=== PATIENT | female | born 1940 | race Caucasian/White ===

== ENCOUNTER 2023-03-26 08:05 | Outpatient (OUT) | payer MEDICARE, SELFPAY ==
--- NOTE | 2023-03-26 | MM_ITS ---
Patient: MARA JACKSON Exam Date: 03/26/2023 : 1940 Gender:F Ordering : DR Lennox Gilman D.O. Admission #: [id number] Family : Order #: [id number] CLICK HERE TO VIEW EXAM RADIOLOGY REPORT PROCEDURE: MM TOMOSYNTHESIS SCREENING BI COMPARISON: MG MAMM SCREEN 3D GHAZALA CAD, 12/18/2020. MG MAMM SCREEN GHAZALA W CAD, 01/24/2018. INDICATIONS: screening mammogram Calculator Name NCI Breast Cancer Risk Assessment Tool 5 Year Breast Cancer Risk 2.00% Lifetime Breast Cancer Risk 2.80% Personal Breast Cancer No Personal Ovarian Cancer No Treatments None Family Cancers Brother with throat cancer at age 73. LOCATION: [facility] BREAST COMPOSITION: Scattered areas fibroglandular density. FINDINGS: DIAGNOSTIC CATEGORY 2--BENIGN FINDING. NO CHANGE FROM COMPARISON. Scattered benign-appearing calcifications are present. Scattered benign-appearing lymph nodes are present. RIGHT BREAST: No significant suspicious finding. LEFT BREAST: No significant suspicious finding. RECOMMENDATIONS: ROUTINE MAMMOGRAM AND CLINICAL EVALUATION IN 12 MONTHS. PLEASE NOTE: A NORMAL MAMMOGRAM DOES NOT EXCLUDE THE POSSIBILITY OF BREAST CANCER. A CLINICALLY SUSPICIOUS PALPABLE LUMP SHOULD BE BIOPSIED. Dictated by: Raciel Mondragon MD on 03/28/2023 at 12:46 Approved by: Raciel Mondragon MD on 03/28/2023 at 12:47
[2023-03-26 08:40] LABS: Basophils Absolute Auto 0.1 10^3/uL (0.0-0.1); Basophils Percent Auto 1.3 % (0.2-2.0); Eosinophils Absolute Auto 0.2 10^3/uL (0.0-0.7); Eosinophils Percent Auto 2.6 % (0.9-7.0); Hematocrit 36.4 % (36.0-48.0); Hemoglobin 10.9 g/dL (12.0-16.0); Immature Granulocytes Abs Auto 0.02 10^3/uL (0.00-0.03); Immature Granulocytes Pct Auto 0.3 % (0.0-0.5); Lymphocytes Absolute Auto 1.5 10^3/uL (1.2-3.8); Lymphocytes Percent Auto 19.7 % (20.5-60.0); Mean Corpuscular HGB Conc 29.9 g/dL (29.9-35.2); Mean Corpuscular Hemoglobin 28.3 pg (26.7-34.0); Mean Corpuscular Volume 94.5 fL (81.0-99.0); Mean Platelet Volume 9.3 fL (9.5-13.5); Monocytes Percent Auto 12.3 % (1.7-12.0); Neutrophils Percent Auto 63.8 % (43.0-75.0); Platelet Count 304 10^3/uL (150-450); Red Blood Count 3.85 10^6/uL (4.20-5.40); Red Cell Distribution Width 13.8 % (11.0-15.0); White Blood Count 7.8 10^3/uL (4.0-11.0)
[2023-03-26 10:15] LABS: Alanine Aminotransferase 17 U/L (14-59); BUN Creatinine Ratio 22.7; Calcium 8.7 mg/dL (8.5-10.1); Carbon Dioxide 20.8 mmol/L (21.0-32.0); Chloride 104 mmol/L (98-107); Chol HDL Ratio 4.7; Cholesterol 183 mg/dL (<=200); Estimated GFR (African America 58 (>=60); Estimated GFR (Non-African Ame 48 (>=60); Glucose 92 mg/dL (74-106); HDL Cholesterol 39 mg/dL (40-60); Potassium 4.8 mmol/L (3.5-5.1); Sodium 137 mmol/L (136-145); Thyroid Stimulating Hormone 3.607 uIU/mL (0.358-3.740); Triglycerides 144 mg/dL (<=150); VLDL CHOLESTEROL 28.8 mg/dL
[2023-03-26 11:11] LABS: Estimated Average Glucose 117 mg/dL; Glycohemoglobin A1C 5.7 % (4.5-6.2)
== END 2023-03-26 08:06 | disposition home or self-care (01) ==
LOC: MAMMO 08:05
PROVIDERS: PCP Internal Medicine; Visit Provider Internal Medicine
DX: Z12.31 Encounter for screening mammogram for malignant neoplasm of breast (principal); Z80.0 Family history of malignant neoplasm of digestive organs; E78.01 Familial hypercholesterolemia; I25.10 Atherosclerotic heart disease of native coronary artery without angina pectoris; R73.01 Impaired fasting glucose; Z79.899 Other long term (current) drug therapy; R53.83 Other fatigue
CPT/HCPCS: 36415; 77063; 77066; 77067; 80048; 80061; 83036; 84443; 84460; 85025; G0279

== ENCOUNTER 2023-05-11 15:53 | Emergency (ER) | payer MEDICARE, SELFPAY ==
[2023-05-11] VITALS (17 sets, daily range): BP systolic 81–108; BP diastolic 52–71; PULSE 84–153; RESP 15–30; TEMP 36.6; O2SAT 95–98; BMI 31.8
--- NOTE | 2023-05-11 16:11 | XR_ITS ---
The [address] [address] Patient Name: MARA JACKSON MRN: [id number] date: 1940 Sex: F Assigned Patient Location: ER Current Patient Location: ER Accession/Order Number: [id number] Exam Date: 05/11/2023 16:20 Report Date: 05/11/2023 16:42 At the request of: TUYET QUILES Procedure: XR chest 1V EXAMINATION: XR chest 1V HISTORY: Pain COMPARISON: Portable chest 07/30/2019 TECHNIQUE: Portable chest FINDINGS: The lung parenchyma is free of consolidation or infiltrate. No pneumothorax or pleural effusion. The cardiac, mediastinal and hilar contours are normal. The visualized osseous structures exhibit no gross abnormality. XR/XR chest 1V IMPRESSION: No acute cardiopulmonary abnormality. Electronically authenticated by: ALLEN HINKLE Date: 05/11/2023 16:42
--- NOTE | 2023-05-11 16:11 | ECG_ITS ---
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
--- NOTE | 2023-05-11 16:14 | ED_ITS ---
HPI - General Adult General Chief complaint: Arrhythmia/Palpitations Stated complaint: BACK PAIN Time Seen by Provider: 05/11/23 15:54 Source: patient Mode of arrival: walk-in Limitations: no limitations History of Present Illness HPI narrative: patient is an 82-year-old female who presents to the emergency department with her son for the evaluation of thoracic/right scapular pain for the last day. 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 She has had no chest pain, shortness of breath. She has had a mild cough with occasional yellow productive sputum. no fevers or vomiting. She does have a history of atrial fibrillation, she is noted to be in atrial fibrillation with RVR at initial interview. She took two aspirin for pain prior to arrival without improvement. Pain is not worse with movement of the arm. She has not had any falls or injuries. No peripheral edema. She states she sees a acquisitions assistant at the [facility]. She does not currently take any medications for atrial fibrillation. She states it has been several years since she had to be admitted for rapid atrial fibrillation. Related Data Home Medications Medication Instructions Recorded Confirmed aspirin 81 mg tablet,delayed 81 mg PO DAILY 05/11/23 05/11/23 release (Adult Low Dose Aspirin) lisinopril 20 mg tablet 20 mg PO DAILY 05/11/23 05/11/23 metoprolol succinate 25 mg 25 mg PO DAILY 05/11/23 05/11/23 tablet,extended release 24 hr Allergies Allergy/AdvReac Type Severity Reaction Status Date / Time folic acid Allergy Severe Verified 05/11/23 16:12 iron Allergy Severe Verified 05/11/23 16:12 Penicillins Allergy Severe Verified 05/11/23 16:12 Review of Systems ROS Constitutional Denies: fever or chills Ears, nose, mouth, and throat Denies: throat pain Cardiovascular Denies: chest pain Respiratory Reports: cough; Denies: shortness of breath Gastrointestinal Denies: abdominal pain, nausea or vomiting Musculoskeletal Reports: back pain Integumentary/Breast Denies: rash Neurological Denies: headache PFSH PFSH Social History Smoking status: Never smoker Exam Narrative Exam Narrative: Gen.: Awake, alert, in no distress Head: Normocephalic, atraumatic ENT: Moist mucous membranes Respiratory: No respiratory distress, lungs clear bilaterally Cardio: irregularly irregular, tachycardic Gastrointestinal: Abdomen is soft, nondistended and nontender to palpation Extremities: Moves extremities equally, no increased pain to the right shoulder or scapula with range of motion at the right arm, no bony tenderness of the right posterior shoulder Psych: Normal mood and affect Neuro: No focal neuro deficit Skin: Warm, dry, intact Constitutional Vital Signs, click to edit/add: Last Vital Signs Temp 98 F 05/11/23 15:58 Pulse 92 H 05/11/23 18:00 Resp 27 H 05/11/23 18:00 BP 108/71 05/11/23 18:00 Pulse Ox 96 05/11/23 18:00 Course Vital Signs Vital signs: Vital Signs Temperature 98 F 05/11/23 15:58 Pulse Rate 140 H 05/11/23 15:58 Respiratory Rate 20 05/11/23 15:58 Blood Pressure 97/54 05/11/23 15:58 Pulse Oximetry 96 05/11/23 15:58 Temperature 98 F 05/11/23 15:58 Pulse Rate 92 H 05/11/23 18:00 Respiratory Rate 27 H 05/11/23 18:00 Blood Pressure 108/71 05/11/23 18:00 Pulse Oximetry 96 05/11/23 18:00 Medical Decision Making MDM Narrative Medical decision making narrative: patient was treated with IV fluids, 10 mg IV Cardizem with improvement of heart rate. Lab studies show elevated BNP, likely consequence of atrial fibrillation with RVR. Troponin is normal and the patient had no complaints of chest pain or shortness of breath in the Emergency Room. After her heart rate improved with Cardizem, she reported that her back pain felt better. EKG #2 atrial fibrillation at a rate of [address] elevation or ectopy. EKG reviewed by attending physician. patient was reevaluated by attending physician, heart rate remains controlled. Patient and family are comfortable with discharge home, patient has no chest pain, shortness of breath or evidence of fluid overload. They will follow closely with her PCP and acquisitions assistant. She is resting comfortably on reevaluat ion. Return to the Emergency Room if symptoms change or worsen Medical Records Medical records reviewed: Yes I reviewed the patient's medical records Lab Data Lab results reviewed: Yes I reviewed the patient's lab results Labs: Lab Results 05/11/23 Range/Units 16:17 WBC 8.2 (4.0-11.0) 10^3/uL RBC 3.62 L (4.20-5.40) 10^6/uL Hgb 10.5 L (12.0-16.0) g/dL Hct 33.2 L (36.0-48.0) % MCV 91.7 (81.0-99.0) fL MCH 29.0 (26.7-34.0) pg MCHC 31.6 (29.9-35.2) g/dL RDW 13.4 (11.0-15.0) % Plt Count 274 (150-450) 10^3/uL MPV 9.5 (9.5-13.5) fL Neut % (Auto) 74.8 (43.0-75.0) % Lymph % (Auto) 8.3 L (20.5-60.0) % [place] % (Auto) 15.1 H (1.7-12.0) % Eos % (Auto) 0.9 (0.9-7.0) % Baso % (Auto) 0.7 (0.2-2.0) % Neut # (Auto) 6.1 (1.4-6.5) 10^3/uL Lymph # (Auto) 0.7 L (1.2-3.8) 10^3/uL [place] # (Auto) 1.2 H (0.3-0.8) 10^3/uL Eos # (Auto) 0.1 (0.0-0.7) 10^3/uL Baso # (Auto) 0.1 (0.0-0.1) 10^3/uL Abs Immat Gran (auto) 0.02 (0.00-0.03) 10^3/uL Imm/Tot Granulo (auto) 0.2 (0.0-0.5) % PT 11.0 (9.0-11.6) sec INR 1.04 APTT 29.7 (22.3-36.2) sec Sodium 134 L (136-145) mmol/L Potassium 4.7 (3.5-5.1) mmol/L Chloride 101 (98-107) mmol/L Carbon Dioxide 21.5 (21.0-32.0) mmol/L Anion Gap 16.2 BUN 29.0 H (7.0-18.0) mg/dL Creatinine 2.03 H (0.55-1.02) mg/dL Est GFR ( Amer) 28 L (>=60) Est GFR (Non-Af Amer) 24 L (>=60) BUN/Creatinine Ratio 14.3 Glucose 129 H (74-106) mg/dL Calcium 8.4 L (8.5-10.1) mg/dL Total Bilirubin 0.4 (0.2-1.0) mg/dL AST 24 (15-37) U/L ALT 23 (14-59) U/L Alkaline Phosphatase 141 H (46-116) U/L Troponin I High Sens 33.7 (4.0-51.3) pg/mL NT-Pro-B Natriuret Pep 5780.0 H* (<=1800.0) pg/mL Total Protein 7.7 (6.4-8.2) g/dL Albumin 3.3 L (3.4-5.0) g/dL Globulin 4.4 g/dL Albumin/Globulin Ratio 0.8 Imaging Data Chest x-ray: Attestation: I have reviewed the pertinent imaging results. Radiologist's impression: Procedure: XR chest 1V EXAMINATION: XR chest 1V HISTORY: Pain COMPARISON: Portable chest 07/30/2019 TECHNIQUE: Portable chest FINDINGS: The lung parenchyma is free of consolidation or infiltrate. No pneumothorax or pleural effusion. The cardiac, mediastinal and hilar contours are normal. The visualized osseous structures exhibit no gross abnormality. IMPRESSION: No acute cardiopulmonary abnormality. Electronically authenticated by: ALLEN HINKLE Date: 05/11/2023 16:42 ECG Data Attestation: I personally reviewed and interpreted this ECG as follows: (atrial fibrillation with RVR at a rate of 124, no acute ST elevation or ectopy. EKG reviewed by attending physician) Discharge Plan Discharge Chief Complaint: Arrhythmia/Palpitations Clinical Impression: Atrial fibrillation with RVR Patient Disposition: Home, Self-Care Time of Disposition Decision: 17:52 Condition: Good Mode of Transportation: Private Vehicle Prescriptions / Home Meds: No Action lisinopril 20 mg tablet 20 mg PO DAILY metoprolol succinate 25 mg tablet extended release 24 hr 25 mg PO DAILY aspirin [Adult Low Dose Aspirin] 81 mg tablet,delayed release (DR/EC) 81 mg PO DAILY Instructions: A-fib (Atrial Fibrillation) (ED) Additional Instructions: Please follow up closely with your doctor or acquisitions assistant Stand Alone Forms: Portal Instructions Referrals: Lennox Gilman DO [Primary Care Provider] - 1 week Discharge Date/Time: 05/11/23 18:07
[2023-05-11] MEDS: 0.9 % SODIUM CHLORIDE 500 ML IV (16:29)
[2023-05-11 16:32] LABS: Basophils Absolute Auto 0.1 10^3/uL (0.0-0.1); Basophils Percent Auto 0.7 % (0.2-2.0); Eosinophils Absolute Auto 0.1 10^3/uL (0.0-0.7); Eosinophils Percent Auto 0.9 % (0.9-7.0); Hematocrit 33.2 % (36.0-48.0); Hemoglobin 10.5 g/dL (12.0-16.0); Immature Granulocytes Abs Auto 0.02 10^3/uL (0.00-0.03); Immature Granulocytes Pct Auto 0.2 % (0.0-0.5); Lymphocytes Absolute Auto 0.7 10^3/uL (1.2-3.8); Lymphocytes Percent Auto 8.3 % (20.5-60.0); Mean Corpuscular HGB Conc 31.6 g/dL (29.9-35.2); Mean Corpuscular Volume 91.7 fL (81.0-99.0); Mean Platelet Volume 9.5 fL (9.5-13.5); Monocytes Absolute Auto 1.2 10^3/uL (0.3-0.8); Monocytes Percent Auto 15.1 % (1.7-12.0); Neutrophils Absolute Auto 6.1 10^3/uL (1.4-6.5); Neutrophils Percent Auto 74.8 % (43.0-75.0); Platelet Count 274 10^3/uL (150-450); Red Blood Count 3.62 10^6/uL (4.20-5.40); Red Cell Distribution Width 13.4 % (11.0-15.0); White Blood Count 8.2 10^3/uL (4.0-11.0)
[2023-05-11 16:53] LABS: INR 1.04; Partial Thromboplastin Time 29.7 sec (22.3-36.2)
[2023-05-11 16:55] LABS: Alanine Aminotransferase 23 U/L (14-59); Albumin Globulin Ratio 0.8; Albumin Level 3.3 g/dL (3.4-5.0); Alkaline Phosphatase 141 U/L (46-116); Anion Gap 16.2; Aspartate Amino Transferase 24 U/L (15-37); BUN Creatinine Ratio 14.3; Bilirubin Total 0.4 mg/dL (0.2-1.0); Calcium 8.4 mg/dL (8.5-10.1); Carbon Dioxide 21.5 mmol/L (21.0-32.0); Chloride 101 mmol/L (98-107); Estimated GFR (African America 28 (>=60); Estimated GFR (Non-African Ame 24 (>=60); Globulin 4.4 g/dL; Glucose 129 mg/dL (74-106); Potassium 4.7 mmol/L (3.5-5.1); Sodium 134 mmol/L (136-145); Total Protein 7.7 g/dL (6.4-8.2); Troponin I High Sensitivity 33.7 pg/mL (4.0-51.3)
[2023-05-11] MEDS: DILTIAZEM HCL 25 MG/5 ML VIAL 10 MG IV (16:56)
--- NOTE | 2023-05-11 17:27 | ECG_ITS ---
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
== END 2023-05-11 18:07 | disposition home or self-care (01) ==
PROVIDERS: Physician Assistant; Emergency Provider Emergency Medicine; PCP Internal Medicine
DX: I48.91 Unspecified atrial fibrillation (principal); Z79.82 Long term (current) use of aspirin
CPT/HCPCS: 36415; 71045; 80053; 83880; 84484; 85025; 85610; 85730; 93005; 96374; 99285

== ENCOUNTER 2023-06-04 09:12 | Outpatient (OUT) | payer MEDICARE, SELFPAY ==
[2023-06-04 10:14] LABS: Basophils Absolute Auto 0.1 10^3/uL (0.0-0.1); Basophils Percent Auto 1.2 % (0.2-2.0); Eosinophils Absolute Auto 0.2 10^3/uL (0.0-0.7); Eosinophils Percent Auto 2.3 % (0.9-7.0); Hemoglobin 10.4 g/dL (12.0-16.0); Immature Granulocytes Abs Auto 0.02 10^3/uL (0.00-0.03); Immature Granulocytes Pct Auto 0.3 % (0.0-0.5); Lymphocytes Absolute Auto 1.8 10^3/uL (1.2-3.8); Lymphocytes Percent Auto 22.6 % (20.5-60.0); Mean Corpuscular HGB Conc 30.6 g/dL (29.9-35.2); Mean Corpuscular Hemoglobin 28.6 pg (26.7-34.0); Mean Corpuscular Volume 93.4 fL (81.0-99.0); Mean Platelet Volume 9.8 fL (9.5-13.5); Monocytes Absolute Auto 1.1 10^3/uL (0.3-0.8); Monocytes Percent Auto 14.1 % (1.7-12.0); Neutrophils Absolute Auto 4.7 10^3/uL (1.4-6.5); Neutrophils Percent Auto 59.5 % (43.0-75.0); Platelet Count 306 10^3/uL (150-450); Red Blood Count 3.64 10^6/uL (4.20-5.40); White Blood Count 7.8 10^3/uL (4.0-11.0)
[2023-06-04 11:36] LABS: Percent Iron Saturation 10.6 %
== END 2023-06-04 09:13 | disposition home or self-care (01) ==
LOC: LAB 09:13
PROVIDERS: PCP Internal Medicine; Visit Provider Internal Medicine
DX: D64.9 Anemia, unspecified (principal)
CPT/HCPCS: 36415; 82607; 82728; 82746; 83540; 83550; 85025

== ENCOUNTER 2023-06-06 19:00 | Emergency (ER) | payer MEDICARE, SELFPAY ==
[2023-06-06] VITALS (9 sets, daily range): BP systolic 87–117; BP diastolic 66–80; PULSE 97–133; RESP 18–25; TEMP 36.7; O2SAT 97–98; BMI 29.1
--- NOTE | 2023-06-06 19:25 | ECG_ITS ---
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
--- NOTE | 2023-06-06 19:25 | XR_ITS ---
The [address] [address] Patient Name: MARA JACKSON MRN: [id number] date: 1940 Sex: F Assigned Patient Location: ER Current Patient Location: ER Accession/Order Number: [id number] Exam Date: 06/06/2023 19:52 Report Date: 06/06/2023 20:18 At the request of: TUYET QUILES Procedure: XR chest 1V EXAMINATION: XR chest 1V HISTORY: A. Fib COMPARISON: Portable chest 05/11/2023 TECHNIQUE: Portable chest FINDINGS: The lung parenchyma is free of consolidation or infiltrate. No pneumothorax or pleural effusion. The cardiac, mediastinal and hilar contours are normal. The visualized osseous structures exhibit no gross abnormality. XR/XR chest 1V IMPRESSION: No acute cardiopulmonary abnormality. Electronically authenticated by: ALLEN HINKLE Date: 06/06/2023 20:18
--- NOTE | 2023-06-06 19:26 | ED.ARRPALP1 ---
HPI - Arrhythmia/Palpitations General Chief Complaint: Arrhythmia/Palpitations Stated Complaint: AFIB Time Seen by Provider: 06/06/23 19:24 Source: patient and family Mode of arrival: walk-in Limitations: no limitations History of Present Illness HPI narrative: Patient is a very pleasant 82-year-old female with a history of A-fib who presents to the ER for feeling lightheaded earlier today while she was at work. She states currently she does not feel lightheaded, she has not had any chest pain, shortness of breath. She is noted to be in rapid A-fib on arrival to the ER. She has a history of A-fib for many years, she is currently on aspirin and Eliquis, she also is on metoprolol daily. She denies any recent illness, fevers, chills, nausea, vomiting. She is smiling, in no distress at time of initial interview and exam. 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 She has not been to [facility] for cardiology evaluation in years. Related Data Home Medications Medication Instructions Recorded Confirmed aspirin 81 mg tablet,delayed 81 mg PO DAILY 05/11/23 06/06/23 release (Adult Low Dose Aspirin) lisinopril 20 mg tablet 20 mg PO DAILY 05/11/23 06/06/23 metoprolol succinate 25 mg 25 mg PO DAILY 05/11/23 06/06/23 tablet,extended release 24 hr apixaban 5 mg tablet (Eliquis) 5 mg PO DAILY 06/06/23 06/06/23 ezetimibe 10 mg tablet 10 mg PO DAILY 06/06/23 06/06/23 Previous Rx's Medication Instructions Recorded metoprolol succinate 25 mg 50 mg (2 x 25 mg) PO DAILY #20 tabs 06/06/23 tablet,extended release 24 hr Allergies Allergy/AdvReac Type Severity Reaction Status Date / Time folic acid Allergy Severe Verified 05/11/23 16:12 iron Allergy Severe Verified 05/11/23 16:12 Penicillins Allergy Severe Verified 05/11/23 16:12 Review of Systems ROS Constitutional Denies: fever or chills Ears, nose, mouth, and throat Denies: throat pain or nasal congestion Respiratory Denies: shortness of breath Gastrointestinal Denies: abdominal pain, nausea or vomiting Genitourinary Denies: painful urination Musculoskeletal Denies: back pain Integumentary/Breast Denies: rash Neurological Reports: headache Hematologic/Lymphatic Denies: easy bruising PFSH PFS Social History Smoking status: Never smoker Exam Narrative Exam Narrative: Gen.: Awake, alert, in no distress Head: Normocephalic, atraumatic ENT: Moist mucous membranes Respiratory: No respiratory distress, lungs clear bilaterally Cardio: Tachycardic, irregular rhythm Gastrointestinal: Abdomen is soft, nondistended and nontender to palpation Extremities: Moves extremities equally, no pedal edema Psych: Normal mood and affect Neuro: No focal neuro deficit Skin: Warm, dry, intact Constitutional Vital Signs, click to edit/add: Last Vital Signs Temp 98.0 F 06/06/23 19:05 Pulse 100 H 06/06/23 21:00 Resp 22 06/06/23 21:00 BP 90/71 06/06/23 21:00 Pulse Ox 97 06/06/23 21:00 O2 Del Method Room Air 06/06/23 19:05 Course Vital Signs Vital signs: Vital Signs Pulse Oximetry 98 06/06/23 19:04 Temperature 98.0 F 06/06/23 19:05 Pulse Rate 100 H 06/06/23 21:00 Respiratory Rate 22 06/06/23 21:00 Blood Pressure 90/71 06/06/23 21:00 Pulse Oximetry 97 06/06/23 21:00 Oxygen Delivery Method Room Air 06/06/23 19:05 MDM - Arrhythmia/Palpitations MDM Narrative Medical decision making narrative: Patient was medicated with 10 mg IV Cardizem and IV fluids, she continues to be in A-fib but is much more rate controlled. She has no focal medical complaints in the ER. Lab studies are unremarkable including troponin and BNP. Chest x-ray is unremarkable as well. Patient would very much like to be discharged home, I contacted Dr. Gilman, her PCP who recommended increasing her metoprolol to 50 mg daily and follow-up closely in the office. Patient is agreeable to this plan, daughter at bedside is also in agreement with this treatment plan. Return to the ER if symptoms change or worsen. Medical Records Attestation: I reviewed the patient's medical records. Lab Data Attestation: I reviewed the patient's lab results. Labs: Lab Results 06/06/23 Range/Units 19:34 WBC 9.9 (4.0-11.0) 10^3/uL RBC 3.69 L (4.20-5.40) 10^6/uL Hgb 10.6 L (12.0-16.0) g/dL Hct 34.1 L (36.0-48.0) % MCV 92.4 (81.0-99.0) fL MCH 28.7 (26.7-34.0) pg MCHC 31.1 (29.9-35.2) g/dL RDW 13.0 (11.0-15.0) % Plt Count 293 (150-450) 10^3/uL MPV 9.4 L (9.5-13.5) fL Neut % (Auto) 60.5 (43.0-75.0) % Lymph % (Auto) 22.6 (20.5-60.0) % [place] % (Auto) 13.3 H (1.7-12.0) % Eos % (Auto) 2.5 (0.9-7.0) % Baso % (Auto) 0.9 (0.2-2.0) % Neut # (Auto) 6.0 (1.4-6.5) 10^3/uL Lymph # (Auto) 2.2 (1.2-3.8) 10^3/uL [place] # (Auto) 1.3 H (0.3-0.8) 10^3/uL Eos # (Auto) 0.3 (0.0-0.7) 10^3/uL Baso # (Auto) 0.1 (0.0-0.1) 10^3/uL Abs Immat Gran (auto) 0.02 (0.00-0.03) 10^3/uL Imm/Tot Granulo (auto) 0.2 (0.0-0.5) % PT 10.8 (9.0-11.6) sec INR 1.02 Sodium 137 (136-145) mmol/L Potassium 4.5 (3.5-5.1) mmol/L Chloride 104 (98-107) mmol/L Carbon Dioxide 23.5 (21.0-32.0) mmol/L Anion Gap 14.0 BUN 21.0 H (7.0-18.0) mg/dL Creatinine 1.35 H (0.55-1.02) mg/dL Est GFR ( Amer) 46 L (>=60) Est GFR (Non-Af Amer) 38 L (>=60) BUN/Creatinine Ratio 15.6 Glucose 102 (74-106) mg/dL Calcium 8.0 L (8.5-10.1) mg/dL Magnesium 2.0 (1.8-2.4) mg/dL Total Bilirubin 0.3 (0.2-1.0) mg/dL AST 18 (15-37) U/L ALT 20 (14-59) U/L Alkaline Phosphatase 147 H (46-116) U/L Troponin I High Sens 16.7 (4.0-51.3) pg/mL NT-Pro-B Natriuret Pep 1556.0 (<=1800.0) pg/mL Total Protein 7.2 (6.4-8.2) g/dL Albumin 3.0 L (3.4-5.0) g/dL Globulin 4.2 g/dL Albumin/Globulin Ratio 0.7 TSH 4.690 H (0.358-3.740) uIU/mL Imaging Data Chest x-ray: Attestation: I have reviewed the pertinent imaging results. Radiologist's impression: Procedure: XR chest 1V EXAMINATION: XR chest 1V HISTORY: A. Fib COMPARISON: Portable chest 05/11/2023 TECHNIQUE: Portable chest FINDINGS: The lung parenchyma is free of consolidation or infiltrate. No pneumothorax or pleural effusion. The cardiac, mediastinal and hilar contours are normal. The visualized osseous structures exhibit no gross abnormality. IMPRESSION: No acute cardiopulmonary abnormality. Electronically authenticated by: ALLEN HINKLE Date: 06/06/2023 20:18 ECG Data Attestation: I personally reviewed and interpreted this ECG as follows: (A-fib with RVR at a rate of 137, no acute ST elevation, no ectopy. EKG reviewed by attending physician) Discharge Plan Discharge Chief Complaint: Arrhythmia/Palpitations Clinical Impression: Atrial fibrillation with RVR Patient Disposition: Home, Self-Care Time of Disposition Decision: 21:07 Condition: Good Prescriptions / Home Meds: New metoprolol succinate 25 mg tablet extended release 24 hr 50 mg PO DAILY Qty: 20 0RF No Action lisinopril 20 mg tablet 20 mg PO DAILY metoprolol succinate 25 mg tablet extended release 24 hr 25 mg PO DAILY aspirin [Adult Low Dose Aspirin] 81 mg tablet,delayed release (DR/EC) 81 mg PO DAILY Eliquis 5 mg tablet 5 mg PO DAILY ezetimibe 10 mg tablet 10 mg PO DAILY Instructions: A-fib (Atrial Fibrillation) (ED) Stand Alone Forms: Portal Instructions Referrals: Lennox Gilman DO [Primary Care Provider] - 1 week Discharge Date/Time: 06/06/23 21:14
[2023-06-06] MEDS: DILTIAZEM HCL 25 MG/5 ML VIAL 10 MG IV (19:41)
[2023-06-06] MEDS: 0.9 % SODIUM CHLORIDE 1,000 ML 250 ML IV (19:41)
[2023-06-06 19:45] LABS: Basophils Absolute Auto 0.1 10^3/uL (0.0-0.1); Basophils Percent Auto 0.9 % (0.2-2.0); Eosinophils Absolute Auto 0.3 10^3/uL (0.0-0.7); Eosinophils Percent Auto 2.5 % (0.9-7.0); Hematocrit 34.1 % (36.0-48.0); Hemoglobin 10.6 g/dL (12.0-16.0); Immature Granulocytes Abs Auto 0.02 10^3/uL (0.00-0.03); Immature Granulocytes Pct Auto 0.2 % (0.0-0.5); Lymphocytes Absolute Auto 2.2 10^3/uL (1.2-3.8); Lymphocytes Percent Auto 22.6 % (20.5-60.0); Mean Corpuscular HGB Conc 31.1 g/dL (29.9-35.2); Mean Corpuscular Hemoglobin 28.7 pg (26.7-34.0); Mean Corpuscular Volume 92.4 fL (81.0-99.0); Mean Platelet Volume 9.4 fL (9.5-13.5); Monocytes Absolute Auto 1.3 10^3/uL (0.3-0.8); Monocytes Percent Auto 13.3 % (1.7-12.0); Neutrophils Percent Auto 60.5 % (43.0-75.0); Platelet Count 293 10^3/uL (150-450); Red Blood Count 3.69 10^6/uL (4.20-5.40); White Blood Count 9.9 10^3/uL (4.0-11.0)
[2023-06-06 19:59] LABS: INR 1.02; Prothrombin Time 10.8 sec (9.0-11.6)
[2023-06-06 20:19] LABS: Alanine Aminotransferase 20 U/L (14-59); Albumin Globulin Ratio 0.7; Alkaline Phosphatase 147 U/L (46-116); Aspartate Amino Transferase 18 U/L (15-37); BUN Creatinine Ratio 15.6; Bilirubin Total 0.3 mg/dL (0.2-1.0); Carbon Dioxide 23.5 mmol/L (21.0-32.0); Chloride 104 mmol/L (98-107); Estimated GFR (African America 46 (>=60); Estimated GFR (Non-African Ame 38 (>=60); Globulin 4.2 g/dL; Glucose 102 mg/dL (74-106); Potassium 4.5 mmol/L (3.5-5.1); Sodium 137 mmol/L (136-145); Total Protein 7.2 g/dL (6.4-8.2); Troponin I High Sensitivity 16.7 pg/mL (4.0-51.3)
== END 2023-06-06 21:14 | disposition home or self-care (01) ==
PROVIDERS: Physician Assistant; Emergency Provider Emergency Medicine; PCP Internal Medicine
DX: I48.91 Unspecified atrial fibrillation (principal); Z79.82 Long term (current) use of aspirin; Z79.01 Long term (current) use of anticoagulants; Z79.899 Other long term (current) drug therapy
CPT/HCPCS: 36415; 71045; 80053; 83735; 83880; 84443; 84484; 85025; 85610; 93005; 96374; 99285

== ENCOUNTER 2023-07-11 13:43 | Outpatient (OUT) | payer MEDICARE, SELFPAY ==
--- OUTSIDE RECORDS SUMMARY | 2023-07-11 13:53 | XMS_ITS | CCD ---
Author Name Unknown Address [address] [place] [address] Organization [facility] Care Team Providers Care Model And Pattern Supervisor Name Role Phone SUSIE POE Unavailable Unavailable ROEL MILES (ACCOUNTS MANAGER) Unavailable SUSIE Driver Unavailable Unavailable SUSIE POE Unavailable Unavailable SSUIE POE Unavailable Unavailable ROEL MILES (ACCOUNTS MANAGER) Unavailable Lennox Alcazar Primary Care Provider Lennox Gilman DO Primary Care Provider [phone] Lennox Gilman DO Primary Care Provider [phone] Lennox Gilman Unavailable LENNOX GILMAN Primary Care Unavailable NESS, MELISSA C Referring Unavailable SUDHAKAR, LENNOX Primary Care Unavailable NESS, MELISSA C Referring Unavailable SUDHAKAR, LENNOX Primary Care Unavailable NESS, MELISSA C Referring Unavailable SUDHAKAR, LENNOX Primary Care Unavailable NESS, MELISSA C Referring Unavailable SUDHAKAR, LENNOX Primary Care Unavailable NESS, MELISSA C Referring Unavailable SUDHAKAR, LENNOX Primary Care Unavailable NESS, MELISSA C Referring Unavailable LENNOX GILMAN Primary Care Unavailable NESS, MELISSA C Referring Unavailable BALL, LENNOX Primary Care Unavailable NESS, MELISSA C Referring Unavailable BALL, LENNOX Primary Care Unavailable NESS, MELISSA C Referring Unavailable BALL, LENNOX Primary Care Unavailable NESS, MELISSA C Referring Unavailable BALL, LENNOX Primary Care Unavailable NESS, MELISSA C Referring Unavailable BALL, LENNOX Primary Care Unavailable NESS, MELISSA C Referring Unavailable BALL, LENNOX Primary Care Unavailable NESS, MELISSA C Referring Unavailable BALL, LENNOX Primary Care Unavailable NESS, MELISSA C Referring Unavailable BALL, LENNOX Primary Care Unavailable NESS, MELISSA C Referring Unavailable BALL, LENNOX Primary Care Unavailable NESS, MELISSA C Referring Unavailable BALL, LENNOX Primary Care Unavailable NESS, MELISSA C Referring Unavailable BALL, LENNOX Primary Care Unavailable NESS, MELISSA C Referring Unavailable BALL, LENNOX Primary Care Unavailable NESS, MELISSA C Referring Unavailable BALL, LENNOX Primary Care Unavailable NESS, MELISSA C Referring Unavailable BALL, LENNOX Primary Care Unavailable NESS, MELISSA C Referring Unavailable BALL, LENNOX Primary Care Unavailable NESS, MELISSA C Referring Unavailable BALL, LENNOX Primary Care Unavailable NESS, MELISSA C Referring Unavailable BALL, LENNOX Primary Care Unavailable NESS, MELISSA C Referring Unavailable BALL, LENNOX Primary Care Unavailable NESS, MELISSA C Referring Unavailable BALL, DR CUBA Primary Care Unavailable JENNY ., CORNELIA Admitting Unavailable JENNY ., CORNELIA Attending Unavailable SULEMA, DR CAT Collado Consulting Unavailable ERICA, CARLA Consulting Unavailable JENNY ., CORNELIA Consulting Unavailable SUDHAKAR, DR CUBA Primary Care Unavailable OSWALD, KINZA Gu Admitting Unavailable OSWALD, KINZA Gu Attending Unavailable Zieber, Melissa Consulting Unavailable KINZA AKERS Consulting Unavailable BALL, DR CUBA Admitting Unavailable BALL, DR CUBA Attending Unavailable BALL, DR CUBA Primary Care Unavailable BALL, DR CUBA Consulting Unavailable BALL, DR CUBA Admitting Unavailable BALL, DR CUBA Attending Unavailable BALL, DR CUBA Primary Care Unavailable BALL, DR CUBA Consulting Unavailable BALL, DR CUBA Admitting Unavailable BALL, DR CUBA Attending Unavailable BALL, DR CUBA Primary Care Unavailable BALL, DR CUBA Consulting Unavailable Allergies Allergy Classification Reported Allergen(s) Allergy Type Date of Onset Reaction(s) Facility (20 sources) Folic Acid; Translations: [FOLIC ACID] Drug Allergy 11-10-19 18 AOF, Unknown [facility] Repository (2 sources) Penicillin; Translations: [PENICILLIN] Drug Allergy 11-10-19 [facility] Repository (18 sources) Alendronate Drug Allergy Unknown [facility] Other (18 sources) Substance with penicillin structure and antibacterial mechanism of action (substance) Drug allergy Unknown [facility] Other (18 sources) PCV 13 Propensity to adverse reactions Unknown [facility] Other (1 source) ferrous sulfate Drug Allergy [facility] Repository (11 sources) Pneumococcal 7-Arcelia Conj Vacc Drug allergy Comment:PCV 13 [facility] Other (11 sources) Pneumococcal 13-Arcelia Conj Vacc Drug allergy Unknown [facility] Other (8 sources) HMG-CoA reductase inhibitor Drug allergy Unknown [facility] Other Medications Current Medications Medication Drug Class(es) Dates Sig (Normalized) Sig (Original) apixaban 5 mg oral tablet (6 sources) Factor Xa Inhibitor take 1 tablet by mouth every twelve hours Eliquis 5 MG 1 tablet Orally twice a day for 90 days Active aspirin 81 mg chewable tablet (18 sources) Platelet Aggregation Inhibitor, Nonsteroidal Anti-inflammatory Drug take 1 tablet by mouth every twenty-four hours Aspirin 81 81 MG 1 tablet Orally Once a day Active take 1 tablet by mouth once roula y Aspirin 81 81 MG 1 tablet Orally Once a day Active ezetimibe 10 mg oral tablet (8 sources) Dietary Cholesterol Absorption Inhibitor Start: 03-31-2023 take 1 tablet by mouth every twenty-four hours Ezetimibe 10 MG 1 tablet Orally Once a day Mar, Active folic acid 1 mg oral tablet (4 sources) Start: 06-05-2023 take 1 tablet by mouth every twenty-four hours Folic Acid 1 MG 1 tablet Orally Once a day May, Active lisinopril 20 mg oral tablet (18 sources) Angiotensin Converting Enzyme Inhibitor take 1 tablet by mouth every twenty-four hours Lisinopril 20 MG 1 tablet Orally Once a day Active 24 hr metoprolol succinate 25 mg extended release oral tablet (18 sources) beta-Adrenergic Gonzalo take 1 tablet by mouth twice daily Metoprolol Succinate ER 25 MG 1 tablet Orally twice daily for 90 days Active Metoprolol Succi ileana ER 50 MG TAKE ONE TABLET BY MOUTH DAILY Orally Once a day for 30 days Active take 1 tablet by mouth once roula y Metoprolol Succinate ER 25 MG TAKE ONE TABLET BY MOUTH DAILY Active paxlovid (150/100) 10 x 150 mg & 10 x 100mg tablet therapy pack (2 sources) Start: 05-13-2023 Paxlovid (150/ 100) 10 x 150 MG & 10 x 100MG as directed Orally bid for 5 days Apr, Active polysaccharide iron complex 150 mg oral capsule (18 sources) take 1 capsule by mouth three times weekly Ferrex 150 150 MG 1 capsule Orally Three times a Week Active Suprep Bowel Prep Kit 17.5-3.13-1.6 GM/180ML (18 sources) Start: 12-23-2017 Start: 12-23-2017 Suprep Bowel P rep Kit 17.5-3.13-1.6 GM/180ML 1 bottleat 5pm and 11pm Orally Twice a day for 1 day(s) Nov, Not-Taking/PRN Start: 12-23-2017 Suprep Bowel P rep Kit 17.5-3.13-1.6 GM/180ML 1 bottleat 5pm and 11pm Orally Twice a day for 1 day(s) Nov, Not-Taking {10 (nirmatrelvir 150 MG Ora l Tablet) / 10 (ritonavir 100 MG Oral Tablet) } Pack [Paxlovid 150 MG /100 MG Dose Pack] (3 sources) Start: 05-13-2023 Paxlovid (150/ 100) 10 x 150 MG & 10 x 100MG as directed Orally bid for 5 days Apr, Active Problems Active Problems Problem Classification Problem Date Documented Da te Episodic/Chronic Acute myocardial infarction (5 sources) Acute non-ST segment elevation myocardial infarction; Translations: [Non-ST elevation (NSTEMI) myocardial infarction] Onset: 07-22-2015 Chronic Cardiac dysrhythmias (20 sources) Paroxysmal atrial fibrillation; Translations: [Paroxysmal atrial fibrillation] Onset: 10-18-2022 Chronic Cardiac dysrhythmias (3 sources) Palpitations; Translations: [PALPITATIONS] Onset: 10-18-2022 Episodic Chronic kidney disease (2 sources) Chronic kidney disease stage 3B ; Translations: [Stage 3b chronic kidney disease] Chronic Conditions associated with dizziness or vertigo (20 sources) Benign paroxysmal positional vertigo; Translations: [Benign paroxysmal vertigo, right ear] Onset: 02-09-2017 Episodic Coronary atherosclerosis and other heart disease (20 sources) Coronary arteriosclerosis; Translations: [Atherosclerotic heart disease of samish coronary artery without angina pectoris] Onset: 07-22-2015 Chronic Deficiency and other anemia (20 sources) Anemia; Translations: [Anemia, unspecified] Episodic Deficiency and other anemia (6 sources) Anemia, unspecified; Translations: [ANEMIA UNSPECIFIED] Onset: 02-11-2022 Episodic Deficiency and other anemia (7 sources) Iron deficiency anemia; Translations: [Iron deficiency anemia, unspecified] Onset: 05-18-2017 Episodic Deficiency and other anemia (1 source) Dietary folate deficiency anemia Episodic Deficiency and other anemia (1 source) Other folate deficiency anemias Episodic Deficiency and other anemia (1 source) Other iron deficiency anemias Episodic Diabetes mellitus with complications (5 sources) Hyperglycemia due to type 2 diabetes mellitus; Translations: [Type 2 diabetes mellitus with hyperglycemia] Chronic Diabetes mellitus without complication (20 sources) Impaired fasting glycemia; Translations: [Impaired fasting glucose] Onset: 10-18-2022 Episodic Disorders of lipid metabolism (20 sources) Pure hypercholesterolemia ; Translations: [Familial hypercholesterolemia ] Onset: 08-08-2015 Chronic Essential hypertension (20 sources) Essential hypertension; Translations: [Essential (primary) hypertension] Onset: 10-13-2022 Chronic Fracture of lower limb (4 sources) Closed fracture proximal tibia, bicondylar ; Translations: [Displaced bicondylar fracture of right tibia, subsequent encounter for closed fracture with routine healing] Onset: 06-24-2022 Episodic Malaise and fatigue (3 sources) Other fatigue; Translations: [OTHER FATIGUE] Onset: 10-18-2022 Episodic Menopausal disorders (10 sources) Postmenopausal bleeding; Translations: [Postmenopausal bleeding] Onset: 12-01-2016 Chronic Nutritional deficiencies (5 sources) Vitamin D deficiency; Translations: [Vitamin D deficiency, unspecified] Onset: 09-19-2018 Chronic Osteoarthritis (5 sources) Osteoarthritis; Translations: [Polyosteoarthritis, unspecified] Chronic Other aftercare (18 sources) H/O: high risk medication; Translations: [Other intermediate card tender (current) drug therapy] Episodic Other aftercare (2 sources) Other intermediate card tender (current) drug therapy; Translations: [OTH ALF CURRENT DRUG THERAPY] Onset: 03-15-2022 Episodic Other aftercare (5 sources) History and physical examination, follow-up; Translations: [Encounter for follow-up examination after completed treatment for conditions other than malignant neoplasm] Episodic Other aftercare (5 sources) Long-term current use of drug therapy; Translations: [Other intermediate card tender (current) drug therapy] Episodic Other bone disease and musculoskeletal deformities (5 sources) Bone density finding; Translations: [Other specified disorders of bone density and structure, unspecified site] Episodic Other injuries and conditions due to external causes (5 sources) History of fall; Translations: [History of falling] Episodic Other nutritional; endocrine; and metabolic disorders (5 sources) Obesity; Translations: [Obesity, unspecified] Chronic Other nutritional; endocrine; and metabolic disorders (5 sources) Simple obesity ; Translations: [Other obesity due to excess calories] Chronic Other screening for suspected conditions (not mental disorders or infectious disease) (1 source) Encounter for screening mammogram for malignant neoplasm of breast Episodic Prolapse of female genital organs (10 sources) Incomplete uterovaginal prolapse; Translations: [Incomplete uterovaginal prolapse] Onset: 12-01-2016 Resolved: 02-24-2017 Chronic Residual codes; unclassified (5 sources) Postprocedural state finding; Translations: [Other specified postprocedural states] Episodic Urinary tract infections (20 sources) Acute cystitis; Translations: [Acute cystitis without hematuria] Resolved: 10-14-2020 Episodic Past or Other Problems Problem Classification Problem Date Documented Date Episodic/Chronic Acute posthemorrhagic anemia (5 sources) Acute posthemorrhagic anemia; Translations: [Acute posthemorrhagic anemia] Onset: 05-18-2017 Episodic Allergic reactions (5 sources) Idiopathic urticaria; Translations: [Idiopathic urticaria] Onset: 03-04-2017 Episodic Chronic kidney disease (1 source) Chronic kidney disease E Codes: Adverse effects of medical drugs (5 sources) Adverse effect of iron and its compounds, initial encounter; Translations: [Adverse effect of iron and its compounds, initial encounter] Onset: 02-24-2017 Episodic E Codes: Fall (1 source) Unspecified fall, initial encounter; Translations: [UNSPECIFIED FALL INITIAL ENCOUNTER] Onset: 04-13-2022 Episodic Fracture of lower limb (1 source) Displaced bicondylar fracture of left tibia, initial encounter for closed fracture; Translations: [DSPL BICONDYLAR FX LT TIB INIT FARRAH] Onset: 04-13-2022 Episodic Inflammation; infection of eye (except that caused by tuberculosis or sexually transmitteddisease) (5 sources) Acute conjunctivitis; Translations: [Unspecified acute conjunctivitis, unspecified eye] Onset: 05-28-2015 Episodic Other aftercare (1 source) half-way (current) use of aspirin; Translations: [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 USE OF ASPIRIN] Onset: 03-15-2022 Episodic Other nervous system disorders (5 sources) Skin sensation disturbance; Translations: [Other disturbances of skin sensation] Onset: 09-19-2018 Episodic Other nervous system disorders (5 sources) Hyperesthesia; Translations: [Hyperesthesia] Onset: 09-19-2018 Episodic Other non-traumatic joint disorders (3 sources) Pain in right knee; Translations: [PAIN IN RIGHT KNEE] Onset: 04-11-2022 Episodic Other nutritional; endocrine; and metabolic disorders (5 sources) Body mass index 25-29 - overweight; Translations: [Body mass index (BMI) 29.0-29.9, adult] Onset: 08-08-2015 Episodic Other nutritional; endocrine; and metabolic disorders (5 sources) Overweight; Translations: [Overweight] Onset: 08-08-2015 Episodic Other upper respiratory infections (5 sources) Acute maxillary sinusitis; Translations: [Acute maxillary sinusitis, unspecified] Onset: 08-17-2016 Episodic Leela-; endo-; and myocarditis; cardiomyopathy (except that caused by tuberculosis or sexually transmitted disease) (1 source) Isolated myocarditis; Translations: [Isolated myocarditis] Onset: 11-09-2017 Episodic Viral infection (2 sources) COVID-19 Results Test Name Value Interpretation Reference Range Facility CBC AUTO DIFFon 10-13-2022 BASO # 0.1 103/ul Normal 0.0-0.1 [facility] Comment on above: Performed By: #### C BC #### [facility] [address] [place] [address] Dr. Rip Pace Basophils/100 WBC (Bld) 1.6 % Normal 0.2-2.0 [facility] Comment on above: Performed By: #### C BC #### [facility] [address] [place] [address] Dr. Rip Pace EO # 0.2 103/ul Normal 0.0-0.7 [facility] Comment on above: Performed By: #### C BC #### [facility] [address] [place] [address] Dr. Rip Pace Eosinophils/100 WBC (Bld) 2.5 % Normal 0.9-7.0 [facility] Comment on above: Performed By: #### C BC #### [facility] [address] [place] [address] Dr. Rip Pace Erythrocyte distribution width (RBC) [Ratio] 13.3 % Normal 11.0-15.0 [facility] Comment on above: Performed By: #### C BC #### [facility] [address] [place] [address] Dr. Rip Pace Hematocrit (Bld) [Volume fraction] 39.4 % Normal 36.0-48.0 [facility] Comment on above: Performed By: #### C BC #### [facility] [address] [place] [address] Dr. Rip Pace Hemoglobin (Bld) [Mass/Vol] 12.2 g/dL Normal 12.0-16.0 [facility] Comment on above: Performed By: #### C BC #### [facility] [address] [place] [address] Dr. Rip Pace IG # 0.01 10e3/ul Normal 0.00-0.03 [facility] Comment on above: Performed By: #### C BC #### [facility] [address] [place] [address] Dr. Rip Pace IG % 0.1 % Normal 0.0-0.5 [facility] Comment on above: Performed By: #### C BC #### [facility] [address] [place] [address] Dr. Rip Pace LYMPH # 1.8 103/ul Normal 1.2-3.8 [facility] Comment on above: Performed By: #### C BC #### [facility] [address] [place] [address] Dr. Rip Pace Lymphocytes/100 WBC (Bld) 23.5 % Normal 20.5-60.0 [facility] Comment on above: Performed By: #### C BC #### [facility] [address] [place] [address] Dr. Rip Pace MANUAL DIFF REQ NO Normal [facility] Comment on above: Performed By: #### C BC #### [facility] [address] [place] [address] Dr. Rip Pace MCH (RBC) [Entitic mass] 28.9 pg Normal 26.7-34.0 [facility] Comment on above: Performed By: #### C BC #### [facility] [address] [place] [address] Dr. Rip Pace MCHC (RBC) [Mass/Vol] 31.0 g/dL Normal 29.9-35.2 [facility] Comment on above: Performed By: #### C BC #### [facility] [address] [address] [address] Rip Pace MCV (RBC) [Entitic vol] 93.4 fL Normal 81.0-99.0 [facility] Comment on above: Performed By: #### C BC #### [facility] [address] [place] [address] Dr. Rip Pace MONO # 0.9 103/ul Critically high 0.3-0.8 [facility] Comment on above: Performed By: #### C BC #### [facility] [address] [place] [address] Dr. Rip Pace Monocytes/100 WBC (Bld) 11.9 % Normal 1.7-12.0 [facility] Comment on above: Performed By: #### C BC #### [facility] [address] [place] [address] Dr. Rip Pace NEUT # 4.7 103/ul Normal 1.4-6.5 [facility] Comment on above: Performed By: #### C BC #### [facility] [address] [place] [address] Dr. Rip Pace Neutrophils/100 WBC (Bld) 60.4 % Normal 43.0-75.0 [facility] Comment on above: Performed By: #### C BC #### [facility] [address] [place] [address] Dr. Rip Pace Platelet mean volume (Bld) [Entitic vol] 9.2 fL Critically low 9.5-13.5 [facility] Comment on above: Performed By: #### C BC #### [facility] [address] [place] [address] Dr. Rip Pace PLT 322 103/ul Normal 150-450 [facility] Comment on above: Performed By: #### C BC #### [facility] [address] [place] [address] Dr. Rip Pace RBC 4.22 106/ul Normal 4.20-5.40 [facility] Comment on above: Performed By: #### C BC #### [facility] [address] [place], [place] [address] Dr. Rip Pace WBC 7.7 103/ul Normal 4.0-11.0 [facility] Comment on above: Performed By: #### C BC #### [facility] [address] [place], [place] [address] Dr. Rip Pace ECHOCARDIO M/2D COMPLETEon 0 10-13-2022 ECHOCARDIO M/2D COMPLETE Patient: JANNIE LEE Exam Date: 10/13/2022 : 1940 Gender:F Ordering : DR LENNOX GILMAN D.O. Admission #: [id number] Family : Order #: [id number] CLICK HERE TO VIEW EXAM ECHOCARDIOGRAM REPORT PROCEDURE: CARDIO PULMONARY ECHOCARDIO M/2D COMP INDICATIONS: Arteriosclerotic heart disease, MN, hypertension, h/o atrial fibrillation COMPARISON: None. DESCRIPTION: COMPLETE ECHOCARDIOGRAM Real-time transthoracic echocardiography with 2D, M-mode, spectral and color flow Doppler performed. QUALITY: Technical quality was good. LEFT VENTRICLE: Normal chamber size. Normal left ventricular wall thickness. Systolic function is normal. LV EF: Normal left ventricular ejection fraction, (>55%). DIASTOLIC: Diastolic function is indeterminate. ATRIAL SEPTUM: LEFT ATRIUM: Normal chamber size. RIGHT ATRIUM: Normal chamber size. RIGHT VENTRICLE: Normal chamber size. Normal right ventricular systolic function. TRICUSPID VALVE: Normal mobility and thickness. No stenosis with no regurgitation. MITRAL VALVE: Normal mobility and thickness. No evidence of mitral valve stenosis. Mild mitral annular calcification. Trivial mitral regurgitation. AORTIC VALVE: Normal trileaflet appearance. No visible sclerosis. Normal leaflet mobility. No evidence of aortic valve stenosis. No aortic regurgitation. AORTIC ROOT: Normal diameter and appearance. PULMONIC VALVE: Not well visualized. No stenosis. No regurgitation. PERICARDIUM: No evidence of pericardial effusion. IVC: Not well visualized. PLEURA: CONCLUSION: 1. Normal ventricular function. LVEF is 55-60%. 2. No significant valvular dysfunction. 3. No pericardial effusion. Adult Echocardiography Procedure Report Left Ventricle LVEDD (3.7 - 5.6 cm): 4.12 cm LVESD (2.2 - 4.0 cm): 2.84 cm LVIVS thickness (0.6 - 1.2 cm): 0.91 cm LVPW thickness (0.5 - 1.0 cm): 0.85 cm e': 0.07 m/s E - e': 9.32 LVOT Max Gradient: 2.87 mm[Hg] Peak Velocity (LVOT): 0.85 m/s Mean Velocity (LVOT): 0.60 m/s LVOT Diameter 2.07 cm Left Ventricular Ejection Fraction: 55-60 % Left Atrium LA Volume Index (2D A2C): 58.82 ml, 58.82 ml Left Atrium Systolic Dimension: 4.22 cm Mitral Valve MV E to A Ratio: 0.74 Mitral Valve A-Wave Peak Velocity: 0.94 m/s Mitral Valve E-Wave Peak Velocity: 0.70 m/s Right Ventricle Aorta AO Root Diam: 2.89 cm Aortic Valve AoV Area (Peak Andrea): 2.43 cm2, 2.43 cm2 AoV Area (VTI): 2.21 cm2, 2.21 cm2 Peak Velocity(Antegrade Flow): 1.17 m/s Peak Gradient(Antegrade Flow): 5.48 mm[Hg] Mean Velocity(Antegrade Flow): 0.84 m/s Mean Gradient(Antegrade Flow): 3.16 mm[Hg] Velocity Time Integral: 26.81 cm Tricuspid Valve Peak Velocity: 0.46 m/s Pulmonic Valve Peak Velocity: 0.67 m/s Peak Gradient: 1.77 mm[Hg] Right Atrium Right Atrium Systolic Pressure: 44.77 ml, 44.77 ml Dictated by: Mingo Tai M.D. on 10/13/2022 at 16:37 Approved by: Mingo Tai M.D. on 10/13/2022 at 16:41 Normal [facility] GLYCOHEMOGLOBIN A1Con 2022 ADA RECOMMENDATION SEE BELOW Normal [facility] Comment on above: Result Comment: ADA RECOMMENDED LIMIT 4.0 - 6.0 ADA THERAPEUTIC TARGET < 7.0 ACTION SUGGESTED > 7.0 Performed By: #### A 1C ####[facility] [id number] [address]Dr. Rip Pace Glucose [Mass/Vol] 108 mg/dL Normal [facility] Comment on above: Performed By: #### A 1C ####[facility] [id number] [address]Dr. Rip Pace HbA1c (Bld) [Mass fraction] 5.4 % Normal 4.5-6.2 [facility] Comment on above: Performed By: #### A 1C ####[facility] [id number] [address]Dr. Rip Pace PROF CHEM 8 (BAS METB)on Anion gap [Moles/Vol] 13.9 mmol/L Normal [facility] Comment on above: Performed By: #### B ANTHONY, TSH #### [facility] [address] [address] [address] Rip Pace Calcium [Mass/Vol] 9.0 mg/dL Normal 8.5-10.1 [facility] Comment on above: Performed By: #### B ANTHONY, TSH #### [facility] [address] [address] [address] Rip Pace Chloride [Moles/Vol] 105 mmol/L Normal 98-107 [facility] Comment on above: Performed By: #### B ANTHONY, TSH #### [facility] [address] [address] [address] Rip Pace CO2 [Moles/Vol] 25.3 mmol/L Normal 21.0-32.0 [facility] Comment on above: Performed By: #### B ANTHONY, TSH #### [facility] [address] [address] [address] Rip Pace Creatinine [Mass/Vol] 1.19 mg/dL Critically high 0.55-1.02 [facility] Comment on above: Performed By: #### B ANTHONY, TSH #### [facility] [address] [address] [address] Rip Pace EGFR-AF PUERTO RICAN 53 mL/min/1.73m2 Critically low >=60 [facility] Comment on above: Performed By: #### B ANTHONY, TSH #### [facility] [address] [address] [address] Rip Pace EGFR-NON AF PUERTO RICAN 44 mL/min/1.73m2 Critically low >=60 [facility] Comment on above: Performed By: #### B MP, TSH #### [facility] [address] [address] [address] Rip Pace Glucose [Mass/Vol] 82 mg/dL Normal 74-106 [facility] Comment on above: Performed By: #### B MP, TSH #### [facility] [address] [address] [address] Rip Pace Potassium [Moles/Vol] 5.2 mmol/L Critically high 3.5-5.1 [facility] Comment on above: Performed By: #### B ANTHONY, TSH #### [facility] [address] [address] [address] Rip Pace Sodium [Moles/Vol] 139 mmol/L Normal 136-145 [facility] Comment on above: Performed By: #### B ANTHONY, TSH #### [facility] [address] [address] [address] Rip Pace Urea nitrogen [Mass/Vol] 22.0 mg/dL Critically high 7.0-18.0 [facility] Comment on above: Performed By: #### B ANTHONY, TSH #### [facility] [address] [address] [address] Rip Pace Urea nitrogen/Creatini ne [Mass ratio] 18.5 mg/mg Normal [facility] Comment on above: Performed By: #### B ANTHONY, TSH #### [facility] [address] [address] [address] Rip Pace TSHon 10-13-2022 TSH 5.369 uIU/mL Critically high 0.358-3.740 [facility] Comment on above: Performed By: #### B ANTHONY, TSH #### [facility] [address] [address] KNEE RT WO CONon 04-11-20 CT KNEE RT WO CON EXAMINATION: CT KNEE RT WO CON HISTORY: PAIN IN RIGHT KNEE COMPARISON: None. TECHNIQUE: Multiplanar CT images of the right knee without contrast. Dose reduction techniques were achieved by using automated exposure control and/or adjustment of mA and/or kV according to patient size and/or use of iterative reconstruction technique. FINDINGS: Acute intra-articular nondisplaced fracture of the lateral tibial plateau involving the posterior and peripheral aspect of the lateral tibial plateau with a few millimeter of depression of the posterior-mesial aspect of the lateral tibial plateau articular surface. Osteopenia. No additional acute fractures seen. No dislocation. Small suprapatellar effusion with layering lipohemarthrosis. Mild-moderate tricompartmental osteoarthritis, worst in the patellofemoral compartment. IMPRESSION: 1. Acute intra-articular nondisplaced fracture of the lateral tibial plateau demonstrating focal depression of the articular surface as described above. 2. Small suprapatellar effusion with layering lipohemarthrosis. 3. Osteopenia. Electronically authenticated by: CARLA MALDONADO Date: 2022-04-11 19:22 Normal [facility] CBC AUTO DIFFon 03-06-2022 BASO # 0.1 103/ul Normal 0.0-0.1 [facility] Comment on above: Performed By: #### C BC ####[facility] [address] [address]Dr. Rip Pace Basophils/100 WBC (Bld) 1.5 % Normal 0.2-2.0 [facility] Comment on above: Performed By: #### C BC ####[facility] [address] [address]Dr. Rip Pace EO # 0.2 103/ul Normal 0.0-0.7 [facility] Comment on above: Performed By: #### C BC ####[facility] [address] [address]Dr. Rip Pace Eosinophils/100 WBC (Bld) 2.8 % Normal 0.9-7.0 [facility] Comment on above: Performed By: #### C BC ####[facility] [address] [address]Dr. Rip Pace Erythrocyte distribution width (RBC) [Ratio] 13.0 % Normal 11.0-15.0 [facility] Comment on above: Performed By: #### C BC ####[facility] [address] [address]DrAnthony Rip Pace Hematocrit (Bld) [Volume fraction] 35.5 % Critically low 36.0-48.0 [facility] Comment on above: Performed By: #### C BC ####[facility] [address] [address]DrAnthony Pace Hemoglobin (Bld) [Mass/Vol] 11.1 g/dL Critically low 12.0-16.0 [facility] Comment on above: Performed By: #### C BC ####[facility] [address] [place], [place] [address]DrAnthony Pace IG # 0.02 10e3/ul Normal 0.00-0.03 [facility] Comment on above: Performed By: #### C BC ####[facility] Swe[address] [place], [place] [address]DrAnthony Pace IG % 0.3 % Normal 0.0-0.5 [facility] Comment on above: Performed By: #### C BC ####[facility] [address] [place], [place] [address]DrAnthony Pace LYMPH # 1.3 103/ul Normal 1.2-3.8 [facility] Comment on above: Performed By: #### C BC ####[facility] [address] [place], [place] [address]DrAnthony Pace Lymphocytes/100 WBC (Bld) 20.4 % Critically low 20.5-60.0 [facility] Comment on above: Performed By: #### C BC ####[facility] [address] [place], [place] [address]DrAnthony Pace MANUAL DIFF REQ NO Normal [facility] Comment on above: Performed By: #### C BC ####[facility] R[address] [place], [place] [address]DrAnthony Pace MCH (RBC) [Entitic mass] 29.0 pg Normal 26.7-34.0 [facility] Comment on above: Performed By: #### C BC ####[facility] [address] [id number]. Rip Pace MCHC (RBC) [Mass/Vol] 31.3 g/dL Normal 29.9-35.2 [facility] Comment on above: Performed By: #### C BC ####[facility] [address] [phone] Rip Sanjeev MCV (RBC) [Entitic vol] 92.7 fL Normal 81.0-99.0 [facility] Comment on above: Performed By: #### C BC ####[facility] [address] [phone] Pace MONO # 0.9 103/ul Critically high 0.3-0.8 [facility] Comment on above: Performed By: #### C BC ####[facility] [address] [address]DrAnthony Pace Monocytes/100 WBC (Bld) 13.9 % Critically high 1.7-12.0 [facility] Comment on above: Performed By: #### C BC ####[facility] [address] [place], [place] [id number] Rip Sanjeev NEUT # 4.0 103/ul Normal 1.4-6.5 [facility] Comment on above: Performed By: #### C BC ####[facility] [address] [phone] Pace Neutrophils/100 WBC (Bld) 61.1 % Normal 43.0-75.0 [facility] Comment on above: Performed By: #### C BC ####[facility] T[address] [place], [place] [id number] Pattersoncamila Sanjeev Platelet mean volume (Bld) [Entitic vol] 9.4 fL Critically low 9.5-13.5 [facility] Comment on above: Performed By: #### C BC ####[facility] [address] [phone] Pace PLT 251 103/ul Normal 150-450 [facility] Comment on above: Performed By: #### C BC ####[facility] [address]qu[address] [place], [place] [address]Jn. Rip Pace RBC 3.83 106/ul Critically low 4.20-5.40 [facility] Comment on above: Performed By: #### C BC ####[facility] E[address]mlanced[address] [place], [place] [address]Ck. Rip Pace WBC 6.5 103/ul Normal 4.0-11.0 [facility] Comment on above: Performed By: #### C BC ####[facility] D[address]mpjg[address] [place], [place] [address] HEAD WO CONon 03-06-2022 CT HEAD WO CON EXAMINATION: CT HEAD WO CON HISTORY: BENIGN PAROXYSMAL VERTIGO, UNSPECIFIED EAR ; acute dizziness, lightheaded COMPARISON: CT head 02/05/2017 TECHNIQUE: Axial CT images were obtained without IV contrast. Dose reduction techniques were achieved by using automated exposure control and/or adjustment of mA and/or kV according to patient size and/or use of iterative reconstruction technique. FINDINGS: BRAIN: No edema, hemorrhage, mass, acute infarction, or inappropriate atrophy. CSF SPACES: No hydrocephalus, subarachnoid hemorrhage, or mass. Appropriate for age. SKULL: No fracture, mass, or other significant visible lesion. SINUSES: No significant mucosal thickening or fluid on the limited views. ORBITS: No appreciable abnormality on the limited views. OTHER: Negative IMPRESSION: 1. No acute or suspicious findings to account for patient's symptoms. 2. Age consistent mild atrophy. Electronically authenticated by: MELISSA MURPHY Date: 2022-03-06 09:25 Normal [facility] PROF CHEM 8 (BAS METB)on Anion gap [Moles/Vol] 15.3 mmol/L Normal [facility] Comment on above: Performed By: #### B MP ####[facility] [address] [phone]. Rip Pace Calcium [Mass/Vol] 8.5 mg/dL Normal 8.5-10.1 [facility] Comment on above: Performed By: #### B MP ####[facility] [address] [address]Dr. Rip Pace Chloride [Moles/Vol] 106 mmol/L Normal 98-107 [facility] Comment on above: Performed By: #### B MP ####[facility] Ilsubj[address]an[address] [place], [place] [address]Dr. Rip Pace CO2 [Moles/Vol] 22.7 mmol/L Normal 21.0-32.0 [facility] Comment on above: Performed By: #### B MP ####[facility] Dulq[address] [place], [place] [address]Dr. Rip Pace Creatinine [Mass/Vol] 1.16 mg/dL Critically high 0.55-1.02 [facility] Comment on above: Performed By: #### B MP ####[facility] Vky[address]sp[address] [place], [place] [address]Dr. Yeseniacamila Sanjeev EGFR-AF PUERTO RICAN 54 mL/min/1.73m2 Critically low >=60 [facility] Comment on above: Performed By: #### B MP ####[facility] Ayafotrie[address] [place], [place] [address]Dr. Rip Pace EGFR-NON AF PUERTO RICAN 45 mL/min/1.73m2 Critically low >=60 [facility] Comment on above: Performed By: #### B MP ####[facility] [address] [place], [place] [address]Dr. Rip Pace Glucose [Mass/Vol] 106 mg/dL Normal 74-106 [facility] Comment on above: Performed By: #### B MP ####[facility] F[address] [place], [place] [address]Dr. Rip Pace Potassium [Moles/Vol] 5.0 mmol/L Normal 3.5-5.1 [facility] Comment on above: Performed By: #### B MP ####[facility] [address] [place], [place] [address]Dr. Yeseniacamila Pace Sodium [Moles/Vol] 139 mmol/L Normal 136-145 [facility] Comment on above: Performed By: #### B MP ####[facility] [address]ju[address] [place], [place] [address]Dr. Rip Pace Urea nitrogen [Mass/Vol] 26.0 mg/dL Critically high 7.0-18.0 [facility] Comment on above: Performed By: #### B MP ####[facility] [address] [phone]. Rip Pace Urea nitrogen/Creatini ne [Mass ratio] 22.4 mg/mg Normal [facility] Comment on above: Performed By: #### B MP ####[facility] [address] [phone]. Rip Pace CBC AUTO DIFFon 02-11-2022 BASO # 0.1 103/ul Normal 0.0-0.1 [facility] Comment on above: Performed By: #### C BC #### [facility] [address] [address] [address] Rip Pace Basophils/100 WBC (Bld) 1.0 % Normal 0.2-2.0 [facility] Comment on above: Performed By: #### C BC #### [facility] [address] [address] [address] Rip Pace EO # 0.2 103/ul Normal 0.0-0.7 [facility] Comment on above: Performed By: #### C BC #### [facility] [address] [address] [address] Rip Pace Eosinophils/100 WBC (Bld) 2.4 % Normal 0.9-7.0 [facility] Comment on above: Performed By: #### C BC #### [facility] [address] [address] [address] Rip Pace Erythrocyte distribution width (RBC) [Ratio] 12.8 % Normal 11.0-15.0 [facility] Comment on above: Performed By: #### C BC #### [facility] [address] [address] [address] Rip Pace Hematocrit (Bld) [Volume fraction] 34.8 % Critically low 36.0-48.0 [facility] Comment on above: Performed By: #### C BC #### [facility] [address] [place] [address] Dr. Rip Pace Hemoglobin (Bld) [Mass/Vol] 10.7 g/dL Critically low 12.0-16.0 [facility] Comment on above: Performed By: #### C BC #### [facility] [address] [place] [address] Dr. Rip Pace IG # 0.03 10e3/ul Normal 0.00-0.03 [facility] Comment on above: Performed By: #### C BC #### [facility] [address] [place] [address] Dr. Rip Pace IG % 0.3 % Normal 0.0-0.5 [facility] Comment on above: Performed By: #### C BC #### [facility] [address] [place] [address] Dr. Rip Pace LYMPH # 1.8 103/ul Normal 1.2-3.8 [facility] Comment on above: Performed By: #### C BC #### [facility] [address] [place] [address] Dr. Rip Pace Lymphocytes/100 WBC (Bld) 21.3 % Normal 20.5-60.0 [facility] Comment on above: Performed By: #### C BC #### [facility] [address] [place] [address] Dr. Rip Pace MANUAL DIFF REQ NO Normal [facility] Comment on above: Performed By: #### C BC #### [facility] [address] [place] [address] Dr. Rip Pace MCH (RBC) [Entitic mass] 28.7 pg Normal 26.7-34.0 [facility] Comment on above: Performed By: #### C BC #### [facility] [address] [place] [address] Dr. Rip Pace MCHC (RBC) [Mass/Vol] 30.7 g/dL Normal 29.9-35.2 [facility] Comment on above: Performed By: #### C BC #### [facility] [address] [place] [address] Dr. Rip Pace MCV (RBC) [Entitic vol] 93.3 fL Normal 81.0-99.0 [facility] Comment on above: Performed By: #### C BC #### [facility] [address] [place] [address] Dr. Rip Pace MONO # 1.2 103/ul Critically high 0.3-0.8 [facility] Comment on above: Performed By: #### C BC #### [facility] [address] [place] [address] Dr. Rip Pace Monocytes/100 WBC (Bld) 13.4 % Critically high 1.7-12.0 [facility] Comment on above: Performed By: #### C BC #### [facility] [address] [place] [address] Dr. Rip Pace NEUT # 5.3 103/ul Normal 1.4-6.5 [facility] Comment on above: Performed By: #### C BC #### [facility] [address] [place] [address] Dr. Rip Pace Neutrophils/100 WBC (Bld) 61.6 % Normal 43.0-75.0 [facility] Comment on above: Performed By: #### C BC #### [facility] [address] [place] [address] Dr. Rip Pace Platelet mean volume (Bld) [Entitic vol] 9.9 fL Normal 9.5-13.5 [facility] Comment on above: Performed By: #### C BC #### [facility] [address] [place] [address] Dr. Rip Pace PLT 268 103/ul Normal 150-450 [facility] Comment on above: Performed By: #### C BC #### [facility] [address] [place] [address] Dr. Rip Pace RBC 3.73 106/ul Critically low 4.20-5.40 [facility] Comment on above: Performed By: #### C BC #### [facility] [address] [place] [address] Dr. Rip Pace WBC 8.6 103/ul Normal 4.0-11.0 [facility] Comment on above: Performed By: #### C BC #### [facility] [address] [place] [address] Dr. Rip Pace FERRITINon 02-11-2022 Ferritin [Mass/Vol] 32.0 ng/mL Normal 8.0-252.0 [facility] Comment on above: Performed By: #### F ERR, B12FOL, FETIBC #### [facility] [address] [place] [address] Dr. Rip Pace IRON AND TIBCon 02-11-2022 % SATURATION 9.5 % Normal [facility] Comment on above: Performed By: #### F ERR, B12FOL, FETIBC #### [facility] [address] [place] [address] Dr. Rip Pace Iron [Mass/Vol] 31.0 ug/dL Critically low 50.0-170.0 [facility] Comment on above: Performed By: #### F ERR, B12FOL, FETIBC #### [facility] [address] [place] [address] Dr. Rip Pace TIBC DIRECT 325.0 ug/dL Normal 250.0-450.0 [facility] Comment on above: Performed By: #### F ERR, B12FOL, FETIBC #### [facility] [address] [place] [address] Dr. Rip Pace VIT B12 AND FOLATEon 022 Cobalamin (Vitamin B12) [Mass/Vol] 404.0 pg/mL Normal 193.0-986.0 [facility] Comment on above: Performed By: #### F ERR, B12FOL, FETIBC #### [facility] [address] [place] [address] Dr. Rip Pace FOLATE 4.60 ng/mL Critically low 8.60-58.90 [facility] Comment on above: Performed By: #### F ERR, B12FOL, FETIBC #### [facility] [address] [place] [address] Dr. Rip Pace CBC AUTO DIFFon 10-27-2021 BASO # 0.1 103/ul Normal 0.0-0.1 [facility] Comment on above: Performed By: #### C BC ####[facility] [address] [place], [place] [address]Dr. Rip Pace Basophils/100 WBC (Bld) 1.2 % Normal 0.2-2.0 [facility] Comment on above: Performed By: #### C BC ####[facility] [address]ms[address] [place], [place] [address]Dr. Rip Pace EO # 0.2 103/ul Normal 0.0-0.7 [facility] Comment on above: Performed By: #### C BC ####[facility] Wi[address]xip[address] [place], [place] [address]Dr. Rip Pace Eosinophils/100 WBC (Bld) 2.5 % Normal 0.9-7.0 [facility] Comment on above: Performed By: #### C BC ####[facility] [address]xd[address]vi[address] [place], [place] [address]Dr. Rip Pace Erythrocyte distribution width (RBC) [Ratio] 13.3 % Normal 11.0-15.0 [facility] Comment on above: Performed By: #### C BC ####[facility] [address]zr[address] [place], [place] [address]Dr. Rip Pace Hematocrit (Bld) [Volume fraction] 35.5 % Critically low 36.0-48.0 [facility] Comment on above: Performed By: #### C BC ####[facility] [address]fqjoy[address] [place], [place] [address]Dr. Rip Pace Hemoglobin (Bld) [Mass/Vol] 10.7 g/dL Critically low 12.0-16.0 [facility] Comment on above: Performed By: #### C BC ####[facility] [address] [place], [place] [address]Dr. Rip Pace IG # 0.02 10e3/ul Normal 0.00-0.03 [facility] Comment on above: Performed By: #### C BC ####[facility] [address] [address]Dr. Rip Pace IG % 0.2 % Normal 0.0-0.5 [facility] Comment on above: Performed By: #### C BC ####[facility] [address] [place], [place] [address]DrAnthony Pace LYMPH # 2.0 103/ul Normal 1.2-3.8 [facility] Comment on above: Performed By: #### C BC ####[facility] [address] [place], [place] [address]DrAnthony Pace Lymphocytes/100 WBC (Bld) 23.4 % Normal 20.5-60.0 [facility] Comment on above: Performed By: #### C BC ####[facility] [address] [place], [place] [address]DrAnthony Pace MANUAL DIFF REQ NO Normal [facility] Comment on above: Performed By: #### C BC ####[facility] [address] [address]DrAnthony Yeseniacamila Pace MCH (RBC) [Entitic mass] 28.5 pg Normal 26.7-34.0 [facility] Comment on above: Performed By: #### C BC ####[facility] [address] [place], [place] [address]DrAnthony Rip Sanjeev MCHC (RBC) [Mass/Vol] 30.1 g/dL Normal 29.9-35.2 [facility] Comment on above: Performed By: #### C BC ####[facility] [address] [place], [place] [address]DrAnthony Pace MCV (RBC) [Entitic vol] 94.4 fL Normal 81.0-99.0 [facility] Comment on above: Performed By: #### C BC ####[facility] [address]axsg[address] [place], [place] [address]DrAnthony Pace MONO # 0.9 103/ul Critically high 0.3-0.8 [facility] Comment on above: Performed By: #### C BC ####[facility] [address] [place], [place] [address]Dr. Rip Pace Monocytes/100 WBC (Bld) 10.1 % Normal 1.7-12.0 [facility] Comment on above: Performed By: #### C BC ####[facility] [address] [address]Dr. Rip Pace NEUT # 5.4 103/ul Normal 1.4-6.5 [facility] Comment on above: Performed By: #### C BC ####[facility] [address] [address]Dr. Rip Pace Neutrophils/100 WBC (Bld) 62.6 % Normal 43.0-75.0 [facility] Comment on above: Performed By: #### C BC ####[facility] [address] [address]Dr. Rip Pace Platelet mean volume (Bld) [Entitic vol] 9.3 fL Critically low 9.5-13.5 [facility] Comment on above: Performed By: #### C BC ####[facility] [address] [address]Dr. Rip Pace PLT 264 103/ul Normal 150-450 [facility] Comment on above: Performed By: #### C BC ####[facility] [address] [address]Dr. Rip Pace RBC 3.76 106/ul Critically low 4.20-5.40 [facility] Comment on above: Performed By: #### C BC ####[facility] [address] [address]Dr. Rip Pace WBC 8.7 103/ul Normal 4.0-11.0 [facility] Comment on above: Performed By: #### C BC ####[facility] [address] [address]Dr. Rip Pace GLYCOHEMOGLOBIN A1Con 2021 ADA RECOMMENDATION SEE BELOW Normal [facility] Comment on above: Result Comment: ADA RECOMMENDED LIMIT 4.0 - 6.0 ADA THERAPEUTIC TARGET < 7.0 ACTION SUGGESTED > 7.0 Performed By: #### A 1C #### [facility] [address] [address] [address] Rip Pace Glucose [Mass/Vol] 117 mg/dL Normal [facility] Comment on above: Performed By: #### A 1C #### [facility] [address] [address] [address] Rip Pace HbA1c (Bld) [Mass fraction] 5.7 % Normal 4.5-6.2 [facility] Comment on above: Performed By: #### A 1C #### [facility] [address] [address] [address] Rip Pace LIPID PROFILEon 10-27-2021 CHOL-HDL RATIO NORM SEE BELOW Normal [facility] Comment on above: Result Comment: 3.3 - 4.4 LOW RISK 4.4 - 7.1 AVERAGE RISK 7.1 - 11.0 MODERATE RISK >11.0 HIGH RISK Performed By: #### L IPID, BMP ####[facility] [address] [phone] Pace Cholesterol [Mass/Vol] 170 mg/dL Normal <=200 [facility] Comment on above: Performed By: #### L IPID, BMP ####[facility] [address] [id number]. Rip Pace Cholesterol in HDL [Mass/Vol] 37 mg/dL Critically low 40-60 [facility] Comment on above: Performed By: #### L IPID, BMP ####[facility] [address] [phone]. Rip Pace Cholesterol in LDL [Mass/Vol] 109.0 mg/dL Normal [facility] Comment on above: Performed By: #### L IPID, BMP ####[facility] [address] [phone]. Rip Pace Cholesterol.total /Cholesterol in HDL [Mass ratio] 4.6 {ratio} Normal [facility] Comment on above: Performed By: #### L IPID, BMP ####[facility] [address] [phone]. Rip Pace HDL NORMAL > or = 60 mg/dl - LO W CARDIOVASCULAR RISK <40 mg/dl - HIGH CARDIOVASCULAR RISK Normal [facility] Comment on above: Performed By: #### L IPID, BMP ####[facility] [address] [address]Dr. Rip Pace LDL CALC NORMAL SEE BELOW Normal [facility] Comment on above: Result Comment: <100 mg/dl OPTIMAL 100 - 129 mg/dl NEAR OR ABOVE OPTIMAL 130 - 159 mg/dl BORDERLINE HIGH 160 - 189 mg/dl HIGH >190 mg/dl VERY HIGH Performed By: #### L IPID, BMP ####[facility] [address] [address]Dr. Rip Pace Triglyceride [Mass/Vol] 120 mg/dL Normal <=150 [facility] Comment on above: Performed By: #### L IPID, BMP ####[facility] [address] [place], [place] [address]Dr. Rip Pace VLDL CALC 24.0 mg/dL Normal [facility] Comment on above: Performed By: #### L IPID, BMP ####[facility] [address] [place], [place] [address]Dr. Rip Pace PROF CHEM 8 (BAS METB)on Anion gap [Moles/Vol] 7.3 mmol/L Normal [facility] Comment on above: Performed By: #### L IPID, BMP ####[facility] [address]ks[address] [place], [place] [address]Dr. Rip Pace Calcium [Mass/Vol] 7.9 mg/dL Critically low 8.5-10.1 [facility] Comment on above: Performed By: #### L IPID, BMP ####[facility] [address] [place] [address]Dr. Rip Pace Chloride [Moles/Vol] 105 mmol/L Normal 98-107 [facility] Comment on above: Performed By: #### L IPID, BMP ####[facility] [address] [place], [place] [address]Dr. Rip Pace CO2 [Moles/Vol] 25.5 mmol/L Normal 21.0-32.0 [facility] Comment on above: Performed By: #### L IPID, BMP ####[facility] [address] [place] [address]Dr. Yeseniacamila Sanjeev Creatinine [Mass/Vol] 1.18 mg/dL Critically high 0.55-1.02 [facility] Comment on above: Performed By: #### L IPID, BMP ####[facility] [address] [place] [address]Dr. Rip Pace EGFR-AF PUERTO RICAN 53 mL/min/1.73m2 Critically low >=60 [facility] Comment on above: Performed By: #### L IPID, BMP ####[facility] E[address] [place], [place] [address]Dr. Rip Pace EGFR-NON AF PUERTO RICAN 44 mL/min/1.73m2 Critically low >=60 [facility] Comment on above: Performed By: #### L IPID, BMP ####[facility] [address] [place], [place] [address]Dr. Rip Pace Glucose [Mass/Vol] 112 mg/dL Critically high 74-106 [facility] Comment on above: Performed By: #### L IPID, BMP ####[facility] [address] [place], [place] [address]Dr. Rip Pace Potassium [Moles/Vol] 4.8 mmol/L Normal 3.5-5.1 [facility] Comment on above: Performed By: #### L IPID, BMP ####[facility] [address] [place], [place] [address]Dr. Rip Pace Sodium [Moles/Vol] 133 mmol/L Critically low 136-145 [facility] Comment on above: Performed By: #### L IPID, BMP ####[facility] [address] [place], [place] [address]Dr. Rip Pace Urea nitrogen [Mass/Vol] 25.0 mg/dL Critically high 7.0-18.0 [facility] Comment on above: Performed By: #### L IPID, BMP ####[facility] [address] [place], [place] [address]Dr. Rip Pace Urea nitrogen/Creatini ne [Mass ratio] 21.2 mg/mg Normal [facility] Comment on above: Performed By: #### L IPID, [facility] ####[facility] [address] [place], [place] [address]Lr. Rip Pace Vitamin D 25 Hydroxyon 03-16 Vit D, 25-Hydroxy 41.1 ng/mL 30 - 100 ng/mL [place], [place] Comment on above: Reference Range: Vitamin D status Range Deficiency <20 ng/mL Mild Deficiency 20-30 ng/mL Sufficiency 30-100 ng/mL Toxicity >100 ng/mL CNOVon 04-11-2018 CNOV Office Visit (ALIYA P) MANUELLIBERTADBenigno Ashby ([id number]) [address] [facility] Time Provider Qxgviyppri11/16/18 2:00 PM SUSIE POE During your visit today, we recorded the following information about you: Pulse Blood pressure Weight Height 74/minute 131/68 78.5 kg 1.575 Angy Poe MD 04/11/2018 2:45 PM [facility] InstituteRobtsaile [facility] and Rain Perez Department of Cardiovascular MedicineSECTION OF PREVENTIVE CARDIOLOGYOUTPATIENT VISIT DATEApril 11, 2018OUTPATIENT VISIT TYPEESTPRIMARY CARE PHYSICIAN:Lennox Gilman MD ([facility])[address] [place] [address]Qxkwv: [phone]: [phone] COMPLAINT:routine followup for myocarditis/Takotsubo cardiomyopathy, CADHISTORY OF PRESENT ILLNESS:Ms. Lee is a 77 year old female who presents today for followup, last seen10/2017.History includes hospitalization 07/07-07/16/2015 after fall,myocarditis/Takotsubo cardiomyopathy. Pt initially presented with fall?syncope; elevated cardiac enzymes CK 302/MB 24, Danay 1.050 to local ED, and wasreferred to [facility] [place] for ?NSTEMI. Evaluation revealed myocardialpattern more consistent with Takotsubo cardiomyopathy vs myocarditis; howevershe was also found to have concurrent CAD, LMT disease. She was dischargedhome with followup to assess need for revasculariization. 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 See NSTEMI for [facility] results 07/09 Cardiac MRI with mid segment ballooning,delayed enhancement concerning for myocarditis. Inflammatory/infectious workup largely wnl, ELISSA by IFA pending MIGUEL 07/14 with EF 30% and smallcircumferential pericardial effusion, largest anteriorly PLAN: - afterloadreduction with captopril 6.25 q 8 hours - ASA - atorvastatin 80 qHS- HTN (hypertension) Patient with history of HTN PLAN: Continue captopril- Lip laceration 06/2015- Myocarditis (HCC) 06/2015- Paroxysmal atrial fibrillation (HCC) 06/2015 Patient experienced episode of atrial fibrillation overnight 07/08-07/09 and07/09-07/10 Converted to NSR with amiodarone Heparin gtt discontinued 07/14 (no RAclot on MIGUEL) PLAN: Continue metoprolol 25 every 8 hours Continue AmiodaronePAST SURGICAL HISTORYProcedure Laterality Date- NONESOCIAL HISTORYSocial HistorySubstance Use Topics- Smoking status: Never Smoker- Smokeless tobacco: Never Used- Alcohol use NoFAMILY HISTORYProblem Relation Age of Onset- Cancer Mother age 68 cancer- other (Renal [Other]) Father age 82 renal failureALLERGIES:ALLERGIESAller gen Reactions- Folic Acid Other: See Comments Causes itching- Penicillin Rash causes a rashMEDICATIONS:lisinopril (ZESTRIL, PRINIVIL) 20 mg tablet Take 1 tablet by mouth once daily.aspirin 81 mg chewable tablet Take 1 tablet by mouth once daily.atorvastatin (LIPITOR) 80 mg tablet Take 1 tablet by mouth once daily.metoprolol succinate ER (TOPROL XL) 25 mg 24 hr tablet Take 1 tablet by mouthonce daily.nitroglycerin sublingual (NITROQUICK) 0.4 mg SL tablet Dissolve 1 tablet underthe tongue every 5 minutes as needed for Chest Pain.REVIEW OF SYSTEMS: positives appear in bolddenies fevers, chills, heat/cold intolerance, cough, abdominal pain, change inbowel movements, extremity weakness or numbnessI personally interviewed, confirmed and edited the above information ifobtained by others.PHYSICAL EXAMINATION:BP 131/68 (BP Site: Left Arm, BP Position: Sitting, BP Cuff Size: Large Adult) Pulse 74 Ht 157.5 cm (5' 2 ) Wt 78.5 kg (173 lb) BMI 31.64 kg/m?Gen: pleasant WF in good spirits, NARDHEENT: PERRL, conj pink, OP benignneck: 2+ carotids, no bruits, JVP 7chest: CTA BCV: RRR normal S1, S2abd: soft, NTND, normal BS'sext: tr ankle nonpitting edema; 2+ DP/PT pulsesneuro: alert, oriented X 3; normal gaitComponent Latest Ref Rng AND Units 07/08/2015 03/25/2016 09/27/2016 07/27/2017Triglyceride mg/dL 71 104 103 100Cholesterol, Total mg/dL 151 117 146 169HDL Cholesterol mg/dL 41 (L) 25 32 34VLDL Cholesterol 6 - 40 mg/dL 14LDL Cholesterol mg/dL 96 72.0 93 115Fasting Time hrs UnknownTC:HDL Ratio 1.00 - 5.00 3.68LDL:HDL Ratio 0.50 - 3.55 2.34Non HDL Cholesterol 90 - 159 mg/dL 110Cholesterol/HDL Ratio 5.0Component Latest Ref Rng AND Units 03/25/2016 09/27/2016 07/27/2017Glucose mg/dL 96 90 89BUN mg/dL 22.0 24 23Creatinine 1.5 mg/dL 0.85 0.76 0.74BUN/CREATININE RATIO 31Calcium mg/dL 8.4 8.8 8.5Sodium mmol/L 140 137 138Potassium mmol/L 4.7 5.1 4.8Chloride mmol/L 105 100 102CO2 mmol/L 25.0 23Anion Gap mmol/L 15.8 13 13Alkaline Phosphatase U/L 127 144ALT U/L 43 14 13AST U/L 36 20 18Bilirubin, Total mg/dL 0.30Protein, Total g//dL 7.3 7.4 7.4Albumin g/dL 3.9 3.9 3.8ALBUMIN/GLOBULIN RATIO 1.1eFGR NON AM mL/min/1.73 >60eGFR AM mL/min/1.73 >60Bili Total mg/dL 0.6 0.44GLOBULIN g/dL 3.5eGFR If NonAfrican Am mL/min >60 >60eGFR mL/min >60 >60ALP - Intl 38 - 126 U/L 106Carbon Dioxide mmol/L 24Creatine Kinase U/L 78 126NT Pro BNP pg/mL 366.0 227CK U/L 163Hemoglobin (g/dL)Date Value07/14/2015 11.1 Hematocrit (%)Date Value07/14/2015 34.3 WBC (k/uL)Date Value07/14/2015 10.39 Platelet CountDate Value Ref Range Hivckw3607/14/2015 283 150 - 400 k/uL Final Component CK MB CK MB % Troponin TLatest Ref Rng 30 - 220 U/L 0.0 - 8.8 ng/mL 0.0 - 4.0 % 0.000 - 0.029 ng/mL07/07/2015 4:20 PM 302 (H) 24.3 (H) 8.0 (H) 1.040 (H)07/07/2015 9:15 PM 311 (H) 21.6 (H) 6.9 (H) 1.050 (H)07/08/2015 282 (H) 18.6 (H) 6.6 (H) 0.758 (H)07/11/2015 104 3.9 3.8 0.254 (H)CARDIOVASCULAR MEDICINE TESTING:exercise nuclear stress test April 11, 2018 --1. SPECT Perfusion Study: Normal.?2. There is no scintigraphic evidence for inducible ischemia.?3. No evidence of scarred myocardium.?4. Average functional capacity for age and gender.?5. Left ventricle is normal in size. The left ventricle systolicfunction is normal.?6. Right ventricle is normal in size. The right ventricle systolicfunction is normal.?7. This is a low risk scan.?Gated Stress FBP?LVEF % 751. THE TEST WAS TERMINATED DUE TO GENERAL FATIGUE.? 2. ADEQUATE HEART RATE RESPONSE OF ?95% ?PREDICTED MAXIMAL HEART RATE,ABNORMAL HEART RATE RECOVERY @ 1 MINUTE POST-EXERCISE. ?INCREASED RISK,NORMAL CHRONOTROPIC RESPONSE INDEX (>0.62 ON BETA- GONZALO).? 3. FUNCTIONAL CAPACITY IS ESTIMATED AT ?6.5 METS, STAGE ?3 ?HARLEY 10.0%PROTOCOL. MAXIMAL RATE PRESSURE PRODUCT IS ?[address]772, ?AVERAGE FUNCTIONALCAPACITY FOR AGE AND GENDER.? 4. NORMAL BLOOD PRESSURE RESPONSE TO STRESS, RESTING HYPERTENSION.? 5. T WAVE CHANGES DURING STRESS.? 6. NORMAL VEGA TREADMILL SCORE (>/=5).? 7. ANGINA WAS NOT PROVOKED BY STRESS.? 8. UNIFOCAL PVC'S DURING THE TEST, PAC'S DURING THE TEST, NONSUSTAINEDSUPRAVENTRICULAR TACHYCARDIA AFTER STRESS.? 9. THE PREVIOUS TEST IS NOT AVAILABLE FOR COMPARISON.CONCLUSION:? ABNORMAL DUE TO: LOW HEART RATE RECOVERY.ADDITIONAL COMMENTS:? BIPHASIC T WAVE CHANGES DURING STRESS?5 BEAT RUN OF NSSVT DURING 5TH MINUTE OF RECOVERY, PT. ASYMPTOMATIC.echo 09/2016--CONCLUSIONS:- Exam indication: Routine surveillance (greater than 1yr) of knowncardiomyopathy?without a change in clinical status- The left ventricle is normal in size. Left ventricular systolic function isnormal. EF = 61 ? 5% (2D biplane) Normal left ventricular diastolic function.- The right ventricle is normal in size. Right ventricular systolic function isnormal.- Trivial to 1+ mitral regurgitation.- Trivial tricuspid regurgitation.- Exam was compared with the prior CC echocardiographic exam performed on09/24/2015. No significant change.echo September 24, 2015--CONCLUSIONS:- Exam indication: CHF- The left ventricle is normal in size. Left ventricular systolic function isnormal. EF = 60 ? 5% (2D biplane) Definity contrast used for endocardial borderdetection. Baseline left ventricular diastolic function is consistent withabnormal relaxation (stage 1).- The right ventricle is normal in size. Right ventricular systolic function isnormal.- Trivial MR and TR.- Estimated right ventricular systolic pressure is 49 mmHg consistent with mildpulmonary hypertension. Estimated right atrial pressure is 5 mmHg.- Compared with the prior CC echocardiographic exam performed on 07/07/15.Significant interval improvement in global and regional LV systolic function.TheTR is less severe. The estimated RVSP is less.MIGUEL 07/14/2015--CONCLUSIONS:- Exam indication: Right atrial mass- The left ventricle is normal in size. Left ventricular systolic function ismoderately decreased. EF = 30 ? 5% (visual est.)- The right ventricle is normal in size. Right ventricular systolic function islow normal.- There is no evidence of echodensity involving the tricuspid valve.- There is no patent foramen ovale as detected by Doppler and saline contrast.- There is a prominent ridge at the RA/ICV junction likely a karlie terminalis.This likely represents RA structure noted on surface echo. It is moreprominent,mobile and slightly more nodular than usually seen. 3D reconstructiondemonstratesthe ridge appearance making this more likely to be a normal varient. If thereisclinical concern interval imaging may be performed.- There is a small circumferential pericardial effusion, largest anteriorly.- Compared with the prior CC TTE performed on 07/07/15, RA is better visualizedonthis MIGUEL. Pericardial effusion larger on this study.stress PET 07/14/2015--CONCLUSIONS:1. Positron Emission tomography: Abnormal scan.2. There is moderate (10-20%) ischemia in the territory of the LCX.3. There is mild (<10%) ischemia in the territory of the LAD.4. Left ventricle is normal in size. the left ventricle systolicfunction is normal.5. Rest LVEF is 50 %. The Stress LVEF is 51 %.6. Right ventricle is moderately dilated The right ventricle systolicfunction is moderately decreased.7. Functional capacity N/A (pharmacological).8. This is an intermediate risk scan.cardiac MRI 07/10/2015--IMPRESSION:* The left ventricle is normal in size and shape, and has severelydecreased systolic function (LVEF = 31%). There is ballooning andhypokinesis of the mid segments, with sparing of the basal and apicalsegments.* Delayed-enhancement imaging reveals discrete mid myocardialenhancement in the mid inferolateral wall. No mural or apical leftventricular thrombus is identified. The constellation of findings aremore in favor of myocarditis over Takotsubo cardiomyopathy.* The right ventricle is normal in size and shape, and has mildlydecreased systolic function (RVEF = 48%).* No significant valvular abnormalities.* No right atrial mass is identified on this study. However, dedicatedright atrial images were not acquired. If further evaluation for apossible right atrial mass is required, recommend MIGUEL.[facility] 07/10/2015--DIAGNOSTIC BRBOFQW82 year old female with HTN admitted with NSTEMI and newly diagnosed EF 20% andafibFindings:LM- There is a 50-60% focal narrowing involving the bifurcationLAD- There is an ectatic segment following the origin of the vessel, and unntsd93-75% narrowing in the proximal segment of Diag1.LCx- Non-dominant. There is an 80% focal narrowing just after the origin of thevessel. OM1 has a 90% focal narrowing in the proximal segment of the vessel.OM2and OM3 are without significant narrowing.RCA- Dominant. There is mild diffuse narrowing in the mid segment. There is a30-40% focal narrowing in the posterolateral branch.Left ventriculogram obtained from GARCIA projection demonstrating basal and midanterior and inferior hypokinesis. Ejection fraction approximately 30%.LV 120/20, Ao 120/66Impression:-Moderate narrowing of the distal left main extending into the bifurcation oftheLAD and LCx. Severe narrowings in the proximal LCx and OM1. Moderate narrowinginthe proximal 1st Diagonal branch. Consider CABG.-Left ventriculogram with basal and mid anterior and inferior hypokinesis.Ejection fraction approximately 30%.-No gradient across aortic valve-LVEDP 20echo 07/07/2015--CONCLUSIONS:- Technically difficult exam due to body habitus and suboptimal positioning.- Exam indication: Syncope- The left ventricle is normal in size. Left ventricular systolic function isseverely decreased. EF = 20 ? 5% (visual est.) Definity contrast used forendocardial border detection. Baseline left ventricular diastolic function isconsistent with abnormal relaxation (stage 1).- The right ventricle is normal in size. Right ventricular systolic function islow normal.- There is moderate (2+) tricuspid valve regurgitation. There is a mobileechodensity on the TV, seen best clips 55, 106- Estimated right ventricular systolic pressure is 64 mmHg consistent withmoderate pulmonary hypertension. Estimated right atrial pressure is 5 mmHg.- This RA mass measures 1 cm x 1 cm or more and appears to be attached to thelateral wall of the RA. Its relationship to the TV or the IVC/SVC could not beestablished.- This looks like stress-induced CM.- I called Dr. Susie Poe to let her know these findings promptly.- The patient has not had a prior CC echocardiographic exam for comparison.AMBULATORY PATIENT EDUCATIONTopic: Coronary Artery Disease/MN and Cardiomyopathy Hyperlipidemia,Hypertension, Exercise and NutritionInstruction Provided To: PatientBarriers: NoneMotivation to Learn: InterestedMethods of Instruction: Verbal instruction and/or handouts.Patient Leans Best By: Multiple MethodsPatient Verbalized: UnderstandingIMPRESSION:1. 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 08/2015 echo resolved appearance ofcardiomyopathy. 09/2016 echo LVEF 61%, tr-1+ MR03/2018 LVEF 75% on nuclear stress2. echo LVEF 20% with basal and apical hyperkinesis, mid akinesis pattern; ?Takotsubo (2015)--08/2015 LVEF 60%. 09/2016 LVEF 61%3. ?RA mass 1 x 1 cm (echo 06/2015)--not seen on cardiac MRI or MIGUEL, likelyprominent karlie terminalis4. CAD LHC --LMT 50-60% distal, LAD 50% prox, Cx 80% ostial, OM1 99%, RCA 30%distal (07/09/2015)03/2018 exercise nuclear stress negative for ischemia @ 6.5 METs, 95% MPHR,no symptoms03/2018 no recent or past symptoms of chest pain, functional limitations5. paroxysmal AF/RVR, self-terminated (06/2015)--on amiodarone. 08/2015 nofurther known episodes of AF. 09/2015 amiodarone d/c'ed. 01/2017 post-op AFfollowing hysterectomy, converted with IV medication, no further knownrecurrencences03/2018 no recent known AF6. hypertension--prior to 06/2015 only on benazapril. 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 In the past, Dr. Barber suggested CTS evaluation for ostial Cxlesion (also seen to be ischemic on PET), however pt previously deferred due tolack of symptoms; exercise nuclear stress test today negative for ischemia @6.5 METs without symptoms, average FC. Pt did stop Lipitor 80 qday in past fewmonths due to knee pain.PLAN AND RECOMMENDATIONS:1. continue current medication regimen2. importance of statin therapy, goal LDL < 70 reviewed; recommended ptre-trial Lipitor in 40 mg or 20 mg dose; or try alternate statin3. encouraged low fat diet, exercise4. RTC 1 yr routine followupCHINMAY Reedepartment of Cardiovascular MedicineReferring Provider: ROEL MILES ([facility]) [[id number]]Allergies As of Date: 04/11/2018 Noted Allergy ReactionFOLIC ACID 11/09/2017 14 - Other: See Comments Comments: Causes itchingPENICILLIN 11/09/2017 2 - Rash Comments: causes a rashDate Reviewed: 04/11/2018Reviewed by: Keegan Jane Ma - Fully AssessedReason for Visit: 6 months follow up with Stress test [Other]Primary Visit Diagnosis:Atherosclerosis of samish coronary artery of samish heart without angina pectoris [I25.10] Other Visit Diagnoses:Essential hypertension [I10] Paroxysmal atrial fibrillation (HCC) [I48.0] Mixed hyperlipidemia [E78.2] Myalgia due to statin [M79.10, T46.6X5A]Prescriptions as of 04/11/2018 Sig: LISINOPRIL 20 MG TABLET Take 1 tablet by mouth once d* ASPIRIN 81 MG CHEWABLE TABLET Take 1 tablet by mouth once d* ATORVASTATIN 80 MG TABLET Take 1 tablet by mouth once d* Patient taking differently: Take 80 mg by mouth 3 times a* METOPROLOL SUCCINATE ER 25 MG* Take 1 tablet by mouth once d* NITROGLYCERIN 0.4 MG SUBLINGU* Dissolve 1 tablet under the t*Problem List As Of Date 04/11/2018 Noted Resolved Heart failure with reduced ejection fraction (H*INVALID FOR* Priority: Moderate More... Subsequent non-ST elevation (NSTEMI) myocardial*INVALID FOR*07/09/2015 Priority: Mild More... HTN (hypertension) [I10] INVALID FOR* More... SUMMARY INVALID FOR* Priority: Severe More... Non-ST elevation (NSTEMI) myocardial infarction*INVALID FOR* More... Atrial mass [I51.9] INVALID FOR* More... Paroxysmal atrial fibrillation (HCC) [I48.0] INVALID FOR* More... Chronic systolic heart failure (HCC) [I50.22] INVALID FOR* Myocarditis (HCC) [I51.4] INVALID FOR* Atherosclerosis of coronary artery of samish he*INVALID FOR*Follow-up and Disposition History RecordedLetter [facility]anna and [facility] Dept. ofCardiovascular Icubomof[address] [place] [address] / Desk [place] [address] Fax Appt [phone] [id number]: Jannie Keen: 2C#: [id number] of Service: 04/11/2018Page:3 Susie Poe M.D.[facility] Department ofCardiovascular [facility] of Preventive and Clinical CardiologyMay 16, 2018Lennox Gilman MD ([facility])[employer] [place], [place] [address]MTVM: Jannie LeeWADENA CLINIC#.: [id number] OF SERVICE: 04/11/2018Dear Dr. Gilman,I had the pleasure of seeing your patient, Jannie Lee, in follow-up att [facility].The details of her history and treatment plan are included in my office note,a copy of which is included for your records.I appreciate the opportunity to participate in Ms. Lee's ongoing care. Ifyou have any questions or concerns, please feel free to contact me.Sincerely,Susie Poe M.D.c: Jannie LeeLone Peak Hospitalrt and Vascular InstituteTrivoli and Rain Perez Department of Cardiovascular [facility] PREVENTIVE CARDIOLOGYOUTPATIENT VISIT DATEOct2017OUTPATIENT VISIT TYPEESTPRIMARY CARE PHYSICIAN:Lennox Gilman MD ([facility])[employer] [place] [address]Yqxob: [phone]: [phone] COMPLAINT:routine followup for myocarditis/Takotsubo cardiomyopathy, CADHISTORY OF PRESENT ILLNESS:Ms. Lee is a 77 year old female who presents today for followup, last seen10/2017.History includes hospitalization 07/07-07/16/2015 after fall,myocarditis/Takotsubo cardiomyopathy. Pt initially presented with fall?syncope; elevated cardiac enzymes CK 302/MB 24, Danay 1.050 to local ED, andwas [facility] ?NSTEM[facility]. Evaluation revealed myocardialpattern more consistent with Takotsubo cardiomyopathy vs myocarditis; howevershe was also found to have concurrent CAD, LMT disease. She was dischargedhome with followup to assess need for revasculariization. 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 See NSTEMI for [facility] results 07/09 Cardiac MRI with mid segmentballooning, delayed enhancement concerning for myocarditis.Inflammatory/infect ious work up largely wnl, ELISSA by IFA pending MIGUEL 07/14with EF 30% and small circumferential pericardial effusion, largestanteriorly PLAN: - afterload reduction with captopril 6.25 q 8 hours - ASA -atorvastatin 80 qHS- HTN (hypertension) Patient with history of HTN PLAN: Continue captopril- Lip laceration 06/2015- Myocarditis (HCC) 06/2015- Paroxysmal atrial fibrillation (HCC) 06/2015 Patient experienced episode of atrial fibrillation overnight 07/08-07/09and 07/09-07/10 Converted to NSR with amiodarone Heparin gtt discontinued 07/14(no RA clot on MIGUEL) PLAN: Continue metoprolol 25 every 8 hours ContinueAmiodaronePAST SURGICAL HISTORYProcedure Laterality Date- NONESOCIAL HISTORYSocial HistorySubstance Use Topics- Smoking status: Never Smoker- Smokeless tobacco: Never Used- Alcohol use NoFAMILY HISTORYProblem Relation Age of Onset- Cancer Mother age 68 cancer- other (Renal [Other]) Father age 82 renal failureALLERGIES:ALLERGIESAller gen Reactions- Folic Acid Other: See Comments Causes itching- Penicillin Rash causes a rashMEDICATIONS:lisinopril (ZESTRIL, PRINIVIL) 20 mg tablet Take 1 tablet by mouth oncedaily.aspirin 81 mg chewable tablet Take 1 tablet by mouth once daily.atorvastatin (LIPITOR) 80 mg tablet Take 1 tablet by mouth once daily.metoprolol succinate ER (TOPROL XL) 25 mg 24 hr tablet Take 1 tablet bymouth once daily.nitroglycerin sublingual (NITROQUICK) 0.4 mg SL tablet Dissolve 1 tabletunder the tongue every 5 minutes as needed for Chest Pain.REVIEW OF SYSTEMS: positives appear in bolddenies fevers, chills, heat/cold intolerance, cough, abdominal pain, changein bowel movements, extremity weakness or numbnessI personally interviewed, confirmed and edited the above information ifobtained by others.PHYSICAL EXAMINATION:BP 131/68 (BP Site: Left Arm, BP Position: Sitting, BP Cuff Size: LargeAdult) Pulse 74 Ht 157.5 cm (5' 2 ) Wt 78.5 kg (173 lb) BMI 31.64kg/m?Gen: pleasant WF in good spirits, NARDHEENT: PERRL, conj pink, OP benignneck: 2+ carotids, no bruits, JVP 7chest: CTA BCV: RRR normal S1, S2abd: soft, NTND, normal BS'sext: tr ankle nonpitting edema; 2+ DP/PT pulsesneuro: alert, oriented X 3; normal gaitComponent Latest Ref Rng AND Units 07/08/2015 03/25/2016Triglyceride mg/dL 71 104 103 100Cholesterol, Total mg/dL 151 117 146 169HDL Cholesterol mg/dL 41 (L) 25 32 34VLDL Cholesterol 6 - 40 mg/dL 14LDL Cholesterol mg/dL 96 72.0 93 115Fasting Time hrs UnknownTC:HDL Ratio 1.00 - 5.00 3.68LDL:HDL Ratio 0.50 - 3.55 2.34Non HDL Cholesterol 90 - 159 mg/dL 110Cholesterol/HDL Ratio 5.0Component Latest Ref Rng AND Units 03/25/2016 09/27/2016 07/27/2017Glucose mg/dL 96 90 89BUN mg/dL 22.0 24 23Creatinine 1.5 mg/dL 0.85 0.76 0.74BUN/CREATININE RATIO 31Calcium mg/dL 8.4 8.8 8.5Sodium mmol/L 140 137 138Potassium mmol/L 4.7 5.1 4.8Chloride mmol/L 105 100 102CO2 mmol/L 25.0 23Anion Gap mmol/L 15.8 13 13Alkaline Phosphatase U/L 127 144ALT U/L 43 14 13AST U/L 36 20 18Bilirubin, Total mg/dL 0.30Protein, Total g//dL 7.3 7.4 7.4Albumin g/dL 3.9 3.9 3.8ALBUMIN/GLOBULIN RATIO 1.1eFGR NON AM mL/min/1.73 >60eGFR AM mL/min/1.73 >60Bili Total mg/dL 0.6 0.44GLOBULIN g/dL 3.5eGFR If NonAfrican Am mL/min >60 >60eGFR mL/min >60 >60ALP - Intl 38 - 126 U/L 106Carbon Dioxide mmol/L 24Creatine Kinase U/L 78 126NT Pro BNP pg/mL 366.0 227CK U/L 163Hemoglobin (g/dL)Date Value07/14/2015 11.1 Hematocrit (%)Date Value07/14/2015 34.3 WBC (k/uL)Date Value07/14/2015 10.39 Platelet CountDate Value Ref Range Ibmope6307/14/2015 283 150 - 400 k/uL Final Component CK MB CK MB % Troponin TLatest Ref Rng 30 - 220 U/L 0.0 - 8.8 ng/mL 0.0 - 4.0 % 0.000- 0.029 ng/mL07/07/2015 4:20 PM 302 (H) 24.3 (H) 8.0 (H) 1.040 (H)07/07/2015 9:15 PM 311 (H) 21.6 (H) 6.9 (H) 1.050 (H)07/08/2015 282 (H) 18.6 (H) 6.6 (H) 0.758 (H)07/11/2015 104 3.9 3.8 0.254 (H)CARDIOVASCULAR MEDICINE TESTING:exercise nuclear stress test April 11, 2018 --1. SPECT Perfusion Study: Normal.?2. There is no scintigraphic evidence for inducible ischemia.?3. No evidence of scarred myocardium.?4. Average functional capacity for age and gender.?5. Left ventricle is normal in size. The left ventricle systolicfunction is normal.?6. Right ventricle is normal in size. The right ventricle systolicfunction is normal.?7. This is a low risk scan.?Gated Stress FBP?LVEF % 751. THE TEST WAS TERMINATED DUE TO GENERAL FATIGUE.? 2. ADEQUATE HEART RATE RESPONSE OF ?95% ?PREDICTED MAXIMAL HEART RATE,ABNORMAL HEART RATE RECOVERY @ 1 MINUTE POST-EXERCISE. ?INCREASED RISK,NORMAL CHRONOTROPIC RESPONSE INDEX (>0.62 ON BETA- GONZALO).? 3. FUNCTIONAL CAPACITY IS ESTIMATED AT ?6.5 METS, STAGE ?3 ?HARLEY 10.0%PROTOCOL. MAXIMAL RATE PRESSURE PRODUCT IS ?04852, ?AVERAGE FUNCTIONALCAPACITY FOR AGE AND GENDER.? 4. NORMAL BLOOD PRESSURE RESPONSE TO STRESS, RESTING HYPERTENSION.? 5. T WAVE CHANGES DURING STRESS.? 6. NORMAL VEGA TREADMILL SCORE (>/=5).? 7. ANGINA WAS NOT PROVOKED BY STRESS.? 8. UNIFOCAL PVC'S DURING THE TEST, PAC'S DURING THE TEST, NONSUSTAINEDSUPRAVENTRICULAR TACHYCARDIA AFTER STRESS.? 9. THE PREVIOUS TEST IS NOT AVAILABLE FOR COMPARISON.CONCLUSION:? ABNORMAL DUE TO: LOW HEART RATE RECOVERY.ADDITIONAL COMMENTS:? BIPHASIC T WAVE CHANGES DURING STRESS?5 BEAT RUN OF NSSVT DURING 5TH MINUTE OF RECOVERY, PT. ASYMPTOMATIC.echo 09/2016--CONCLUSIONS:- Exam indication: Routine surveillance (greater than 1yr) of knowncardiomyopathy?without a change in clinical status- The left ventricle is normal in size. Left ventricular systolic function isnormal. EF = 61 ? 5% (2D biplane) Normal left ventricular diastolic function.- The right ventricle is normal in size. Right ventricular systolic functionisnormal.- Trivial to 1+ mitral regurgitation.- Trivial tricuspid regurgitation.- Exam was compared with the prior echocardiographic exam performed on09/24/2015. No significant change.echo September 24, 2015--CONCLUSIONS:- Exam indication: CHF- The left ventricle is normal in size. Left ventricular systolic function isnormal. EF = 60 ? 5% (2D biplane) Definity contrast used for endocardialborderdetection. Baseline left ventricular diastolic function is consistent withabnormal relaxation (stage 1).- The right ventricle is normal in size. Right ventricular systolic functionisnormal.- Trivial MR and TR.- Estimated right ventricular systolic pressure is 49 mmHg consistent withmildpulmonary hypertension. Estimated right atrial pressure is 5 mmHg.- Compared with the prior echocardiographic exam performed on 07/07/15.Significant interval improvement in global and regional LV systolic function.TheTR is less severe. The estimated RVSP is less.MIGUEL 07/14/2015--CONCLUSIONS:- Exam indication: Right atrial mass- The left ventricle is normal in size. Left ventricular systolic function ismoderately decreased. EF = 30 ? 5% (visual est.)- The right ventricle is normal in size. Right ventricular systolic functionislow normal.- There is no evidence of echodensity involving the tricuspid valve.- There is no patent foramen ovale as detected by Doppler and salinecontrast.- There is a prominent ridge at the RA/ICV junction likely a cristaterminalis.This likely represents RA structure noted on surface echo. It is moreprominent,mobile and slightly more nodular than usually seen. 3D reconstructiondemonstratesthe ridge appearance making this more likely to be a normal varient. If thereisclinical concern interval imaging may be performed.- There is a small circumferential pericardial effusion, largest anteriorly.- Compared with the prior TTE performed on 07/07/15, RA is bettervisualized onthis MIGUEL. Pericardial effusion larger on this study.stress PET 07/14/2015--CONCLUSIONS:1. Positron Emission tomography: Abnormal scan.2. There is moderate (10-20%) ischemia in the territory of the LCX.3. There is mild (<10%) ischemia in the territory of the LAD.4. Left ventricle is normal in size. the left ventricle systolicfunction is normal.5. Rest LVEF is 50 %. The Stress LVEF is 51 %.6. Right ventricle is moderately dilated The right ventricle systolicfunction is moderately decreased.7. Functional capacity N/A (pharmacological).8. This is an intermediate risk scan.cardiac MRI 07/10/2015--IMPRESSION:* The left ventricle is normal in size and shape, and has severelydecreased systolic function (LVEF = 31%). There is ballooning andhypokinesis of the mid segments, with sparing of the basal and apicalsegments.* Delayed-enhancement imaging reveals discrete mid myocardialenhancement in the mid inferolateral wall. No mural or apical leftventricular thrombus is identified. The constellation of findings aremore in favor of myocarditis over Takotsubo cardiomyopathy.* The right ventricle is normal in size and shape, and has mildlydecreased systolic function (RVEF = 48%).* No significant valvular abnormalities.* No right atrial mass is identified on this study. However, dedicatedright atrial images were not acquired. If further evaluation for apossible right atrial mass is required, recommend MIGUEL.[facility] 07/10/2015--DIAGNOSTIC [id number] year old female with HTN admitted with NSTEMI and newly diagnosed EF 20%andafibFindings:LM- There is a 50-60% focal narrowing involving the bifurcationLAD- There is an ectatic segment following the origin of the vessel, and dokbkg08-46% narrowing in the proximal segment of Diag1.LCx- Non-dominant. There is an 80% focal narrowing just after the origin ofthevessel. OM1 has a 90% focal narrowing in the proximal segment of the vessel.OM2and OM3 are without significant narrowing.RCA- Dominant. There is mild diffuse narrowing in the mid segment. There is a30-40% focal narrowing in the posterolateral branch.Left ventriculogram obtained from GARCIA projection demonstrating basal and midanterior and inferior hypokinesis. Ejection fraction approximately 30%.LV 120/20, Ao 120/66Impression:-Moderate narrowing of the distal left main extending into the bifurcation oftheLAD and LCx. Severe narrowings in the proximal LCx and OM1. Moderatenarrowing inthe proximal 1st Diagonal branch. Consider CABG.-Left ventriculogram with basal and mid anterior and inferior hypokinesis.Ejection fraction approximately 30%.-No gradient across aortic valve-LVEDP 20echo 07/07/2015--CONCLUSIONS:- Technically difficult exam due to body habitus and suboptimal positioning.- Exam indication: Syncope- The left ventricle is normal in size. Left ventricular systolic function isseverely decreased. EF = 20 ? 5% (visual est.) Definity contrast used forendocardial border detection. Baseline left ventricular diastolic function isconsistent with abnormal relaxation (stage 1).- The right ventricle is normal in size. Right ventricular systolic functionislow normal.- There is moderate (2+) tricuspid valve regurgitation. There is a mobileechodensity on the TV, seen best clips 55, 106- Estimated right ventricular systolic pressure is 64 mmHg consistent withmoderate pulmonary hypertension. Estimated right atrial pressure is 5 mmHg.- This RA mass measures 1 cm x 1 cm or more and appears to be attached to thelateral wall of the RA. Its relationship to the TV or the IVC/SVC could notbeestablished.- This looks like stress-induced CM.- I called Dr. Susie Poe to let her know these findings promptly.- The patient has not had a prior CC echocardiographic exam for comparison.AMBULATORY PATIENT EDUCATIONTopic: Coronary Artery Disease/MN and Cardiomyopathy Hyperlipidemia,Hypertension, Exercise and NutritionInstruction Provided To: PatientBarriers: NoneMotivation to Learn: InterestedMethods of Instruction: Verbal instruction and/or handouts.Patient Leans Best By: Multiple MethodsPatient Verbalized: UnderstandingIMPRESSION:1. Takotsubo cardiomyopathy vs myocarditis, elevated cardiac enzymes CK302/MB 24, Danay 1.050 (06/2015)--focal wall motion abnormality with mid LVdyskinesis, sparing of basal and apical segments. 08/2015 echo resolvedappearance of cardiomyopathy. 09/2016 echo LVEF 61%, tr-1+ MR03/2018 LVEF 75% on nuclear stress2. echo LVEF 20% with basal and apical hyperkinesis, mid akinesis pattern; ?Takotsubo (2015)--08/2015 LVEF 60%. 09/2016 LVEF 61%3. ?RA mass 1 x 1 cm (echo 06/2015)--not seen on cardiac MRI or MIGUEL, likelyprominent karlie terminalis4. CAD LHC --LMT 50-60% distal, LAD 50% prox, Cx 80% ostial, OM1 99%, RCA30% distal (07/09/2015)03/2018 exercise nuclear stress negative for ischemia @ 6.5 METs, 95% MPHR,no symptoms03/2018 no recent or past symptoms of chest pain, functional limitations5. paroxysmal AF/RVR, self-terminated (06/2015)--on amiodarone. 08/2015 nofurther known episodes of AF. 09/2015 amiodarone d/c'ed. 01/2017 post-op AFfollowing hysterectomy, converted with IV medication, no further knownrecurrencences03/2018 no recent known AF6. hypertension--prior to 06/2015 only on benazapril. 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 In the past, Dr. Barber suggested CTS evaluation for ostialCx lesion (also seen to be ischemic on PET), however pt previously deferreddue to lack of symptoms; exercise nuclear stress test today negative forischemia @ 6.5 METs without symptoms, average FC. Pt did stop Lipitor 80qday in past few months due to knee pain.PLAN AND RECOMMENDATIONS:1. continue current medication regimen2. importance of statin therapy, goal LDL < 70 reviewed; recommended ptre-trial Lipitor in 40 mg or 20 mg dose; or try alternate statin3. encouraged low fat diet, exercise4. RTC [address] Cardiovascular MedicineEncounter Number: [id number] Status:Closed by SUSIE POE MD on 04/11/[address] [facility] CARDIAC PERF STRESS/EXERC ISEon 04-11-2018 NM CARDIAC PERF STRESS/EXERCISE * * *Final Report* * *DATE OF EXAM: Apr 11 2018 12:41PM [facility] 0004 - NM CARDIAC PERF STRESS/EXERCISE / REASON: CAD eval, high CHD risk, Asx for ischemia * * * * Physician Interpretation * * * * PATIENT:Name: JANNIE MCGUIREELLISMRN: [id number]: 77 yearsGender: FCONCLUSIONS: 1. SPECT Perfusion Study: Normal. 2. There is no scintigraphic evidence for inducible ischemia. 3. No evidence of scarred myocardium. 4. Average functional capacity for age and gender. 5. Left ventricle is normal in size. The left ventricle systolic function is normal. 6. Right ventricle is normal in size. The right ventricle systolic function is normal. 7. This is a low risk scan. Gated Stress FBP LVEF % 75Prior Study Comparison Prior nuclear cardiology exam was performed on [07/14/2015]. Status post CABG with improvement in the LVEF and perfusion.Nuclear Med Report:1-Day [id number] Exercise Stress Gated SPECT: Myocardial perfusion imaging was performed at rest 30 to 60 minutes following the IV injection of Tc-99m tetrofosmin. One minute prior to peak exercise, the patient was injected IV with Tc-99m tetrofosmin. Gated post stress tomographic imaging was performed 10 to 20 minutes later. See administered doses below.Main CampusDate of service: 04/11/2018 10:36:54 AMAccession #: [id number] Physician: Susie PoeRequesting Physician: SUSIE POEIndication: Assessment for known CAD and Preop eval for noncard surg with intermediate risk and poor exercise tolerance.Fellow: Jim Jolley MDInterpreting physician: Neftali Alex MDPatient History:History of myocardial infarction, hypertension, dyslipidemia, arrhythmia and valvular heart disease. Medications currently taking are B-gonzalo, nitrate, Ca Gonzalo, ASA and statins.Previous Cardiovascular Interventions:Coronary Angiogram (2015)Height: 157.48 cm BSA: 1.85 m?Weight: 78.02 kg BMI: 31.5 kg/m?Imaging ProtocolLimitation Reason G.I. uptake.CT Dose-Length Product(DLP): 16.0 mGy*cm.CT Dose Reduction Employed: Yes. Exam Type: Rest Stress Radiopharm: Tc-99m Tetrofosmin Tc-99m Tetrofosmin Dosage(mCi): 12.8 32.9Atten Correction: not performed performed Stress Agent: TreadmillResting Heart Rate: 62 bpmResting Blood Press: 144/88 mmHgImage QualityThe overall study imaging quality was deemed to be fair. The following technical issues were noted: G.I. uptake.FINDINGS: Stress IR:3D Gated Stress FBP LVEF: 75 %ED Volume: 61 mlES Volume: 15 ml TID: 0.81Perfusion FindingsStress IR:3D - Summed Score=0All scored segments reflect normal perfusion.Rest IR:3D - Summed Score=3There is a moderate perfusion defect in the apical septal segment. There is amild perfusion defect in the apex. All remaining scored segments show normalperfusion. Stress IR:3D Rest IR:3DSummed Score=0 Summed Score=3LEFT VENTRICLEThe left ventricle is normal in size. Left ventricular systolic function is normal.Right VentricleThe right ventricle is normal in size. Right ventricle systolic function is normal.Stress Test Findings:There is no scintigraphic evidence for inducible ischemia. There is no evidence of scarring.The stress test was terminated due to the following: Fatigue.Peak HR 137 bpm. (96 % MPHR) (6.5 METS) (V02 max 22.8 ml/kg/min)Peak BP 166 mmHg/80 mmHgPatient experienced no symptoms during stress.Stress ECG normal sinus rhythm and normal ST segment response.Stress complications: none. Final Retail Pharmacy Manager: SYNDYNTranscribe Date/Time: Apr 11 2018 10:36ADictated by : NEFTALI ALEX MDThis examination was interpreted and the report reviewed and electronically signed by: NEFTALI ALEX MD on Apr 11 2018 2:12PM [id number] Normal [facility] PROGRESSon 04-11-2018 Protein mass conc HNO ID: [id number] thor: Susie Bridges: (none)Author Type: PhysicianType: Progress NotesFiled: 04/11/2018 2:45 PMNote Text:Heart and Vascular InstituteDeaconess Hospitalmauricio and Rain Perez Department of Cardiovascular MedicineSECTION OF PREVENTIVE CARDIOLOGYOUTPATIENT VISIT DATEApril 11, 2018OUTPATIENT VISIT TYPEESTPRIMARY CARE PHYSICIAN:Lennox Gilman MD ([facility])[address] [place] [id number]: [phone]: [phone] COMPLAINT:routine followup for myocarditis/Takotsubo cardiomyopathy, CADHISTORY OF PRESENT ILLNESS:Ms. Lee is a 77 year old female who presents today for followup, lastseen 10/2017.History includes hospitalization 07/07-07/16/2015 after fall,myocarditis/Takotsubo cardiomyopathy. Pt initially presented with fall?syncope; elevated cardiac enzymes CK 302/MB 24, Danay 1.050 to local ED,and was referred to [facility] [place] for ?NSTEMI. Evaluation revealedmyocardial pattern more consistent with Takotsubo cardiomyopathy vsmyocarditis; however she was also found to have concurrent CAD, LMTdisease. She was discharged home with followup to assess need forrevasculariization. 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 See NSTEMI for [facility] results 07/09 Cardiac MRI with midsegment ballooning, delayed enhancement concerning for myocarditis.Inflammatory/infect ious work up largely wnl, ELISSA by IFA pending MIGUEL 07/14with EF 30% and small circumferential pericardial effusion, largestanteriorly PLAN: - afterload reduction with captopril 6.25 q 8 hours -ASA - atorvastatin 80 qHS- HTN (hypertension) Patient with history of HTN PLAN: Continue captopril- Lip laceration 06/2015- Myocarditis (HCC) 06/2015- Paroxysmal atrial fibrillation (HCC) 06/2015 Patient experienced episode of atrial fibrillation overnight 07/08-07/09and 07/09-07/10 Converted to NSR with amiodarone Heparin gtt discontinued07/14 (no RA clot on MIGUEL) PLAN: Continue metoprolol 25 every 8 hoursContinue AmiodaronePAST SURGICAL HISTORYProcedure Laterality Date- NONESOCIAL HISTORYSocial HistorySubstance Use Topics- Smoking status: Never Smoker- Smokeless tobacco: Never Used- Alcohol use NoFAMILY HISTORYProblem Relation Age of Onset- Cancer Mother age 68 cancer- other (Renal [Other]) Father age 82 renal failureALLERGIES:ALLERGIESAller gen Reactions- Folic Acid Other: See Comments Causes itching- Penicillin Rash causes a rashMEDICATIONS:lisinopril (ZESTRIL, PRINIVIL) 20 mg tablet Take 1 tablet by mouth oncedaily.aspirin 81 mg chewable tablet Take 1 tablet by mouth once daily.atorvastatin (LIPITOR) 80 mg tablet Take 1 tablet by mouth once daily.metoprolol succinate ER (TOPROL XL) 25 mg 24 hr tablet Take 1 tablet bymouth once daily.nitroglycerin sublingual (NITROQUICK) 0.4 mg SL tablet Dissolve 1 tabletunder the tongue every 5 minutes as needed for Chest Pain.REVIEW OF SYSTEMS: positives appear in bolddenies fevers, chills, heat/cold intolerance, cough, abdominal pain,change in bowel movements, extremity weakness or numbnessI personally interviewed, confirmed and edited the above information ifobtained by others.PHYSICAL EXAMINATION:BP 131/68 (BP Site: Left Arm, BP Position: Sitting, BP Cuff Size: LargeAdult) Pulse 74 Ht 157.5 cm (5' 2 ) Wt 78.5 kg (173 lb) BMI31.64 kg/m?Gen: pleasant WF in good spirits, NARDHEENT: PERRL, conj pink, OP benignneck: 2+ carotids, no bruits, JVP 7chest: CTA BCV: RRR normal S1, S2abd: soft, NTND, normal BS'sext: tr ankle nonpitting edema; 2+ DP/PT pulsesneuro: alert, oriented X 3; normal gaitComponent Latest Ref Rng AND Units 07/08/2015 03/25/2016 09/27/2016 07/27/2017Triglyceride mg/dL 71 104 103 100Cholesterol, Total mg/dL 151 117 146 169HDL Cholesterol mg/dL 41 (L) 25 32 34VLDL Cholesterol 6 - 40 mg/dL 14LDL Cholesterol mg/dL 96 72.0 93 115Fasting Time hrs UnknownTC:HDL Ratio 1.00 - 5.00 3.68LDL:HDL Ratio 0.50 - 3.55 2.34Non HDL Cholesterol 90 - 159 mg/dL 110Cholesterol/HDL Ratio 5.0Component Latest Ref Rng AND Units 03/25/2016 09/27/2016 07/27/2017Glucose mg/dL 96 90 89BUN mg/dL 22.0 24 23Creatinine 1.5 mg/dL 0.85 0.76 0.74BUN/CREATININE RATIO 31Calcium mg/dL 8.4 8.8 8.5Sodium mmol/L 140 137 138Potassium mmol/L 4.7 5.1 4.8Chloride mmol/L 105 100 102CO2 mmol/L 25.0 23Anion Gap mmol/L 15.8 13 13Alkaline Phosphatase U/L 127 144ALT U/L 43 14 13AST U/L 36 20 18Bilirubin, Total mg/dL 0.30Protein, Total g//dL 7.3 7.4 7.4Albumin g/dL 3.9 3.9 3.8ALBUMIN/GLOBULIN RATIO 1.1eFGR NON AM mL/min/1.73 >60eGFR AM mL/min/1.73 >60Bili Total mg/dL 0.6 0.44GLOBULIN g/dL 3.5eGFR If NonAfrican Am mL/min >60 >60eGFR mL/min >60 >60ALP - Intl 38 - 126 U/L 106Carbon Dioxide mmol/L 24Creatine Kinase U/L 78 126NT Pro BNP pg/mL 366.0 227CK U/L 163Hemoglobin (g/dL)Date Value07/14/2015 11.1 Hematocrit (%)Date Value07/14/2015 34.3 WBC (k/uL)Date Value07/14/2015 10.39 Platelet CountDate Value Ref Range Zrjshd0607/14/2015 283 150 - 400 k/uL Final Component CK MB CK MB % Troponin TLatest Ref Rng 30 - 220 U/L 0.0 - 8.8 ng/mL 0.0 - 4.0 % 0.000 - 0.029ng/mL07/07/2015 4:20 PM 302 (H) 24.3 (H) 8.0 (H) 1.040 (H)07/07/2015 9:15 PM 311 (H) 21.6 (H) 6.9 (H) 1.050 (H)07/08/2015 282 (H) 18.6 (H) 6.6 (H) 0.758 (H)07/11/2015 104 3.9 3.8 0.254 (H)CARDIOVASCULAR MEDICINE TESTING:exercise nuclear stress test April 11, 2018 --1. SPECT Perfusion Study: Normal.?2. There is no scintigraphic evidence for inducible ischemia.?3. No evidence of scarred myocardium.?4. Average functional capacity for age and gender.?5. Left ventricle is normal in size. The left ventricle systolicfunction is normal.?6. Right ventricle is normal in size. The right ventricle systolicfunction is normal.?7. This is a low risk scan.?Gated Stress FBP?LVEF % 751. THE TEST WAS TERMINATED DUE TO GENERAL FATIGUE.? 2. ADEQUATE HEART RATE RESPONSE OF ?95% ?PREDICTED MAXIMAL HEART RATE,ABNORMAL HEART RATE RECOVERY @ 1 MINUTE POST-EXERCISE. ?INCREASED RISK,NORMAL CHRONOTROPIC RESPONSE INDEX (>0.62 ON BETA- GONZALO).? 3. FUNCTIONAL CAPACITY IS ESTIMATED AT ?6.5 METS, STAGE ?3 ?ICVIFHY56.0%PROTOCOL. MAXIMAL RATE PRESSURE PRODUCT IS ?91866, ?AVERAGE FUNCTIONALCAPACITY FOR AGE AND GENDER.? 4. NORMAL BLOOD PRESSURE RESPONSE TO STRESS, RESTING HYPERTENSION.? 5. T WAVE CHANGES DURING STRESS.? 6. NORMAL VEGA TREADMILL SCORE (>/=5).? 7. ANGINA WAS NOT PROVOKED BY STRESS.? 8. UNIFOCAL PVC'S DURING THE TEST, PAC'S DURING THE TEST, NONSUSTAINEDSUPRAVENTRICULAR TACHYCARDIA AFTER STRESS.? 9. THE PREVIOUS TEST IS NOT AVAILABLE FOR COMPARISON.CONCLUSION:? ABNORMAL DUE TO: LOW HEART RATE RECOVERY.ADDITIONAL COMMENTS:? BIPHASIC T WAVE CHANGES DURING STRESS?5 BEAT RUN OF NSSVT DURING 5TH MINUTE OF RECOVERY, PT. ASYMPTOMATIC.echo 09/2016--CONCLUSIONS:- Exam indication: Routine surveillance (greater than 1yr) of knowncardiomyopathy?without a change in clinical status- The left ventricle is normal in size. Left ventricular systolic functionisnormal. EF = 61 ? 5% (2D biplane) Normal left ventricular diastolicfunction.- The right ventricle is normal in size. Right ventricular systolicfunction isnormal.- Trivial to 1+ mitral regurgitation.- Trivial tricuspid regurgitation.- Exam was compared with the prior echocardiographic exam performed on09/24/2015. No significant change.echo September 24, 2015--CONCLUSIONS:- Exam indication: CHF- The left ventricle is normal in size. Left ventricular systolic functionisnormal. EF = 60 ? 5% (2D biplane) Definity contrast used for endocardialborderdetection. Baseline left ventricular diastolic function is consistent withabnormal relaxation (stage 1).- The right ventricle is normal in size. Right ventricular systolicfunction isnormal.- Trivial MR and TR.- Estimated right ventricular systolic pressure is 49 mmHg consistent withmildpulmonary hypertension. Estimated right atrial pressure is 5 mmHg.- Compared with the prior echocardiographic exam performed on 07/07/15.Significant interval improvement in global and regional LV systolicfunction. TheTR is less severe. The estimated RVSP is less.MIGUEL 07/14/2015--CONCLUSIONS:- Exam indication: Right atrial mass- The left ventricle is normal in size. Left ventricular systolic functionismoderately decreased. EF = 30 ? 5% (visual est.)- The right ventricle is normal in size. Right ventricular systolicfunction islow normal.- There is no evidence of echodensity involving the tricuspid valve.- There is no patent foramen ovale as detected by Doppler and salinecontrast.- There is a prominent ridge at the RA/ICV junction likely a cristaterminalis.This likely represents RA structure noted on surface echo. It is moreprominent,mobile and slightly more nodular than usually seen. 3D reconstructiondemonstratesthe ridge appearance making this more likely to be a normal varient. Ifthere isclinical concern interval imaging may be performed.- There is a small circumferential pericardial effusion, largestanteriorly.- Compared with the prior CC TTE performed on 07/07/15, RA is bettervisualized onthis MIGUEL. Pericardial effusion larger on this study.stress PET 07/14/2015--CONCLUSIONS:1. Positron Emission tomography: Abnormal scan.2. There is moderate (10-20%) ischemia in the territory of the LCX.3. There is mild (<10%) ischemia in the territory of the LAD.4. Left ventricle is normal in size. the left ventricle systolicfunction is normal.5. Rest LVEF is 50 %. The Stress LVEF is 51 %.6. Right ventricle is moderately dilated The right ventricle systolicfunction is moderately decreased.7. Functional capacity N/A (pharmacological).8. This is an intermediate risk scan.cardiac MRI 07/10/2015--IMPRESSION:* The left ventricle is normal in size and shape, and has severelydecreased systolic function (LVEF = 31%). There is ballooning andhypokinesis of the mid segments, with sparing of the basal and apicalsegments.* Delayed-enhancement imaging reveals discrete mid myocardialenhancement in the mid inferolateral wall. No mural or apical leftventricular thrombus is identified. The constellation of findings aremore in favor of myocarditis over Takotsubo cardiomyopathy.* The right ventricle is normal in size and shape, and has mildlydecreased systolic function (RVEF = 48%).* No significant valvular abnormalities.* No right atrial mass is identified on this study. However, dedicatedright atrial images were not acquired. If further evaluation for apossible right atrial mass is required, recommend MIGUEL.[facility] 07/10/2015--DIAGNOSTIC PNIVTDN4 year old female with HTN admitted with NSTEMI and newly diagnosed EF20% andafibFindings:LM- There is a 50-60% focal narrowing involving the bifurcationLAD- There is an ectatic segment following the origin of the vessel, and glqkfe15-81% narrowing in the proximal segment of Diag1.LCx- Non-dominant. There is an 80% focal narrowing just after the originof thevessel. OM1 has a 90% focal narrowing in the proximal segment of thevessel. OM2and OM3 are without significant narrowing.RCA- Dominant. There is mild diffuse narrowing in the mid segment. Thereis a30-40% focal narrowing in the posterolateral branch.Left ventriculogram obtained from GARCIA projection demonstrating basal andmidanterior and inferior hypokinesis. Ejection fraction approximately 30%.LV 120/20, Ao 120/66Impression:-Moderate narrowing of the distal left main extending into the bifurcationof theLAD and LCx. Severe narrowings in the proximal LCx and OM1. Moderatenarrowing inthe proximal 1st Diagonal branch. Consider CABG.-Left ventriculogram with basal and mid anterior and inferior hypokinesis.Ejection fraction approximately 30%.-No gradient across aortic valve-LVEDP 20echo 07/07/2015--CONCLUSIONS:- Technically difficult exam due to body habitus and suboptimalpositioning.- Exam indication: Syncope- The left ventricle is normal in size. Left ventricular systolic functionisseverely decreased. EF = 20 ? 5% (visual est.) Definity contrast used forendocardial border detection. Baseline left ventricular diastolic functionisconsistent with abnormal relaxation (stage 1).- The right ventricle is normal in size. Right ventricular systolicfunction islow normal.- There is moderate (2+) tricuspid valve regurgitation. There is a mobileechodensity on the TV, seen best clips 55, 106- Estimated right ventricular systolic pressure is 64 mmHg consistent withmoderate pulmonary hypertension. Estimated right atrial pressure is 5mmHg.- This RA mass measures 1 cm x 1 cm or more and appears to be attached tothelateral wall of the RA. Its relationship to the TV or the IVC/SVC couldnot beestablished.- This looks like stress-induced CM.- I called Dr. Susie Poe to let her know these findings promptly.- The patient has not had a prior CC echocardiographic exam forcomparison.AMBULATORY PATIENT EDUCATIONTopic: Coronary Artery Disease/MN and Cardiomyopathy Hyperlipidemia,Hypertension, Exercise and NutritionInstruction Provided To: PatientBarriers: NoneMotivation to Learn: InterestedMethods of Instruction: Verbal instruction and/or handouts.Patient Leans Best By: Multiple MethodsPatient Verbalized: UnderstandingIMPRESSION:1. Takotsubo cardiomyopathy vs myocarditis, elevated cardiac enzymes CK302/MB 24, Danay 1.050 (06/2015)--focal wall motion abnormality with mid LVdyskinesis, sparing of basal and apical segments. 08/2015 echo resolvedappearance of cardiomyopathy. 09/2016 echo LVEF 61%, tr-1+ MR03/2018 LVEF 75% on nuclear stress2. echo LVEF 20% with basal and apical hyperkinesis, mid akinesispattern; ? Takotsubo (2015)--08/2015 LVEF 60%. 09/2016 LVEF 61%3. ?RA mass 1 x 1 cm (echo 06/2015)--not seen on cardiac MRI or MIGUEL,likely prominent karlie terminalis4. CAD LHC --LMT 50-60% distal, LAD 50% prox, Cx 80% ostial, OM1 99%,RCA 30% distal (07/09/2015)03/2018 exercise nuclear stress negative for ischemia @ 6.5 METs, 95%MPHR, no symptoms03/2018 no recent or past symptoms of chest pain, functional limitations5. paroxysmal AF/RVR, self-terminated (06/2015)--on amiodarone. 08/2015 nofurther known episodes of AF. 09/2015 amiodarone d/c'ed. 01/2017 post-opAF following hysterectomy, converted with IV medication, no further knownrecurrencences03/2018 no recent known AF6. hypertension--prior to 06/2015 only on benazapril. 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 In the past, Dr. Barber suggested CTS evaluationfor ostial Cx lesion (also seen to be ischemic on PET), however ptpreviously deferred due to lack of symptoms; exercise nuclear stress testtoday negative for ischemia @ 6.5 METs without symptoms, average FC. Ptdid stop Lipitor 80 qday in past few months due to knee pain.PLAN AND RECOMMENDATIONS:1. continue current medication regimen2. importance of statin therapy, goal LDL < 70 reviewed; recommended ptre-trial Lipitor in 40 mg or 20 mg dose; or try alternate statin3. encouraged low fat diet, exercise4. RTC 1 [address] [facility] Protein mass conc HNO ID: [id number] thor: Cortney Dutta CnmtService: (none)Author Type: (none)Type: Progress NotesFiled: 04/11/2018 11:42 AMNote Text: RADIOLOGY SERVICE PROGRESS NOTESERVICE DATE: 04/11/2018SERVICE TIME: 10:24 AMPATIENT IDENTITY VERIFICATION COMPLETED USING TWO (2) METHODS: Patientconfirmed name and Date of verbally.PATIENT GENDER DATA: .female: NoALLERGIES: Reviewed and unchangedMEDICATIONS REVIEWED: NoPATIENT RELEVANT IMPLANT DATA REVIEWED: Not ApplicableCREATININE:Creatinine Date Value Ref Range [id number]/27/2017 0.74 1.5 mg/dL Final09/27/2016 0.76 mg/dL Final03/25/2016 0.85 1.5 MG/DL Final eGFR-All Other RacesDate Value Ref Range Apisqe1907/16/2015 53 . FinalComment:eGFR (Estimated GFR) Units of measure: mL/min/1.73 meters squaredeGFR is derived from the reexpressed MDRD Study equation using thefollowingparameters: serum creatinine, age, gender and race. The creatinine assayhasbeen calibrated to be traceable to IDMS.An eGFR <60 mL/min/1.73m2 for >3 months is consistent with chronic kidneydisease. Refer to KDOQI guidelines for clinical interpretation.In patients with unstable renal function, e.g. those with acute kidneyinjury,the eGFR may not accurately reflect actual GFR. eGFR- AmericanDate Value Ref Range Yscouu8607/16/2015 >60 Final P.O.C.T. RESULTS: N/A April 11, 2018DIAGNOSTIC CT PERFORMED: NoIV SITE: Ambulatory: A peripheral IV was started in the Left antecubitalsite with a Angio cath: 22 gauge.POST EXAM PIV STATUS: DiscontinuedPROCEDURE TYPE: NM Stress: 12.8mCi Ap28o-Kufbudy was administered IV [facility] at 1020 by GUSTAVO HOLLIDAY, RT. 32.9 mCi Wz08e-[place] was administered IV for Stress Imaging at 1140by Cortney Dutta [facility] Diagnostic radioactive procedure has taken place, with no furtherprecautions necessary other than routine body substance precautions. Moreinformation regarding radiation safety can be found using this link:[email or web address] stic%20Nuclear%20Medicine%20Pro [email or web address]: GUSTAVO HOLLIDAY, RT PATIENT NAME: Jannie LeeDATE: April 11, 2018 : 10:24 AM PAGER/CONTACT #: Jany [facility] CNCOon 11-09-2017 CNCO Letter TextPreventiv e Cardiology AND RehabilitationNorton [facility] Rain Perez Department ofCardiovascular [address] [place] [address] TO7OUBPA: FAX: OUTSIDE LAB REQUESTPlease fax results to: [phone] Name: Ms. Jannie Lee, CLINIC NO: [id number] Date:March 27, 2018Date of : 1940rdering Physician: Susie Poe M.D. , NPI [id number] following tests are requested:PLEASE NOTE: The patient should be FASTING FOR 12 HOURS if lipids are to bedrawn.__x__ Lipid Profile (T.C., Triglycerides, HDL, LDL) Diagnosis: I25.10 Atherosclerosis of samish coronary artery withoutangina pectoris__x__ ALT Diagnosis: I25.10 Atherosclerosis of samish coronary artery withoutangina pectoris__x__ Basic Metabolic Panel Diagnosis: I10 Essential Hypertension__x__ CK (Creatine Kinase) Diagnosis: I25.10 Atherosclerosis of samish coronary artery withoutangina pectoris __x__ Vitamin D 25 hydroxy Diagnosis: Z13.6 Screening for Cardiovascular disorders __x__ NT Pro BNP Diagnosis: I48.0 Parosysmal Atrial FibrillationPlease include your phone number when faxing results: ____ Normal [facility] CNOVon 11-09-2017 CNOV Office Visit (CARD P) LIBERTAD LEE MARLEN Ashby ([id number]) 1940 FDate Time Provider Department11/09/17 3:45 PM SUSIE POE During your visit today, we recorded the following information about you: Pulse Blood pressure Weight Height 69/minute 135/59 78 kg 1.575 Angy Poe MD 11/21/2017 4:35 PM [facility] InstituteT[facility] Rain Perez Department of Cardiovascular MedicineSECTION OF PREVENTIVE CARDIOLOGYOUTPATIENT VISIT DATEMay 2017OUTPATIENT VISIT TYPEESTPRIMARY CARE PHYSICIAN:Lennox Gilman MD ([facility])[address] [place] [address]Nnfnm: [phone]: [phone] COMPLAINT:followup for myocarditis/Takotsubo cardiomyopathy, CADHISTORY OF PRESENT ILLNESS:Ms. Lee is a 77 year old female who presents today for followup, last seenby myself in 02/2016, and by IAN Miles 09/2016. In the interim, pt contacted theoffice for pre-op clearance for hysterectomy.History includes hospitalization 07/07-07/16/2015 after fall,myocarditis/Takotsubo cardiomyopathy. Pt initially presented with fall?syncope; elevated cardiac enzymes CK 302/MB 24, Danay 1.050 to local ED, and wasreferred to [facility] [place] for ?NSTEMI. Evaluation revealed myocardialpattern more consistent with Takotsubo cardiomyopathy vs myocarditis; howevershe was also found to have concurrent CAD, LMT disease. She was dischargedhome with followup to assess need for revasculariization. Past medical historywas notable only for hypertension on benazapril prior to admission; otherwisepreviously in overall excellent health.At the last visit, pt was doing well; and again deferred revascularization ofostial Cx CAD due to lack of symptoms and continued good functional ability.Current complaints/concerns:--since the last visit, 01/2017 underwent vaginal hysterectomy--01/2017 post-op AF approx 3 days after hysterectomy, converted in hospitalwith IV medication, total lasting few hrs; no further known recurrences--no significant medical concerns since surgery--denies chest pain--denies SOB--occ fatigue, but typically remains very active--denies chest pain, shortness of breath, dyspnea on exertion, activitylimitations, PND, orthopnea, LE edema, or syncope or near-syncope.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 See NSTEMI for [facility] results 07/09 Cardiac MRI with mid segment ballooning,delayed enhancement concerning for myocarditis. Inflammatory/infectious workup largely wnl, ELISSA by IFA pending MIGUEL 07/14 with EF 30% and smallcircumferential pericardial effusion, largest anteriorly PLAN: - afterloadreduction with captopril 6.25 q 8 hours - ASA - atorvastatin 80 qHS- HTN (hypertension) Patient with history of HTN PLAN: Continue captopril- Lip laceration 06/2015- Myocarditis (HCC) 06/2015- Paroxysmal atrial fibrillation (HCC) 06/2015 Patient experienced episode of atrial fibrillation overnight 07/08-07/09 and07/09-07/10 Converted to NSR with amiodarone Heparin gtt discontinued 07/14 (no RAclot on MIGUEL) PLAN: Continue metoprolol 25 every 8 hours Continue AmiodaronePAST SURGICAL HISTORYProcedure Laterality Date- NONESOCIAL HISTORYSocial HistorySubstance Use Topics- Smoking status: Never Smoker- Smokeless tobacco: Never Used- Alcohol use NoFAMILY HISTORYProblem Relation Age of Onset- Cancer Mother age 68 cancer- Renal [Other] [OTHER] Father age 82 renal failureALLERGIES:ALLERGIESAller gen Reactions- Folic Acid Other: See Comments Causes itching- Penicillin Rash causes a rashMEDICATIONS:metoprolol succinate ER (TOPROL XL) 50 mg 24 hr tablet Take 1 tablet by mouthonce daily.lisinopril (ZESTRIL, PRINIVIL) 20 mg tablet Take 1 tablet by mouth once daily.nitroglycerin sublingual (NITROQUICK) 0.4 mg SL tablet Dissolve 1 tablet underthe tongue every 5 minutes as needed for Chest Pain.aspirin 81 mg chewable tablet Take 1 tablet by mouth once daily.REVIEW OF SYSTEMS: positives appear in bolddenies fevers, chills, heat/cold intolerance, cough, abdominal pain, change inbowel movements, extremity weakness or numbnessI personally interviewed, confirmed and edited the above information ifobtained by others.PHYSICAL EXAMINATION:BP 135/59 (BP Site: Right Arm, BP Position: Sitting, BP Cuff Size: Large Adult) Pulse 69 Ht 157.5 cm (5' 2 ) Wt 78 kg (171 lb 14.4 oz) BMI 31.44kg/m?Gen: pleasant WF in good spirits, NARDHEENT: PERRL, conj pink, OP benignneck: 2+ carotids, no bruits, JVP 7chest: CTA BCV: RRR normal S1, S2abd: soft, NTND, normal BS'sext: no edema; 2+ DP/PT pulsesneuro: alert, oriented X 3; normal gaitComponent Latest Ref Rng AND Units 07/08/2015 03/25/2016 09/27/2016 07/27/2017Triglyceride mg/dL 71 104 103 100Cholesterol, Total mg/dL 151 117 146 169HDL Cholesterol mg/dL 41 (L) 25 32 34VLDL Cholesterol 6 - 40 mg/dL 14LDL Cholesterol mg/dL 96 72.0 93 115Fasting Time hrs UnknownTC:HDL Ratio 1.00 - 5.00 3.68LDL:HDL Ratio 0.50 - 3.55 2.34Non HDL Cholesterol 90 - 159 mg/dL 110Cholesterol/HDL Ratio 5.0Component Latest Ref Rng AND Units 03/25/2016 09/27/2016 07/27/2017Glucose mg/dL 96 90 89BUN mg/dL 22.0 24 23Creatinine 1.5 mg/dL 0.85 0.76 0.74BUN/CREATININE RATIO 31Calcium mg/dL 8.4 8.8 8.5Sodium mmol/L 140 137 138Potassium mmol/L 4.7 5.1 4.8Chloride mmol/L 105 100 102CO2 mmol/L 25.0 23Anion Gap mmol/L 15.8 13 13Alkaline Phosphatase U/L 127 144ALT U/L 43 14 13AST U/L 36 20 18Bilirubin, Total mg/dL 0.30Protein, Total g//dL 7.3 7.4 7.4Albumin g/dL 3.9 3.9 3.8ALBUMIN/GLOBULIN RATIO 1.1eFGR NON AM mL/min/1.73 >60eGFR AM mL/min/1.73 >60Bili Total mg/dL 0.6 0.44GLOBULIN g/dL 3.5eGFR If NonAfrican Am mL/min >60 >60eGFR mL/min >60 >60ALP - Intl 38 - 126 U/L 106Carbon Dioxide mmol/L 24Creatine Kinase U/L 78 126NT Pro BNP pg/mL 366.0 227CK U/L 163Hemoglobin (g/dL)Date Value07/14/2015 11.1 Hematocrit (%)Date Value07/14/2015 34.3 WBC (k/uL)Date Value07/14/2015 10.39 Platelet CountDate Value Ref Range Djnmuf9707/14/2015 283 150 - 400 k/uL Final Component CK MB CK MB % Troponin TLatest Ref Rng 30 - 220 U/L 0.0 - 8.8 ng/mL 0.0 - 4.0 % 0.000 - 0.029 ng/mL07/07/2015 4:20 PM 302 (H) 24.3 (H) 8.0 (H) 1.040 (H)07/07/2015 9:15 PM 311 (H) 21.6 (H) 6.9 (H) 1.050 (H)07/08/2015 282 (H) 18.6 (H) 6.6 (H) 0.758 (H)07/11/2015 104 3.9 3.8 0.254 (H)CARDIOVASCULAR MEDICINE TESTING:echo 09/2016--CONCLUSIONS:- Exam indication: Routine surveillance (greater than 1yr) of knowncardiomyopathy?without a change in clinical status- The left ventricle is normal in size. Left ventricular systolic function isnormal. EF = 61 ? 5% (2D biplane) Normal left ventricular diastolic function.- The right ventricle is normal in size. Right ventricular systolic function isnormal.- Trivial to 1+ mitral regurgitation.- Trivial tricuspid regurgitation.- Exam was compared with the prior CC echocardiographic exam performed on09/24/2015. No significant change.echo September 24, 2015--CONCLUSIONS:- Exam indication: CHF- The left ventricle is normal in size. Left ventricular systolic function isnormal. EF = 60 ? 5% (2D biplane) Definity contrast used for endocardial borderdetection. Baseline left ventricular diastolic function is consistent withabnormal relaxation (stage 1).- The right ventricle is normal in size. Right ventricular systolic function isnormal.- Trivial MR and TR.- Estimated right ventricular systolic pressure is 49 mmHg consistent with mildpulmonary hypertension. Estimated right atrial pressure is 5 mmHg.- Compared with the prior CC echocardiographic exam performed on 07/07/15.Significant interval improvement in global and regional LV systolic function.TheTR is less severe. The estimated RVSP is less.MIGUEL 07/14/2015--CONCLUSIONS:- Exam indication: Right atrial mass- The left ventricle is normal in size. Left ventricular systolic function ismoderately decreased. EF = 30 ? 5% (visual est.)- The right ventricle is normal in size. Right ventricular systolic function islow normal.- There is no evidence of echodensity involving the tricuspid valve.- There is no patent foramen ovale as detected by Doppler and saline contrast.- There is a prominent ridge at the RA/ICV junction likely a karlie terminalis.This likely represents RA structure noted on surface echo. It is moreprominent,mobile and slightly more nodular than usually seen. 3D reconstructiondemonstratesthe ridge appearance making this more likely to be a normal varient. If thereisclinical concern interval imaging may be performed.- There is a small circumferential pericardial effusion, largest anteriorly.- Compared with the prior CC TTE performed on 07/07/15, RA is better visualizedonthis MIGUEL. Pericardial effusion larger on this study.stress PET 07/14/2015--CONCLUSIONS:1. Positron Emission tomography: Abnormal scan.2. There is moderate (10-20%) ischemia in the territory of the LCX.3. There is mild (<10%) ischemia in the territory of the LAD.4. Left ventricle is normal in size. the left ventricle systolicfunction is normal.5. Rest LVEF is 50 %. The Stress LVEF is 51 %.6. Right ventricle is moderately dilated The right ventricle systolicfunction is moderately decreased.7. Functional capacity N/A (pharmacological).8. This is an intermediate risk scan.cardiac MRI 07/10/2015--IMPRESSION:* The left ventricle is normal in size and shape, and has severelydecreased systolic function (LVEF = 31%). There is ballooning andhypokinesis of the mid segments, with sparing of the basal and apicalsegments.* Delayed-enhancement imaging reveals discrete mid myocardialenhancement in the mid inferolateral wall. No mural or apical leftventricular thrombus is identified. The constellation of findings aremore in favor of myocarditis over Takotsubo cardiomyopathy.* The right ventricle is normal in size and shape, and has mildlydecreased systolic function (RVEF = 48%).* No significant valvular abnormalities.* No right atrial mass is identified on this study. However, dedicatedright atrial images were not acquired. If further evaluation for apossible right atrial mass is required, recommend MIGUEL.[facility] 07/10/2015--DIAGNOSTIC [id number] year old female with HTN admitted with NSTEMI and newly diagnosed EF 20% andafibFindings:LM- There is a 50-60% focal narrowing involving the bifurcationLAD- There is an ectatic segment following the origin of the vessel, and zbumbz62-02% narrowing in the proximal segment of Diag1.LCx- Non-dominant. There is an 80% focal narrowing just after the origin of thevessel. OM1 has a 90% focal narrowing in the proximal segment of the vessel.OM2and OM3 are without significant narrowing.RCA- Dominant. There is mild diffuse narrowing in the mid segment. There is a30-40% focal narrowing in the posterolateral branch.Left ventriculogram obtained from GARCIA projection demonstrating basal and midanterior and inferior hypokinesis. Ejection fraction approximately 30%.LV 120/20, Ao 120/66Impression:-Moderate narrowing of the distal left main extending into the bifurcation oftheLAD and LCx. Severe narrowings in the proximal LCx and OM1. Moderate narrowinginthe proximal 1st Diagonal branch. Consider CABG.-Left ventriculogram with basal and mid anterior and inferior hypokinesis.Ejection fraction approximately 30%.-No gradient across aortic valve-LVEDP 20echo 07/07/2015--CONCLUSIONS:- Technically difficult exam due to body habitus and suboptimal positioning.- Exam indication: Syncope- The left ventricle is normal in size. Left ventricular systolic function isseverely decreased. EF = 20 ? 5% (visual est.) Definity contrast used forendocardial border detection. Baseline left ventricular diastolic function isconsistent with abnormal relaxation (stage 1).- The right ventricle is normal in size. Right ventricular systolic function islow normal.- There is moderate (2+) tricuspid valve regurgitation. There is a mobileechodensity on the TV, seen best clips 55, 106- Estimated right ventricular systolic pressure is 64 mmHg consistent withmoderate pulmonary hypertension. Estimated right atrial pressure is 5 mmHg.- This RA mass measures 1 cm x 1 cm or more and appears to be attached to thelateral wall of the RA. Its relationship to the TV or the IVC/SVC could not beestablished.- This looks like stress-induced CM.- I called Dr. Susie Poe to let her know these findings promptly.- The patient has not had a prior CC echocardiographic exam for comparison.AMBULATORY PATIENT EDUCATIONTopic: Coronary Artery Disease/MN and Cardiomyopathy Hyperlipidemia,Hypertension, Exercise and NutritionInstruction Provided To: PatientBarriers: NoneMotivation to Learn: InterestedMethods of Instruction: Verbal instruction and/or handouts.Patient Leans Best By: Multiple MethodsPatient Verbalized: UnderstandingIMPRESSION:1. 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 08/2015 echo resolved appearance ofcardiomyopathy. 09/2016 echo LVEF 61%, tr-1+ MR2. echo LVEF 20% with basal and apical hyperkinesis, mid akinesis pattern; ?Takotsubo. 08/2015 LVEF 60%. 09/2016 LVEF 61%3. ?RA mass 1 x 1 cm (echo 06/2015)--not seen on cardiac MRI or MIGUEL, likelyprominent karlie terminalis4. CAD LHC --LMT 50-60% distal, LAD 50% prox, Cx 80% ostial, OM1 99%, RCA 30%distal (07/09/2015)10/2017 no recent or past symptoms of chest pain, functional limitations5. paroxysmal AF/RVR, self-terminated (06/2015)--on amiodarone. 08/2015 nofurther known episodes of AF. 09/2015 amiodarone d/c'ed01/2017 post-op AF following hysterectomy, converted with IV medication, nofurther known recurrencences6. hypertension--prior to 06/2015 only on benazapril. 08/2015 BPwell-controlled on metoprolol XL 50 qday, lisinopril 20 qday10/2017 BP controlled on metoprolol XL 50 qday, lisinopril 20 qday10/2017 pt continues to feel well, no recent concerning symptoms or cardiacevents (though did have short-lived post-op AF following hysterectomy in01/2017). 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 In the past, Dr. Barbersusapphireested CTS evaluation for ostial Cx lesion (also seen to be ischemic onPET), however pt previously deferred due to lack of symptoms, and at thispoint, has had no further changes in status to suggest evaluation forrevascularization is necessary.PLAN AND RECOMMENDATIONS:1. continue current medication regimen2. exercise nuclear stress test routine followup CAD (assymptomatic,unrevacularized) 3. RTC 03/2018[place] Reedepartment of Cardiovascular MedicineReferring Provider: ROEL MILES (ACCOUNTS MANAGER) [[id number]]Allergies As of Date: 11/09/2017 Noted Allergy ReactionFOLIC ACID 11/09/2017 14 - Other: See Comments Comments: Causes itchingPENICILLIN 11/09/2017 2 - Rash Comments: causes a rashDate Reviewed: 11/09/2017Reviewed by: Jose Stone - Fully AssessedReason for Visit: Recheck [92]Primary Visit Diagnosis:Atherosclerosis of samish coronary artery of samish heart without angina pectoris [I25.10] Other Visit Diagnoses:Essential hypertension [I10] Paroxysmal atrial fibrillation (HCC) [I48.0] Idiopathic myocarditis, 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] Takotsubo cardiomyopathy [I51.81]Order(s):lisinopril (ZESTRIL, PRINIVIL) 20 mg tabletTake 1 tablet by mouth once daily.Disp: 90 tabletRfl: 3 nitroglycerin sublingual (NITROQUICK) 0.4 mg SL tabletDissolve 1 tablet under the tongue every 5 minutes as needed for Chest Pain.Disp: 1 Bottle of 25Rfl: 6 aspirin 81 mg chewable tabletTake 1 tablet by mouth once daily.Disp: 100 tabletRfl: 3 atorvastatin (LIPITOR) 80 mg tabletTake 1 tablet by mouth once daily.Disp: 90 tabletRfl: 3 metoprolol succinate ER (TOPROL XL) 25 mg 24 hr tabletTake 1 tablet by mouth once daily.Disp: 90 tabletRfl: 3 EXERCISE STRESS W/NUC IMAGING [[id number]] Order #: [id number]: 1 NM CARDIAC PERF STRESS/EXERCISE [[id number]] Order #: [id number] FUTUREPrescriptions as of 11/09/2017 Sig: LISINOPRIL 20 MG TABLET Take 1 tablet by mouth once d* NITROGLYCERIN 0.4 MG SUBLINGU* Dissolve 1 tablet under the t* ASPIRIN 81 MG CHEWABLE TABLET Take 1 tablet by mouth once d* ATORVASTATIN 80 MG TABLET Take 1 tablet by mouth once d* METOPROLOL SUCCINATE ER 25 MG* Take 1 tablet by mouth once d*Problem List As Of Date 11/09/2017 Noted Resolved Heart failure with reduced ejection fraction (H*INVALID FOR* Priority: Moderate More... Subsequent non-ST elevation (NSTEMI) myocardial*INVALID FOR*07/09/2015 Priority: Mild More... HTN (hypertension) [I10] INVALID FOR* More... SUMMARY INVALID FOR* Priority: Severe More... Non-ST elevation (NSTEMI) myocardial infarction*INVALID FOR* More... Atrial mass [I51.9] INVALID FOR* More... Paroxysmal atrial fibrillation (HCC) [I48.0] INVALID FOR* More... Chronic systolic heart failure (HCC) [I50.22] INVALID FOR* Myocarditis (HCC) [I51.4] INVALID FOR* Atherosclerosis of coronary artery of samish he*INVALID FOR*Prescriptions ordered this encounter Disp Refills Start End LISINOPRIL 20 MG TABLET 90 t* 3 11/09/2017 Class: Print RX Route: ORAL Sig: Take 1 tablet by mouth once daily. NITROGLYCERIN 0.4 MG SUBLINGUAL TABL* 1 Abdi* 6 11/09/2017 Class: Print RX Route: SUBLINGUAL Sig: Dissolve 1 tablet under the tongue every 5 minutes as needed for Chest Pain. ASPIRIN 81 MG CHEWABLE TABLET 100 * 3 11/09/2017 Class: Print RX Route: ORAL Sig: Take 1 tablet by mouth once daily. ATORVASTATIN 80 MG TABLET 90 t* 3 11/09/2017 Class: Print RX Route: ORAL Sig: Take 1 tablet by mouth once daily. METOPROLOL SUCCINATE ER 25 MG TABLET* 90 t* 3 11/09/2017 Class: Print RX Route: ORAL Sig: Take 1 tablet by mouth once daily.Medications Discontinued During This Encounter atorvastatin (LIPITOR) 80 mg tablet 90 t* 3 09/24/2015 11/09/2017 Route: ORAL Sig: Take 1 tablet by mouth daily at bedtime. Disc: Course of therapy completed metoprolol succinate ER (TOPROL XL) * 90 t* 3 09/30/2016 11/09/2017 Route: ORAL Sig: Take 1 tablet by mouth once daily. Disc: Dosage adjustment lisinopril (ZESTRIL, PRINIVIL) 20 mg* 90 t* 3 09/24/2015 11/09/2017 Route: ORAL Sig: Take 1 tablet by mouth once daily. Disc: Reason for discontinue is not on file. nitroglycerin sublingual (NITROQUICK* 1 Abdi* 6 09/24/2015 11/09/2017 Route: SUBLINGUAL Sig: Dissolve 1 tablet under the tongue every 5 minutes as needed for Chest Pain. Disc: Reason for discontinue is not on file. aspirin 81 mg chewable tablet 30 t* 3 07/16/2015 11/09/2017 Class: Print RX Route: ORAL Sig: Take 1 tablet by mouth once daily. Disc: Reason for discontinue is not on file.Follow-up and Disposition History RecordedLetter Berta Jimenez [facility] Nucla Preventive Cardiology and RehabilitationTrivoli and Rain Small Department of Cardiovascular Medicine[address] / Desk [place] [address] Toll Free [phone] [facility] [phone] [facility] [phone] 2017MsAnthony Lee[address] [address]VNFV: Bela LeeDannie NO: [id number] OF SERVICE: 11/09/2017Dear Ms. Lee:The results of your lab work, along with your history and physical exam werereviewed. The following plans and goals have been established to optimizecontrol of your risk factors and reduce your risk of future heart disease.1. continue current medication regimen2. exercise nuclear stress test routine followup CAD (assymptomatic,unrevacularized) 3. RTC 03/2018This information has been passed along to your primary care provider,Lennox Gilman MD. Should you have any questions, please do not hesitate tocontact our clinic at [phone].Sincerely,Susie Poe MDEncounter Number: [id number] Status:Closed by SUSIE POE MD on 11/21/17 Normal [facility] PROGRESSon 11-09-2017 Protein mass conc HNO ID: [id number] thor: Susie Bridges: (none)Author Type: PhysicianType: Progress NotesFiled: 11/21/2017 4:35 PMNote Text:[facility] V[facility] and [facility] Department of Cardiovascular MedicineSECTION OF PREVENTIVE CARDIOLOGYOUTPATIENT VISIT DATEMay 2017OUTPATIENT VISIT TYPEESTPRIMARY CARE PHYSICIAN:Lennox Gilman MD ([facility])[address] [facility] [place] [address]Jqarw: [phone]: [phone] COMPLAINT:followup for myocarditis/Takotsubo cardiomyopathy, CADHISTORY OF PRESENT ILLNESS:Ms. Lee is a 77 year old female who presents today for followup, lastseen by myself in 02/2016, and by IAN Miles 09/2016. In the interim, ptcontacted the office for pre-op clearance for hysterectomy.History includes hospitalization 07/07-07/16/2015 after fall,myocarditis/Takotsubo cardiomyopathy. Pt initially presented with fall?syncope; elevated cardiac enzymes CK 302/MB 24, Danay 1.050 to local ED,and was referred to [facility] for ?NSTEMI. Evaluation revealedmyocardial pattern more consistent with Takotsubo cardiomyopathy vsmyocarditis; however she was also found to have concurrent CAD, LMTdisease. She was discharged home with followup to assess need forrevasculariization. Past medical history was notable only forhypertension on benazapril prior to admission; otherwise previously inoverall excellent health.At the last visit, pt was doing well; and again deferred revascularizationof ostial Cx CAD due to lack of symptoms and continued good functionalability.Current complaints/concerns:--since the last visit, 01/2017 underwent vaginal hysterectomy--01/2017 post-op AF approx 3 days after hysterectomy, converted inhospital with IV medication, total lasting few hrs; no further knownrecurrences--no significant medical concerns since surgery--denies chest pain--denies SOB--occ fatigue, but typically remains very active--denies chest pain, shortness of breath, dyspnea on exertion, activitylimitations, PND, orthopnea, LE edema, or syncope or near-syncope.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 See NSTEMI for [facility] results 07/09 Cardiac MRI with midsegment ballooning, delayed enhancement concerning for myocarditis.Inflammatory/infect ious work up largely wnl, ELISSA by IFA pending MIGUEL 07/14with EF 30% and small circumferential pericardial effusion, largestanteriorly PLAN: - afterload reduction with captopril 6.25 q 8 hours -ASA - atorvastatin 80 qHS- HTN (hypertension) Patient with history of HTN PLAN: Continue captopril- Lip laceration 06/2015- Myocarditis (HCC) 06/2015- Paroxysmal atrial fibrillation (HCC) 06/2015 Patient experienced episode of atrial fibrillation overnight 07/08-07/09and 07/09-07/10 Converted to NSR with amiodarone Heparin gtt discontinued07/14 (no RA clot on MIGUEL) PLAN: Continue metoprolol 25 every 8 hoursContinue AmiodaronePAST SURGICAL HISTORYProcedure Laterality Date- NONESOCIAL HISTORYSocial HistorySubstance Use Topics- Smoking status: Never Smoker- Smokeless tobacco: Never Used- Alcohol use NoFAMILY HISTORYProblem Relation Age of Onset- Cancer Mother age 68 cancer- Renal [Other] [OTHER] Father age 82 renal failureALLERGIES:ALLERGIESAller gen Reactions- Folic Acid Other: See Comments Causes itching- Penicillin Rash causes a rashMEDICATIONS:metoprolol succinate ER (TOPROL XL) 50 mg 24 hr tablet Take 1 tablet bymouth once daily.lisinopril (ZESTRIL, PRINIVIL) 20 mg tablet Take 1 tablet by mouth oncedaily.nitroglycerin sublingual (NITROQUICK) 0.4 mg SL tablet Dissolve 1 tabletunder the tongue every 5 minutes as needed for Chest Pain.aspirin 81 mg chewable tablet Take 1 tablet by mouth once daily.REVIEW OF SYSTEMS: positives appear in bolddenies fevers, chills, heat/cold intolerance, cough, abdominal pain,change in bowel movements, extremity weakness or numbnessI personally interviewed, confirmed and edited the above information ifobtained by others.PHYSICAL EXAMINATION:BP 135/59 (BP Site: Right Arm, BP Position: Sitting, BP Cuff Size: LargeAdult) Pulse 69 Ht 157.5 cm (5' 2 ) Wt 78 kg (171 lb 14.4 oz) BMI 31.44 kg/m?Gen: pleasant WF in good spirits, NARDHEENT: PERRL, conj pink, OP benignneck: 2+ carotids, no bruits, JVP 7chest: CTA BCV: RRR normal S1, S2abd: soft, NTND, normal BS'sext: no edema; 2+ DP/PT pulsesneuro: alert, oriented X 3; normal gaitComponent Latest Ref Rng AND Units 07/08/2015 03/25/2016 09/27/2016 07/27/2017Triglyceride mg/dL 71 104 103 100Cholesterol, Total mg/dL 151 117 146 169HDL Cholesterol mg/dL 41 (L) 25 32 34VLDL Cholesterol 6 - 40 mg/dL 14LDL Cholesterol mg/dL 96 72.0 93 115Fasting Time hrs UnknownTC:HDL Ratio 1.00 - 5.00 3.68LDL:HDL Ratio 0.50 - 3.55 2.34Non HDL Cholesterol 90 - 159 mg/dL 110Cholesterol/HDL Ratio 5.0Component Latest Ref Rng AND Units 03/25/2016 09/27/2016 07/27/2017Glucose mg/dL 96 90 89BUN mg/dL 22.0 24 23Creatinine 1.5 mg/dL 0.85 0.76 0.74BUN/CREATININE RATIO 31Calcium mg/dL 8.4 8.8 8.5Sodium mmol/L 140 137 138Potassium mmol/L 4.7 5.1 4.8Chloride mmol/L 105 100 102CO2 mmol/L 25.0 23Anion Gap mmol/L 15.8 13 13Alkaline Phosphatase U/L 127 144ALT U/L 43 14 13AST U/L 36 20 18Bilirubin, Total mg/dL 0.30Protein, Total g//dL 7.3 7.4 7.4Albumin g/dL 3.9 3.9 3.8ALBUMIN/GLOBULIN RATIO 1.1eFGR NON AM mL/min/1.73 >60eGFR AM mL/min/1.73 >60Bili Total mg/dL 0.6 0.44GLOBULIN g/dL 3.5eGFR If NonAfrican Am mL/min >60 >60eGFR mL/min >60 >60ALP - Intl 38 - 126 U/L 106Carbon Dioxide mmol/L 24Creatine Kinase U/L 78 126NT Pro BNP pg/mL 366.0 227CK U/L 163Hemoglobin (g/dL)Date Value07/14/2015 11.1 Hematocrit (%)Date Value07/14/2015 34.3 WBC (k/uL)Date Value07/14/2015 10.39 Platelet CountDate Value Ref Range Kugieu0207/14/2015 283 150 - 400 k/uL Final Component CK MB CK MB % Troponin TLatest Ref Rng 30 - 220 U/L 0.0 - 8.8 ng/mL 0.0 - 4.0 % 0.000 - 0.029ng/mL07/07/2015 4:20 PM 302 (H) 24.3 (H) 8.0 (H) 1.040 (H)07/07/2015 9:15 PM 311 (H) 21.6 (H) 6.9 (H) 1.050 (H)07/08/2015 282 (H) 18.6 (H) 6.6 (H) 0.758 (H)07/11/2015 104 3.9 3.8 0.254 (H)CARDIOVASCULAR MEDICINE TESTING:echo 09/2016--CONCLUSIONS:- Exam indication: Routine surveillance (greater than 1yr) of knowncardiomyopathy?without a change in clinical status- The left ventricle is normal in size. Left ventricular systolic functionisnormal. EF = 61 ? 5% (2D biplane) Normal left ventricular diastolicfunction.- The right ventricle is normal in size. Right ventricular systolicfunction isnormal.- Trivial to 1+ mitral regurgitation.- Trivial tricuspid regurgitation.- Exam was compared with the prior echocardiographic exam performed on09/24/2015. No significant change.echo September 24, 2015--CONCLUSIONS:- Exam indication: CHF- The left ventricle is normal in size. Left ventricular systolic functionisnormal. EF = 60 ? 5% (2D biplane) Definity contrast used for endocardialborderdetection. Baseline left ventricular diastolic function is consistent withabnormal relaxation (stage 1).- The right ventricle is normal in size. Right ventricular systolicfunction isnormal.- Trivial MR and TR.- Estimated right ventricular systolic pressure is 49 mmHg consistent withmildpulmonary hypertension. Estimated right atrial pressure is 5 mmHg.- Compared with the prior CC echocardiographic exam performed on 07/07/15.Significant interval improvement in global and regional LV systolicfunction. TheTR is less severe. The estimated RVSP is less.MIGUEL 07/14/2015--CONCLUSIONS:- Exam indication: Right atrial mass- The left ventricle is normal in size. Left ventricular systolic functionismoderately decreased. EF = 30 ? 5% (visual est.)- The right ventricle is normal in size. Right ventricular systolicfunction islow normal.- There is no evidence of echodensity involving the tricuspid valve.- There is no patent foramen ovale as detected by Doppler and salinecontrast.- There is a prominent ridge at the RA/ICV junction likely a cristaterminalis.This likely represents RA structure noted on surface echo. It is moreprominent,mobile and slightly more nodular than usually seen. 3D reconstructiondemonstratesthe ridge appearance making this more likely to be a normal varient. Ifthere isclinical concern interval imaging may be performed.- There is a small circumferential pericardial effusion, largestanteriorly.- Compared with the prior TTE performed on 07/07/15, RA is bettervisualized onthis MIGUEL. Pericardial effusion larger on this study.stress PET 07/14/2015--CONCLUSIONS:1. Positron Emission tomography: Abnormal scan.2. There is moderate (10-20%) ischemia in the territory of the LCX.3. There is mild (<10%) ischemia in the territory of the LAD.4. Left ventricle is normal in size. the left ventricle systolicfunction is normal.5. Rest LVEF is 50 %. The Stress LVEF is 51 %.6. Right ventricle is moderately dilated The right ventricle systolicfunction is moderately decreased.7. Functional capacity N/A (pharmacological).8. This is an intermediate risk scan.cardiac MRI 07/10/2015--IMPRESSION:* The left ventricle is normal in size and shape, and has severelydecreased systolic function (LVEF = 31%). There is ballooning andhypokinesis of the mid segments, with sparing of the basal and apicalsegments.* Delayed-enhancement imaging reveals discrete mid myocardialenhancement in the mid inferolateral wall. No mural or apical leftventricular thrombus is identified. The constellation of findings aremore in favor of myocarditis over Takotsubo cardiomyopathy.* The right ventricle is normal in size and shape, and has mildlydecreased systolic function (RVEF = 48%).* No significant valvular abnormalities.* No right atrial mass is identified on this study. However, dedicatedright atrial images were not acquired. If further evaluation for apossible right atrial mass is required, recommend MIGUEL.[facility] 07/10/2015--DIAGNOSTIC [id number] year old female with HTN admitted with NSTEMI and newly diagnosed EF20% andafibFindings:LM- There is a 50-60% focal narrowing involving the bifurcationLAD- There is an ectatic segment following the origin of the vessel, and clcvpa18-94% narrowing in the proximal segment of Diag1.LCx- Non-dominant. There is an 80% focal narrowing just after the originof thevessel. OM1 has a 90% focal narrowing in the proximal segment of thevessel. OM2and OM3 are without significant narrowing.RCA- Dominant. There is mild diffuse narrowing in the mid segment. Thereis a30-40% focal narrowing in the posterolateral branch.Left ventriculogram obtained from GARCIA projection demonstrating basal andmidanterior and inferior hypokinesis. Ejection fraction approximately 30%.LV 120/20, Ao 120/66Impression:-Moderate narrowing of the distal left main extending into the bifurcationof theLAD and LCx. Severe narrowings in the proximal LCx and OM1. Moderatenarrowing inthe proximal 1st Diagonal branch. Consider CABG.-Left ventriculogram with basal and mid anterior and inferior hypokinesis.Ejection fraction approximately 30%.-No gradient across aortic valve-LVEDP 20echo 07/07/2015--CONCLUSIONS:- Technically difficult exam due to body habitus and suboptimalpositioning.- Exam indication: Syncope- The left ventricle is normal in size. Left ventricular systolic functionisseverely decreased. EF = 20 ? 5% (visual est.) Definity contrast used forendocardial border detection. Baseline left ventricular diastolic functionisconsistent with abnormal relaxation (stage 1).- The right ventricle is normal in size. Right ventricular systolicfunction islow normal.- There is moderate (2+) tricuspid valve regurgitation. There is a mobileechodensity on the TV, seen best clips 55, 106- Estimated right ventricular systolic pressure is 64 mmHg consistent withmoderate pulmonary hypertension. Estimated right atrial pressure is 5mmHg.- This RA mass measures 1 cm x 1 cm or more and appears to be attached tothelateral wall of the RA. Its relationship to the TV or the IVC/SVC couldnot beestablished.- This looks like stress-induced CM.- I called Dr. Susie Poe to let her know these findings promptly.- The patient has not had a prior CC echocardiographic exam forcomparison.AMBULATORY PATIENT EDUCATIONTopic: Coronary Artery Disease/MN and Cardiomyopathy Hyperlipidemia,Hypertension, Exercise and NutritionInstruction Provided To: PatientBarriers: NoneMotivation to Learn: InterestedMethods of Instruction: Verbal instruction and/or handouts.Patient Leans Best By: Multiple MethodsPatient Verbalized: UnderstandingIMPRESSION:1. Takotsubo cardiomyopathy vs myocarditis, elevated cardiac enzymes CK302/MB 24, Danay 1.050 (06/2015)--focal wall motion abnormality with mid LVdyskinesis, sparing of basal and apical segments. 08/2015 echo resolvedappearance of cardiomyopathy. 09/2016 echo LVEF 61%, tr-1+ MR2. echo LVEF 20% with basal and apical hyperkinesis, mid akinesispattern; ? Takotsubo. 08/2015 LVEF 60%. 09/2016 LVEF 61%3. ?RA mass 1 x 1 cm (echo 06/2015)--not seen on cardiac MRI or MIGUEL,likely prominent karlie terminalis4. CAD LHC --LMT 50-60% distal, LAD 50% prox, Cx 80% ostial, OM1 99%,RCA 30% distal (07/09/2015)10/2017 no recent or past symptoms of chest pain, functional limitations5. paroxysmal AF/RVR, self-terminated (06/2015)--on amiodarone. 08/2015 nofurther known episodes of AF. 09/2015 amiodarone d/c'ed01/2017 post-op AF following hysterectomy, converted with IV medication,no further known recurrencences6. hypertension--prior to 06/2015 only on benazapril. 08/2015 BPwell-controlled on metoprolol XL 50 qday, lisinopril 20 qday10/2017 BP controlled on metoprolol XL 50 qday, lisinopril 20 qday10/2017 pt continues to feel well, no recent concerning symptoms orcardiac events (though did have short-lived post-op AF followinghysterectomy in 01/2017). 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 In the past, Dr. Barber suggested CTS evaluation for ostial Cxlesion (also seen to be ischemic on PET), however pt previously deferreddue to lack of symptoms, and at this point, has had no further changes instatus to suggest evaluation for revascularization is necessary.PLAN AND RECOMMENDATIONS:1. continue current medication regimen2. exercise nuclear stress test routine followup CAD (assymptomatic,unrevacularized) 3. RTC 03/2018[facility] CNCOon 08-12-2017 CNCO Letter TextThe [facility] Clinic [facility] Pointe Hospitalction of Preventive Cardiology AND RehabilitationCutler [facility] Cardiovascular [facility] Cardiovascular [id number] [place] [address]Ms. Jannie Lee[address] [address]HARDNR NO.: [id number] Ms. Lee:Due to a change in Dr. Poe's schedule, we have changed your appointment to09/28/17. We apologize for any inconvenience this may cause. Please do nothesitate to call if you have any further questions or need to reschedule.Our local phone number is [phone] or our toll free number [phone] (ext. [phone]).Thank you.Sincerely,The Appointment Office of the Section of Preventive Cardiology [facility] Cardiovascular [place] Cardiovascular Medicine [facility] Vital Signs Date Time Vital Sign Value Performing Clinician Facility 06-24-2023 09:30-0500 Body height 170.18 cm Lennox Gilman Other [facility] Other 06-24-2023 09:30-0500 Body mass index (BMI) [Ratio] 24.65 kg/m2 Lennox Gilman Other [facility] Other 06-24-2023 09:30-0500 Body weight 71.4 kg Lennox Ball Other [facility] Other 06-24-2023 09:30-0500 Diastolic blood pressure 85 mm[Hg] Lennox Ball Other [facility] Other 06-24-2023 09:30-0500 Respiratory rate 12 /min Lennox Ball Other [facility] Other 06-24-2023 09:30-0500 Systolic blood pressure 138 mm[Hg] Lennox Ball Other [facility] Other 05-20-2023 10:15-0500 Body height 170.18 cm Lennox Ball Other [facility] Other 05-20-2023 10:15-0500 Body mass index (BMI) [Ratio] 24.49 kg/m2 Lennox Ball Other [facility] Other 05-20-2023 10:15-0500 Body weight 70.94 kg Lennox Ball Other [facility] Other 05-20-2023 10:15-0500 Diastolic blood pressure 78 mm[Hg] Lennox Ball Other [facility] Other 05-20-2023 10:15-0500 SaO2% (BldA) [Mass fraction] 98 % Lennox Ball Other [facility] Other 05-20-2023 10:15-0500 Systolic blood pressure 145 mm[Hg] Lennox Ball Other [facility] Other 05-13-2023 13:00-0500 Body height 170.18 cm Lennox Ball Other [facility] Other 05-13-2023 13:00-0500 Diastolic blood pressure 65 mm[Hg] Lennox Ball Other [facility] Other 05-13-2023 13:00-0500 Systolic blood pressure 114 mm[Hg] Lennox Ball Other [facility] Other 02-09-2023 13:30-0400 Body height 170.18 cm Lennox Ball Other [facility] Other 02-09-2023 13:30-0400 Body mass index (BMI) [Ratio] 24.9 kg/m2 Lennox Ball Other [facility] Other 02-09-2023 13:30-0400 Body weight 72.12 kg Lennox Ball Other [facility] Other 02-09-2023 13:30-0400 Diastolic blood pressure 68 mm[Hg] Lennox Ball Other [facility] Other 02-09-2023 13:30-0400 Respiratory rate 12 /min Lennox Ball Other [facility] Other 02-09-2023 13:30-0400 Systolic blood pressure 104 mm[Hg] Lennox Ball Other [facility] Other 09-24-2022 11:00-0400 Body height 170.18 cm Lennox Ball Other [facility] Other 09-24-2022 11:00-0400 Body mass index (BMI) [Ratio] 25.81 kg/m2 Lennox Ball Other [facility] Other 09-24-2022 11:00-0400 Body weight 74.75 kg Lennox Ball Other [facility] Other 09-24-2022 11:00-0400 Diastolic blood pressure 77 mm[Hg] Lennox Ball Other [facility] Other 09-24-2022 11:00-0400 Respiratory rate 12 /min Lennox Ball Other [facility] Other 09-24-2022 11:00-0400 Systolic blood pressure 145 mm[Hg] Lennox Ball Other [facility] Other Encounters Encounter Date Encounter Type Care Provider Facility Start: 07-04-2023 End: 07-04-2023 ambulatory Lennox Ball Other [facility] Other Start: 07-04-2023 Telephone encounter Lennox Ball [facility] Start: 06-24-2023 End: 06-24-2023 ambulatory Lennox Ball Other [facility] Other Start: 06-24-2023 Office outpatient vi sit 25 minutes Lennox Ball [facility] Start: 06-07-2023 End: 06-07-2023 ambulatory Lennox Ball Other [facility] Other Start: 06-07-2023 Telephone encounter Lennox Ball [facility] Start: 06-05-2023 End: 06-05-2023 ambulatory Lennox Ball Other [facility] Other Start: 06-05-2023 Telephone encounter Lennox Ball [facility] Start: 05-30-2023 End: 05-30-2023 ambulatory Lennox Ball Other [facility] Other Start: 05-30-2023 Telephone encounter Lennox Ball [facility] Start: 05-20-2023 End: 05-20-2023 ambulatory Lennox Ball Other [facility] Other Start: 05-20-2023 Office outpatient vi sit 25 minutes Lennox Ball [facility] Start: 05-13-2023 End: 05-13-2023 ambulatory Lennox Ball Other [facility] Other Start: 05-13-2023 Office outpatient vi sit 15 minutes Lennox Ball [facility] Start: 03-28-2023 End: 03-28-2023 ambulatory Lennox Ball Other [facility] Other Start: 03-28-2023 Telephone encounter Lennox Ball [facility] Start: 03-26-2023 End: 03-26-2023 ambulatory Lennox Ball Other [facility] Other Start: 03-26-2023 Telephone encounter Lennox Ball [facility] Start: 03-10-2023 End: 03-10-2023 ambulatory Lennox Ball Other [facility] Other Start: 03-10-2023 Telephone encounter Lennox Ball [facility] Start: 02-09-2023 End: 02-09-2023 ambulatory Lennox Ball Other [facility] Other Start: 02-09-2023 Patient encounter procedure Lennox Ball [facility] Start: 11-08-2022 End: 11-08-2022 ambulatory Lennox Ball Other [facility] Other Start: 11-08-2022 Telephone encounter Lennox Ball [facility] Start: 11-05-2022 End: 11-05-2022 ambulatory Lennox Ball Other [facility] Other Start: 11-05-2022 Telephone encounter Lennox Ball [facility] Start: 10-20-2022 End: 10-20-2022 ambulatory Lennox Ball Other [facility] Other Start: 10-20-2022 Telephone encounter Lennox Bolaños [facility] Start: 10-14-2022 End: 10-14-2022 ambulatory Lennox Gilman Other [facility] Other Start: 10-14-2022 Telephone encounter Lennox GARCIA [facility] Start: 10-13-2022 Telephone encounter Lennox Bolaños [facility] Start: 10-13-2022 End: 10-14-[address] LENNOX GILMAN [facility] Other Start: 09-24-2022 End: 09-24-2022 ambulatory Lennox Gilman Other [facility] Other Start: 09-24-2022 Office outpatient vi sit 25 minutes Lennox OSORIO [facility] Start: 08-20-2022 End: 08-21-2022 ambulatory [facility] Start: 08-18-2022 End: 08-19-2022 ambulatory [facility]X [facility] Start: 08-18-2022 End: 08-18-2022 Subsequent hospital visit by physician Lissa Marquez PT [facility] Physical Therapy Comment on above: Arrived Start: 08-13-2022 End: 08-14-2022 ambulatory LENNOX [facility] Start: 08-13-2022 End: 08-13-2022 Subsequent hospital visit by physician Lissa Marquez PT [facility] Physical Therapy Comment on above: Arrived Start: 08-11-2022 End: 08-12-2022 ambulatory LENNOX [facility] Start: 08-11-2022 End: 08-11-2022 Subsequent hospital visit by physician Lissa Marquez PT [facility] Physical Therapy Comment on above: Arrived Start: 08-06-2022 End: 08-07-2022 ambulatory LENNOX [facility] Start: 08-04-2022 End: 08-05-2022 ambulatory LENNOX [facility] Start: 08-04-2022 End: 08-04-2022 Subsequent hospital visit by physician Lissa Marquez PT [facility] Physical Therapy Comment on above: Arrived Start: 07-30-2022 End: 07-31-2022 ambulatory [facility] Start: 07-30-2022 End: 07-30-2022 Subsequent hospital visit by physician Lissa Marquez PT [facility] Physical Therapy Comment on above: Arrived Start: 07-29-2022 [facility] Start: 07-23-2022 End: 07-24-2022 ambulatory [facility] Start: 07-21-2022 End: 07-22-2022 ambulatory [facility] Start: 07-21-2022 End: 07-21-2022 Subsequent hospital visit by physician Lissa Marquez PT [facility] Physical Therapy Comment on above: Arrived Start: 07-19-2022 End: 2022 ambulatory [facility] Start: 07-19-2022 End: 07-19-2022 Subsequent hospital visit by physician Araceli Saha PTA [facility] Physical Therapy Comment on above: Arrived Start: 07-16-2022 End: 07-17-2022 ambulatory [facility] Start: 07-16-2022 End: 07-16-2022 Subsequent hospital visit by physician Araceli Saha PTA [facility] Physical Therapy Comment on above: Arrived Start: 07-14-2022 End: 07-15-2022 ambulatory [facility] Start: 07-14-2022 End: 07-14-2022 Subsequent hospital visit by physician Lissa Marquez PT [facility] Physical Therapy Comment on above: Arrived Start: 07-12-2022 End: 07-13-2022 ambulatory [facility] Start: 07-12-2022 End: 07-12-2022 Subsequent hospital visit by physician Araceli Saha PTA [facility] Physical Therapy Comment on above: Arrived Start: 07-09-2022 End: 07-10-2022 ambulatory [facility] Start: 07-09-2022 End: 07-09-2022 Subsequent hospital visit by physician Araceli Saha PTA [facility] Physical Therapy Comment on above: Arrived Start: 07-07-2022 End: 07-07-2022 Subsequent hospital visit by physician Araceli Saha PTA [facility] Physical Therapy Start: 07-05-2022 End: 07-06-2022 ambulatory [facility] Start: 07-02-2022 End: 07-03-2022 ambulatory [facility] Start: 06-30-2022 End: 07-01-2022 ambulatory [facility] Start: 06-30-2022 End: 06-30-2022 Subsequent hospital visit by physician Heydi Gonzalez [employer] [facility] Physical Therapy Comment on above: Arrived Start: 06-24-2022 End: 06-25-2022 ambulatory [facility] Start: 06-24-2022 End: 06-24-2022 Subsequent hospital visit by physician Lissa Marquez PT [facility] Physical Therapy Comment on above: Closed displaced bic ondylar fracture of right tibia with routine healing (Primary Dx) Start: 05-07-2022 End: 05-08-2022 ambulatory [facility] Start: 05-07-2022 End: 05-07-2022 Subsequent hospital visit by physician Araceli Shaa PTA [facility] Physical Therapy Comment on above: Arrived Start: 05-05-2022 End: 05-06-2022 ambulatory [facility] Start: 05-05-2022 End: 05-05-2022 Subsequent hospital visit by physician Araceli Saha PTA [facility] Physical Therapy Comment on above: Arrived Start: 05-03-2022 End: 05-04-2022 ambulatory [facility] Start: 04-30-2022 End: 05-01-2022 ambulatory [facility] Start: 04-28-2022 End: 04-29-2022 ambulatory [facility] Start: 04-28-2022 End: 04-28-2022 Subsequent hospital visit by physician Araceli Saha PTA [facility] Physical Therapy Comment on above: Arrived Start: 04-15-2022 End: 04-16-2022 ambulatory [facility] Start: 04-15-2022 End: 04-15-2022 Subsequent hospital visit by physician Prashanth Wilks PT [facility] Physical Therapy Comment on above: Arrived Start: 04-11-2022 End: 10-16-[address] LENNOX GILMAN Facility:[facility] Start: 03-06-2022 End: 03-06-[address] LENNOX GILMAN Facility:[facility] Start: 02-11-2022 End: 02-12-[address] LENNOX GILMAN Facility:[facility] Start: 10-27-2021 End: 10-28-[address] LENNOX GILMAN Facility:[facility] Start: 10-27-2021 Adult health examination Lennox Gilman Other [facility] Other Start: 03-16-2019 End: 03-16-2019 Subsequent hospital visit by physician Lennox JONES [facility] Start: 04-11-2018 End: 04-11-2018 Patient encounter procedure SUSIE POE [facility] Start: 11-09-2017 End: 11-09-2017 Patient encounter procedure SUSIE POE [facility] Start: 02-24-2017 End: 02-24-2017 Pre-procedure evaluation check Lennox Gilman Other [facility] Other Procedures Date Procedure Procedure Detail Performing Clinician Start: 03-16-2019 25 hydroxy includes fractions if performed Lennox Gilman Work Phone: Depression screening Josselyn Gilman Other Screening for malign ant neoplasm of breast Lennox Gilman Other Plan of Treatment Date Care Activity Detail Author Start: 08-20-2022 End: 08-20-2022 Patient encounter procedure 08/20/2022 Appointment Physical Therapy Lissa Marquez PT [facility] Start: 08-18-2022 End: 08-18-2022 Patient encounter procedure 08/18/2022 Appointment Physical Therapy Lissa Marquez PT [facility] Start: 08-13-2022 End: 08-13-2022 Patient encounter procedure 08/13/2022 Appointment Physical Therapy Lissa Marquez PT [facility] Start: 08-11-2022 End: 08-11-2022 Patient encounter procedure 08/11/2022 Appointment Physical Therapy Lissa Marquez PT [facility] Start: 08-06-2022 End: 08-06-2022 Patient encounter procedure 08/06/2022 Appointment Physical Therapy Alma, Lissa, PT [facility] Start: 08-04-2022 End: 08-04-2022 Patient encounter procedure 08/04/2022 Appointment [facility] Start: 07-23-2022 End: 07-23-2022 Patient encounter procedure 07/23/2022 Appointment Physical Therapy Lissa Marquez, PT [facility] Start: 07-21-2022 End: 07-21-2022 Patient encounter procedure [facility] Start: 07-19-2022 End: 07-19-2022 Patient encounter procedure 07/19/2022 Appointment Physical Therapy Araceli Saha, GUERRERO [facility] Start: 07-16-2022 End: 07-16-2022 Patient encounter procedure 07/16/2022 Appointment Physical Therapy [facility] Start: 07-14-2022 End: 07-14-2022 Patient encounter procedure 07/14/2022 Appointment Physical Therapy Lissa Marquez, [facility] Start: 07-12-2022 End: 07-12-2022 Patient encounter procedure 07/12/2022 Appointment Physical Therapy Araceli Saha [facility] Start: 07-09-2022 End: 07-09-2022 Patient encounter procedure 07/09/2022 Appointment Physical Therapy [facility]aceli Saha [facility] Start: 07-07-2022 End: 07-07-2022 Patient encounter procedure 07/07/2022 Appointment Physical Therapy Araceli Saha [facility] Start: 07-05-2022 End: 07-05-2022 Patient encounter procedure 07/05/2022 Appointment Physical Therapy Araceli Saha [facility] Start: 07-02-2022 End: 07-02-2022 Patient encounter procedure 07/02/2022 Appointment Physical Therapy Araceli Saha [facility] Start: 06-30-2022 End: 06-30-2022 Patient encounter procedure 06/30/2022 Appointment Physical Therapy Heydi Gonzalez, [employer] [facility] Start: 05-14-2022 End: 05-14-2022 Patient encounter procedure 05/14/2022 Appointment Physical Therapy Araceli Saha [employer] [facility] Start: 05-12-2022 End: 05-12-2022 Patient encounter procedure 05/12/2022 Appointment Physical Therapy Araceli Saha [facility] Start: 05-10-2022 End: 05-10-2022 Patient encounter procedure 05/10/2022 Appointment Physical Therapy Araceli Saha PTA [facility] Start: 05-07-2022 End: 05-07-2022 Patient encounter procedure 05/07/2022 Appointment Physical [facility] Start: 05-05-2022 End: 05-05-2022 Patient encounter procedure 05/05/2022 Appointment Physical Therapy Araceli Saha PTA [facility] Start: 05-03-2022 End: 05-03-2022 Patient encounter procedure 05/03/2022 Appointment Physical Therapy Araceli Saha PTA [facility] Start: 04-30-2022 End: 04-30-2022 Patient encounter procedure 04/30/2022 Appointment Physical Therapy [facility]ac[facility] Start: 04-28-2022 End: 04-28-2022 Patient encounter procedure 04/28/2022 Appointment Physical Therapy [facility] Start: 04-26-2022 End: 04-26-2022 Patient encounter procedure 04/26/2022 Appointment Physical Therapy Denny Cho [facility] Therapy Start: 04-23-2022 End: 04-23-2022 Patient encounter procedure 04/23/2022 Appointment Physical Therapy [facility]aceli [facility] Start: 04-21-2022 End: 04-21-2022 Patient encounter procedure 04/21/2022 Appointment Physical Therapy Araceli Saha [employer] [facility] Start: 04-20-2022 End: 04-20-2022 Patient encounter procedure 04/20/2022 Appointment Physical Therapy Doroteo Geiger PTA [facility] Start: 04-14-2022 Annual Wellness Visi t (AWV) Annual Wellness Visit (AWV) [facility] Start: 01-25-2022 Influenza vaccination Flu vaccine (# 1) [facility] Start: 09-16-2021 COVID-19 Vaccine (3 - Booster for Pfizer series) COVID-19 Vaccine (3 - Booster for Pfizer series) [facility] Start: 06-13-2021 COVID-19 Vaccine (3 - Booster for Pfizer series) COVID-19 Vaccine (3 - Booster for Pfizer series) [facility] Start: 02-25-2019 Influenza vaccination Flu vaccine (# 1) [place], [place] Start: 2006 Pneumococcal 65+ yea rs Vaccine (1 of 2 - PCV13) Pneumococcal 65+ years Vaccine (1 of 2 - PCV13) [place], [place] Start: 1996 Screening for osteoporosis DEXA (modify frequency per FRAX score) [facility] Start: 1991 Shingles vaccine (1 of 2) Shingles vaccine (1 of 2) [facility] Start: 1960 DTaP/Tdap/Td vaccine (1 - Tdap) DTaP/Tdap/Td vaccine (1 - Tdap) [facility] Start: 1953 Depression Screen Depression Screen [facility] Immunizations Immunization Date Immunization Notes Care Provider Micheal lugo 04-12-2018 influenza virus vaccine, split virus (incl. purified surface antigen) Lennox Gilman Other [facility] Other 04-07-2016 influenza virus vaccine, split virus (incl. purified surface antigen) Lennox Gilman Other [facility] Other 08-08-2015 pneumococcal polysaccharide vaccine, 23 valent Lennox Gilman Other [facility] Other 04-09-2015 influenza virus vaccine, split virus (incl. purified surface antigen) Lennox Gilman Other [facility] Other 11-05-2014 pneumococcal polysaccharide vaccine, 23 valent Lennox Gilman Other [facility] Other 03-07-2013 tetanus and diphther ia toxoids, adsorbed, preservative free, for adult use (5 Lf of tetanus toxoid and 2 Lf of diphtheria toxoid) Lennox Gilman Other [facility] Other Payers Date Payer Category Payer Unknown [id number] [employer] SUPP xxxxxxxxx 2016-Present [phone] [address] [address] [place] [address] xxxxxxxxx [id number] .[id number] 2016 Unknown [id number] [id number] .[id number] 2014 Medicare MEDICARE MEDICAR E PART A AND B xxxxxxxxxx 2014-Present [phone] [address] [address] [place] [address] xxxxxxxxxx [id number] .[id number] 1959 Medicare [id number] [id number] .[id number] 1959 Private Health Insurance CLI [id number] 1941 Unknown [id number] 2.16.840.1.072874.3.579.2 .173 1941 Unknown [id number] 2.16.840.1.408750.3.579.2 .173 1941 Unknown [id number] 2.16.840.1.504336.3.579.2 .173 1941 Unknown [id number] 2.16.840.1.307298.3.579.2 .173 1941 Unknown [id number] 2.16.840.1.164287.3.579.2 .173 1941 Unknown [id number] 2.16.840.1.033113.3.579.2 . 1941 Unknown [id number] 2.16.840.1.961341.3.579.2 .173 1941 Unknown [id number] 2.16.840.1.703312.3.579.2 .173 1941 Unknown [id number] 2.16.840.1.564619.3.579.2 .173 1941 Unknown [id number] 2.16.840.1.725788.3.579.2 .173 1941 Unknown [id number] 2.16.840.1.959680.3.579.2 .173 1941 Unknown [id number] 2.16.840.1.340571.3.579.2 .173 1941 Unknown [id number] 2.16.840.1.259119.3.579.2 .173 1941 Unknown [id number] 2.16.840.1.491457.3.579.2 .173 1941 Unknown [id number] 2.16.840.1.563363.3.579.2 .173 1941 Unknown [id number] 2.16.840.1.334009.3.579.2 .173 1941 Unknown [id number] 2.16.840.1.159843.3.579.2 .173 1941 Unknown [id number] 2.16.840.1.414929.3.579.2 .173 1941 Unknown [id number] 2.16.840.1.365360.3.579.2 .173 1941 Unknown [id number] 2.16.840.1.496408.3.579.2 .173 1941 Unknown [id number] 2.16.840.1.850191.3.579.2 .173 1941 Unknown [id number] 2.16.840.1.872697.3.579.2 .173 1941 Unknown [id number] 2.16.840.1.211372.3.579.2 .173 1941 Unknown [id number] 2.16.840.1.510156.3.579.2 .173 1941 Unknown [id number] 2.16.840.1.484957.3.579.2 .173 1941 Unknown [id number] 2.16.840.1.140129.3.579.2 .593 1941 Unknown [id number] 2.16.840.1.892482.3.579.2 .593 1941 Unknown [id number] 2.16.840.1.131619.3.579.2 .593 1941 Unknown [id number] 2.16.840.1.840373.3.579.2 .593 1941 Unknown [id number] 2.16.840.1.880220.3.579.2 .593 Social History Date Type Detail Facility Tobacco smoking status [facility] Unknown if ever smoked [place], [place] Start: 1941 Sex Assigned At Not on file [place], [place] Tobacco smoking status [facility] [employer] Work Phone: Sex Assigned At Sex Assigned At [facility] Other Clinical Notes 04-15-2022 to 07-04-2023 Note Date & Type Note Facility 07-04-2023 Evaluation note Encounter Date Diagnosis Assessment Notes Jun, Anemia (ICD-10 - D64.9) Jun, Stage 3b chronic kidney disease (ICD-10 - N18.32) Jun, Paroxysmal atrial fibrillation (ICD-10 - I48.0) [facility] Other [id number] Evaluation note* Encounter Date Diagnosis Assessment Notes Treatment Notes Treatment Clinical Notes May, ASHD (arteriosclerotic heart disease) (ICD-10 - I25.10) This patient is stable without activity related CP, dyspnea or lightheadedness. They are instructed to continue exercise and AHA diet plan. Continue secondary prevention measures. May, Essential hypertension (ICD-10 - I10) This patient is instructed to consume a healthy, low-fat, low-salt diet. They are also encouraged to continue exercise to achieve/maintain a normal BMI. May, Paroxysmal atrial fibrillation (ICD-10 - I48.0) This patient is in NSR. This patient is anticoagulated to prevent thromboembolic events. Recent Echo (09/2022) w/ normal LVEF w/o valvular abnormalities Holter (09/2022) w/o atrial fibrillation Plan to anticoagulate for 4 wks and refer to cardiology for further evaluation and treatment. May, IFG (impaired fasting glucose) (ICD-10 - R73.01) Healthy diet, exercise and maintain BMI < 30. Eye and foot care reviewed. Yearly A1C May, Hyperlipidemia type II (ICD-10 - E78.01) Instructed on diet and exercise with continued statin therapy.Discussed the beneficial effects of lowering cholesterol in reducing the risk for cerebrovascular and cardiovascular disease. May, Other folate deficiency anemias (ICD-10 - D52.8) Continue supplementation. Recheck FA and CBC in future. May, Other iron deficiency anemia (ICD-10 - D50.8) No s/s bleeding but is anticoagulated. She denies heartburn, dysphagia, abd pain, melena or hematochezia. She is receiving Fe supplementation. She will require EGD, colonoscopy once cardiac status stable. [facility] Other 12-12-2023 Evaluation note* Encounter Date Diagnosis Assessment Notes Treatment Notes Treatment Clinical Notes May, ASHD (arteriosclerotic heart disease) (ICD-10 - I25.10) [facility] Other 12-10-2023 Evaluation note* Encounter Date Diagnosis Assessment Notes Treatment Notes Treatment Clinical Notes May, Dietary folate deficiency anemia (ICD-10 - D52.0) [facility] Other 12-04-2023 Evaluation note* Encounter Date Diagnosis Assessment Notes Treatment Notes Treatment Clinical Notes May, Anemia, unspecified type (ICD-10 - D64.9) [facility] Other 11-24-2023 Evaluation note* Encounter Date Diagnosis Assessment Notes Treatment Notes Treatment Clinical Notes Apr, ASHD (arteriosclerotic heart disease) (ICD-10 - I25.10) This patient is stable without activity related CP, dyspnea or lightheadedness. They are instructed to continue exercise and AHA diet plan. Continue secondary prevention measures. Apr, Essential hypertension (ICD-10 - I10) This patient is instructed to consume a healthy, low-fat, low-salt diet. They are also encouraged to continue exercise to achieve/maintain a normal BMI. Apr, Paroxysmal atrial fibrillation (ICD-10 - I48.0) This patient is in NSR or rate controlled. This patient is anticoagulated to prevent thromboembolic events. They are maintaining regular scheduled appts with their binder coverstitch. No bleeding complications. 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 She feels that her AFib has been intermittent, despite not capturing it on Holter monitoring. Reviewed CHADs VASc score w/ 4% risk of thromboembolic events/yr. Discussed LAAO procedure Apr, Hyperlipidemia type II (ICD-10 - E78.01) Instructed on diet and exercise with continued statin therapy.Discussed the beneficial effects of lowering cholesterol in reducing the risk for cerebrovascular and cardiovascular disease. Apr, IFG (impaired fasting glucose) (ICD-10 - R73.01) Healthy diet, exercise and maintain normal BMI. A1C at routine OV w/ goal < 7% Apr, COVID-19 (ICD-10 - U07.1) Self isolate at home. - Cannot work - avoid contact with others - avoid pets - wipe counters, door knobs if touched - if can't avoid leaving home, must wear mask to protect others - need to stay isolated for 10 days from onset of symptoms - to discontinue isolation must be 5 days AND must be without fever for 24 hours AND symptoms must be improving. Always wear a mask in public places for complete 10 days This may have contributed to her AFib. She is to rest and maintain adequate intake of nutrition and fluids [facility] Other 11-17-2023 Evaluation note* Encounter Date Diagnosis Assessment Notes Treatment Notes Treatment Clinical Notes Apr, COVID-19 (ICD-10 - U07.1) Instructed to use Robitussin or Mucinex for cough, saline or Flonase NS for congestion, Tylenol for pain and fever. Begin Paxlovid, adjusted for CKD Self isolate at home. - Cannot work - avoid contact with others - avoid pets - wipe counters, door knobs if touched - if can't avoid leaving home, must wear mask to protect others - need to stay isolated for 10 days from onset of symptoms - to discontinue isolation must be 5 days AND must be without fever for 24 hours AND symptoms must be improving. Always wear a mask in public places for complete 10 days Apr, Paroxysmal atrial fibrillation (ICD-10 - I48.0) This patient is rate controlled. This patient is anticoagulated to prevent thromboembolic events. She will be initiated on AC, which the ER did not begin Continue ASA [facility] Other 10-02-2023 Evaluation note* Encounter Date Diagnosis Assessment Notes Treatment Notes Treatment Clinical Notes Mar, Familial hypercholesterolemia (ICD-10 - E78.01) Diet and exercise. [facility] Other 08-16-2023 Evaluation note* Encounter Date Diagnosis Assessment Notes Treatment Notes Treatment Clinical Notes Jan, Medicare annual wellness visit, subsequent (ICD-10 - Z00.00) Personalized health advice was given to the beneficiary including a written plan for screenings discussed and provided. Advanced care planning reviewed and/or information given as requested. Additional counseling was provided here today in regards to, [ ]. The above visit was performed by [ ], under direct supervision of [ ]. Document reviewed and amended by provider signed below. Jan, ASHD (arteriosclerotic heart disease) (ICD-10 - I25.10) This patient is stable without activity related CP, dyspnea or lightheadedness. They are instructed to continue exercise and AHA diet plan. Jan, Essential hypertension (ICD-10 - I10) This patient is instructed to consume a healthy, low-fat, low-salt diet. They are also encouraged to continue exercise to achieve/maintain a normal BMI. Jan, Paroxysmal atrial fibrillation (ICD-10 - I48.0) No episodes caught on holter. Jan, Hyperlipidemia type II (ICD-10 - E78.01) Instructed on diet and exercise with continued statin therapy.Discussed the beneficial effects of lowering cholesterol in reducing the risk for cerebrovascular and cardiovascular disease. Jan, IFG (impaired fasting glucose) (ICD-10 - R73.01) This patient is following a comprehensive diabetic treatment plan. They are checking their feet daily for calluses and nonhealing ulcers. They are being seen for yearly dilated eye examinations. Goals: SBP less than 130, LDL less than 100, FBS less than 140, AC and A1C less than 7%. Jan, Palpitation (ICD-10 - R00.2) Avoid stimulants Hydrate and exercise. Proper sleep routine. Jan, Fatigue, unspecified type (ICD-10 - R53.83) Check labs: BS, CBC, TSH Jan, Screening mammogram for breast cancer (ICD-10 - Z12.31) Instructed on monthly SBE and qoy mammograms. Jan, High risk medication use (ICD-10 - Z79.899) Check labs: CBC, ALT [facility] Other 04-26-2023 Evaluation note* Encounter Date Diagnosis Assessment Notes Treatment Notes Treatment Clinical Notes Sep, Essential hypertension (ICD-10 - I10) [facility] Other 04-19-2023 Evaluation note* Encounter Date Diagnosis Assessment Notes Treatment Notes Treatment Clinical Notes Sep, ASHD (arteriosclerotic heart disease) (ICD-10 - I25.10) ECHOCARDIOGRAM - 09/2022 1. LVEF is 55-60%. 2. No significant valvular dysfunction. [facility] Other 03-31-2023 Evaluation note* Encounter Date Diagnosis Assessment Notes Treatment Notes Treatment Clinical Notes Aug, ASHD (arteriosclerotic heart disease) (ICD-10 - I25.10) This patient is stable without activity related CP, dyspnea or lightheadedness. They are instructed to continue exercise and AHA diet plan. Aug, Essential hypertension (ICD-10 - I10) This patient is instructed to consume a healthy, low-fat, low-salt diet. They are also encouraged to continue exercise to achieve/maintain a normal BMI. Aug, Paroxysmal atrial fibrillation (ICD-10 - I48.0) Avoid stimulants Hydrate Check TSH, BMP Aug, Hyperlipidemia type II (ICD-10 - E78.01) Diet and exercise with continued statin therapy. Aug, IFG (impaired fastin g glucose) (ICD-10 - R73.01) Healthy diet, keep active, A1C every year. FBS Aug, Palpitation (ICD-10 - R00.2) Avoid stimulants. Check TSH, BS, Holter, Echo Aug, Fatigue, unspecified type (ICD-10 - R53.83) [facility] Other 02-22-2023 History of Present illness Narrative* Lissa Alma, PT - 08/18/2022 11:15 AM EST [facility] Outpatient Physical Therapy Daily Note Patient: Jannie Lee : 1940 CSN #: [id number] Referring Physician: Melissa Ness MD Date: 08/18/2022 Diagnosis: S82.141D: Closed displaced bicondylar fracture, right tibia with routine healing Treatment Diagnosis: Right knee weakness, difficult in walking Onset Date: 04/11/22 PT Insurance Information: Medicare Total # of Visits Approved: 18 Per Physician Order Total # of Visits to Date: 17 No Show: 0 Canceled Appointment: 1 Pre-Treatment Pain: 1/10 Subjective: Pt arrives with reports of mild aching and tightness. Pain 1/10. Exercises: Exercise 2: Long arc quad 3 x 10 bilateral Exercise 4: sit to stand 3 x 8 15 pounds Exercise 5: Ambulation: 150 feet with SPC ; Exercise 6: Hamstring stretch 3 x 30 seconds; flexor stretch at step 3 x 30 seconds Exercise 7: At counter: heel raises, march, abduction, knee flexion 1 x 20 bilateral each; tandem walk 3 laps; retro walk 3 laps Exercise 9: Scifit x10 min L4.0 Assessment Assessment: Pt has completed 17 treatments of skilled outpatient physical therapy. Pt progressing very well towards goals and return to prior level of mobility. Pt successfully weaned off of front wheeled walker and using single point cane as needed for community ambulation. Therapist able to continue to progress pt with therapeutic exercises in order to faciltiate lower extremity strength as needed for tolerance to standing, safety in transfers, and return to prior level of function. Pt agreebale and to ready to discharge at next visit. Requesting to review advanced HEP and update as needed to self manage at home. Please see updated goals and objective measures below for patient progress to date. Objective Measures: LEFS: 53/80 Right Knee AROM Knee flexion: 114 degrees Knee extension: lacking .5 degrees Right knee Strength: Knee flexion: 5-/5 Knee extension: 5-/5 Activity Tolerance Activity Tolerance: Patient tolerated treatment well Patient Education Patient Education: Pt educated on readiness for discharge next visit Pt verbalized/demonstrated good understanding: [x] Yes [] No, pt required further clarification. Post Treatment Pain: 0/10 Plan Plan Frequency: 2x per week Plan weeks: 4 weeks Goals (Total # of Visits to Date: 17) Short Term Goals Time Frame for Short Term Goals: 2 weeks Short Term Goal 1: Pt will be provided updated HEP per new WB status - met Short Term Goal 2: Pt will not exceed 2/10 with toe touch WB ambulation activities in order to improve independence with home ambulation-met 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 Goals Time Frame for Prison Goals : 4 weeks Prison Goal 1: Pt will be compliant with moderate level HEP - progressing (08/04/2022 HEP updated) 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 Goal 2: Pt will improve right knee extension from lacking 20 to less than lacking 10 in order to improve gait pattern - met (08/18/2022 lacking .5 degrees) Prison Goal 3: Pt will improve right lower extremity strength to at least 4/5 overall in order to improve standing tolerance and prepare for full weight bearing ambulation - met (08/13/2022) 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 Goal 4: Pt will tolerate 20 minutes of standing activity with least restrictive assistivedevice required for weight bearing status without increase in pain - met (08/04/2022) Minutes Tracking: Time In: 1118 Time Out: 1203 Minutes: 45 Timed Code Treatment Minutes: 44 Minutes Lissa Marquez PT, DPT Date: 08/18/2022 [facility] [employer] Work Phone: 1(384) 614-683002-17-2023 History of Present illness Narrative* Lissa Marquez, PT - 08/13/2022 10:45 AM EST [facility] Outpatient Physical Therapy Daily Note Patient: Jannie Lee : 1940 CSN #: [id number] Referring Physician: Melissa Ness MD Date: 08/13/2022 Diagnosis: S82.141D: Closed displaced bicondylar fracture, right tibia with routine healing Treatment Diagnosis: Right knee weakness, difficult in walking Onset Date: 04/11/22 PT Insurance Information: Medicare Total # of Visits Approved: 18 Per Physician Order Total # of Visits to Date: 16 No Show: 0 Canceled Appointment: 1 Pre-Treatment Pain: 0/10 Subjective: Pt arrives with no pain. Reports mild stiffness but states she feels that is due to thesudden cold weather. Pt continues to use to single point for ambulation with good tolerance. Exercises: Exercise 3: SLR 3 x 10 Exercise 5: Gait with single point cane cone weave 4 cones x 4 Exercise 6: Hamstring stretch 3 x 30 seconds; flexor stretch at step 3 x 30 seconds Exercise 7: At counter: heel raises, march, abduction, knee flexion 1 x 20 bilateral each; tandem walk 3 laps; retro walk 3 laps Exercise 9: Scifit x10 min L4.0 Exercise 12: Calf stretch 3 x 1 minute Exercise 13: Side step with low nida at counter x4 laps BUE support; forward step over low hurdgex4 laps Exercise 15: Bridge 3 x 10 Exercise 16: Narrow base of support on airex pad with upper extremity movement 5 minutes Assessment Body Structures, Functions, Activity Limitations Requiring Skilled Therapeutic Intervention: Decreased functional mobility , Decreased ADL status, Decreased ROM, Decreased body mechanics, Decreased tolerance to work activity, Decreased strength, Decreased endurance, Decreased balance, Decreased high-level IADLs Assessment: Pt arrives with reports of stiffness but no pain. Ambulating with single point cane. Therapist progressed pt this visit new exercises in order to facilitate standing and walking tolerance. Pt able to complete all well without pain or loss of balance. Pt demonstring continued improvementin right knee strength and mobility. Pt and therapist discussed plan for next couple of visits and return to physician. Pt ended treatment without pain. Objective measure: Right knee flexion AROM - 115 degrees; Right knee extension AROM - lacking 1 degrees Right knee flexion strength: 4+/5 Right knee extension strength: 4/5 Activity Tolerance Activity Tolerance: Patient tolerated treatment well Patient Education Patient Education: Pt educated on plan of care and potential discharge Pt verbalized/demonstrated good understanding: [x] Yes [] No, pt required further clarification. Post Treatment Pain: 0/10 Plan Plan Frequency: 2x per week Plan weeks: 4 weeks Goals (Total # of Visits to Date: 16) Short Term Goals Time Frame for Short Term Goals: 2 weeks Short Term Goal 1: Pt will be provided updated HEP per new WB status - met Short Term Goal 2: Pt will not exceed 2/10 with toe touch WB ambulation activities in order to improve independence with home ambulation-met Prison Goals Time Frame for 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 Goals : 4 weeks Prison Goal 1: Pt will be compliant with moderate level HEP - progressing (08/04/2022 HEP updated) 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 Goal 2: Pt will improve right knee extension from lacking 20 to less than lacking 10 in order to improve gait pattern - met (08/06/2022 lacking 2) Prison Goal 3: Pt will improve right lower extremity strength to at least 4/5 overall in order to improve standing tolerance and prepare for full weight bearing ambulation - met (08/13/2022) Prison Goal 4: Pt will tolerate 20 minutes of standing activity with least restrictive assistivedevice required for weight bearing status without increase in pain - met (08/04/2022) Minutes Tracking: Time In: 1048 Time Out: 1131 Minutes: 43 Timed Code Treatment Minutes: 42 Minutes Lissa Marquez PT, DPT Date: 08/13/2022 [facility] [employer] Phone: 1(234) 378-309602-15-2023 History of Present illness Narrative* Lissa Marquez PT - 08/11/2022 9:30 AM EST [facility] Outpatient Physical Therapy Daily Note Patient: Jannie Lee : 1940 CSN #: [id number] Referring Physician: Melissa Ness MD Date: 08/11/2022 Diagnosis: S82.141D: Closed displaced bicondylar fracture, right tibia with routine healing Treatment Diagnosis: Right knee weakness, difficult in walking Onset Date: 04/11/22 PT Insurance Information: Medicare Total # of Visits Approved: 18 Per Physician Order Total # of Visits to Date: 15 No Show: 0 Canceled Appointment: 1 Pre-Treatment Pain: 10 Subjective: Pt reports very mild pain today (07/06) she contributes to normal morning stiffness. Pt arrives without her walker and using a single point cane requesting to get it sized and practice with is during treatment today. Exercises: Exercise 4: sit to stand 3 x 5 15 pounds Exercise 5: Gait with single point cane 4 laps Exercise 6: Hamstring stretch 3 x 30 seconds; flexor stretch at step 3 x 30 seconds Exercise 7: At counter: heel raises, march, abduction, knee flexion 1 x 20 bilateral each; tandem walk 3 laps; retro walk 3 laps Exercise 9: Scifit x10 min L3.0 Exercise 12: Calf stretch 3 x 1 minute Exercise 13: Side step with low nida at counter x4 laps BUE support Assessment Assessment: Pt arrived with reports of continued stiffness ambulating with single point this date. Therapist adjusted cane height for pt and educated pt on safe gait pattern this visit. Pt able to comfortably ambulate moderate distances in clinic without loss of balance or pain. Therapist continuedto direct pt through treatment in order to facilitate joint mobility and reduce stiffness. Pt endedtreatment without any pain. Activity Tolerance Activity Tolerance: Patient tolerated treatment well Patient Education Patient Education: Pt educated on gait pattern with SPC Pt verbalized/demonstrated good understanding: [x] Yes [] No, pt required further clarification. Post Treatment Pain: 0/10 Plan Plan Frequency: 2x per week Plan weeks: 4 weeks Goals (Total # of Visits to Date: 15) Short Term Goals Time Frame for Short Term Goals: 2 weeks Short Term Goal 1: Pt will be provided updated HEP per new WB status - met Short Term Goal 2: Pt will not exceed 2/10 with toe touch WB ambulation activities in order to improve independence with home ambulation-met 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 Goals Time Frame for 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 Goals : 4 weeks 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 Goal 1: Pt will be compliant with moderate level HEP - progressing (08/04/2022 HEP updated) Prison Goal 2: Pt will improve right knee extension from lacking 20 to less than lacking 10 in order to improve gait pattern - met (08/06/2022 lacking 2) Prison Goal 3: Pt will improve right lower extremity strength to at least 4/5 overall in order to improve standing tolerance and prepare for full weight bearing ambulation 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 Goal 4: Pt will tolerate 20 minutes of standing activity with least restrictive assistivedevice required for weight bearing status without increase in pain - met (08/04/2022) Minutes Tracking: Time In: 932 Time Out: 1015 Minutes: 42 Timed Code Treatment Minutes: 41 Minutes Lissa Marquez PT, DPT Date: 08/11/2022 [facility] Work Phone: [phone]) 322-559902-08-2023 History of Present illness Narrative* Lissa Marquez PT - 08/04/2022 11:15 AM EST [facility] Outpatient Physical Therapy Daily Note Patient: Jannie Lee : 1940 CSN #: [id number] Referring Physician: Melissa Ness MD Date: 08/04/2022 Diagnosis: S82.141D: Closed displaced bicondylar fracture, right tibia with routine healing Treatment Diagnosis: Right knee weakness, difficult in walking Onset Date: 04/11/22 PT Insurance Information: Medicare Total # of Visits Approved: 18 Per Physician Order Total # of Visits to Date: 13 No Show: 0 Canceled Appointment: 1 Pre-Treatment Pain: 2/10 Subjective: Pt reports more pain in calf and right heel than the knee this date. Exercises: Exercise 2: Long arc quad 3 x 10 bilateral Exercise 3: Ambulation 600 feet with FWW Exercise 4: sit to stand 1 x 5; 1 x 5 8 pound; 1 x 5 10 pounds Exercise 6: Hamstring stretch 3 x 30 seconds Exercise 8: heel prop x5 min 5 pound weight Exercise 9: Scifit x10 min L3.0 Exercise 10: 2 x 10 toe taps 6 inch step 1 UE support; 6 inch FSU 2x10 each BUE support Exercise 11: TKE YTB 3 2x10 Exercise 12: Calf stretch 3 x 1 minute Exercise 13: Side step at counter x4 laps BUE support Assessment Body Structures, Functions, Activity Limitations Requiring Skilled Therapeutic Intervention: Decreased functional mobility , Decreased ADL status, Decreased ROM, Decreased body mechanics, Decreased tolerance to work activity, Decreased strength, Decreased endurance, Decreased balance, Decreased high-level IADLs Assessment: Pt arrived with reports of tightness in the calf and ankle. Therapist directed pt through treatment in order to facilitate knee extension and reduce tightness. Pt able to progress well with increased resistance and repetitions with exercises this date. Therapist updated HEP with pt verbally acknowledging understanding. Pt ended treatment with out report of pain. Activity Tolerance Activity Tolerance: Patient tolerated treatment well Patient Education Patient Education: Pt educated on continuing stretching at home Pt verbalized/demonstrated good understanding: [x] Yes [] No, pt required further clarification. Post Treatment Pain: 0/10 Plan Plan Frequency: 2x per week Plan weeks: 4 weeks Goals (Total # of Visits to Date: 13) Short Term Goals Time Frame for Short Term Goals: 2 weeks Short Term Goal 1: Pt will be provided updated HEP per new WB status - met Short Term Goal 2: Pt will not exceed 2/10 with toe touch WB ambulation activities in order to improve independence with home ambulation-met Prison Goals Time Frame for 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 Goals : 4 weeks 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 Goal 1: Pt will be compliant with moderate level HEP - progressing (07/21/2022 HEP updated) 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 Goal 2: Pt will improve right knee extension from lacking 20 to less than lacking 10 in order to improve gait pattern - met (07/14/2022 lacking 5) 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 Goal 3: Pt will improve right lower extremity strength to at least 4/5 overall in order to improve standing tolerance and preapre for full weight bearing ambulation 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 Goal 4: Pt will tolerate 20 minutes of standing activity with least restrictive assistivedevice required for weight bearing status without increase in pain - met (08/04/2022) Minutes Tracking: Time In: 1117 Time Out: 1203 Minutes: 46 Timed Code Treatment Minutes: 45 Minutes Lissa Marquez PT, DPT Date: 08/04/2022 [facility] [employer] Phone: 1(694) 172-156802-03-2023 History of Present illness Narrative* Lissa Marquez, PT - 07/30/2022 9:15 AM EST [facility] Outpatient Physical Therapy Daily Note Patient: Jannie Lee : 1940 CSN #: [id number] Referring Physician: Melissa Ness MD Date: 07/30/2022 Treatment Diagnosis: Right knee weakness, difficult in walking Onset Date: 04/11/22 PT Insurance Information: Medicare Total # of Visits Approved: 18 Per Physician Order Total # of Visits to Date: 12 No Show: 0 Canceled Appointment: 1 Pre-Treatment Pain: 2/10 Subjective: Pt reports mild pain in the right ankle 2/10. Pt believes that she walked on it too much yesterday and is sore. Exercises: Exercise 2: Long arc quad 3 x 10 bilateral Exercise 4: sit to stand 1 x 5; 2 x 5 holding 5 pound weight; 1 x 5 8 pound ball Exercise 5: Gait with FWW 400 feet around clinic Exercise 7: At counter: heel raises, march, abduction, knee flexion 1 x 15 bilateral each Exercise 8: heel prop x5 min 5 pound weight Exercise 9: Scifit x10 min L2.0 Exercise 12: Calf stretch 3 x 1 minute Exercise 13: Side step at counter x4 laps BUE support Exercise 14: Ankle pump in heel prop 3 x 50 Objective Measure: AROM Right knee extension: lacking 2 Assessment Body Structures, Functions, Activity Limitations Requiring Skilled Therapeutic Intervention: Decreased functional mobility , Decreased ADL status, Decreased ROM, Decreased body mechanics, Decreased tolerance to work activity, Decreased strength, Decreased endurance, Decreased balance, Decreased high-level IADLs Assessment: Pt arrived with mild pain reported in the right ankle with walking. Therapist directed pt through treatment in order to facilitate stability and mobility of the right knee with walking. Pt progressing well with improvement in right knee extension this visit. Therapist provided verbal cuing for form as needed. Pt ended treatment with out any report of pain. Activity Tolerance Activity Tolerance: Patient tolerated treatment well Patient Education Patient Education: Pt educated on continuing stretching at home Pt verbalized/demonstrated good understanding: [x] Yes [] No, pt required further clarification. 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 Goal 2: Pt will improve right knee extension from lacking 20 to less than lacking 10 in order to improve gait pattern - met (07/14/2022 lacking 5) 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 Goal 3: Pt will improve right lower extremity strength to at least 4/5 overall in order to improve standing tolerance and preapre for full weight bearing ambulation Prison Goal 4: Pt will tolerate 20 minutes of standing activity with least restrictive assistivedevice required for weight bearing status without increase in pain - progressing (07/14/2022 10 minutes) Minutes Tracking: Time In: 919 Time Out: 1001 Minutes: 42 Timed Code Treatment Minutes: 41 Minutes Lissa Marquez PT, DPT Date: 07/30/2022 [facility] [employer] Phone: 1(872) 297-766601-25-2023 History of Present illness Narrative* Lissa Marquez PT - 07/21/2022 9:45 AM EST [facility] Outpatient Physical Therapy Daily Note Patient: Jannie Lee : 1940 CSN #: [id number] Referring Physician: Melissa Ness MD Date: 07/21/2022 Treatment Diagnosis: Right knee weakness, difficult in walking Onset Date: 04/11/22 PT Insurance Information: Medicare Total # of Visits Approved: 18 Per Physician Order Total # of Visits to Date: 10 No Show: 0 Canceled Appointment: 1 Pre-Treatment Pain: 0/10 Subjective: Pt reporting stiffness this date in the right knee but reports she has been able to do more in her home without her walker. Exercises: Exercise 2: Long arc quad 2 x 10 bilateral Exercise 4: sit to stand 3 x 5 Exercise 6: Quad set 3-5 x10 in heel prop Exercise 7: At counter: heel raises, march, abduction, knee flexion 1 x 15 bilateral each Exercise 8: heel prop x5 min 5 pound weight Exercise 9: Scifit x8 min L1 Exercise 13: Side step at counter x4 laps BUE support Exercise 14: Ankle pump in heel prop Assessment Assessment: Pt arrives to treatment this date without report of pain, mild report of stiffness in the right lower extremity. Pt making good progress toward goals with improvements in standing tolerance, ambulation, mobility and strength. Pt continues to use front wheeled walker for community ambulation due to right lower extremity weakness. Therapist progressed pt with increased repititions per exercise this date with able to complete with some reports of soreness and fatigue but no pain. Please see updated goals and objective measures below for current pt status. Pt to benefit from continuing with skilled outpatient physical therapy 2x per week for 4 weeks (8 additional visits) in order tocontinue to make progress towards goals. Objective measure: AROM knee Flexion: Right - 115 degrees ; Left - 120 degrees Extension: Right - lacking 2 degrees ; Left - 0 degrees Strength Knee Extension: Right - 4/5; Left - 4+/5 Flexion: Right - 4+/5 ; Left - 4+/5 Activity Tolerance Activity Tolerance: Patient tolerated treatment well Patient Education Patient Education: Pt educated on plan of care Pt verbalized/demonstrated good understanding: [x] Yes [] No, pt required further clarification. 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 Goals : 4 weeks 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 Goal 1: Pt will be compliant with moderate level HEP - progressing (07/21/2022 HEP updated) Prison Goal 2: Pt will improve right knee extension from lacking 20 to less than lacking 10 in order to improve gait pattern - met (07/14/2022 lacking 5) Prison Goal 3: Pt will improve right lower extremity strength to at least 4/5 overall in order to improve standing tolerance and preapre for full weight bearing ambulation Prison Goal 4: Pt will tolerate 20 minutes of standing activity with least restrictive assistivedevice required for weight bearing status without increase in pain - progressing (07/14/2022 10 minutes) Minutes Tracking: Time In: 945 Time Out: 1027 Minutes: 41 Timed Code Treatment Minutes: 40 Minutes Lissa Marquez PT, DPT Date: 07/21/2022 [facility] Phone: [phone]) 872-765701-23-2023 History of Present illness Narrative* Araceli Saha PTA - 07/19/2022 10:30 AM EST [facility] Outpatient Physical Therapy Daily Note Patient: Jannie Lee : 1940 CSN #: [id number] Referring Physician: Melissa Ness MD Date: 07/19/2022 Treatment Diagnosis: Right knee weakness, difficult in walking Onset Date: 04/11/22 PT Insurance Information: Medicare Total # of Visits Approved: 12 Per Physician Order Total # of Visits to Date: 9 No Show: 0 Canceled Appointment: 1 Pre-Treatment Pain: 07/06 Subjective: Pt reports she felt okay after last visit. She states she baked on Tuesday and stood for long durations. SHe states she also tried ambulating with SPC and no AD for short distances around home. She states she is sore in the R knee and pointed to R anterior tibialis where soreness was present as well. reports 07/06 Rknee pain. Exercises: Exercise 1: HEP update: passive right knee extension in heel prop, ankle pump in heel prop, calf stretch with strap Exercise 4: sit to stand x15 Exercise 6: Quad set 3-5 x10 Exercise 7: Sink ex BLE x8-10 each LE Exercise 8: heel prop x3 min 3# Exercise 9: Scifit x5 min L1 Exercise 10: 4 inch FSU/LSU x10 each BUE support Exercise 11: TKE YTB 3 2x10 Exercise 13: Side step at counter x2 laps BUE support Assessment Assessment: Pt has difficulty with knee extension with standing. Pt was progressed with closed chain exercises, TKE and quad set with hold to improve quad function. Educated on increased RBs at home as needed. Will continue Activity Tolerance Activity Tolerance: Patient tolerated treatment well Patient Education Ex progression, HEP Pt verbalized/demonstrated good understanding: [x] Yes [] No, pt required further clarification. Post Treatment Pain: 07/06 Plan Plan Frequency: 3x/week Plan weeks: 4 weeks Goals (Total # of Visits to Date: 9) Short Term Goals Time Frame for Short Term Goals: 2 weeks Short Term Goal 1: Pt will be provided updated HEP per new WB status - met Short Term Goal 2: Pt will not exceed 2/10 with toe touch WB ambulation activities in order to improve independence with home ambulation-met Prison Goals Time Frame for Prison Goals : 4 weeks Prison Goal 1: Pt will be compliant with moderate level HEP 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 Goal 2: Pt will improve right knee extension from lacking 20 to less than lacking 10 in order to improve gait pattern - met (07/14/2022 lacking 5) 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 Goal 3: Pt will improve right lower extremity strength to at least 4/5 overall in order to improve standing tolerance and preapre for full weight bearing ambulation Prison Goal 4: Pt will tolerate 20 minutes of standing activity with least restrictive assistivedevice required for weight bearing status without increase in pain - progressing (07/14/2022 10 minutes) Minutes Tracking: Time In: 1031 Time Out: 1112 Minutes: 41 Araceli Saha PTA Date: 07/19/2022 documented in this encounterB[facility] Phone: [phone]) 915-702301-18-2023 History of Present illness Narrative* Lissa Marquez, PT - 07/14/2022 9:30 AM EST [facility] Outpatient Physical Therapy Daily Note Patient: Jannie Lee : 1940 CSN #: [id number] Referring Physician: Melissa Ness MD Date: 07/14/2022 Treatment Diagnosis: Right knee weakness, difficult in walking Onset Date: 04/11/22 PT Insurance Information: Medicare Total # of Visits Approved: 12 Per Physician Order Total # of Visits to Date: 7 No Show: 0 Canceled Appointment: 1 Pre-Treatment Pain: .5/10 Subjective: Pt reports 0.5/10 pain in right anterior right knee. Pt returns to physician today. Objective measure: Right knee flexion AROM: 120 degrees Right knee extension: lacking 5 Right knee quad la degrees Exercises: Exercise 2: Seated R knee/hip strengthening 3# 2x15 / BTB x15; ball squeeze btwn knees x10, squeezewith LAQ x15; Exercise 3: heel slide with therpist overpressure 20x Exercise 6: SLR 2x10 ; SAQ 5 hold 2x15 ; quad set 2x10; hooklying clamshell 2x10 BTB Exercise 7: Standing RLE open chain 3# ankle weight hip flex, march, hip abd, HS curl 2x15 ea at RW Exercise 8: heel prop x2 min; Exercise 10: 6 inch step tap with RLE x15 at RW with 3# ankle weight Exercise 12: 1 small loop with standard walker, TTWB R LE Assessment Assessment: Pt arrived to treatment with complaints of mild pain. Therapist directed pt through treatment in order to facilitate right knee mobiltiy and strength as needed for return to walking. Pt progressing well and therapist is pleased with pt progress to date. Pt meeting goals set for range ofmotion, but pt continues to demonstrate lacking strength in the right knee. Therpaist educated pt on plan of care moving forward, contingent on return to physician this date. Pt verbally acknowledgedunderstanding. Pt continues to demonstrate good understanding of weightbearing status. Therapist provided verbal cuing to maintain good gait pattern while maintaining weight bearing restriction. Pt able to self correct with minimal cuing. Activity Tolerance Activity Tolerance: Patient tolerated treatment well Patient Education Patient Education: Pt educated on plan of care moving forward depending on how her return to provider goes Pt verbalized/demonstrated good understanding: [x] Yes [] No, pt required further clarification. 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 Goal 1: Pt will be compliant with moderate level HEP Prison Goal 2: Pt will improve right knee extension from lacking 20 to less than lacking 10 in order to improve gait pattern - met (07/14/2022 lacking 5) Prison Goal 3: Pt will improve right lower extremity strength to at least 4/5 overall in order to improve standing tolerance and preapre for full weight bearing ambulation Prison Goal 4: Pt will tolerate 20 minutes of standing activity with least restrictive assistivedevice required for weight bearing status without increase in pain - progressing (07/14/2022 10 minutes) Minutes Tracking: Time In: 0936 Time Out: 1015 Minutes: 39 Timed Code Treatment Minutes: 38 Minutes Lissa Marquez PT, DPT Date: 07/14/2022 [facility] Phone: [phone]) 838-472501-11-2023 History of Present illness Narrative* Elsy Daniel - 07/07/2022 9:45 AM EST [facility] Inpatient/Observation/Outpatient Rehabilitation Date: 07/07/2022 Patient Name: Jannie Lee [] Inpatient Acute/Observation [] Outpatient : 1940 [] Pt no showed for scheduled appointment [] Pt refused/declined therapy at this time due to: [x] Pt cancelled due to: [] No Reason Given [] Sick/ill [] Other: No ride Therapist/[employer] Lit[employer] Associate will attempt to see this patient, at our earliest opportunity. Elsy Daniel Date: 07/07/2022 documented in this encounterB[facility] [employer] Phone: [phone]) 472-535701-04-2023 History of Present illness Narrative* Heydi Gonzalez, SHEETMETAL WORKER - 06/30/2022 9:00 AM EST . [facility] Outpatient Physical Therapy Daily Note Patient: Jannie Lee : 1940 CSN #: [id number] Referring Physician: Melissa Ness MD Date: 06/30/2022 Treatment Diagnosis: Right knee weakness, difficult in walking Onset Date: 04/11/22 PT Insurance Information: Medicare Total # of Visits Approved: 12 Per Physician Order Total # of Visits to Date: 2 No Show: 0 Canceled Appointment: 0 Pre-Treatment Pain: 0/10 Subjective: Pt. denies pain upon arrival, reports she has been ambulating in home with WW, educted on WB TTWB status to maintain at this time. Exercises: Exercise 1: HEP update: passive right knee extension in heel prop, ankle pump in heel prop, calf stretch with strap Exercise 2: Seated R knee/hip strengthening YTB 2x15; ball squeeze btwn knees x10; august x15 Exercise 4: sit to stand 2x10 CGA TTWB R LE Exercise 7: Standing RLE open chain hip flex, august, hip abd, HS curl 2x15 ea at RW Exercise 11: sci-fit x10' Exercise 12: 2 laps in gym with WW, TTWB R LE Assessment Body Structures, Functions, Activity Limitations Requiring Skilled Therapeutic Intervention: Decreased functional mobility , Decreased ADL status, Decreased ROM, Decreased body mechanics, Decreased tolerance to work activity, Decreased strength, Decreased endurance, Decreased balance, Decreased high-level IADLs Assessment: Pt. toleratred treatment well, reportsincreased pain with R knee extension stretching. Pt. able to maintain TTWB to R LE with ambulation with use of WW. Will continue to progress as tolerated and within WB restrictions. Activity Tolerance Activity Tolerance: Patient tolerated treatment well Patient Education Patient Education: Pt educated on HEP, POC, toe touch weight bearing Pt verbalized/demonstrated good understanding: [x] Yes [] No, pt required further clarification. Post Treatment Pain: 0/10 Plan Plan Frequency: 3x/week Plan weeks: 4 weeks Goals (Total # of Visits to Date: 2) Short Term Goals Time Frame for Short Term Goals: 2 weeks Short Term Goal 1: Pt will be provided updated HEP per new WB status - met Short Term Goal 2: Pt will not exceed 2/10 with toe touch WB ambulation activities in order to improve independence with home ambulation 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 Goals Time Frame for Prison Goals : 4 weeks 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 Goal 1: Pt will be compliant with moderate level HEP Prison Goal 2: Pt will improve right knee extension from lacking 20 to less than lacking 10 in order to improve gait pattern 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 Goal 3: Pt will improve right lower extremity strength to at least 4/5 overall in order to improve standing tolerance and preapre for full weight bearing ambulation 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 Goal 4: Pt will tolerate 20 minutes of standing activity with least restrictive assistivedevice required for weight bearing status without increase in pain Minutes Tracking: Time In: 901 Time Out: 942 Minutes: 41 Heydi Gonzalez PTA Date: 06/30/2022 [facility] [employer] Phone: [phone]) 699-247912-29-2022 History of Present illness Narrative* Lissa Marquez PT - 06/24/2022 10:30 AM EST [facility] Outpatient Physical Therapy Evaluation Date: 06/24/2022 Patient: Jannie Lee : 1940 CSN #: [id number] Referring Physician: Melissa Ness MD Medical Diagnosis: S82.141D: Closed displaced bicondylar fracture, right tibia with routine healing Treatment Diagnosis: Right knee weakness, difficult in walking Onset Date: 04/11/22 PT Insurance Information: Medicare Total # of Visits Approved: 12 Total # of Visits to Date: 1 No Show: 0 Canceled Appointment: 0 Subjective Subjective: Pt reports she returned to her doctor on 06/16/2022 who said she is allowed to begin weight bearing at toe touch WB on the right LE and return to PT for strengthening and gait training. Pt returns to her referring provider on 07/14/2022 at which time they will decide on progressing her WB. Pt denies pain with an occasional twinge . Pt previously completed PT for balance, transfer training at [facility]. Pt reports continued compliance with exercises and moving around home with wheelchair. Additional Pertinent Hx: HTN, Heart Problems, Vision Problems Palpation: pt denies tenderness to palpation along right knee Ambulation/Gait (if applicable): Ambulation WB Status: Toe touch WB RLE Ambulation Surface: Level tile Device: Rolling Walker Assistance: Supervision Objective AROM AROM LLE (degrees) L Knee Flexion (0-145): 120 L Knee Extension (0): 0 Right knee flexion (0-145): 113 Right knee extension (0): lacking 20 Strength Strength RLE R Hip Flexion: 4/5 R Hip ABduction: 4-/5 R Knee Flexion: 3+/5 R Knee Extension: 3-/5 Strength LLE L Hip Flexion: 5/5 L Hip ABduction: 4+/5 L Knee Flexion: 5/5 L Knee Extension: 5/5 L Ankle Dorsiflexion: 5/5 Exercises: Exercise 1: HEP update: passive right knee extension in heel prop, ankle pump in heel prop, calf stretch with strap Functional Outcome Measures Any of your usual work, housework, or school activities: Quite a Bit of Difficulty Your usual hobbies, recreational, or sporting activities: Extreme Difficulty or Unable to Perform Activity Getting into or out of the bath: Moderate Difficulty Walking between rooms: Moderate Difficulty Putting on your shoes or socks: Quite a Bit of Difficulty Squatting: Extreme Difficulty or Unable to Perform Activity Lifting an object, like a bag of groceries from the floor: Quite a Bit of Difficulty Performing light activities around your home: Quite a Bit of Difficulty Performing heavy activities around your home: Extreme Difficulty or Unable to Perform Activity Getting into or out of a car: Moderate Difficulty Walking 2 blocks: Quite a Bit of Difficulty Walking a mile: Extreme Difficulty or Unable to Perform Activity Going up or down 10 stairs (about 1 flight of stairs): Extreme Difficulty or Unable to Perform Activity Standing for 1 hour: Quite a Bit of Difficulty Sitting for 1 hour: A Little Bit of Difficulty Running on even ground : Extreme Difficulty or Unable to Perform Activity Running on uneven ground : Extreme Difficulty or Unable to Perform Activity Making sharp turns while running fast : Extreme Difficulty or Unable to Perform Activity Hopping: Extreme Difficulty or Unable to Perform Activity Rolling over in bed: A Little Bit of Difficulty LEFS Total Score: 18 Assessment Assessment: Pt is an 81 year old female being evaluated for skilled outpatient physical therapy following right tibial plateau fracture. Pt recently was cleared to begin toe touch weight bearing by referring provided and returned to PT for gait training and strengthening. Pt pain seems well controlled. Pt limited in right knee mobility, lacking 20 degrees of right knee extension with some pain reported along anterior aspect of the knee. Pt continues to demonstrate lack of strength in the right knee. Therapist educated pt on weight bearing status and provided verbal cuing for use of FWW with new weight bearing status. Pt able to demonstrate good ambultion with FWW while adhering to weight bearing status. Pt denied pain with ambulation and transfers. Therapist provided new exercises for right knee mobility and tissue extensibility. Therapy Prognosis: Good Decision Making: Low Complexity Patient Education Patient Education: Pt educated on HEP, POC, toe touch weight bearing Pt verbalized/demonstrated good understanding: [X] Yes [] No, pt required further clarification. Goals Short Term Goals Time Frame for Short Term Goals: 2 weeks Short Term Goal 1: Pt will be provided updated HEP per new WB status - met Short Term Goal 2: Pt will not exceed 2/10 with toe touch WB ambulation activities in order to improve independence with home ambulation Prison Goals Time Frame for 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 Goals : 4 weeks Prison Goal 1: Pt will be compliant with moderate level HEP 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 Goal 2: Pt will improve right knee extension from lacking 20 to less than lacking 10 in order to improve gait pattern Prison Goal 3: Pt will improve right lower extremity strength to at least 4/5 overall in order to improve standing tolerance and preapre for full weight bearing ambulation Prison Goal 4: Pt will tolerate 20 minutes of standing activity with least restrictive assistivedevice required for weight bearing status without increase in pain Patient Goals : walk again Minutes Tracking: Time In: 1030 Time Out: 1114 Minutes: 44 Timed Code Treatment Minutes: 42 Minutes Lissa Marquez PT, DPT 06/24/2022 documented in this encounterB[facility] Phone: [phone]) 313-262911-11-2022 History of Present illness Narrative* Araceli Saha, SHEETMETAL WORKER - 05/07/2022 9:00 AM EST [facility] Outpatient Physical Therapy Daily Note Patient: Jannie Lee : 1940 CSN #: [id number] Referring Physician: Melissa Ness MD Date: 05/07/2022 Treatment Diagnosis: R Tibial Plateau Fx, Gait abnormalities Onset Date: 04/11/22 PT Insurance Information: Medicare Total # of Visits Approved: 12 Per Physician Order Total # of Visits to Date: 6 No Show: 0 Canceled Appointment: 0 Pre-Treatment Pain: 0/10 Subjective: Pt declines pain. Reports no new changes, doing well at home. Exercises: Exercise 1: HEP: Hip strengthening, Ankle Strengthening, Core isometrics; updated: sink ex RLE openchain Exercise 2: Seated R knee/hip strengthening YTB 2x15; ball squeeze btwn knees x10; august x15 Exercise 4: sit to stand 2x10 CGA NWBing RLE Exercise 7: Standing RLE open chain hip flex, august, hip abd, HS curl 2x15 ea at RW Assessment Assessment: Pt doing well with exercises tolerance/understanding. SUP with transfers, good demonstration with NWBing status on RLE. Her LLE strength is grossly 4+/5. Pt would like to be put on hold for the next few weeks since she is limited with progressions in PT. She was issued an updated HEP and will be put on hold. Activity Tolerance Activity Tolerance: Patient tolerated treatment well Patient Education Updated HEP, continued practice with transfers Pt verbalized/demonstrated good understanding: [x] Yes [] No, pt required further clarification. Post Treatment Pain: 0 /10 Plan Plan Frequency: 3x/week Plan weeks: 4 weeks Goals (Total # of Visits to Date: 6) Prison Goals Time Frame for Prison Goals : 4 weeks Prison Goal 1: Pt will be comfortable and complient with HEP -met Prison Goal 2: Pt will be able to perform sit to stand and stand pivot transfers SUP to improve safety of functional mobility. -met 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 Goal 3: Pt to demonstrate >/= 4+/5 LLE strength in all planes to improve dynamic stability -met Prison Goal 4: Pt to be able to complete all transfers while maintaining NWB status (or current status by end of PoC) to ensure safety and protection of injury. -met Minutes Tracking: Time In: 904 Time Out: 934 Minutes: 30 Araceli Saha SHEETMETAL WORKER Date: 05/07/2022 documented in this encounterBON [facility] [employer] Phone: 1(312) 796-497311-09-2022 History of Present illness Narrative* Araceli Yifan, SHEETMETAL WORKER - 05/05/2022 9:00 AM EST [facility] Outpatient Physical Therapy Daily Note Patient: Jannie Lee : 1940 CSN #: [id number] Referring Physician: Melissa Ness MD Date: 05/05/2022 Treatment Diagnosis: R Tibial Plateau Fx, Gait abnormalities Onset Date: 04/11/22 PT Insurance Information: Medicare Total # of Visits Approved: 12 Per Physician Order Total # of Visits to Date: 5 No Show: 0 Canceled Appointment: 0 Pre-Treatment Pain: 0 /10 Subjective: Pt reports no conerns. No pain, just occasional burning around tibial plateu Exercises: Exercise 1: HEP: Hip strengthening, Ankle Strengthening, Core isometrics Exercise 2: Seated R knee/hip strengthening YTB x15; ball squeeze btwn knees x10; august x15 Exercise 6: Seated ab isos 3 hold 2x10 Exercise 7: Standing RLE open chain hip flex, hip abd, HS curl 2x10 ea at RW Exercise 8: Seated unsupported 2# bar UE flex/ press 2x15 ea Exercise 9: Standing at standard walker grabbing cones across midline x5 cones each side Exercise 10: 4 inch step tap with RLE 2x15 at RW Assessment Assessment: Able to progress reps today without issue. Tolerates strengthening and balance exercises wtihout increase pain. No LOB/instability. SUP with transfers. Pt reports 0/10 at worst in RLE. WIll progress as tolerated. Activity Tolerance Activity Tolerance: Patient tolerated treatment well Patient Education Ex technique, rationale Pt verbalized/demonstrated good understanding: [x] Yes [] No, pt required further clarification. Post Treatment Pain: 0/10 Plan Plan Frequency: 3x/week Plan weeks: 4 weeks Goals (Total # of Visits to Date: 5) Short Term Goals Time Frame for Short Term Goals: 2 weeks Short Term Goal 1: Pt will initiate HEP -met Short Term Goal 2: Pt will not exceed 2/10 pain with functional activites to improve capacity for ADLs -met Prison Goals Time Frame for 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 Goals : 4 weeks Prison Goal 1: Pt will be comfortable and complient with HEP 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 Goal 2: Pt will be able to perform sit to stand and stand pivot transfers SUP to improve safety of functional mobility. 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 Goal 3: Pt to demonstrate >/= 4+/5 LLE strength in all planes to improve dynamic stability Minutes Tracking: Time In: 902 Time Out: 941 Minutes: 39 Araceli Saha PTA Date: 05/05/2022 [facility] Phone: 1(633) 324-373211-02-2022 History of Present illness Narrative* Araceli Saha, GUERRERO - 04/28/2022 9:00 AM EDT [facility] Outpatient Physical Therapy Daily Note Patient: Jannie Lee : 1940 CSN #: [id number] Referring Physician: Melissa Ness MD Date: 04/28/2022 Treatment Diagnosis: R Tibial Plateau Fx, Gait abnormalities Onset Date: 04/11/22 PT Insurance Information: Medicare Total # of Visits Approved: 12 Per Physician Order Total # of Visits to Date: 2 No Show: 0 Canceled Appointment: 0 Pre-Treatment Pain: 0/10 Subjective: Pt reports no issues so far, declines pain, just some burning on proximal tibia. She reports compliance with NWBing status on RLE and with immobilizer. Exercises: Exercise 1: HEP: Hip strengthening, Ankle Strengthening, Core isometrics Exercise 2: Seated R knee/hip strengthening YTB 2x10; ball squeeze btwn knees x10; august 2x10 Exercise 3: seated R ankle YTB x10 each Exercise 4: sit to stand x10 CGA NWBing RLE Exercise 5: Standing at RW until fatigue (4 min and 20 ) maintaining NWBing on RLE Exercise 6: Seated ab isos 3 hold 2x10 Exercise 7: Standing RLE open chain hip flex, hip abd, HS curl x10 ea at RW Assessment Assessment: Pt does well with stand pivot and sit<>stand transfers, CGA today for safety. Completed trunk and lower chain strengthening ex to progress towards her goals. Stood at RW maintainingNWBing status for >4 min. WIll continue as tolerated. Activity Tolerance Activity Tolerance: Patient tolerated treatment well Patient Education Ex technique, Brace fitting/tigthening, HEP Pt verbalized/demonstrated good understanding: [x] Yes [] No, pt required further clarification. Post Treatment Pain: 0/10 Plan Plan Frequency: 3x/week Plan weeks: 4 weeks Goals (Total # of Visits to Date: 2) Short Term Goals Time Frame for Short Term Goals: 2 weeks Short Term Goal 1: Pt will initiate HEP -met Short Term Goal 2: Pt will not exceed 2/10 pain with functional activites to improve capacity for ADLs 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 Goals Time Frame for Prison Goals : 4 weeks 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 Goal 1: Pt will be comfortable and complient with HEP Prison Goal 2: Pt will be able to perform sit to stand and stand pivot transfers SUP to improve safety of functional mobility. Prison Goal 3: Pt to demonstrate >/= 4+/5 LLE strength in all planes to improve dynamic stability Prison Goal 4: Pt to be able to complete all transfers while maintaining NWB status (or current status by end of PoC) to ensure safety and protection of injury. Minutes Tracking: Time In: 903 Time Out: 945 Minutes: 42 Araceli Saha, SHEETMETAL WORKER Date: 04/28/2022 [facility] [employer] Phone: 1(142) 548-678510-20-2022 History of Present illness Narrative* Prashanth Wilks, PT - 04/15/2022 4:30 PM EDT [facility] Outpatient Physical Therapy Evaluation Date: 04/15/2022 Patient: Jannie Lee : 1940 [facility] #: [id number] Referring Physician: Melissa Ness MD Medical Diagnosis: S82.141A: Closed Fracture of R tibial Plateau, initial Treatment Diagnosis: R Tibial Plateau Fx, Gait abnormalities Onset Date: 04/11/22 PT Insurance Information: Medicare Total # of Visits Approved: 12 Total # of Visits to Date: 1 No Show: 0 Canceled Appointment: 0 Subjective Subjective: Pt states she had a fall on tuesday04/11/22 that resulted in R tibial plateau fracture.Pt has been doing well since then, although she is NWB on her R side as of now. Pt states pain has been under control, ranging from 0/10 - 4/10 at worst. Additional Pertinent Hx: HTN, Heart Problems, Vision Problems Ambulation/Gait (if applicable): Ambulation WB Status: NWB RLE Wheelchair Activities Wheelchair Size: Large ([facility]) Wheelchair Type: Standard Wheelchair Cushion: None Wheelchair Parts Management: No Propulsion: No Objective Strength Strength LLE L Hip Flexion: 4/5 L Hip Extension: 4/5 L Hip ABduction: 4/5 L Hip ADduction: 4/5 L Hip Internal Rotation: 4/5 L Hip External Rotation: 4/5 L Knee Flexion: 4+/5 L Knee Extension: 4+/5 L Ankle Dorsiflexion: 4+/5 Strength RLE R Hip Flexion: 3+/5 R Hip Extension: 3+/5 R Hip ABduction: 3+/5 R Hip ADduction: 3+/5 Special Tests: Special Tests for Hip Hip Special Tests Performed: N/A Special Tests for Knee Special Tests: N/A Exercises: Exercise 1: HEP: Hip strengthening, Ankle Strengthening, Core isometrics Functional Outcome Measures Pt is currently ModA/MaxA for sit-stand and stand pivot transfers NWB on RLE Functional mobility Overall: ModA/MaxA Assessment Body Structures, Functions, Activity Limitations Requiring Skilled Therapeutic Intervention: Decreased functional mobility , Decreased ADL status, Decreased ROM, Decreased body mechanics, Decreased tolerance to work activity, Decreased strength, Decreased endurance, Decreased balance, Decreased high-level IADLs Assessment: Pt is a pleasant 81 yo woman who presents after a R tibial plateau fracture on 04/11/22. Pt is currently coming to therapy for functional training while she is NWB on R side for transfersand functional mobility around the home. Pt is currently modA/maxA for sit to stand and stand pivottransfers from hospital . Pt demonstrates appx 4/5 LLE strength grossly as well as 3+/5 RLE hip strength (most planes n/t this date). Pt is having difficulty with commode and car transfers while properly maintaining WB percautions independently. Pt would benefit from skilled therapy to address these functional deficits and improve body mechanics to improve safety and efficiency of mobility considering current restrictions. Therapy Prognosis: Good Decision Making: Medium Complexity Patient Education Patient Education: HEP + POC Pt verbalized/demonstrated good understanding: [X] Yes [] No, pt required further clarification. Goals Short Term Goals Time Frame for Short Term Goals: 2 weeks Short Term Goal 1: Pt will initiate HEP Short Term Goal 2: Pt will not exceed 2/10 pain with functional activites to improve capacity for ADLs Prison Goals Time Frame for 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 Goals : 4 weeks Prison Goal 1: Pt will be comfortable and complient with HEP Prison Goal 2: Pt will be able to perform sit to stand and stand pivot transfers SUP to improve safety of functional mobility. 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 Goal 3: Pt to demonstrate >/= 4+/5 LLE strength in all planes to improve dynamic stability Prison Goal 4: Pt to be able to complete all transfers while maintaining NWB status (or current status by end of PoC) to ensure safety and protection of injury. Patient Goals : learning to get my stability Minutes Tracking: Time In: 1640 Time Out: 1735 Minutes: 55 Timed Code Treatment Minutes: 50 Minutes Prashanth Wilks PT, DPT 04/15/2022 [facility] [employer] Phone: evaluation note* Diagnosis Closed displaced bicondylar fracture of right tibia with routine healing- Primary Aftercare for healing traumatic fracture of lower leg documented in this encounter [facility] [employer] Phone: evaluation noteNo InformationNort Acer Other History general Narrative - Reported* Type Description Date Medical History BPPV (benign paroxysmal position al vertigo), right Medical History Hyperlipidemia type II Medical History Paroxysmal atrial fibrillation Medical History IFG (impaired fasting glucose) Medical History Essential hypertension Medical History ASHD (arteriosclerotic heart dis ease) Medical History High risk medication use Medical History Anemia Medical History Acute cystitis without hematuria Surgical History HYSTERECTOMY-VAGINAL Surgical History UTEROSACRAL LIGAMENT FIXATION Surgical History RECTOCELE REPAIR Surgical History COLONOSCOPY Surgical History EGD Surgical History ROBERT/BSO Surgical History [facility] Hospitalization History SEE SURGICAL HX [employer] Other History general Narrative - Reported* Type Description Date Medical History BPPV (benign paroxysmal position al vertigo), right Medical History Hyperlipidemia type II Medical History Paroxysmal atrial fibrillation Medical History IFG (impaired fasting glucose) Medical History Essential hypertension Medical History ASHD (arteriosclerotic heart dis ease) Medical History High risk medication use Medical History Anemia Medical History Acute cystitis without hematuria Surgical History HYSTERECTOMY-VAGINAL Surgical History UTEROSACRAL LIGAMENT FIXATION Surgical History RECTOCELE REPAIR Surgical History COLONOSCOPY 2018 Surgical History EGD 2018 Surgical History ROBERT/BSO Surgical History [facility] Hospitalization History SEE SURGICAL HX [employer] Other Summary Purpose Family History No Family History Records FoundNo Family History Records FoundNo Family History Records Found Advance Directives Documents on File Type Date Recorded Patient Filler Wiper Expl anation Advance Directives and Living Will Power of Bow Maker Production Additional Source Comments INFORMATION SOURCE (unrecogn ized section and content) DATE CREATED AUTHOR 06/05/2018 [facility] DATE CREATED AUTHOR AUTHOR'S ORGANIZ ATION 10/01/2022 [facility] DATE CREATED AUTHOR AUTHOR'S ORGANIZ ATION [facility]/18/2022 [facility] Care Teams (unrecognized sec tion and content) Model And Pattern Supervisor Relationship Specialty Start Date End Date Lennox Gilman DO PCP - General Internal Medicine 09/27/16 Model And Pattern Supervisor Relationship Specialty Start Date End Date Lennox Gilman DO PCP - General Internal Medicine 09/27/16 Model And Pattern Supervisor Relationship Specialty Start Date End Date Lennox Gilman DO PCP - General Internal Medicine 09/27/16 Model And Pattern Supervisor Relationship Specialty Start Date End Date Lennox Gilman DO PCP - General Internal Medicine 09/27/16 Model And Pattern Supervisor Relationship Specialty Start Date End Date Lennox Gilman DO PCP - General Internal Medicine 09/27/16 Model And Pattern Supervisor Relationship Specialty Start Date End Date Lennox Gilman DO PCP - General Internal Medicine 09/27/16 Model And Pattern Supervisor Relationship Specialty Start Date End Date Lennox Gilman DO PCP - General Internal Medicine 09/27/16 Model And Pattern Supervisor Relationship Specialty Start Date End Date Lennox Gilman DO PCP - General Internal Medicine 09/27/16 REASON FOR VISIT (unrecogniz ed section and content) CHECK UPNo InformationLab Re sultsrefillECHO resultsNo InformationHolter ResultsWELLNESSHandicap [facility] HospitalardNo InformationLab [id number] COVID +1 week follow uprepeat labsLab resultsNo Information1 month Follow upRepeat Labs FOR RECORDS PERTAINING TO PATIENTS WHO ARE OR HAVE BEEN ENROLLED IN A CHEMICAL DEPENDENCY/SUBSTANCEABUSE PROGRAM, SOME INFORMATION MAY BE OMITTED. This clinical summary was aggregated from multiple sources. Caution should be exercised in using it in the provision of clinical care. This summary normalizes information from multiple sources, and as a consequence, information in this document may materially change the coding, format and clinical context of patient data. In addition, data may be omitted in some cases. CLINICAL DECISIONS SHOULD BE BASED ON THE PRIMARY CLINICAL RECORDS. [facility]. provides no warranty or guarantee of the accuracy or completeness of information in this document.
[2023-07-11 14:16] LABS: Basophils Absolute Auto 0.1 10^3/uL (0.0-0.1); Basophils Percent Auto 1.5 % (0.2-2.0); Eosinophils Absolute Auto 0.3 10^3/uL (0.0-0.7); Eosinophils Percent Auto 3.5 % (0.9-7.0); Hematocrit 35.8 % (36.0-48.0); Hemoglobin 10.9 g/dL (12.0-16.0); Immature Granulocytes Abs Auto 0.03 10^3/uL (0.00-0.03); Immature Granulocytes Pct Auto 0.4 % (0.0-0.5); Lymphocytes Percent Auto 24.5 % (20.5-60.0); Mean Corpuscular HGB Conc 30.4 g/dL (29.9-35.2); Mean Corpuscular Hemoglobin 27.8 pg (26.7-34.0); Mean Corpuscular Volume 91.3 fL (81.0-99.0); Mean Platelet Volume 9.9 fL (9.5-13.5); Monocytes Percent Auto 11.8 % (1.7-12.0); Neutrophils Absolute Auto 4.8 10^3/uL (1.4-6.5); Neutrophils Percent Auto 58.3 % (43.0-75.0); Platelet Count 299 10^3/uL (150-450); Red Blood Count 3.92 10^6/uL (4.20-5.40); White Blood Count 8.2 10^3/uL (4.0-11.0)
[2023-07-11 16:00] LABS: Anion Gap 11.4; BUN Creatinine Ratio 16.7; Calcium 8.3 mg/dL (8.5-10.1); Carbon Dioxide 27.4 mmol/L (21.0-32.0); Chloride 105 mmol/L (98-107); Estimated GFR (African America >60 (>=60); Estimated GFR (Non-African Ame 52 (>=60); Glucose 95 mg/dL (74-106); Potassium 4.8 mmol/L (3.5-5.1); Sodium 139 mmol/L (136-145); Thyroid Stimulating Hormone 2.796 uIU/mL (0.358-3.740)
[2023-07-11 16:27] LABS: Percent Iron Saturation 20.4 %
== END 2023-07-11 13:44 | disposition home or self-care (01) ==
LOC: LAB 13:45
PROVIDERS: PCP Internal Medicine; Visit Provider Internal Medicine
DX: N18.32 Chronic kidney disease, stage 3b (principal); D64.9 Anemia, unspecified; I48.0 Paroxysmal atrial fibrillation
CPT/HCPCS: 36415; 80048; 82607; 82728; 82746; 83540; 83550; 84443; 85025

== ENCOUNTER 2024-07-19 11:54 | Outpatient (OUT) | payer MEDICARE, SELFPAY ==
--- OUTSIDE RECORDS SUMMARY | 2024-07-19 12:06 | XMS_ITS | CCD ---
Author Organization [facility] CliniSynv Care Team Providers Care Assistant Distribution Manager Name Role Phone Lennox Gilman Primary Care Provider [phone] LENNOX GILMAN Primary Care Unavailable NESS, MELISSA Ramirez Referring Unavailable SUDHAKAR, LENNOX Primary Care Unavailable [...] Care Unavailable NESS, MELISSA C Referring Unavailable Lennox Gilman Unavailable DR LENNOX GILMAN Primary Care Unavailable CORNELIA TAVERAS Admitting Unavailable CORNELIA TAVERAS Attending Unavailable SULEMA, DR CAT Collado Consulting Unavailable CARLA MALDONADO Consulting Unavailable JENNY ., CORNELIA Consulting Unavailable SUDHAKAR, DR CUBA Primary Care Unavailable KINZA AKERS Admitting Unavailable KINZA AKERS Attending Unavailable Melissa Ocasio Consulting Unavailable KINZA AKERS Consulting Unavailable SUDHAKAR, DR CUBA Admitting Unavailable BALL, DR CUBA Attending Unavailable BALL, DR CUBA Primary Care Unavailable BALL, DR CUBA Consulting Unavailable BALL, DR CUBA Admitting Unavailable BALL, DR CUBA Attending Unavailable BALL, DR CUBA Primary Care Unavailable BALL, DR CUBA Consulting Unavailable BALL, DR CUBA Admitting Unavailable BALL, DR CUBA Attending Unavailable BALL, DR CUBA Primary Care Unavailable BALL, DR CUBA Consulting Unavailable Ball DO, Lennox Avalos Primary Care Provider Susie Poe MD Unavailable LENONX GIMLAN Referring Unavailable SUDHAKAR, LENNOX Avalos Primary Care Unavailable SUSIE POE Attending Unavailable LENNOX GILMAN Primary Care Unavailable SUSIE POE Referring Unavailable VANIA MOYA Attending Unavailable Db Vazquez Primary Care Physician Unavail able Db Vazquez Unavailable Unavailable Db Vazquez Primary Care Physician Unavail able Unavailable Primary Care Provider Unavailabl e Allergies Allergy Classification Reported Allergen(s) Allergy Type Date of Onset Reaction(s) Facility (20 sources) Alendronate Drug Allergy Unknown Nexant Other (20 sources) Folic Acid; Translations: [FOLIC ACID] Drug Allergy 11-10-19 18 Unknown [facility] Repository (20 sources) Substance with penicillin structure and antibacterial mechanism of action (substance) Drug allergy Unknown Nexant Other (20 sources) PCV 13 Propensity to adverse reactions Unknown Nexant Other (1 source) ferrous sulfate Drug Allergy [facility] Repository (1 source) Folic Acid Drug Allergy [facility] Repository (3 sources) Penicillin; Translations: [PENICILLIN] Drug Allergy 11-10-19 18 Rash [facility] Repository (13 sources) Pneumococcal 7-Arcelia Conj Vacc Drug allergy Comment:PCV 13 Nexant Other (13 sources) Pneumococcal 13-Arcelia Conj Vacc Drug allergy Unknown Nexant Other (10 sources) HMG-CoA reductase inhibitor Drug allergy Unknown Nexant Other (2 sources) Alendronate Drug Allergy 09-19-19 24 Unknown Reaction [facility] (4 sources) Penicillins Allergy to substance 10-09-18 56 Hives, Rash [facility] (2 sources) Pneumococcal vaccine Drug Allergy 09-19-19 Unknown Reaction [facility] (2 sources) pneumococcal 7-valent conjugate to Allergy to substance 09-19-19 Comment:PCV 13 [facility] (2 sources) Ycuxizo-NGM-DsG Reductase Inhibitor Allergy to substance 09-19-19 Unknown Reaction [facility] (2 sources) Penicillin V; Translations: [penicillin V potassium] Drug Allergy [facility] [employer] (2 sources) Iron Drug Allergy 02-20-20 [facility] Medications Current Medications Medication Drug Class(es) Dates Sig (Normalized) Sig (Original) apixaban 5 mg oral tablet (13 sources) Factor Xa Inhibitor Start: 05-27-2023 Eliquis 5 MG tablet 05/27/2023 Active aspirin 81 mg chewable tablet (20 sources) Platelet Aggregation Inhibitor, Nonsteroidal Anti-inflammatory Drug Start: 11-09-2017 take 1 tablet by mouth once daily Aspirin Active 1 TAB PO Daily September 16, 2023 12:00am take 1 tablet by mouth once roula y Aspirin 81 81 MG 1 tablet Orally Once a day Active atorvastatin 80 mg oral tablet (1 source) HMG-CoA Reductase Inhibitor Start: 11-09-2017 take 1 tablet by mouth once daily atorvastatin (LIPITOR) 80 mg tablet Take 1 tablet by mouth once daily. 90 tablet 3 11/09/2017 Active cephalexin 500 mg oral capsule (2 sources) Cephalosporin Antibacterial Start: 04-04-2024 End: 04-11-2024 take 1 capsule by mouth every twelve hours cephalexin 500 mg capsule 04/04/2024 04/11/2024 take 1 capsule (500 mg) by oral route every 12 hours for 7 days ezetimibe 10 mg oral tablet (12 sources) Dietary Cholesterol Absorption Inhibitor Start: 09-16-2023 take 10 mg by mouth once daily Ezetimibe Active 10 MG PO Daily September 16, 2023 12:00am Start: 03-31-2023 take 1 tablet by ashu th every twenty-four hours Ezetimibe 10 MG 1 tablet Orally Once a day Mar, Active folic acid 1 mg oral tablet (8 sources) Start: 09-19-2023 take 1 mg by mouth once daily Folic Acid Active 1 MG PO Daily September 19, 2023 12:00am Start: 06-05-2023 take 1 tablet by ashu th every twenty-four hours Folic Acid 1 MG 1 tablet Orally Once a day May, Active folic acid 2.5 mg / pyridoxine 25 mg / vitamin b12 1 mg oral tablet (2 sources) Vitamin B12 Start: 06-08-2023 folic acid-vit B6-vit B12 2.5-25-1 MG tablet tablet 06/08/2023 Active lisinopril 20 mg oral tablet (20 sources) Angiotensin Converting Enzyme Inhibitor Start: 10-07-2023 take 1 tablet by mouth once daily Lisinopril Active 0 .ROUTE .COMPLEX 90 October 07, 2023 1:26pm TAKE ONE TABLET BY MOUTH DAILY Start: 10-08-1999 End: 10-07-2023 take 20 mg by mouth once daily Lisinopril Discontinued 20 MG PO Daily September 16, 2023 12:00am October 07, 2023 1:26pm 24 hr metoprolol succinate 25 mg extended release oral tablet (20 sources) beta-Adrenergic Torey Start: 12-23-2023 metopr olol succinate XL (Toprol-XL) 25 MG 24 hr tablet 12/23/2023 Active Start: 09-16-2023 take 25 mg by mouth twice roula y Metoprolol Succinate Active 25 MG PO Twice daily September 16, 2023 12:00am Start: 02-28-2019 take 1 tablet by ashu th once daily metoprolol succinate ER (TOPROL XL) 25 mg 24 hr tablet Take 1 tablet by mouth once daily. 90 tablet 3 02/28/2019 Active take 1 tablet by ashu th twice daily Metoprolol Succinate ER 25 MG 1 tablet Orally twice daily for 90 days Active Metoprolol Succi ileana ER 50 MG TAKE ONE TABLET BY MOUTH DAILY Orally Once a day for 30 days Active nitroglycerin 0.4 mg sublingual tablet (1 source) Nitrate Vasodilator Start: 11-09-2017 nitroglycerin sublingual (NITROQUICK) 0.4 mg SL tablet Dissolve 1 tablet under the tongue every 5 minutes as needed for Chest Pain. 1 Bottle of 25 6 11/09/2017 Active paxlovid (150/100) 10 x 150 mg & 10 x 100mg tablet therapy pack (2 sources) Start: 05-13-2023 Paxlovid (150/100) 10 x 150 MG & 10 x 100MG as directed Orally bid for 5 days Apr, Active polysaccharide iron complex 150 mg oral capsule (20 sources) Start: 09-26-2023 take 1 capsule by mouth three times weekly Polysaccharide Iron Complex Active 0 .ROUTE .COMPLEX 36 September 26, 2023 1:37pm TAKE ONE CAPSULE BY MOUTH THREE TIMES A WEEK Start: 09-16-2023 End: 09-26-2023 Polysaccharide Iron Complex (Ferrex 150) 150 mg iron capsule Discontinued 150 MG PO .COMPLEX September 16, 2023 12:00am September 26, 2023 1:37pm 150 mg orally 3 times a week; take 1 capsule by mo uth three times weekly Ferrex 150 150 MG 1 capsule Orally Three times a Week Active Suprep Bowel Prep Kit 17.5-3 .13-1.6 GM/180ML (20 sources) Start: 12-23-2017 Start: 12-23-2017 Suprep Bowel [...] Documented Da te Episodic/Chronic Acute myocardial infarction (7 sources) Acute non-ST segment elevation myocardial infarction; Translations: [Non-ST elevation (NSTEMI) myocardial infarction] Onset: 07-08-2015 Resolved: 07-09-2015 06-22-2021 Chronic Cardiac dysrhythmias (20 sources) Paroxysmal atrial fibrillation; Translations: [Paroxysmal atrial fibrillation] Onset: 07-09-2015 Chronic Cardiac dysrhythmias (3 sources) Palpitations; Translations: [PALPITATIONS] Onset: 10-18-2022 Episodic Chronic kidney disease (8 sources) Chronic kidney disease stage 3B ; Translations: [Stage 3b chronic kidney disease] 09-16-2023 Chronic Conditions associated with dizziness or vertigo (20 sources) Benign paroxysmal positional vertigo; Translations: [Benign paroxysmal vertigo, right ear] Onset: 02-09-2017 Episodic Congestive heart failure; nonhypertensive (3 sources) Heart failure with reduced ejection fraction; Translations: [Unspecified systolic (congestive) heart failure] Onset: 07-07-2015 11-02-2023 Chronic Coronary atherosclerosis and other heart disease (20 sources) Coronary arteriosclerosis; Translations: [Atherosclerotic heart disease of [place] coronary artery without angina pectoris] Onset: 07-22-2015 Chronic Deficiency and other anemia (20 sources) Anemia; Translations: [Anemia, unspecified] 09-19-2023 Episodic Deficiency and other anemia (8 sources) Anemia, unspecified; Translations: [Anemia, unspecified] Onset: 02-11-2022 Episodic Deficiency and other anemia (9 sources) Iron deficiency anemia; Translations: [Iron deficiency anemia, unspecified] Onset: 05-18-2017 Episodic Deficiency and other anemia (1 source) Dietary folate deficiency anemia Episodic Deficiency and other anemia (2 sources) Other folate deficiency anemias Episodic Deficiency and other anemia (2 sources) Other iron deficiency anemias Episodic Diabetes mellitus with complications (7 sources) Hyperglycemia due to type 2 diabetes mellitus; Translations: [Type 2 diabetes mellitus with hyperglycemia] Onset: 11-02-2023 11-02-2023 Chronic Diabetes mellitus without complication (20 sources) Impaired fasting glycemia; Translations: [Impaired fasting glucose] Onset: 10-18-2022 Episodic Disorders of lipid metabolism (20 sources) Pure hypercholesterolemia ; Translations: [Familial hypercholesterolemia ] Onset: 08-08-2015 Chronic Essential hypertension (20 sources) Essential hypertension; Translations: [Essential (primary) hypertension] Onset: 07-08-2015 Chronic Fracture of lower limb (4 sources) [...] Osteoarthritis; Translations: [Polyosteoarthritis, unspecified] Chronic Other aftercare (20 sources) H/O: high risk medication; Translations: [Other group home (current) drug therapy] Episodic Other aftercare (2 sources) 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; Translations: [OTH SKILLED NURSING CURRENT DRUG THERAPY] Onset: 03-15-2022 Episodic Other aftercare (5 sources) History and physical examination, follow-up; Translations: [Encounter for follow-up examination after completed treatment for conditions other than malignant neoplasm] Episodic Other aftercare (5 sources) Long-term current use of drug therapy; Translations: [Other group home (current) drug therapy] Episodic Other aftercare (1 source) Encounter for change or removal of surgical wound dressing Onset: 04-11-2024 Episodic Other and ill-defined heart disease (1 source) Takotsubo cardiomyopathy; Translations: [Takotsubo syndrome] 11-02-2023 Chronic Other and ill-defined heart disease (1 source) Mass of thoracic structure; Translations: [Other ill-defined heart diseases] Onset: 07-08-2015 06-22-2021 Chronic Other bone disease and musculoskeletal deformities (5 sources) Bone density finding; Translations: [Other specified disorders of bone density and structure, unspecified site] Episodic Other injuries and conditions due to external causes (5 sources) History of fall; Translations: [History of falling] Episodic Other non-epithelial cancer of skin (4 sources) Unspecified malignant neoplasm of skin, unspecified; Translations: [Basal cell carcinoma of skin of nose] Onset: 04-04-2024 Episodic Other nutritional; endocrine; and metabolic disorders (5 sources) Obesity; Translations: [Obesity, unspecified] Chronic Other nutritional; endocrine; and metabolic disorders (5 sources) Simple obesity ; Translations: [Other obesity due to excess calories] Chronic Other screening for suspected conditions (not mental disorders or infectious disease) (1 source) Encounter for screening mammogram for malignant neoplasm of breast Episodic Leela-; endo-; and myocarditis; cardiomyopathy (except that caused by tuberculosis or sexually transmitted disease) (1 source) Myocarditis; Translations: [Myocarditis, unspecified] Onset: 06-27-2015 08-05-2015 Chronic Prolapse of female genital organs (10 sources) Incomplete uterovaginal prolapse; Translations: [Incomplete uterovaginal prolapse] Onset: 12-01-2016 Resolved: 02-24-2017 Chronic Residual codes; unclassified (5 sources) Postprocedural state finding; Translations: [Other specified postprocedural states] Episodic Unclassified (1 source) SUMMARY Onset: 07-08-2015 06-22-2021 Urinary tract infections (20 sources) Acute cystitis; [...] acute conjunctivitis, unspecified eye] Onset: 05-28-2015 Episodic Neoplasms of unspecified nature or uncertain behavior (2 sources) Neoplastic disease; Translations: [Neoplasm of unspecified behavior of bone, soft tissue, and skin] 02-20-2024 Episodic Other aftercare (1 source) 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; Translations: [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] Onset: 03-15-2022 Episodic [...] Overweight; Translations: [Overweight] Onset: 08-08-2015 Episodic Other skin disorders (2 sources) Seborrheic keratosis; Translations: [Other seborrheic keratosis] 02-20-2024 Episodic Other skin disorders (2 sources) Actinic keratosis; Translations: [Actinic keratosis] 02-20-2024 Episodic Other upper respiratory infections (5 sources) Acute maxillary sinusitis; Translations: [Acute maxillary sinusitis, unspecified] Onset: 08-17-2016 Episodic Viral infection (2 sources) COVID-19 Results Test Name Value Interpretation Reference Range Facility No Panel Informationon 02-19 [facility] Type of biopsy: tangential Informed consent: discussed and consent obtained Informed consent comment: The risks and benefits of the biopsy were discussed. Risks include but are not limited to bleeding, infection, scarring, pain, and nerve damage. An opportunity to ask questions prior to the procedure was permitted and all questions were answered. Patient was prepped and draped in usual sterile fashion: area cleansed with alcohol. Anesthesia: the lesion was anesthetized in a standard fashion Anesthetic: 1% lidocaine w/ epinephrine 1-100,000 buffered w/ 8.4% NaHCO3 Instrument used: DermaBlade Hemostasis achieved with: electrodesiccation Outcome: patient tolerated procedure well Outcome comment: The specimen was placed in a prelabeled formalin container to be sent for pathology Post-procedure details: sterile dressing applied and wound care instructions given Post-procedure details comment: Emphasized need to contact clinic for any signs of infection, uncontrollable bleeding, or complications. Dressing type: bandage Additional details: Photo taken Amount of lidocaine used: 0.5 cc [facility] 11-02-2023 [facility] Office Visit (CARD P ) JANNIE LEE ([id number]) 1940 F Date Time Provider Department 11/02/23 1:30 PM SUSIE POE During your visit today, we recorded the following information about you: Pulse Blood pressure Weight Height 65/minute 129/61 71.7 kg 1.549 m Susie Poe MD 11/02/2023 8:40 PM Signed [facility] [place] [facility] Department of Cardiovascular Medicine SECTION OF PREVENTIVE CARDIOLOGY Jannie Lee 11/02/2023 CHIEF COMPLAINT: Patient presents with: CARD New Patient Consult HISTORY OF PRESENT CARDIOVASCULAR ILLNESS: Jannie Lee is a 83 year old female who presents for re-establish care.. --05/2023--at work had mid back pain, went to ED, found to be in AF, 1st episode in several yrs, treated with diltiazem? 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 Sleep Hours Per Night?: 8 STATIN INTOLERANCE: Adverse Effect History of Statin Intolerance:: No Current Statin Freq: Every Day atorvastatin 80 mg qday (2015-present)--?tramaine ated for several yrs; off medication x few yrs?, restarted in 05/2023 USE OF PCSK9 INHIBITORS: CARDIOVASCULAR DISEASE HISTORY: CATH Positive>70%: Yes 07/09/15 Valve Disease: Arrhythmias: History question Answer Diagnosis Date Comment PAF : Paroxysmal atrial fibrillation (HCC) 06/27/2015 Patient experienced episode of atrial fibrillation overnight 07/08-07/09 and 07/09-07/10 Converted to NSR with amiodarone Heparin gtt discontinued 07/14 (no RA clot on MIGUEL) PLAN: Continue metoprolol 25 every 8 hours Continue Amiodarone HEART FAILURE/CARDIOMYOPATHY : History question Answer Diagnosis Date Comment HF rEF : Heart failure with reduced ejection fraction (HCC) 06/27/2015 Patient presenting after questionable syncopal episode with elevated CE and an EF of 20% EKG reveals no ST segment changes, patient may have had NSTEMI CXR suggestive of pulmonary edema Echo with EF of 20%, RA mass vs mobile echodensity on the TV Echocardiogram concerning for Takotsubo's cardiomyopathy. See NSTEMI for LHC results 07/09 Cardiac MRI with mid segment ballooning, delayed enhancement concerning for myocarditis. Inflammatory/infectiou s work up largely wnl, ELISSA by IFA pending MIGUEL 07/14 with EF 30% and small circumferential pericardial effusion, largest anteriorly PLAN: - afterload reduction with captopril 6.25 q 8 hours - ASA - atorvastatin 80 qHS RELATED DISEASE HISTORY: PAST MEDICAL HISTORY: PAST MEDICAL HISTORY Diagnosis Date CAD (coronary artery disease) 06/27/2015 Dyslipidemia Heart failure with reduced ejection fraction (HCC) 06/27/2015 Patient presenting after questionable syncopal episode with elevated CE and an EF of 20% EKG reveals no ST segment changes, patient may have had NSTEMI CXR suggestive of pulmonary edema Echo with EF of 20%, RA mass vs mobile echodensity on the TV Echocardiogram concerning for Takotsubo's cardiomyopathy. See NSTEMI for LHC results 07/09 Cardiac MRI with mid segment ballooning, delayed enhancement concerning for myocarditis. Inflammatory/infectiou s work up largely wnl, ELISSA by IFA pending MIGUEL 1/18 with EF 30% and small circumferential pericardial effusion, largest anteriorly PLAN: - afterload reduction with captopril 6.25 q 8 hours - ASA - atorvastatin 80 qHS HTN (hypertension) Patient with history of HTN PLAN: Continue captopril Hypertension Lip laceration 06/27/2015 Myocarditis (HCC) 06/27/2015 Paroxysmal atrial fibrillation (HCC) 06/27/2015 Patient experienced episode of atrial fibrillation overnight 07/08-07/09 and 07/09-07/10 Converted to NSR with amiodarone Heparin gtt discontinued 07/14 (no RA clot on MIGUEL) PLAN: Continue metoprolol 25 every 8 hours Continue Amiodarone Tibia fracture 03/2022 no surgery required CURRENT MEDS: Current Outpatient Medications Medication Sig ELIQUIS 5 mg tab(s) Take 5 mg by mouth two times a day. lisinopril (ZESTRIL, PRINIVIL) 20 mg tablet Take 1 tablet by mouth once daily. metoprolol succinate ER (TOPROL XL) 25 mg 24 hr tablet Take 1 tablet by mouth once daily. nitroglycerin sublingual (NITROQUICK) 0.4 mg SL tablet Dissolve 1 tablet under the tongue ev (more content not included)... Normal [facility] ECG COMPLETEon 11-02-2023 ECG COMPLETE Ventricular Rate : 6 2 BPM Atrial Rate : 62 BPM P-R Interval : 166 ms QRS Duration : 84 ms Q-T Interval : 412 ms QTC Calculation(Bazett) : 418 ms Calculated P [place] : 80 degrees Calculated R [place] : 61 degrees Calculated T [place] : 62 degrees NORMAL SINUS RHYTHM NORMAL ECG Confirmed by TORRIE JOSHUA MD () on 11/09/2023 6:39:00 PM NAME : JANNIE LEE PID : [id number] : 1940 Gender : Female Race : ORD : [id number] Procedure Date : Nov 02 2023 12:38:25 Edit Date : Nov 09 2023 18:40:55 Diagnosis: NORMAL SINUS RHYTHM NORMAL ECG Confirmed by TORRIE JOSHUA MD () on 11/09/2023 6:39:00 PM Test Reason : Location : 314 : J14 [id number] Overread By : TORRIE JOSHUA MD Edited By : TORRIE JOSHUA MD Referred By : SUSIE POE Acquired by : TYESHA TANNER [facility] 07-22-2023 QUINN Telephone (CARDMN) JANNIE LEE ([id number]) 1940 F Date Time Provider Department 07/22/23 IVETTE HAQUE During your visit today, we recorded the following information about you: Allergies As of Date: 07/22/2023 Noted Allergy Reaction FOLIC ACID 11/09/2017 14 - Other: See Comments Comments: Causes itching PENICILLIN 11/09/2017 2 - Rash Comments: causes a rash Date Reviewed: 04/11/2018 Reviewed by: Keegan Jane Ma - Fully Assessed Prescriptions as of 07/22/2023 - lisinopril (ZESTRIL, PRINIVIL) 20 mg tablet Take 1 tablet by mouth once daily. - metoprolol succinate ER (TOPROL XL) 25 mg 24 hr tablet Take 1 tablet by mouth once daily. - nitroglycerin sublingual (NITROQUICK) 0.4 mg SL tablet Dissolve 1 tablet under the tongue every 5 minutes as needed for Chest Pain. - aspirin 81 mg chewable tablet Take 1 tablet by mouth once daily. - atorvastatin (LIPITOR) 80 mg tablet Take 1 tablet by mouth once daily. Problem List As Of Date 07/22/2023 Noted Resolved Heart failure with reduced ejection fraction (H*07/07/2015 Subsequent non-ST elevation (NSTEMI) myocardial*07/08/2015 07/09/2015 HTN (hypertension) [I10] 07/08/2015 SUMMARY 07/08/2015 Non-ST elevation (NSTEMI) myocardial infarction*07/08/2015 Atrial mass [I51.89] 07/08/2015 Paroxysmal atrial fibrillation (HCC) [I48.0] 07/09/2015 Chronic systolic heart failure (HCC) [I50.22] 07/15/2015 Myocarditis (HCC) [I51.4] 06/27/2015 Atherosclerosis of coronary artery of [place] he*09/24/2015 Encounter Status:Closed [facility]QUE [facility] ([id number]) 1940 F Date Time Provider Department 07/22/23 IVETTE HAQUE CARDMN During your visit today, we recorded the following information about you: Allergies As of Date: 07/22/2023 Noted Allergy Reaction FOLIC ACID 11/09/2017 14 - Other: See Comments Comments: Causes itching PENICILLIN 11/09/2017 2 - Rash Comments: causes a rash Date Reviewed: 04/11/2018 Reviewed by: Keegan Jane Ma - Fully Assessed Prescriptions as of 07/22/2023 - lisinopril (ZESTRIL, PRINIVIL) 20 mg tablet Take 1 tablet by mouth once daily. - metoprolol succinate ER (TOPROL XL) 25 mg 24 hr tablet Take 1 tablet by mouth once daily. - nitroglycerin sublingual (NITROQUICK) 0.4 mg SL tablet Dissolve 1 tablet under the tongue every 5 minutes as needed for Chest Pain. - aspirin 81 mg chewable tablet Take 1 tablet by mouth once daily. - atorvastatin (LIPITOR) 80 mg tablet Take 1 tablet by mouth once daily. Problem List As Of Date 07/22/2023 Noted Resolved Heart failure with reduced ejection fraction (H*07/07/2015 Subsequent non-ST elevation (NSTEMI) myocardial*07/08/2015 07/09/2015 HTN (hypertension) [I10] 07/08/2015 SUMMARY 07/08/2015 Non-ST elevation (NSTEMI) myocardial infarction*07/08/2015 Atrial mass [I51.89] 07/08/2015 Paroxysmal atrial fibrillation (HCC) [I48.0] 07/09/2015 Chronic systolic heart failure (HCC) [I50.22] 07/15/2015 Myocarditis (HCC) [I51.4] 06/27/2015 Atherosclerosis of coronary artery of [place] he*09/24/2015 Encounter Status:Closed by IVETTE HAQUE on 07/22/23 [facility] 07-15-2023 CNPN Telephone (REFPHY) MANUELADELINEJANNIE B ([id number]) 1940 F Date Time Provider Department 07/15/23 NO ONE (HISTORICAL) REFPHY During your visit today, we recorded the following information about you: Claudia Wills 07/15/2023 11:18 PM Signed Patient: Jannie Lee Date of : 1940 Patient phone number: [phone] Referring Provider for the encounter: Lennox Gilman DO Requesting Provider: [place] [facility] Reason for requesting visit (RFV/signs and symptoms/diagnosis): paroxysmal atrial fibrillation, ASHD, hyperlipidemia. Person calling: self Return call to: self Medical Records/Insurance Card scanned into [employer]: Yes Comments: n/a Allergies As of Date: 07/15/2023 Noted Allergy Reaction FOLIC ACID 11/09/2017 14 - Other: See Comments Comments: Causes itching PENICILLIN 11/09/2017 2 - Rash Comments: causes a rash Date Reviewed: 04/11/2018 Reviewed by: Keegan Jane Ma - Fully Assessed Reason for Visit: External Referrals/resources [909] Cmt: paroxysmal atrial fibrillation, ASHD, hyperlipidemia. Prescriptions as of 07/15/2023 - lisinopril (ZESTRIL, PRINIVIL) 20 mg tablet Take 1 tablet by mouth once daily. - metoprolol succinate ER (TOPROL XL) 25 mg 24 hr tablet Take 1 tablet by mouth once daily. - nitroglycerin sublingual (NITROQUICK) 0.4 mg SL tablet Dissolve 1 tablet under the tongue every 5 minutes as needed for Chest Pain. - aspirin 81 mg chewable tablet Take 1 tablet by mouth once daily. - atorvastatin (LIPITOR) 80 mg tablet Take 1 tablet by mouth once daily. 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 Rip Pace Basophils/100 WBC (Bld) 1.6 % Normal 0.2-2.0 [facility] Comment on above: Performed By: #### C BC #### [facility] [address] [place] [address] Dr. Rip Pace EO # 0.2 103/ul Normal 0.0-0.7 [facility] Comment on above: Performed By: #### C BC #### [facility] [address] [address] [address] Rip Pace Eosinophils/100 WBC (Bld) 2.5 % Normal 0.9-7.0 [facility] Comment on above: Performed By: #### C BC #### [facility] [address] [place] [address] Dr. Rip Pace Erythrocyte distribution width (RBC) [Ratio] 13.3 % Normal 11.0-15.0 [facility] Comment on above: Performed By: #### C BC #### [facility] [address] [place] [address] Dr. Rip Pace Hematocrit (Bld) [Volume fraction] 39.4 % Normal 36.0-48.0 [facility] Comment on above: Performed By: #### C BC #### [facility] [address] [place] [address] Dr. Rip Pace Hemoglobin (Bld) [Mass/Vol] 12.2 g/dL Normal 12.0-16.0 [facility] Comment on above: Performed By: #### C BC #### [facility] [address] [place] [address] Dr. Rip Pace IG # 0.01 10e3/ul Normal 0.00-0.03 [facility] Comment on above: Performed By: #### C BC #### [facility] [address] [place] [address] Dr. Rip Pace IG % 0.1 % Normal 0.0-0.5 [facility] Comment on above: Performed By: #### C BC #### [facility] [address] [place] [address] Dr. Rip Pace LYMPH # 1.8 103/ul Normal 1.2-3.8 [facility] Comment on above: Performed By: #### C BC #### [facility] [address] [place] [address] Dr. Rip Pace Lymphocytes/100 WBC (Bld) 23.5 % Normal 20.5-60.0 [facility] Comment on above: Performed By: #### C BC #### [facility] [address] [place] [address] Dr. Rip Pace MANUAL DIFF REQ NO Normal [facility] Comment on above: Performed By: #### C BC #### [facility] [address] [place] [address] Dr. Rip Pace MCH (RBC) [Entitic mass] 28.9 pg Normal 26.7-34.0 [facility] Comment on above: Performed By: #### C BC #### [facility] [address] [address] [address] Rip Pace MCHC (RBC) [Mass/Vol] 31.0 g/dL Normal 29.9-35.2 [facility] Comment on above: Performed By: #### C BC #### [facility] [address] [place] [address] Dr. Rip Pace MCV (RBC) [Entitic vol] 93.4 fL Normal 81.0-99.0 [facility] Comment on above: Performed By: #### C BC #### [facility] [address] [place] [address] Dr. Rip Pace MONO # 0.9 103/ul Critically high 0.3-0.8 [facility] Comment on above: Performed By: #### C BC #### [facility] [address] [place] [address] Dr. Rip Pace Monocytes/100 WBC (Bld) 11.9 % Normal 1.7-12.0 [facility] Comment on above: Performed By: #### C BC #### [facility] [address] [place] [address] Dr. Rip Pace NEUT # 4.7 103/ul Normal 1.4-6.5 [facility] Comment on above: Performed By: #### C BC #### [facility] [address] [place] [address] Dr. Rip Pace Neutrophils/100 WBC (Bld) 60.4 % Normal 43.0-75.0 [facility] Comment on above: Performed By: #### C BC #### [facility] [address] [place] [address] Dr. Rip Pace Platelet mean volume (Bld) [Entitic vol] 9.2 fL Critically low 9.5-13.5 [facility] Comment on above: Performed By: #### C BC #### [facility] [address] [place] [address] Dr. Rip Pace PLT 322 103/ul Normal 150-450 [facility] Comment on above: Performed By: #### C BC #### [facility] [address] [place] [address] Dr. Rip Pace RBC 4.22 106/ul Normal 4.20-5.40 [facility] Comment on above: Performed By: #### C BC #### [facility] [address] [place], [place] [address] Dr. Rip Pace WBC 7.7 103/ul Normal 4.0-11.0 [facility] Comment on above: Performed By: #### C BC #### [facility] [address] [place], [place] [address] Dr. Rip Pace ECHOCARDIO M/2D COMPLETEon 0 10-13-2022 ECHOCARDIO M/2D COMPLETE Patient: JANNIE LEE Exam Date: 10/13/2022 : 1940 Gender:F Ordering : DR LENNOX GILMAN D.O. Admission #: [id number] Family : Order #: [id number] CLICK HERE TO VIEW EXAM ECHOCARDIOGRAM REPORT PROCEDURE: CARDIO PULMONARY ECHOCARDIO M/2D COMP INDICATIONS: Arteriosclerotic heart disease, VT, hypertension, h/o atrial fibrillation COMPARISON: None. DESCRIPTION: [...] Tai M.D. on 10/13/2022 at 16:41 Normal [facility] GLYCOHEMOGLOBIN A1Con 2022 ADA RECOMMENDATION SEE BELOW Normal [facility] Comment on above: Result Comment: ADA RECOMMENDED LIMIT 4.0 - 6.0 ADA THERAPEUTIC TARGET < 7.0 ACTION SUGGESTED > 7.0 Performed By: #### A 1C ####[facility] [address] [address]Dr. Yilan Pace Glucose [Mass/Vol] 108 mg/dL Normal [facility] Comment on above: Performed By: #### A 1C ####[facility] [address] [address]Dr. Rip Pace HbA1c (Bld) [Mass fraction] 5.4 % Normal 4.5-6.2 [facility] Comment on above: Performed By: #### A 1C ####[facility] [address] [address]Dr. Rip Pace PROF CHEM 8 (BAS METB)on Anion gap [Moles/Vol] 13.9 mmol/L Normal [facility] Comment on above: Performed By: #### B ANTHONY, TSH #### [facility] [address] [address] [address] Rip Pace Calcium [Mass/Vol] 9.0 mg/dL Normal 8.5-10.1 [facility] Comment on above: Performed By: #### B ANTHONY, TSH #### [facility] [address] [address] [address] Rip Pace Chloride [Moles/Vol] 105 mmol/L Normal 98-107 [facility] Comment on above: Performed By: #### B ANTHONY, TSH #### [facility] [address] [address] [address] Rip Pace CO2 [Moles/Vol] 25.3 mmol/L Normal 21.0-32.0 [facility] Comment on above: Performed By: #### B ANTHONY, TSH #### [facility] [address] [address] [address] Rip Pace Creatinine [Mass/Vol] 1.19 mg/dL Critically high 0.55-1.02 [facility] Comment on above: Performed By: #### B ANTHONY, TSH #### [facility] [address] [address] [address] Rip Pace EGFR-AF WELSH 53 mL/min/1.73m2 Critically low >=60 [facility] Comment on above: Performed By: #### B ANTHONY, TSH #### [facility] [address] [address] [address] Rip Pace EGFR-NON AF WELSH 44 mL/min/1.73m2 Critically low >=60 [facility] Comment on above: Performed By: #### B MP, TSH #### [facility] [address] [address] [address] Rip Pace Glucose [Mass/Vol] 82 mg/dL Normal 74-106 [facility] Comment on above: Performed By: #### B MP, TSH #### [facility] [address] [address] [address] Rip Pace Potassium [Moles/Vol] 5.2 mmol/L Critically high 3.5-5.1 [facility] Comment on above: Performed By: #### B MP, TSH #### [facility] [address] [address] [address] Rip Pace Sodium [Moles/Vol] 139 mmol/L Normal 136-145 [facility] Comment on above: Performed By: #### B MP, TSH #### [facility] [address] [address] [address] Rip Pace Urea nitrogen [Mass/Vol] 22.0 mg/dL Critically high 7.0-18.0 [facility] Comment on above: Performed By: #### B MP, TSH #### [facility] [address] [address] [address] Rip Pace Urea nitrogen/Creatinine [Mass ratio] 18.5 mg/mg Normal [facility] Comment on above: Performed By: #### B MP, TSH #### [facility] [address] [address] [address] Rip Pace TSHon 10-13-2022 TSH 5.369 uIU/mL Critically high 0.358-3.740 [facility] Comment on above: Performed By: #### B MP, TSH #### [facility] [address] [address] KNEE RT WO [...] CARLA MALDONADO Date: 2022-04-11 19:22 Normal [facility] CBC AUTO DIFFon 03-06-2022 BASO # 0.1 103/ul Normal 0.0-0.1 [facility] Comment on above: Performed By: #### C BC ####[facility] [address] [address]Dr. Rip Pace Basophils/100 WBC (Bld) 1.5 % Normal 0.2-2.0 [facility] Comment on above: Performed By: #### C BC ####[facility] [address] [address]Dr. Rip Pace EO # 0.2 103/ul Normal 0.0-0.7 [facility] Comment on above: Performed By: #### C BC ####[facility] [address] [address]DrAnthony Pace Eosinophils/100 WBC (Bld) 2.8 % Normal 0.9-7.0 [facility] Comment on above: Performed By: #### C BC ####[facility] [address] [address]DrAnthony Pace Erythrocyte distribution width (RBC) [Ratio] 13.0 % Normal 11.0-15.0 [facility] Comment on above: Performed By: #### C BC ####[facility] [address] [address]Dr. Rip Pace Hematocrit (Bld) [Volume fraction] 35.5 % Critically low 36.0-48.0 [facility] Comment on above: Performed By: #### C BC ####[facility] [address] [address]Dr. Rip Pace Hemoglobin (Bld) [Mass/Vol] 11.1 g/dL Critically low 12.0-16.0 [facility] Comment on above: Performed By: #### C BC ####[facility] [address] [place], [place] [address]Dr. Rip Pace IG # 0.02 10e3/ul Normal 0.00-0.03 [facility] Comment on above: Performed By: #### C BC ####[facility] [address] [place], [place] [address]Dr. Rip Pace IG % 0.3 % Normal 0.0-0.5 [facility] Comment on above: Performed By: #### C BC ####[facility] [address] [place], [place] [address]DrAnthony Pace LYMPH # 1.3 103/ul Normal 1.2-3.8 [facility] Comment on above: Performed By: #### C BC ####[facility] [address] [place], [place] [address]Dr. Rip Pace Lymphocytes/100 WBC (Bld) 20.4 % Critically low 20.5-60.0 [facility] Comment on above: Performed By: #### C BC ####[facility] [address] [place], [place] [address]Dr. Rip Pace MANUAL DIFF REQ NO Normal [facility] Comment on above: Performed By: #### C BC ####[facility] [address] [address]Dr. Rip Pace MCH (RBC) [Entitic mass] 29.0 pg Normal 26.7-34.0 [facility] Comment on above: Performed By: #### C BC ####[facility] [address] [address]DrAnthony Pace MCHC (RBC) [Mass/Vol] 31.3 g/dL Normal 29.9-35.2 [facility] Comment on above: Performed By: #### C BC ####[facility] [address] [address]DrAnthony Pace MCV (RBC) [Entitic vol] 92.7 fL Normal 81.0-99.0 [facility] Comment on above: Performed By: #### C BC ####[facility] [address] [place], [place] [address]DrAnthony Pace MONO # 0.9 103/ul Critically high 0.3-0.8 [facility] Comment on above: Performed By: #### C BC ####[facility] [address] [place], [place] [address]DrAnthony Pace Monocytes/100 WBC (Bld) 13.9 % Critically high 1.7-12.0 [facility] Comment on above: Performed By: #### C BC ####[facility] [address] [place], [place] [address]DrAnthony Pace NEUT # 4.0 103/ul Normal 1.4-6.5 [facility] Comment on above: Performed By: #### C BC ####[facility] [address] [place], [place] [address]DrAnthony Pace Neutrophils/100 WBC (Bld) 61.1 % Normal 43.0-75.0 [facility] Comment on above: Performed By: #### C BC ####[facility] [address] [place], [place] [address]DrAnthony Pace Platelet mean volume (Bld) [Entitic vol] 9.4 fL Critically low 9.5-13.5 [facility] Comment on above: Performed By: #### C BC ####[facility] [address] [place], [place] [address]DrAnthony Pace PLT 251 103/ul Normal 150-450 [facility] Comment on above: Performed By: #### C BC ####[facility] [address] [place], [place] [address]Oz. Rip Pace RBC 3.83 106/ul Critically low 4.20-5.40 [facility] Comment on above: Performed By: #### C BC ####[facility] [address] [place], [place] [address]As. Rip Pace WBC 6.5 103/ul Normal 4.0-11.0 [facility] Comment on above: Performed By: #### C BC ####[facility] [address] [place], [place] [address]B[address] HEAD WO CONon 03-06-2022 [...] consistent mild atrophy. Electronically authenticated by: MELISSA OCASIO Date: 2022-03-06 09:25 Normal [facility] PROF CHEM 8 (BAS METB)on Anion gap [Moles/Vol] 15.3 mmol/L Normal [facility] Comment on above: Performed By: #### B MP ####[facility] [address] [place], [place] [address]LzAnthony Pace Calcium [Mass/Vol] 8.5 mg/dL Normal 8.5-10.1 [facility] Comment on above: Performed By: #### B MP ####[facility] [address] [address]Dr. Rip Pace Chloride [Moles/Vol] 106 mmol/L Normal 98-107 [facility] Comment on above: Performed By: #### B MP ####[facility] [address] [address]Dr. Rip Pace CO2 [Moles/Vol] 22.7 mmol/L Normal 21.0-32.0 [facility] Comment on above: Performed By: #### B MP ####[facility] [address] [address]Dr. Rip Pace Creatinine [Mass/Vol] 1.16 mg/dL Critically high 0.55-1.02 [facility] Comment on above: Performed By: #### B MP ####[facility] [address] [place], [place] [address]Dr. Rip Sanjeev EGFR-AF WELSH 54 mL/min/1.73m2 Critically low >=60 [facility] Comment on above: Performed By: #### B MP ####[facility] [address] [place], [place] [address]Dr. Rip Pace EGFR-NON AF WELSH 45 mL/min/1.73m2 Critically low >=60 [facility] Comment on above: Performed By: #### B MP ####[facility] [address] [place], [place] [address]Dr. Rip Pace Glucose [Mass/Vol] 106 mg/dL Normal 74-106 [facility] Comment on above: Performed By: #### B MP ####[facility] [address] [place], [place] [address]Dr. Rip Pace Potassium [Moles/Vol] 5.0 mmol/L Normal 3.5-5.1 [facility] Comment on above: Performed By: #### B MP ####[facility] [address] [place], [place] [address]Dr. Rip Pace Sodium [Moles/Vol] 139 mmol/L Normal 136-145 [facility] Comment on above: Performed By: #### B MP ####[facility] [address] [place], [place] [address]NsDr. Rip Pace Urea nitrogen [Mass/Vol] 26.0 mg/dL Critically high 7.0-18.0 [facility] Comment on above: Performed By: #### B MP ####[facility] [address] [place], [place] [address]JcDr. Rip Pace Urea nitrogen/Creatinine [Mass ratio] 22.4 mg/mg Normal [facility] Comment on above: Performed By: #### B MP ####[facility] [address] [place], [place] [address]YtDr. Rip Pace CBC AUTO DIFFon 02-11-2022 BASO # 0.1 103/ul Normal 0.0-0.1 [facility] Comment on above: Performed By: #### C BC #### [facility] [address] [address] [address] Rip Pace Basophils/100 WBC (Bld) 1.0 % Normal 0.2-2.0 [facility] Comment on above: Performed By: #### C BC #### [facility] [address] [address] [address] Rip Pace EO # 0.2 103/ul Normal 0.0-0.7 [facility] Comment on above: Performed By: #### C BC #### [facility] [address] [address] [address] Rip Pace Eosinophils/100 WBC (Bld) 2.4 % Normal 0.9-7.0 [facility] Comment on above: Performed By: #### C BC #### [facility] [address] [address] [address] Rip Pace Erythrocyte distribution width (RBC) [Ratio] 12.8 % Normal 11.0-15.0 [facility] Comment on above: Performed By: #### C BC #### [facility] [address] [address] [address] Rip Pace Hematocrit (Bld) [Volume fraction] 34.8 % Critically low 36.0-48.0 [facility] Comment on above: Performed By: #### C BC #### [facility] [address] [place] [address] Dr. Rip Pace Hemoglobin (Bld) [Mass/Vol] 10.7 g/dL Critically low 12.0-16.0 [facility] Comment on above: Performed By: #### C BC #### [facility] [address] [place] [address] Dr. Rip Pace IG # 0.03 10e3/ul Normal 0.00-0.03 [facility] Comment on above: Performed By: #### C BC #### [facility] [address] [place] [address] Dr. Rip Pace IG % 0.3 % Normal 0.0-0.5 [facility] Comment on above: Performed By: #### C BC #### [facility] [address] [place] [address] Dr. Rip Pace LYMPH # 1.8 103/ul Normal 1.2-3.8 [facility] Comment on above: Performed By: #### C BC #### [facility] [address] [place] [address] Dr. Rip Pace Lymphocytes/100 WBC (Bld) 21.3 % Normal 20.5-60.0 [facility] Comment on above: Performed By: #### C BC #### [facility] [address] [place] [address] Dr. Rip Pace MANUAL DIFF REQ NO Normal [facility] Comment on above: Performed By: #### C BC #### [facility] [address] [place] [address] Dr. Rip Pace MCH (RBC) [Entitic mass] 28.7 pg Normal 26.7-34.0 [facility] Comment on above: Performed By: #### C BC #### [facility] [address] [place] [address] Dr. Rip Pace MCHC (RBC) [Mass/Vol] 30.7 g/dL Normal 29.9-35.2 [facility] Comment on above: Performed By: #### C BC #### [facility] [address] [address] [address] Rip Pace MCV (RBC) [Entitic vol] 93.3 fL Normal 81.0-99.0 [facility] Comment on above: Performed By: #### C BC #### [facility] [address] [address] [address] Rip Pace MONO # 1.2 103/ul Critically high 0.3-0.8 [facility] Comment on above: Performed By: #### C BC #### [facility] [address] [address] [address] Rip Pace Monocytes/100 WBC (Bld) 13.4 % Critically high 1.7-12.0 [facility] Comment on above: Performed By: #### C BC #### [facility] [address] [place] [address] Dr. Rip Pace NEUT # 5.3 103/ul Normal 1.4-6.5 [facility] Comment on above: Performed By: #### C BC #### [facility] [address] [address] [address] Rip Pace Neutrophils/100 WBC (Bld) 61.6 % Normal 43.0-75.0 [facility] Comment on above: Performed By: #### C BC #### [facility] [address] [place] [address] Dr. Rip Pace Platelet mean volume (Bld) [Entitic vol] 9.9 fL Normal 9.5-13.5 [facility] Comment on above: Performed By: #### C BC #### [facility] [address] [place] [address] Dr. Rip Pace PLT 268 103/ul Normal 150-450 [facility] Comment on above: Performed By: #### C BC #### [facility] [address] [place] [address] Dr. Rip Pace RBC 3.73 106/ul Critically low 4.20-5.40 [facility] Comment on above: Performed By: #### C BC #### [facility] [address] [place] [address] Dr. Rip Pace WBC 8.6 103/ul Normal 4.0-11.0 [facility] Comment on above: Performed By: #### C BC #### [facility] [address] [place] [address] Dr. Rip Pace FERRITINon 02-11-2022 Ferritin [Mass/Vol] 32.0 ng/mL Normal 8.0-252.0 [facility] Comment on above: Performed By: #### F ERR, B12FOL, FETIBC #### [facility] [address] [place] [address] Dr. Rip Pace IRON AND TIBCon 02-11-2022 % SATURATION 9.5 % Normal [facility] Comment on above: Performed By: #### F ERR, B12FOL, FETIBC #### [facility] [address] [place] [address] Dr. Rip Pace Iron [Mass/Vol] 31.0 ug/dL Critically low 50.0-170.0 [facility] Comment on above: Performed By: #### F ERR, B12FOL, FETIBC #### [facility] [address] [place] [address] Dr. Rip Pace TIBC DIRECT 325.0 ug/dL Normal 250.0-450.0 The [facility] Comment on above: Performed By: #### F ERR, B12FOL, FETIBC #### [facility] [address] [place] [address] Dr. Rip Pace VIT B12 AND FOLATEon 022 Cobalamin (Vitamin B12) [Mass/Vol] 404.0 pg/mL Normal 193.0-986.0 The [facility] Comment on above: Performed By: #### F ERR, B12FOL, FETIBC #### [facility] [address] [place] [address] Dr. Rip Pace FOLATE 4.60 ng/mL Critically low 8.60-58.90 [facility] Comment on above: Performed By: #### F ERR, B12FOL, FETIBC #### [facility] [id number] Rip Pace CBC AUTO DIFFon 10-27-2021 BASO # 0.1 103/ul Normal 0.0-0.1 [facility] Comment on above: Performed By: #### C BC ####[facility] [address] [id number]. Rip Pace Basophils/100 WBC (Bld) 1.2 % Normal 0.2-2.0 [facility] Comment on above: Performed By: #### C BC ####[facility] [address] [address]DrAnthony Pace EO # 0.2 103/ul Normal 0.0-0.7 [facility] Comment on above: Performed By: #### C BC ####[facility] [address] [place], [place] [address]Dr. Rip Pace Eosinophils/100 WBC (Bld) 2.5 % Normal 0.9-7.0 The [facility] Comment on above: Performed By: #### C BC ####[facility] [address] [place], [place] [address]Dr. Rip Pace Erythrocyte distribution width (RBC) [Ratio] 13.3 % Normal 11.0-15.0 [facility] Comment on above: Performed By: #### C BC ####[facility] [address] [address]Dr. Rip Pace Hematocrit (Bld) [Volume fraction] 35.5 % Critically low 36.0-48.0 [facility] Comment on above: Performed By: #### C BC ####[facility] [address] [place], [place] [address]Dr. Rip Pace Hemoglobin (Bld) [Mass/Vol] 10.7 g/dL Critically low 12.0-16.0 [facility] Comment on above: Performed By: #### C BC ####[facility] [address] [place], [place] [address]DrAnthony Pace IG # 0.02 10e3/ul Normal 0.00-0.03 [facility] Comment on above: Performed By: #### C BC ####[facility] [address] [id number]. Yeseniacamila Pace IG % 0.2 % Normal 0.0-0.5 [facility] Comment on above: Performed By: #### C BC ####[facility] [address] [address]Dr. Rip Pace LYMPH # 2.0 103/ul Normal 1.2-3.8 [facility] Comment on above: Performed By: #### C BC ####[facility] [address] [id number]. Yeseniacamila Pace Lymphocytes/100 WBC (Bld) 23.4 % Normal 20.5-60.0 [facility] Comment on above: Performed By: #### C BC ####[facility] [address] [address]Dr. Rip Pace MANUAL DIFF REQ NO Normal [facility] Comment on above: Performed By: #### C BC ####[facility] [address] [id number]. Rip Pace MCH (RBC) [Entitic mass] 28.5 pg Normal 26.7-34.0 [facility] Comment on above: Performed By: #### C BC ####[facility] [address] [id number]. Rip Pace MCHC (RBC) [Mass/Vol] 30.1 g/dL Normal 29.9-35.2 [facility] Comment on above: Performed By: #### C BC ####[facility] [address] [place], [place] [id number]. Rip Pace MCV (RBC) [Entitic vol] 94.4 fL Normal 81.0-99.0 The [facility] Comment on above: Performed By: #### C BC ####[facility] [address] [place], [place] [id number]. Rip Pace MONO # 0.9 103/ul Critically high 0.3-0.8 [facility] Comment on above: Performed By: #### C BC ####[facility] [address] [id number]. Rip Pace Monocytes/100 WBC (Bld) 10.1 % Normal 1.7-12.0 [facility] Comment on above: Performed By: #### C BC ####[facility] [address] [address]Dr. Rip Pace NEUT # 5.4 103/ul Normal 1.4-6.5 [facility] Comment on above: Performed By: #### C BC ####[facility] [address] [address]Dr. Rip Pace Neutrophils/100 WBC (Bld) 62.6 % Normal 43.0-75.0 [facility] Comment on above: Performed By: #### C BC ####[facility] [address] [address]Dr. Rip Pace Platelet mean volume (Bld) [Entitic vol] 9.3 fL Critically low 9.5-13.5 [facility] Comment on above: Performed By: #### C BC ####[facility] [address] [address]Dr. Rip Pace PLT 264 103/ul Normal 150-450 [facility] Comment on above: Performed By: #### C BC ####[facility] [address] [address]Dr. Rip Pace RBC 3.76 106/ul Critically low 4.20-5.40 [facility] Comment on above: Performed By: #### C BC ####[facility] [address] [address]Dr. Rip Pace WBC 8.7 103/ul Normal 4.0-11.0 [facility] Comment on above: Performed By: #### C BC ####[facility] [address] [address]Dr. Rip Pace GLYCOHEMOGLOBIN A1Con 2021 ADA RECOMMENDATION SEE BELOW Normal [facility] Comment on above: Result Comment: ADA RECOMMENDED LIMIT 4.0 - 6.0 ADA THERAPEUTIC TARGET < 7.0 ACTION SUGGESTED > 7.0 Performed By: #### A 1C #### [facility] [address] [address] [address] Rip Pace Glucose [Mass/Vol] 117 mg/dL Normal [facility] Comment on above: Performed By: #### A 1C #### [facility] [address] [address] [address] Rip Pace HbA1c (Bld) [Mass fraction] 5.7 % Normal 4.5-6.2 [facility] Comment on above: Performed By: #### A 1C #### [facility] [address] [address] [address] Rip Pace LIPID PROFILEon 10-27-2021 CHOL-HDL RATIO NORM SEE BELOW Normal [facility] Comment on above: Result Comment: 3.3 - 4.4 LOW RISK 4.4 - 7.1 AVERAGE RISK 7.1 - 11.0 MODERATE RISK >11.0 HIGH RISK Performed By: #### L IPID, BMP ####[facility] [address] [address]Dr. Rip Pace Cholesterol [Mass/Vol] 170 mg/dL Normal <=200 [facility] Comment on above: Performed By: #### L IPID, BMP ####[facility] [address] [address]Dr. Rip Pace Cholesterol in HDL [Mass/Vol] 37 mg/dL Critically low 40-60 [facility] Comment on above: Performed By: #### L IPID, BMP ####[facility] [address] [address]Dr. Rip Pace Cholesterol in LDL [Mass/Vol] 109.0 mg/dL Normal [facility] Comment on above: Performed By: #### L IPID, BMP ####[facility] [address] [address]Dr. Rip Pace Cholesterol.total/Ch olesterol in HDL [Mass ratio] 4.6 {ratio} Normal [facility] Comment on above: Performed By: #### L IPID, BMP ####[facility] [address] [address]Dr. Rip Pace HDL NORMAL > or = 60 mg/dl - LO W CARDIOVASCULAR RISK <40 mg/dl - HIGH CARDIOVASCULAR RISK Normal [facility] Comment on above: Performed By: #### L IPID, BMP ####[facility] [address] [address]Dr. Rip Pace LDL CALC NORMAL SEE BELOW Normal [facility] Comment on above: Result Comment: <100 mg/dl OPTIMAL 100 - 129 mg/dl NEAR OR ABOVE OPTIMAL 130 - 159 mg/dl BORDERLINE HIGH 160 - 189 mg/dl HIGH >190 mg/dl VERY HIGH Performed By: #### L IPID, BMP ####[facility] [address] [place], [place] [address]Dr. Rip Pace Triglyceride [Mass/Vol] 120 mg/dL Normal <=150 [facility] Comment on above: Performed By: #### L IPID, BMP ####[facility] [address] [place], [place] [address]Dr. Rip Pace VLDL CALC 24.0 mg/dL Normal [facility] Comment on above: Performed By: #### L IPID, BMP ####[facility] K[address] [place], [place] [address]Dr. Rip Pace PROF CHEM 8 (BAS METB)on Anion gap [Moles/Vol] 7.3 mmol/L Normal [facility] Comment on above: Performed By: #### L IPID, BMP ####[facility] [address] [place], [place] [address]Dr. Rip Pace Calcium [Mass/Vol] 7.9 mg/dL Critically low 8.5-10.1 [facility] Comment on above: Performed By: #### L IPID, BMP ####[facility] [address] [place], [place] [address]Dr. Rip Pace Chloride [Moles/Vol] 105 mmol/L Normal 98-107 [facility] Comment on above: Performed By: #### L IPID, BMP ####[facility] [address] [address]Dr. Yeseniacamila Pace CO2 [Moles/Vol] 25.5 mmol/L Normal 21.0-32.0 [facility] Comment on above: Performed By: #### L IPID, BMP ####[facility] [address] [place], [place] [address]Dr. Rip Pace Creatinine [Mass/Vol] 1.18 mg/dL Critically high 0.55-1.02 [facility] Comment on above: Performed By: #### L IPID, BMP ####[facility] [address] [place], [place] [address]Dr. Rip Pace EGFR-AF WELSH 53 mL/min/1.73m2 Critically low >=60 [facility] Comment on above: Performed By: #### L IPID, BMP ####[facility] [address] [place], [place] [address]Dr. Rip Pace EGFR-NON AF WELSH 44 mL/min/1.73m2 Critically low >=60 [facility] Comment on above: Performed By: #### L IPID, BMP ####[facility] [address] [place], [place] [address]Dr. Rip Pace Glucose [Mass/Vol] 112 mg/dL Critically high 74-[address] [facility] Comment on above: Performed By: #### L IPID, BMP ####[facility] [address] [place], [place] [address]Dr. Rip Pace Potassium [Moles/Vol] 4.8 mmol/L Normal 3.5-5.1 [facility] Comment on above: Performed By: #### L IPID, BMP ####[facility] [address] [place], [place] [address]Dr. Rip Pace Sodium [Moles/Vol] 133 mmol/L Critically low 136-145 Th [facility] Comment on above: Performed By: #### L IPID, BMP ####[facility] [address] [place], [place] [address]Dr. Rip Pace Urea nitrogen [Mass/Vol] 25.0 mg/dL Critically high 7.0-18.0 [facility] Comment on above: Performed By: #### L IPID, BMP ####[facility] [address] [place], [place] [address]Rm. Rip Pace Urea nitrogen/Creatinine [Mass ratio] 21.2 mg/mg Normal [facility] Comment on above: Performed By: #### L IPID, BMP ####[facility] [address] [place], [place] [address]Rx. Rip Pace Vitamin D 25 Hydroxyon 03-16 Vit D, 25-Hydroxy 41.1 ng/mL 30 - 100 ng/mL [place], [place] Comment on above: Reference Range: Vitamin D status Range Deficiency <20 ng/mL Mild Deficiency 20-30 ng/mL Sufficiency 30-100 ng/mL Toxicity >100 ng/mL Vital Signs Date Time Vital Sign Value Performing Clinician Facility 12-20-2023 11:10-0400 Body height 170.18 cm [facility] 12-20-2023 11:10-0400 Body mass index (BMI) [Ratio] 25.2 kg/m2 [facility] 12-20-2023 11:10-0400 Body weight 73.14 kg [facility] 12-20-2023 11:10-0400 Diastolic blood pressure 80 mm[Hg] [facility] 12-20-2023 11:10-0400 Heart rate 68 /min [facility] 12-20-2023 11:10-0400 Respiratory rate 12 /min [facility] 12-20-2023 11:10-0400 Systolic blood pressure 130 mm[Hg] [facility] 11-02-2023 13:39-0400 Body height 154.9 cm Susie Poe MD Work Phone: [facility] 11-02-2023 13:39-0400 Body mass index (BMI) [Ratio] 29.85 kg/m2 Susie Poe MD Work Phone: [facility] 11-02-2023 13:39-0400 Body weight 71.67 kg Susie Poe MD Work Phone: [facility] 11-02-2023 13:39-0400 Diastolic blood pressure 61 mm[Hg] Susie Poe MD Work Phone: [facility] 11-02-2023 13:39-0400 Heart rate 65 /min Susie Poe MD Work Phone: [facility] 11-02-2023 13:39-0400 SaO2% (BldA) [Mass fraction] 96 % uSsie Poe MD Work Phone: [facility] 11-02-2023 13:39-0400 Systolic blood pressure 129 mm[Hg] Susie Poe MD Work Phone: [facility] 09-19-2023 14:16-0400 Body height 170.18 cm [facility] 09-19-2023 14:16-0400 Body mass index (BMI) [Ratio] 24.7 kg/m2 [facility] 09-19-2023 14:16-0400 Body weight 71.83 kg [facility] 09-19-2023 14:16-0400 Diastolic blood pressure 80 mm[Hg] [facility] 09-19-2023 14:16-0400 Heart rate 67 /min [facility] 09-19-2023 14:16-0400 Respiratory rate 12 /min [facility] 09-19-2023 14:16-0400 Systolic blood pressure 138 mm[Hg] [facility] 06-24-2023 09:30-0500 Body height 170.18 cm Lennox Ball Other [facility] 06-24-2023 09:30-0500 Body mass index (BMI) [Ratio] 24.65 kg/m2 Lennox Ball Other [facility] Other 06-24-2023 09:30-0500 Body weight 71.4 kg Lennox Ball Other [facility] Other 06-24-2023 09:30-0500 Body weight 71.39 kg [facility] 06-24-2023 09:30-0500 Diastolic blood pressure 85 mm[Hg] Lennox Ball Other [facility] 06-24-2023 09:30-0500 Respiratory rate 12 /min Lennox Ball Other [facility] Other 06-24-2023 09:30-0500 Systolic blood pressure 138 mm[Hg] Lennox Ball Other [facility] 05-20-2023 10:15-0500 Body height 170.18 cm Lennox Ball Other [facility] Other 05-20-2023 10:15-0500 Body mass index (BMI) [Ratio] 24.49 kg/m2 Lennox Ball Other [facility] Other 05-20-2023 10:15-0500 Body weight 70.94 kg Lennox Ball Other [facility] Other 05-20-2023 10:15-0500 Diastolic blood pressure 78 mm[Hg] Lennox Ball Other [facility] Other 05-20-2023 10:15-0500 SaO2% (BldA) [Mass fraction] 98 % Lennox Ball Other [facility] Other 05-20-2023 10:15-0500 Systolic blood pressure 145 mm[Hg] Lennox Ball Other [facility] Other 05-13-2023 13:00-0500 Body height 170.18 cm Lennox Ball Other [facility] Other 05-13-2023 13:00-0500 Diastolic blood pressure 65 mm[Hg] Lennox Ball Other [facility] Other 05-13-2023 13:00-0500 Systolic blood pressure 114 mm[Hg] Lennox Ball Other [facility] Other 02-09-2023 13:30-0400 Body height 170.18 cm Lennox Ball Other [facility] Other 02-09-2023 13:30-0400 Body mass index (BMI) [Ratio] 24.9 kg/m2 Lennox Ball Other [employer] Other 02-09-2023 13:30-0400 Body weight 72.12 kg Lennox Ball Other [employer] Other 02-09-2023 13:30-0400 Diastolic blood pressure 68 mm[Hg] Lennox Ball Other [facility] Other 02-09-2023 13:30-0400 Respiratory rate 12 /min Lennox Ball Other [facility] Other 02-09-2023 13:30-0400 Systolic blood pressure 104 mm[Hg] Lennox Ball Other [facility] Other 09-24-2022 11:00-0400 Body height 170.18 cm Lennox Ball Other [employer] Other 09-24-2022 11:00-0400 Body mass index (BMI) [Ratio] 25.81 kg/m2 Lennox Ball Other [facility] Other 09-24-2022 11:00-0400 Body weight 74.75 kg Lennox Ball Other [facility] Other 09-24-2022 11:00-0400 Diastolic blood pressure 77 mm[Hg] Lennox Ball Other [facility] Other 09-24-2022 11:00-0400 Respiratory rate 12 /min Lennox Ball Other [facility] Other 09-24-2022 11:00-0400 Systolic blood pressure 145 mm[Hg] Lennox Gilman Other [employer] Other Encounters Encounter Date Encounter Type Care Provider Facility Start: 04-11-2024 [facility] Office Start: 04-04-2024 [facility] Start: 02-20-2024 End: 02-20-2024 Bamboo flowsheet Vaniabonnie Moya PA Work Phone: [facility] Start: 02-20-2024 End: 02-20-2024 Bamboo flowsheet Vania L Kenrick PA Work Phone: [facility] Start: 02-20-2024 End: 02-20-2024 Office outpatient new 20 minutes Vania L Kenrick PA Work Phone: [facility] Comment on above: Seborrheic keratosis (Primary Dx); Actinic keratosis; Neoplasm of unspecified behavior of bone, soft tissue, and skin Start: 02-20-2024 End: 02-20-2024 ambulatory VANIA MOYA Not Available Start: 12-20-2023 End: 12-20-2023 ambulatory [facility] Work Phone: Start: 12-20-2023 End: 12-20-2023 Patient encounter procedure [facility] Work Phone: Start: 11-02-2023 End: 11-02-2023 Patient encounter procedure Susie Poe MD Work Phone: [facility] Comment on above: Takotsubo cardiomyop athy (Primary Dx); Hyperlipidemia LDL goal <70; Coronary artery disease involving [place] coronary artery of [place] heart without angina pectoris; Heart failure with reduced ejection fraction (HCC); Type 2 diabetes mellitus with hyperglycemia, without long-term current use of insulin (HCC); Paroxysmal atrial fibrillation (HCC) Start: 11-02-2023 End: 11-02-2023 ambulatory LENNOX GILMAN Facility:[facility] Start: 09-19-2023 End: 09-19-2023 ambulatory [facility] Work Phone: Start: 09-19-2023 End: 09-19-2023 Patient encounter procedure [facility] Work Phone: Start: 07-12-2023 End: 07-12-2023 ambulatory Lennox Ball Other [facility] Other Start: 07-12-2023 Telephone encounter Lennox Ball [facility] Start: 07-04-2023 End: 07-04-2023 ambulatory Lennox Ball Other [facility] Other Start: 07-04-2023 Telephone encounter Lennox Ball [facility] Start: 06-24-2023 End: 06-24-2023 ambulatory Lennox Ball Other [facility] Other Start: 06-24-2023 Office outpatient vi sit 25 minutes Lennox Ball [facility] Start: 06-24-2023 End: 06-24-2023 Patient encounter procedure [facility] Work Phone: Start: 06-07-2023 End: 06-07-2023 ambulatory Lennox Ball Other [facility] Other Start: 06-07-2023 Telephone encounter Lennox Ball [facility] Start: 06-05-2023 End: 06-05-2023 ambulatory Lennox Ball Other [facility] Other Start: 06-05-2023 Telephone encounter Lennox Ball [facility] Start: 05-30-2023 End: 05-30-2023 ambulatory Lennox Ball Other [facility] Other Start: 05-30-2023 Telephone encounter Lennox Ball [facility] Start: 05-20-2023 End: 05-20-2023 ambulatory Lennox Gilman Other [facility] Other Start: 05-20-2023 Office outpatient vi sit 25 minutes Lennox Gilman [facility] Start: 05-13-2023 End: 05-13-2023 ambulatory Lennox Ball Other [facility] Other Start: 05-13-2023 Office outpatient vi sit 15 minutes Lennox Ball [facility] Start: 03-28-2023 End: 03-28-2023 ambulatory Lennox Ball Other [facility] Other Start: 03-28-2023 Telephone encounter Lennox Gilman [facility] Start: 03-26-2023 End: 03-26-2023 ambulatory Lennox Gilman Other [facility] Other Start: 03-26-2023 Telephone encounter Lennox Gilman [facility] Start: 03-10-2023 End: 03-10-2023 ambulatory Lennox Gilman Other [facility] Other Start: 03-10-2023 Telephone encounter Lennox Gilman [facility] Start: 02-09-2023 End: 02-09-2023 ambulatory Lennox Gilman Other [facility] Other Start: 02-09-2023 Patient encounter procedure Lennox Gilman [facility] Start: 11-08-2022 End: 11-08-2022 ambulatory Lennox Gilman Other [facility] Other Start: 11-08-2022 Telephone encounter Lennox Gilman [facility] Start: 11-05-2022 End: 11-05-2022 ambulatory Lennox Ball Other [facility] Other Start: 11-05-2022 Telephone encounter Lennox Ball [facility] Start: 10-20-2022 End: 10-20-2022 ambulatory Lennox Ball Other [facility] Other Start: 10-20-2022 Telephone encounter Lennox Gilman [facility] Start: 10-14-2022 End: 10-14-2022 ambulatory Lennox Gilman Other [facility] Other Start: 10-14-2022 Telephone encounter Lennox Gilman [facility] Start: 10-13-2022 Telephone encounter Lennox GARCIA [facility] Start: 10-13-2022 End: 10-14-[address] LENNOX GILMAN [facility] Other Start: 09-24-2022 End: 09-24-2022 ambulatory Lennox Gilman Other [facility] Other Start: 09-24-2022 Office outpatient vi sit 25 minutes Lennox Sudhakar [facility] Start: 08-20-2022 End: 08-21-2022 ambulatory [facility]X [facility] Start: 08-18-2022 End: 08-19-2022 ambulatory LENNOX [facility]zier [facility] Start: 08-18-2022 End: 08-18-2022 Subsequent hospital visit by physician Lissa Marquez PT [facility] Comment on above: Arrived Start: 08-13-2022 End: 08-14-2022 ambulatory LENNOX Dozier [facility] Start: 08-13-2022 End: 08-13-2022 Subsequent [facility] Comment on above: Arrived Start: 08-11-2022 End: 08-12-2022 ambulatory LENNOX Dozier [facility] Start: 08-11-2022 End: 08-11-2022 Subsequent hospital visit by physician [facility] Comment on above: Arrived Start: 08-06-2022 End: 08-07-2022 ambulatory LENNOX Dozier [facility] Start: 08-04-2022 End: 08-05-2022 ambulatory LENNOX Dozier [facility] Start: 08-04-2022 End: 08-04-2022 Subsequent hospital visit by physician Lissa Marquez PT [facility] Physical Therapy Comment on above: Arrived Start: 07-30-2022 End: 07-31-2022 ambulatory [facility] Start: 07-30-2022 End: 07-30-2022 Subsequent hospital visit by physician Lissa Marquez PT [facility] Physical Therapy Comment on above: Arrived Start: 07-29-2022 ambulatory LENNOX Tsang [facility] Start: 07-23-2022 End: 07-24-2022 ambulatory [facility] Start: 07-21-2022 End: 07-22-2022 ambulatory [facility] Start: 07-21-2022 End: 07-21-2022 Subsequent hospital visit by physician Lissa Marquez PT [facility] Physical Therapy Comment on above: Arrived Start: 07-19-2022 End: 2022 ambulatory [facility] Start: 07-19-2022 End: 07-19-2022 Subsequent hospital visit by physician Araceli Saha P[facility] Physical Therapy Comment on above: Arrived Start: 07-16-2022 End: 07-17-2022 ambulatory [facility] Start: 07-16-2022 End: 07-16-2022 Subsequent hospital visit by physician Araceli Saha P[facility] Physical Therapy Comment on above: Arrived Start: 07-14-2022 End: 07-15-2022 ambulatory [facility] Start: 07-14-2022 End: 07-14-2022 Subsequent hospital visit by physician Lissa Marquez PT [facility] Physical Therapy Comment on above: Arrived Start: 07-12-2022 End: 07-13-2022 ambulatory [facility] Start: 07-12-2022 End: 07-12-2022 Subsequent hospital visit by physician Araceli Saha P[facility] Physical Therapy Comment on above: Arrived Start: 07-09-2022 End: 07-10-2022 ambulatory [facility] Start: 07-09-2022 End: 07-09-2022 Subsequent hospital visit by physician Araceli Saha P[facility] Physical Therapy Comment on above: Arrived Start: 07-07-2022 End: 07-07-2022 Subsequent hospital visit by physician Araceli Saha P[facility] Physical Therapy Start: 07-05-2022 End: 07-06-2022 [facility] Start: 07-02-2022 End: 07-03-2022 ambulatory [facility] Start: 06-30-2022 End: 07-01-2022 ambulatory [facility] Start: 06-30-2022 End: 06-30-2022 Subsequent hospital visit by physician Heydi Gonzalez PTA [facility] Physical Therapy Comment on above: Arrived Start: 06-24-2022 End: 06-25-2022 ambulatory [facility] Start: 06-24-2022 End: 06-24-2022 Subsequent hospital visit by physician Lissa Marquez PT [facility] Physical Therapy Comment on above: Closed displaced bic ondylar fracture of right tibia with routine healing (Primary Dx) Start: 05-07-2022 End: 05-08-2022 ambulatory [facility] Start: 05-07-2022 End: 05-07-2022 Subsequent hospital visit by physician Araceli Saha PTA [facility] Physical Therapy Comment on above: Arrived Start: 05-05-2022 End: 05-06-2022 ambulatory [facility] Start: 05-05-2022 End: 05-05-2022 Subsequent hospital visit by physician Araceli Saha PTA [facility] Physical Therapy Comment on above: Arrived Start: 05-03-2022 End: 05-04-2022 ambulatory [facility] Start: 04-30-2022 End: 05-01-2022 ambulatory [facility] Start: 04-28-2022 End: 04-29-2022 ambulatory [facility] Start: 04-28-2022 End: 04-28-2022 Subsequent hospital visit by physician Araceli Saha PTA [facility] Physical Therapy Comment on above: Arrived Start: 04-15-2022 End: 04-16-2022 ambulatory [facility] Start: 04-15-2022 End: 04-15-2022 Subsequent hospital visit by physician Prashanth Wilks PT [facility] Physical Therapy Comment on above: Arrived Start: 04-11-2022 End: 04-11-[address] [facility]EN[facility] GILMAN Facility:[facility]1 Start: 03-06-2022 End: 03-06-[address] [facility] GILMAN Facility:[facility] Start: 02-11-2022 End: 02-12-[address] [facility] GILMAN Facility:[facility] Start: 10-27-2021 End: 10-28-[address] [facility] GILMAN Facility:[facility] Start: 10-27-2021 Adult health examination Goran kenya Gilman Other [facility] Other Start: 03-16-2019 End: 03-16-2019 Subsequent hospital visit by physician Lennox Gilman [facility] Laboratory Start: 02-24-2017 End: 02-24-2017 Pre-procedure evaluation check Lennox Gilman Other [facility] Other Procedures Date Procedure Procedure Detail Performing Clinician Start: 04-11-2024 Evaluation AND/OR management - established patient Db George Start: 04-04-2024 Docrev cur meds by e lig clin Db George Start: 04-04-2024 Mohs micrographic h/n/h/f/g each addl stage Db George Start: 04-04-2024 Mohs surgery Db Scar kyler Start: 02-20-2024 CRYOTHERAPY SKIN LESION Vania PEREYRA Work Phone: Start: 02-20-2024 SKIN / NAIL BIOPSY Mela PEREYRA Work Phone: Start: 03-16-2019 25 hydroxy includes fractions if performed Lennox Gilman Work Phone: Depression screening Josselyn Gilman Other Screening for malign ant neoplasm of breast Lennox Gilman Other Plan of Treatment Date Care Activity Detail Author Start: 11-01-2024 End: 01-31-2025 Comprehensive metabolic 2000 panel - Serum or Plasma COMPREHENSIVE METABOLIC PANEL Lab Routine Coronary artery disease involving [place] coronary artery of [place] heart without angina pectoris Heart failure with reduced ejection fraction (HCC) Expected: 11/01/2024, Expires: 01/31/2025 [facility] Comment on above: Expected: 11/01/2024, Expires: Start: 11-01-2024 End: 01-31-2025 Lipid 1996 panel - Serum or Plasma LIPID PANEL BASIC Lab Routine Coronary artery disease involving [place] coronary artery of [place] heart without angina pectoris Heart failure with reduced ejection fraction (HCC) Expected: 11/01/2024, Expires: 01/31/2025 [facility] Comment on above: Expected: 11/01/2024, Expires: Start: 11-01-2024 End: 01-31-2025 Natriuretic peptide.B prohormone N-Terminal [Mass/volume] in Serum or Plasma NT PRO BNP Lab Routine Coronary artery disease involving [place] coronary artery of [place] heart without angina pectoris Heart failure with reduced ejection fraction (HCC) Expected: 11/01/2024, Expires: 01/31/2025 [facility] Comment on above: Expected: 11/01/2024, Expires: Start: 02-26-[address] [facility] Start: 02-20-2024 End: 02-20-2024 Patient encounter procedure 02/20/2024 9:30 AM EDT Office Visit [facility] [address] [place] [phone] Vania Moya, PA [address] [place] [address] Arrived [facility] Comment on above: Arrived Start: 06-27-2023 Advance Directive Discussion Advance Directive Discussion [facility] Start: 02-25-2023 Covid-19 Vaccine () Covid-19 Vaccine () [facility] Start: 08-20-2022 End: 08-20-2022 Patient encounter procedure 08/20/2022 Appointment Physical Therapy [facility] Start: 08-18-2022 End: 08-18-2022 Patient encounter procedure 08/18/2022 Appointment Physical Therapy Lissa Marquez PT [facility] Start: 08-13-2022 End: 08-13-2022 Patient encounter procedure 08/13/2022 Appointment Physical Therapy Lissa Marquez, PT [facility] Start: 08-11-2022 End: 08-11-2022 Patient encounter procedure 08/11/2022 Appointment Physical Therapy Lissa Marquez, PT [facility] Start: 08-06-2022 End: 08-06-2022 Patient encounter procedure 08/06/2022 Appointment Physical Therapy Lissa Marquez, PT [facility] Start: 08-04-2022 End: 08-04-2022 Patient encounter procedure 08/04/2022 Appointment Physical Therapy Lissa Marquez, PT [facility] Start: 07-23-2022 End: 07-23-2022 Patient encounter procedure 07/23/2022 Appointment Physical Therapy Lissa Marquez, PT [facility] Start: 07-21-2022 End: 07-21-2022 Patient encounter procedure [facility] Start: 07-19-2022 End: 07-19-2022 Patient encounter procedure 07/19/2022 Appointment Physical Therapy Araceli Saha PTA [facility] Start: 07-16-2022 End: 07-16-2022 Patient encounter procedure 07/16/2022 Appointment Physical Therapy Araceli Saha PROFESSOR OF HISTORY [facility] Start: 07-14-2022 End: 07-14-2022 Patient encounter procedure 07/14/2022 Appointment Physical Therapy Lissa Marquez, PT [facility] Start: 07-12-2022 End: 07-12-2022 Patient encounter procedure 07/12/2022 Appointment Physical Therapy Araceli Saha PTA [facility] Start: 07-09-2022 End: 07-09-2022 Patient encounter procedure 07/09/2022 Appointment Physical Therapy Araceli Saha PTA [facility] Start: 07-07-2022 End: 07-07-2022 Patient encounter procedure 07/07/2022 Appointment Physical Therapy Araceli Saha PTA [facility] Start: 07-05-2022 End: 07-05-2022 Patient encounter procedure 07/05/2022 Appointment Physical Therapy Araceli Saha PROFESSOR OF HISTORY [facility] Start: 07-02-2022 End: 07-02-2022 Patient encounter procedure 07/02/2022 Appointment Physical Therapy Araceli Saha PTA [facility] Start: 06-30-2022 End: 06-30-2022 Patient encounter procedure 06/30/2022 Appointment Physical Therapy Heydi Gonzalez PTA [facility] Start: 05-14-2022 End: 05-14-2022 Patient encounter procedure 05/14/2022 Appointment Physical Therapy Araceli Saha PTA [facility] Start: 05-12-2022 End: 05-12-2022 Patient encounter procedure 05/12/2022 Appointment Physical Therapy Araceli Saha PTA [facility] Start: 05-10-2022 End: 05-10-2022 Patient encounter procedure 05/10/2022 Appointment Physical Therapy Araceli Saha PTA [facility] Start: 05-07-2022 End: 05-07-2022 Patient encounter procedure 05/07/2022 Appointment Physical Therapy Araceli Saha PTA [facility] Start: 05-05-2022 End: 05-05-2022 Patient encounter procedure 05/05/2022 Appointment Physical Therapy Araceli Saha PTA [facility] Start: 05-03-2022 End: 05-03-2022 Patient encounter procedure 05/03/2022 Appointment Physical Therapy Araceli Saha PTA [facility] Start: 04-30-2022 End: 04-30-2022 Patient encounter procedure 04/30/2022 Appointment Physical Therapy Araceli Saha PTA [facility] Start: 04-28-2022 End: 04-28-2022 Patient encounter procedure 04/28/2022 Appointment Physical Therapy Araceli Saha PTA [facility] Start: 04-26-2022 End: 04-26-2022 Patient encounter procedure 04/26/2022 Appointment Physical Therapy Denny Cho [facility] Start: 04-23-2022 End: 04-23-2022 Patient encounter procedure 04/23/2022 Appointment Physical Therapy Araceli Saha PTA [facility] Start: 04-21-2022 End: 04-21-2022 Patient encounter procedure 04/21/2022 Appointment Physical Therapy Araceli Saha PTA [facility] Start: 04-20-2022 End: 04-20-2022 Patient encounter procedure 04/20/2022 Appointment Physical Therapy JuanjoDoroteo, GUERRERO [facility] Start: 04-14-2022 Annual Wellness Visit (AWV) Annual Wellness Visit (AWV) [facility] Start: 01-25-2022 Influenza vaccination Flu vaccine (#1) [facility] Start: 09-16-2021 COVID-19 Vaccine (3 - Booster for Pfizer series) COVID-19 Vaccine (3 - Booster for Pfizer series) [facility] Start: 06-13-2021 COVID-19 Vaccine (3 - Booster for Pfizer series) COVID-19 Vaccine (3 - Booster for Pfizer series) [facility] Start: 02-25-2019 Influenza vaccination Flu vaccine (#1) [place], [place] Start: 07-27-2018 Hepatitis B surface antibody level LDL Cholesterol [facility] Start: 08-08-2016 Pneumococcal Vaccine: 65+ (2 of 2 - PCV) Pneumococcal Vaccine: 65+ (2 of 2 - PCV) [facility] Start: 01-05-2016 Hemoglobin A1c measurement HbA1C [facility] Start: 11-06-2015 Pneumococcal Vaccine: 65+ Years (2 of 2 - PCV) Pneumococcal Vaccine: 65+ Years (2 of 2 - PCV) [facility] Start: 03-08-2013 Urine microalbumin profile DTaP,Tdap,Td Vaccine (1 - Tdap) [facility] Start: 2006 Pneumococcal 65+ years Vaccine (1 of 2 - PCV13) Pneumococcal 65+ years Vaccine (1 of 2 - PCV13) [place], [place] Start: 2006 Screening for osteoporosis Bone Density Screening [facility] Start: 2001 RSV Vaccine (1 - 1-dose 60+ series) RSV Vaccine (1 - 1-dose 60+ series) [facility] Start: 1996 Screening for osteoporosis DEXA (modify frequency per FRAX score) [facility] Start: 1991 Shingles vaccine (1 of 2) Shingles vaccine (1 of 2) [facility] Start: 1991 Shingrix Vaccine (1 of 2) Shingrix Vaccine (1 of 2) [facility] Start: 1960 DTaP/Tdap/Td vaccine (1 - Tdap) DTaP/Tdap/Td vaccine (1 - Tdap) [facility] Start: 1953 Depression Screen Depression Screen [facility] Start: 1951 Diabetic foot examination Diabetic Foot Exam [facility] Start: 1951 Glaucoma screening Dilated Retinal Exam [facility] Start: 1951 Hepatitis B screening Urine Albumin:Creatinine Ratio [facility] Dermatopathology exam Dermatopat hology exam Pathology and Cytology Timed Neoplasm of unspecified behavior of bone, soft tissue, and skin Release Upon Ordering for 1 Occurrences starting 02/20/2024 [facility] Work Phone: Comment on above: Release Upon Ordering for 1 Occurrences starting 02/20/2024 End: 11-01-2024 Echocardiography ECHO Cardiology Routine Coronary artery disease involving [place] coronary artery of [place] heart without angina pectoris Heart failure with reduced ejection fraction (HCC) Takotsubo cardiomyopathy 1 Occurrences starting 11/02/2023 until 11/01/2024 [facility] Work Phone: Comment on above: 1 Occurrences starting 11/02/2023 until 11/01/2024 Immunizations Immunization Date Immunization Notes Care Provider Micheal guerrero 04-12-2018 influenza virus vaccine, split virus (incl. purified surface antigen) Lennox Gilman Other [facility] Other 04-12-2018 influenza virus vaccine, unspecified formulation [facility] 04-07-2016 influenza virus vaccine, split virus (incl. purified surface antigen) Lennox Gilman Other [employer] [facility] [employer] Other 04-07-2016 influenza virus vaccine, unspecified formulation [facility] 08-08-2015 pneumococcal polysaccharide vaccine, 23 valent Lennox Gilman Other [facility] 05-08-2015 influenza, high dose seasonal, preservative-free Susie Poe MD Work Phone: [facility] 04-09-2015 influenza virus vaccine, split virus (incl. purified surface antigen) Lennox Gilman Other [facility] Other 04-09-2015 influenza virus vaccine, unspecified formulation [facility] 11-05-2014 pneumococcal polysaccharide vaccine, 23 valent Lennox Gilman Other [facility] 03-07-2013 tetanus and diphther ia toxoids, adsorbed, preservative free, for adult use (5 Lf of tetanus toxoid and 2 Lf of diphtheria toxoid) Lennox Gilman Other [facility] Payers Date Payer Category Payer Private Health Insurance [id number] 2021 Unknown [id number] 2020 Private Health Insurance [id number] [employer]IC[employer] SUPP xxxxxxxxx 2016-Present [phone] [address] [address] [place] [address] xxxxxxxxx [id number] 2016 Unknown [id number] .[id number] 2014 Medicare MEDICARE MEDICAR E PART A AND B xxxxxxxxxx 2014-Present [phone] [address] [address] [place] [address] xxxxxxxxxx [id number] 2006 Medicare [id number] .[id number] 1959 Medicare [id number] [id number] .[id number] 1959 Private Health Insurance [id number] 1941 Unknown [id number] 2.16.840.1.090030.3.579.2 .173 1941 Unknown [id number] 2.16.840.1.516711.3.579.2 .173 1941 Unknown [id number] 2.16.840.1.685489.3.579.2 .173 1941 Unknown [id number] 2.16.840.1.826732.3.579.2 .173 1941 Unknown [id number] 2.16.840.1.305354.3.579.2 .173 1941 Unknown [id number] 2.16.840.1.381409.3.579.2 .173 1941 Unknown [id number] 2.16.840.1.202653.3.579.2 .173 1941 Unknown [id number] 2.16.840.1.184259.3.579.2 .173 1941 Unknown [id number] 2.16.840.1.320210.3.579.2 .173 1941 Unknown [id number] 2.16.840.1.320551.3.579.2 .173 1941 Unknown [id number] 2.16.840.1.806605.3.579.2 .173 1941 Unknown [id number] 2.16.840.1.827955.3.579.2 .173 1941 Unknown [id number] 2.16.840.1.722020.3.579.2 .173 1941 Unknown [id number] 2.16.840.1.669135.3.579.2 .173 1941 Unknown [id number] 2.16.840.1.315914.3.579.2 .173 1941 Unknown [id number] 2.16.840.1.300874.3.579.2 .173 1941 Unknown [id number] 2.16.840.1.910955.3.579.2 .173 1941 Unknown [id number] 2.16.840.1.482473.3.579.2 .173 1941 Unknown [id number] 2.16.840.1.080855.3.579.2 .173 1941 Unknown [id number] 2.16.840.1.789570.3.579.2 .173 1941 Unknown [id number] 2.16.840.1.195044.3.579.2 .173 1941 Unknown [id number] 2.16.840.1.317510.3.579.2 .173 1941 Unknown [id number] 2.16.840.1.213221.3.579.2 .173 1941 Unknown [id number] 2.16.840.1.173597.3.579.2 .173 1941 Unknown [id number] 2.16.840.1.101846.3.579.2 .173 1941 Unknown [id number] 2.16.840.1.782249.3.579.2 .593 1941 Unknown [id number] 2.16.840.1.419267.3.579.2 .593 1941 Unknown [id number] 2.16.840.1.698149.3.579.2 .593 1941 Unknown [id number] 2.16.840.1.198359.3.579.2 .593 1941 Unknown [id number] 2.16.840.1.379700.3.579.2 .593 1941 Unknown [id number] 2.16.840.1.283806.3.579.2 .1259 Social History Date Type Detail Facility [facility] smoked [place], [place] Start: 1940 Sex Assigned At Not on file [place] [facility] smoking consumption unknown [facility] Start: 11-01-2023 End: 11-02-[address] [facility] Start: 1940 Sex Assigned At Female F [facility] Start: 09-24-2015 End: 02-20-2024 Tobacco smoking status NHIS Never smoked tobacco [facility] Start: 09-24-2015 End: 02-20-2024 Tobacco use and exposure Smokeless tobacco non-user 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 Start: 11-01-2023 End: 11-02-[address] [facility] Adult Depression Screening Assessment [address] [facility] Start: 02-20-2024 Alcoholic beverage intake Lifetime non-drinker (finding) [facility] Healthcare Goals Date Patient Goal Desired Activity /State Personal health goal Clinical Notes 04-15-2022 to 02-20-2024 HAFSA Zhao - 02/20/2024 9:30 AM EDTHSusie bynum MD - 11/02/2023 1:30 PM EDT Note Date & Type Note Facility 02-20-2024 History of Present illness Narrative Images from the original note were not included. Lesions: Location: left nose Duration: years Quality: denies pain, denies itch Modifying factors: aggravated when when washing face Associated symptoms: dry spot that scabs over Treatments: none New patient, last seen 06/2018 Location # 2: left lower leg Duration: unknown Quality: denies pain, denies itch Modifying factors: denies Associated symptoms: [place] Treatments: none All pertinent medical history, medications, and allergies were reviewed. General Exam: alert , oriented to person, place, and time , normal affect, well appearing Unaccompanied A focused exam completed based on patient reported problems, see below: 1. Seborrheic keratosis (2) Left Lower Leg - Anterior, Left Nasal Sidewall Stuck on verrucous, variably pigmented papules and plaques. Patient was counseled regarding these benign growths. Removal is normally not necessary, but they may be removed if they are symptomatic or for cosmetic reasons. 2. Actinic keratosis Right Nasal Sidewall Erythematous scaly papules Patient was counseled regarding these sun-induced growths that can develop into squamous cell carcinoma if left untreated. Discussed treatment with cryotherapy. It was emphasized that any treated lesions that fail to resolve should be re-evaluated. Cryotherapy performed today; see procedure note Diagnosis: Actinic keratosis Indication: Precancerous Location: see skin exam Consent: Verbal consent was obtained and risks were discussed, including, but not limited to risks of scarring, darker or services engineer pigmentary changes, recurrence, incomplete removal and infection. Method: Liquid nitrogen was used to treat the lesion(s) with two 5-10 second freeze-thaw cycles. Number of lesions treated: 1 Post-procedure instructions: Instructions were given orally and in writing. The office will be contacted if the lesion fails to resolve despite treatment, or if a side effect develops such as abnormal crusting, scabbing, redness or tenderness Cryotherapy, skin lesion - Right Nasal Sidewall 3. Neoplasm of unspecified behavior of bone, soft tissue, and skin Left Nasal Sidewall Hyperkeratotic papule Lesion biopsy Type of biopsy: tangential Informed consent: discussed and consent obtained Informed consent comment: The risks and benefits of the biopsy were discussed. Risks include but are not limited to bleeding, infection, scarring, pain, and nerve damage. An opportunity to ask questions prior to the procedure was permitted and all questions were answered. Patient was prepped and draped in usual sterile fashion: area cleansed with alcohol. Anesthesia: the lesion was anesthetized in a standard fashion Anesthetic: 1% lidocaine w/ epinephrine 1-100,000 buffered w/ 8.4% NaHCO3 Instrument used: DermaBlade Hemostasis achieved with: electrodesiccation Outcome: patient tolerated procedure well Outcome comment: The specimen was placed in a prelabeled formalin container to be sent for pathology Post-procedure details: sterile dressing applied and wound care instructions given Post-procedure details comment: Emphasized need to contact clinic for any signs of infection, uncontrollable bleeding, or complications. Dressing type: bandage Additional details: Photo taken Amount of lidocaine used: 0.5 cc Specimen A - Dermatopathology exam Differential Diagnosis: BCC Check Margins: No Size of lesion: 0.7 x 0.5 cm Next Visit: pending biopsy results documented in this encounter [facility] 11-02-2023 History of Present illness Narrative Images from the original note were not included. [facility] [place] Sadi Perez Department of Cardiovascular Medicine SECTION OF PREVENTIVE CARDIOLOGY Jannie Lee 11/02/2023 CHIEF COMPLAINT: Patient presents with: CARD New Patient Consult HISTORY OF PRESENT CARDIOVASCULAR ILLNESS: Jannie Lee is a 83 year old female who presents for re-establish care.. --05/2023--at work had mid back pain, went to ED, found to be in AF, 1st episode in several yrs, treated with diltiazem? 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 Sleep Hours Per Night?: 8 STATIN INTOLERANCE: Adverse Effect History of Statin Intolerance:: No Current Statin Freq: Every Day atorvastatin 80 mg qday (2015-)--?tolerated for several yrs; off medication x few yrs?, restarted in 05/2023 USE OF PCSK9 INHIBITORS: CARDIOVASCULAR DISEASE HISTORY: CATH Positive>70%: Yes 07/09/15 Valve Disease: Arrhythmias: History question Answer Diagnosis Date Comment PAF : Paroxysmal atrial fibrillation (HCC) 06/27/2015 Patient experienced episode of atrial fibrillation overnight 07/08-07/09 and 07/09-07/10 Converted to NSR with amiodarone Heparin gtt discontinued 07/14 (no RA clot on MIGUEL) PLAN: Continue metoprolol 25 every 8 hours Continue Amiodarone HEART FAILURE/CARDIOMYOPATHY: History question Answer Diagnosis Date Comment HF rEF : Heart failure with reduced ejection fraction (HCC) 06/27/2015 Patient presenting after questionable syncopal episode with elevated CE and an EF of 20% EKG reveals no ST segment changes, patient may have had NSTEMI CXR suggestive of pulmonary edema Echo with EF of 20%, RA mass vs mobile echodensity on the TV Echocardiogram concerning for Takotsubo's cardiomyopathy. See NSTEMI for [facility] results 07/09 Cardiac MRI with mid segment ballooning, delayed enhancement concerning for myocarditis. Inflammatory/infectious work up largely wnl, ELISSA by IFA pending MIGUEL 07/14 with EF 30% and small circumferential pericardial effusion, largest anteriorly PLAN: - afterload reduction with captopril 6.25 q 8 hours - ASA - atorvastatin 80 qHS RELATED DISEASE HISTORY: PAST MEDICAL HISTORY: PAST MEDICAL HISTORY Diagnosis Date CAD (coronary artery disease) 06/27/2015 Dyslipidemia Heart failure with reduced ejection fraction (HCC) 06/27/2015 Patient presenting after questionable syncopal episode with elevated CE and an EF of 20% EKG reveals no ST segment changes, patient may have had NSTEMI CXR suggestive of pulmonary edema Echo with EF of 20%, RA mass vs mobile echodensity on the TV Echocardiogram concerning for Takotsubo's cardiomyopathy. See NSTEMI for [facility] results 07/09 Cardiac MRI with mid segment ballooning, delayed enhancement concerning for myocarditis. Inflammatory/infectious work up largely wnl, ELISSA by IFA pending MIGUEL 07/14 with EF 30% and small circumferential pericardial effusion, largest anteriorly PLAN: - afterload reduction with captopril 6.25 q 8 hours - ASA - atorvastatin 80 qHS HTN (hypertension) Patient with history of HTN PLAN: Continue captopril Hypertension Lip laceration 06/27/2015 Myocarditis (HCC) 06/27/2015 Paroxysmal atrial fibrillation (FORMERLY [facility]) 06/27/2015 Patient experienced episode of atrial fibrillation overnight 07/08-07/09 and 07/09-07/10 Converted to NSR with amiodarone Heparin gtt discontinued 07/14 (no RA clot on MIGUEL) PLAN: Continue metoprolol 25 every 8 hours Continue Amiodarone Tibia fracture 03/2022 no surgery required CURRENT MEDS: Current Outpatient Medications Medication Sig ELIQUIS 5 mg tab(s) Take 5 mg by mouth two times a day. lisinopril (ZESTRIL, PRINIVIL) 20 mg tablet Take 1 tablet by mouth once daily. metoprolol succinate ER (TOPROL XL) 25 mg 24 hr tablet Take 1 tablet by mouth once daily. nitroglycerin sublingual (NITROQUICK) 0.4 mg SL tablet Dissolve 1 tablet under the tongue every 5 minutes as needed for Chest Pain. aspirin 81 mg chewable tablet Take 1 tablet by mouth once daily. atorvastatin (LIPITOR) 80 mg tablet Take 1 tablet by mouth once daily. (Patient taking differently: Take 80 mg by mouth 3 times a WEEK. ) No current facility-administered medications for this visit. ALLERGIES: ALLERGIES Allergen Reactions Penicillin Rash causes a rash FAMILY HISTORY: FAMILY HISTORY Problem Relation Age of Onset Cancer Mother age 68 cancer other (Renal [Other]) Father age 82 renal failure SOCIAL HISTORY: Lifestyle Employer And Job Title: No employer specified ([employer] ) Years Of Education Completed: 12 years Marital Status: with 3 children Tobacco use in the last year: No Alcohol Use: No REVIEW OF SYSTEMS: positives appear in bold GENERAL:Negative for malaise, significant weight loss--15-20 lbs wt loss in past 6 yrs or gain and fever HEENT:Negative for frequent or significant headaches, significant changes in vision or vision problems, significant ear problems or hearing loss, nasal discharge or nose bleeds and sore throat, difficulty swallowing, mouth lesions NECK:Negative for lumps, goiter, pain and significant neck swelling RESPIRATORY: Negative for cough, wheezing and shortness of breath CARDIOVASCULAR: Negative for chest pain, leg swelling and palpitations GASTROINTESTINAL: Negative for abdominal discomfort, blood in stools or black stools and change in bowel habits GENITOURINARY: Negative for dysuria, frequency and incontinence BED SETTER: Negative for abnormal vaginal bleeding, abnormal vaginal discharge and breast symptoms MUSCULOSKELETAL: Negative for joint pain or swelling, back pain, and muscle pain. NEUROLOGIC:Negative for focal numbness or weakness, headaches and dizziness. SKIN:Negative for lesions, rash, and itching. PSYCHIATRIC: Negative for sleep disturbance, mood disorder and recent psychosocial stressors. HEMATOLOGIC/LYMPHATIC/IMMUNOLOGIC: Negative for prolonged bleeding, bruising easily, and swollen nodes. ENDOCRINE: Negative for cold or heat intolerance, polyuria, polydipsia and goiter. PHYSICAL EXAMINATION: BP 129/61 (BP Site: Right Arm, BP Position: Sitting, BP Cuff Size: Regular Adult) Pulse 65 Ht 154.9 cm (5' 1 ) Wt 71.7 kg (158 lb) SpO2 96% BMI 29.85 kg/m Last Wt 11/02/23 71.7 kg (158 lb) 04/11/18 78.5 kg (173 lb) 11/09/17 78 kg (171 lb 14.4 oz) 09/30/16 79.1 kg (174 lb 6.4 oz) 03/23/16 80.3 kg (177 lb) Gen: pleasant overweight WF, NARD, lively HEENT: PERRL, conj pink, OP benign neck: 2+ carotids, no bruits, JVP 7 chest: CTA B CV: RRR normal S1, S2 abd: soft, NTND, normal BS's ext: no edema; 2+ DP/PT pulses neuro: alert, oriented X 3; gait moderate, independent CLINICAL TESTING RESULTS: EKG November 02, 2023 reviewed--NSR 62 normal, QTc 418 exercise nuclear stress test April 11, 2018 -- 1. SPECT Perfusion Study: Normal. 2. There [...] risk scan. Gated Stress FBP LVEF % 75 1. THE TEST WAS TERMINATED DUE TO GENERAL FATIGUE. 2. ADEQUATE HEART RATE RESPONSE OF 95% PREDICTED MAXIMAL HEART RATE, ABNORMAL HEART RATE RECOVERY @ 1 MINUTE POST-EXERCISE. INCREASED RISK, NORMAL CHRONOTROPIC RESPONSE INDEX (>0.62 ON BETA- TOREY). 3. FUNCTIONAL CAPACITY IS ESTIMATED AT 6.5 METS, STAGE 3 HARLEY 10.0% PROTOCOL[place] [address], AVERAGE FUNCTIONAL CAPACITY FOR AGE AND GENDER. 4. NORMAL BLOOD PRESSURE RESPONSE TO STRESS, RESTING HYPERTENSION. 5. T WAVE CHANGES DURING STRESS. 6. NORMAL VEGA TREADMILL SCORE (>/=5). 7. ANGINA WAS NOT PROVOKED BY STRESS. 8. UNIFOCAL PVC'S DURING THE TEST, PAC'S DURING THE TEST, NONSUSTAINED SUPRAVENTRICULAR TACHYCARDIA AFTER STRESS. 9. THE PREVIOUS TEST IS NOT AVAILABLE FOR COMPARISON. CONCLUSION: ABNORMAL DUE TO: LOW HEART RATE RECOVERY. ADDITIONAL COMMENTS: BIPHASIC T WAVE CHANGES DURING STRESS 5 BEAT RUN OF NSSVT DURING 5TH MINUTE OF RECOVERY, PT. ASYMPTOMATIC. echo 09/2016-- CONCLUSIONS: - Exam indication: Routine surveillance (greater than 1yr) of known cardiomyopathy without a change in clinical status - The left ventricle is normal in size. Left ventricular systolic function is normal. EF = 61 5% (2D biplane) Normal left ventricular diastolic function. - The right ventricle is normal in size. Right ventricular systolic function is normal. - Trivial to 1+ mitral regurgitation. - Trivial tricuspid regurgitation. - Exam was compared with the prior echocardiographic exam performed on 09/24/2015. No significant change. echo September 24, 2015-- CONCLUSIONS: - Exam indication: CHF - The left ventricle is normal in size. Left ventricular systolic function is normal. EF = 60 5% (2D biplane) Definity contrast used for endocardial border detection. Baseline left ventricular diastolic function is consistent with abnormal relaxation (stage 1). - The right ventricle is normal in size. Right ventricular systolic function is normal. - Trivial MR and TR. - Estimated right ventricular systolic pressure is 49 mmHg consistent with mild pulmonary hypertension. Estimated right atrial pressure is 5 mmHg. - Compared with the prior echocardiographic exam performed on 07/07/15. Significant interval improvement in global and regional LV systolic function. The TR is less severe. The estimated RVSP is less. MIGUEL 07/14/2015-- CONCLUSIONS: - Exam indication: Right atrial mass - The left ventricle is normal in size. Left ventricular systolic function is moderately decreased. EF = 30 5% (visual est.) - The right ventricle is normal in size. Right ventricular systolic function is low normal. - There is no evidence of echodensity involving the tricuspid valve. - There is no patent foramen ovale as detected by Doppler and saline contrast. - There is a prominent ridge at the RA/ICV junction likely a karlie terminalis. This likely represents RA structure noted on surface echo. It is more prominent, mobile and slightly more nodular than usually seen. 3D reconstruction demonstrates the ridge appearance making this more likely to be a normal varient. If there is clinical concern interval imaging may be performed. - There is a small circumferential pericardial effusion, largest anteriorly. - Compared with the prior TTE performed on 07/07/15, RA is better visualized on this MIGUEL. Pericardial effusion larger on this study. stress PET 07/14/2015-- CONCLUSIONS: 1. Positron Emission tomography: Abnormal scan. 2. There is moderate (10-20%) ischemia in the territory of the LCX. 3. There is mild (<10%) ischemia in the territory of the LAD. 4. Left ventricle is normal in size. the left ventricle systolic function is normal. 5. Rest LVEF is 50 %. The Stress LVEF is 51 %. 6. Right ventricle is moderately dilated The right ventricle systolic function is moderately decreased. 7. Functional capacity N/A (pharmacological). 8. This is an intermediate risk scan. cardiac MRI 07/10/2015-- IMPRESSION: * The left ventricle is normal in size and shape, and has severely decreased systolic function (LVEF = 31%). There is ballooning and hypokinesis of the mid segments, with sparing of the basal and apical segments. * Delayed-enhancement imaging reveals discrete mid myocardial enhancement in the mid inferolateral wall. No mural or apical left ventricular thrombus is identified. The constellation of findings are more in favor of myocarditis over Takotsubo cardiomyopathy. * The right ventricle is normal in size and shape, and has mildly decreased systolic function (RVEF = 48%). * No significant valvular abnormalities. * No right atrial mass is identified on this study. However, dedicated right atrial images were not acquired. If further evaluation for a possible right atrial mass is required, recommend MIGUEL. [facility] 07/10/2015-- DIAGNOSTIC SUMMARY 74 year old female with HTN admitted with NSTEMI and newly diagnosed EF 20% and afib Findings: LM- There is a 50-60% focal narrowing involving the bifurcation LAD- There is an ectatic segment following the origin of the vessel, and a focal 50-60% narrowing in the proximal segment of Diag1. LCx- Non-dominant. There is an 80% focal narrowing just after the origin of the vessel. OM1 has a 90% focal narrowing in the proximal segment of the vessel. OM2 and OM3 are without significant narrowing. RCA- Dominant. There is mild diffuse narrowing in the mid segment. There is a 30-40% focal narrowing in the posterolateral branch. Left ventriculogram obtained from GARCIA projection demonstrating basal and mid anterior and inferior hypokinesis. Ejection fraction approximately 30%. LV 120/20, Ao 120/66 Impression: -Moderate narrowing of the distal left main extending into the bifurcation of the LAD and LCx. Severe narrowings in the proximal LCx and OM1. Moderate narrowing in the proximal 1st Diagonal branch. Consider CABG. -Left ventriculogram with basal and mid anterior and inferior hypokinesis. Ejection fraction approximately 30%. -No gradient across aortic valve -LVEDP 20 echo 07/07/2015-- CONCLUSIONS: - Technically difficult exam due to body habitus and suboptimal positioning. - Exam indication: Syncope - The left ventricle is normal in size. Left ventricular systolic function is severely decreased. EF = 20 5% (visual est.) Definity contrast used for endocardial border detection. Baseline left ventricular diastolic function is consistent with abnormal relaxation (stage 1). - The right ventricle is normal in size. Right ventricular systolic function is low normal. - There is moderate (2+) tricuspid valve regurgitation. There is a mobile echodensity on the TV, seen best clips 55, 106 - Estimated right ventricular systolic pressure is 64 mmHg consistent with moderate pulmonary hypertension. Estimated right atrial pressure is 5 mmHg. - This RA mass measures 1 cm x 1 cm or more and appears to be attached to the lateral wall of the RA. Its relationship to the TV or the IVC/SVC could not be established. - This looks like stress-induced CM. - I called Dr. Susie Poe to let her know these findings promptly. - The patient has not had a prior CC echocardiographic exam for comparison. LABS: Recent Labs 07/27/17 1319 09/27/16 1458 03/25/16 0948 07/08/15 0234 CHOL 169 146 117 151 TG 100 103 104 71 HDL 34 32 25 41* LDL 115 93 72.0 96 Hemoglobin (g/dL) Date Value 07/14/2015 11.1 Hematocrit (%) Date Value 07/14/2015 34.3 WBC (k/uL) Date Value 07/14/2015 10.39 Platelet Count Date Value Ref Range Status 07/14/2015 283 150 - 400 k/uL Final Creatinine Date Value Ref Range Status 07/27/2017 0.74 1.5 mg/dL Final 09/27/2016 0.76 mg/dL Final 03/25/2016 0.85 1.5 MG/DL Final 07/16/2015 1.02 0.70 - 1.40 mg/dL Final AST Date Value Ref Range Status 07/27/2017 18 U/L Final ALT Date Value Ref Range Status 07/27/2017 13 U/L Final Glucose (mg/dL) Date Value 07/27/2017 89 09/27/2016 90 03/25/2016 96 07/16/2015 109 07/15/2015 113 Hemoglobin A1C (%) Date Value 07/07/2015 5.8 No results found for: TSH No results found for: LPA Interested in learning about research?: Yes Component CK MB CK MB % Troponin T Latest Ref Rng 30 - 220 U/L 0.0 - 8.8 ng/mL 0.0 - 4.0 % 0.000 - 0.029 ng/mL 07/07/2015 4:20 PM 302 (H) 24.3 (H) 8.0 (H) 1.040 (H) 07/07/2015 9:15 PM 311 (H) 21.6 (H) 6.9 (H) 1.050 (H) 07/08/2015 282 (H) 18.6 (H) 6.6 (H) 0.758 (H) 07/11/2015 104 3.9 3.8 0.254 (H) PATIENT ENTERED QUESTIONNAIRE SCORES 11/01/2023 PHQ-9 PHQ-2 Score 0 11/01/2023 PADMA - 2/7 SCORES PADMA-2 Score 0 11/01/2023 PROMIS Global Health - (T-Scores - the mean of general population = 50. Five points is a clinically meaningful difference.) Physical T-Score 57.7 Mental T-Score 56 AMBULATORY PATIENT EDUCATION Topic: Coronary Artery Disease/VT, Cardiomyopathy, and Symptom Management of Disease Hyperlipidemia, Hypertension, Exercise, Nutrition, and Weight Loss Instruction Provided To: Patient Barriers: None Motivation to Learn: Interested Methods of Instruction: Verbal instruction and/or handouts. Patient Leans Best By: Multiple Methods Patient Verbalized: Understanding IMPRESSION: This consultation was requested by Lennox Gilman DO, and my final recommendations will be communicated back to the requesting physician and primary care provider by way of shared medical record or letter summarizing my evaluation. 83 year old female eusebio ([employer]) presents on referral from Dr. Gilman for secondary prevention, to re-establish care. Pt was followed previously in [facility] from [id number] for CAD, NSTEMI acute myocarditis vs stress-induced CM. Pt had been doing well with improved LVEF from 20% to 60% and no symptoms of angina to suggest need for revascularization. Pt now returns on suggestion of local MD. Since the last visit in 2018, pt reported remaining in overall good health without significant medical issues, other than: --05/2023--at work had mid back pain, went to ED, found to be in AF, 1st episode in several yrs, treated with diltiazem? 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 --07/07-07/16/2015 hospitalization after fall, myocarditis/Takotsubo cardiomyopathy. Pt initially presented with fall ?syncope; elevated cardiac enzymes CK 302/MB 24, Danay 1.050 to local ED, and was referred to [facility] for ?NSTEMI. Evaluation revealed myocardial pattern more consistent with Takotsubo cardiomyopathy vs myocarditis; however she was also found to have concurrent CAD, LMT disease. She was discharged home with followup to assess need for revasculariization. --08/2015 echo resolved appearance of cardiomyopathy. LVEF 60% --09/2016 echo LVEF 61%, tr-1+ MR --03/2018 LVEF 75% on nuclear stress 10/2023 no recent symptoms to suggest CHF; denied LE edema, SOB or limitations to activity ?RA mass 1 x 1 cm (echo 06/2015)--not seen on cardiac MRI or MIGUEL, likely prominent karlie terminalis CAD [facility] --LMT 50-60% distal, LAD 50% prox, Cx 80% ostial, OM1 99%, RCA 30% distal (07/09/2015) -- In the past, Dr. Barber suggested CTS evaluation for ostial Cx lesion (also seen to be ischemic on PET), however pt deferred due to lack of symptoms --03/2018 exercise nuclear stress negative for ischemia @ 6.5 METs, 95% MPHR, no symptoms --03/2018 no recent or past symptoms of chest pain, functional limitations 10/2023 no recent CP symptoms. paroxysmal AF/RVR, self-terminated (06/2015)--on amiodarone. 08/2015 no further known episodes of AF. 09/2015 amiodarone d/c'ed. 01/2017 post-op AF following hysterectomy, converted with IV medication, no further known recurrence. 03/2018 no recent known AF 05/2023 per pt episode of AF in setting of COVID+; converted in ED with diltiazem and started on apixaban 5 bid; increased dose of metoprolol to 25 BID; no known recurrences of AF since 05/2023 CHADS2-Vasc Score Breakdown 6 Total Score 1 Female 2 Age >= 75 years old 1 History of CHF 1 History of hypertension 1 History of vascular disease hypertension--prior to 06/2015 only on benazapril. 08/2015 BP well-controlled on metoprolol XL 50 qday, lisinopril 20 qday. 03/2018 BP controlled on metoprolol XL 50 qday, lisinopril 20 qday 10/2023 per pt recent BP well-controlled on metoprolol XL 25 bid, lisinopril 20 qday Last BP 11/02/23 : 129/61 04/11/18 : 131/68 11/09/17 : 135/59 09/30/16 : 128/62 03/23/16 : 130/64 09/24/15 : 130/80 08/05/15 : 112/80 07/16/15 : 117/64 hyperlipidemia Adverse Effect History of Statin Intolerance:: No Current Statin Freq: Every Day atorvastatin 80 mg qday (2015-)--?tolerated for several yrs; off medication x few yrs?, restarted in 05/2023 pt did not take statin for several yrs, resumed in 05/2023 ?lipids lifestyle--exercise walking at work, 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, heavy lifting 50 lbs; housechores, yardwork, physical therapy exercises, ambulates with cane at times, mild limitations from leg pain after tibia fracture The ASCVD Risk score (Jerrod POWELL, et al., 2019) failed to calculate for the following reasons: The 2019 ASCVD risk score is only valid for ages 40 to 79 The patient has a prior VT or stroke diagnosis PLAN: reviewed principles of secondary prevention (severe CAD not revascularized), importance of statin therapy, goal LDL < 70, ideally < 55 reviewed interim events, apparently benign course since last visit in 2017, other than single reported episode of AF in 05/2023; no reported angina or CHF symptoms despite previously known severe CAD and past ?myocarditis vs stress induced CM updated echo evaluate EF discussed pros and cons of updated stress testing; pt assymptomatic, without limitations of activity, and remains disinterested in prospect of CABG; followup stress testing deferred updated lipids, labs since pt resumed atorvastatin; pt not fasting today, planning labs with PCP encouraged low fat diet, exercise, weight loss RTC 1 yr routine followup Susie Poe MD Department of Cardiovascular Medicine documented in this encounter [facility] 11-02-2023 Note HNO ID: [id number] Author: SUSIE POE MD Service: ? Author Type: Physician Type: Progress Notes Filed: 11/02/2023 20:40 Note Text: [facility] [place] Sadi Perez Department of Cardiovascular Medicine SECTION OF PREVENTIVE CARDIOLOG[facility] Jannie Lee 11/02/2023 CHIEF COMPLAINT: Patient presents with: CARD New Patient Consult HISTORY OF PRESENT CARDIOVASCULAR ILLNESS: Jannie Lee is a 83 year old female who presents for re-establish care.. --05/2023--at work had mid back pain, went to ED, found to be in AF, 1st episode in several yrs, treated with diltiazem? 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 Sleep Hours Per Night?: 8 STATIN INTOLERANCE: Adverse Effect History of Statin Intolerance:: No Current Statin Freq: Every Day atorvastatin 80 mg qday (2015-)--?tolerated for several yrs; off medication x few yrs?, restarted in 05/2023 USE OF PCSK9 INHIBITORS: CARDIOVASCULAR DISEASE HISTORY: CATH Positive>70%: Yes 07/09/15 Valve Disease: Arrhythmias: History question Answer Diagnosis Date Comment PAF : Paroxysmal atrial fibrillation (HCC) 06/27/2015 Patient experienced episode of atrial fibrillation overnight 07/08-07/09 and 07/09-07/10 Converted to NSR with amiodarone Heparin gtt discontinued 07/14 (no RA clot on MIGUEL) PLAN: Continue metoprolol 25 every 8 hours Continue Amiodarone HEART FAILURE/CARDIOMYOPATHY: History question Answer Diagnosis Date Comment HF rEF : Heart failure with reduced ejection fraction (HCC) 06/27/2015 Patient presenting after questionable syncopal episode with elevated CE and an EF of 20% EKG reveals no ST segment changes, patient may have had NSTEMI CXR suggestive of pulmonary edema Echo with EF of 20%, RA mass vs mobile echodensity on the TV Echocardiogram concerning for Takotsubo's cardiomyopathy. See NSTEMI for LHC results 07/09 Cardiac MRI with mid segment ballooning, delayed enhancement concerning for myocarditis. Inflammatory/infectious work up largely wnl, ELISSA by IFA pending MIGUEL 07/14 with EF 30% and small circumferential pericardial effusion, largest anteriorly PLAN: - afterload reduction with captopril 6.25 q 8 hours - ASA - atorvastatin 80 qHS RELATED DISEASE HISTORY: PAST MEDICAL HISTORY: PAST MEDICAL HISTORY Diagnosis Date CAD (coronary artery disease) 06/27/2015 Dyslipidemia Heart failure with reduced ejection fraction (HCC) 06/27/2015 Patient presenting after questionable syncopal episode with elevated CE and an EF of 20% EKG reveals no ST segment changes, patient may have had NSTEMI CXR suggestive of pulmonary edema Echo with EF of 20%, RA mass vs mobile echodensity on the TV Echocardiogram concerning for Takotsubo's cardiomyopathy. See NSTEMI for LHC results 07/09 Cardiac MRI with mid segment ballooning, delayed enhancement concerning for myocarditis. Inflammatory/infectious work up largely wnl, ELISSA by IFA pending MIGUEL 07/14 with EF 30% and small circumferential pericardial effusion, largest anteriorly PLAN: - afterload reduction with captopril 6.25 q 8 hours - ASA - atorvastatin 80 qHS HTN (hypertension) Patient with history of HTN PLAN: Continue captopril Hypertension Lip laceration 06/27/2015 Myocarditis (HCC) 06/27/2015 Paroxysmal atrial fibrillation (HCC) 06/27/2015 Patient experienced episode of atrial fibrillation overnight 07/08-07/09 and 07/09-07/10 Converted to NSR with amiodarone Heparin gtt discontinued 07/14 (no RA clot on MIGUEL) PLAN: Continue metoprolol 25 every 8 hours Continue Amiodarone Tibia fracture 03/2022 no surgery required CURRENT MEDS: Current Outpatient Medications Medication Sig ELIQUIS 5 mg tab(s) Take 5 mg by mouth two times a day. lisinopril (ZESTRIL, PRINIVIL) 20 mg tablet Take 1 tablet by mouth once daily. metoprolol succinate ER (TOPROL XL) 25 mg 24 hr tablet Take 1 tablet by mouth once daily. nitroglycerin sublingual (NITROQUICK) 0.4 mg SL tablet Dissolve 1 tablet under the tongue every 5 minutes as needed for Chest Pain. aspirin 81 mg chewable tablet Take 1 tablet by mouth once daily. atorvastatin (LIPITOR) 80 mg tablet Take 1 tablet by mouth once daily. (Patient taking differently: Take 80 mg by mouth 3 times a WEEK. ) No curr (more content not included)... [facility] 07-04-2023 Evaluation note Encounter Date Diagnosis Assessment Notes Jun, Anemia (ICD-10 - D64.9) Jun, Stage 3b chronic kidney disease (ICD-10 - N18.32) Jun, Paroxysmal atrial fibrillation (ICD-10 - I48.0) [facility] Other 12-29-2023 Evaluation note* Encounter Date Diagnosis Assessment Notes [...] require EGD, colonoscopy once cardiac status stable. [facility] Other 12-29-2023 Evaluation note* Encounter Date Diagnosis Assessment Notes [...] to cardiology for further evaluation and treatment. Increase Metoprolol Succ to 50mg qd May, IFG (impaired fasting glucose) (ICD-10 - [...] require EGD, colonoscopy once cardiac status stable. 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 No bleeding complications. She hasn't seen her Alarm Security Or Surveillance Monitor in 5 years. She feels that her [...] maintain adequate intake of nutrition and fluids [facility] Other 11-17-2023 Evaluation note* Encounter Date Diagnosis [...] the ER did not begin Continue ASA [facility] Other 10-02-2023 Evaluation note* Encounter Date Diagnosis Assessment Notes Treatment Notes Treatment Clinical Notes Mar, Familial hypercholesterolemia (ICD-10 - E78.01) Diet and exercise. [facility] Other 08-16-2023 Evaluation note* Encounter Date Diagnosis [...] (ICD-10 - Z79.899) Check labs: CBC, ALT [facility] Other 04-26-2023 Evaluation note* Encounter Date Diagnosis Assessment Notes Treatment Notes Treatment Clinical Notes Sep, Essential hypertension (ICD-10 - I10) [facility] Other 04-19-2023 Evaluation note* Encounter Date Diagnosis Assessment Notes Treatment Notes Treatment Clinical Notes Sep, ASHD (arteriosclerotic heart disease) (ICD-10 - I25.10) ECHOCARDIOGRAM - 09/2022 1. LVEF is 55-60%. 2. No significant valvular dysfunction. [facility] Other 03-31-2023 Evaluation note* Encounter Date Diagnosis [...] Aug, Fatigue, unspecified type (ICD-10 - R53.83) [facility] Other 02-22-2023 History of Present illness Narrative* Lissa Marquez, PT - 08/18/2022 11:15 AM EST [facility] Outpatient Physical Therapy Daily Note Patient: Jannie Lee : 1940 CSN #: [id number] Referring Physician: Melissa Ness MD Date: 08/18/2022 Diagnosis: S82.141D: Closed displaced bicondylar fracture, right tibia with routine healing Treatment Diagnosis: Right knee weakness, difficult in walking Onset Date: 04/11/22 PT Insurance Information: Medicare Total # of Visits Approved: 18 Per Physician Order Total # of Visits to Date: 17 No Show: 0 Canceled Appointment: 1 Pre-Treatment Pain: 10 Subjective: Pt arrives with reports of mild aching and tightness. Pain /. Exercises: Exercise 2: Long arc quad 3 [...] order to improve independence with home ambulation-met Reconciliation Analyst Goals Time Frame for Detention Goals : 4 weeks Detention Goal 1: Pt will be compliant with moderate level HEP - progressing (08/04/2022 HEP updated) Reconciliation Analyst Goal 2: Pt will improve right knee extension from lacking 20 to less than lacking 10 in order to improve gait pattern - met (08/18/2022 lacking .5 degrees) Detention Goal 3: Pt will improve right lower extremity strength to at least 4/5 overall in order to improve standing tolerance and prepare for full weight bearing ambulation - met (08/13/2022) Reconciliation Analyst Goal 4: Pt will tolerate 20 minutes of standing activity with least restrictive assistivedevice required for weight bearing status without increase in pain - met (08/04/2022) Minutes Tracking: Time In: 1118 Time Out: 1203 Minutes: 45 Timed Code Treatment Minutes: 44 Minutes Lissa Marquez PT, DPT Date: 08/18/2022 [facility] [employer] Phone: 1([phone]) 105-292402-17-2023 History of Present illness Narrative* Lissa Marquez PT - 08/13/2022 10:45 AM EST [facility] Outpatient Physical Therapy Daily Note Patient: Jannie Lee : 1940 CSN #: [id number] Referring Physician: Melissa Ness MD Date: 08/13/2022 [...] order to improve independence with home ambulation-met Reconciliation Analyst Goals Time Frame for Detention Goals : 4 weeks Detention Goal 1: Pt will be compliant with moderate level HEP - progressing (08/04/2022 HEP updated) Detention Goal 2: Pt will improve right knee extension from lacking 20 to less than lacking 10 in order to improve gait pattern - met (08/06/2022 lacking 2) Reconciliation Analyst Goal 3: Pt will improve right lower extremity strength to at least 4/5 overall in order to improve standing tolerance and prepare for full weight bearing ambulation - met (08/13/2022) Detention Goal 4: Pt will tolerate 20 minutes of standing activity with least restrictive assistivedevice required for weight bearing status without increase in pain - met (08/04/2022) Minutes Tracking: Time In: 1048 Time Out: 1131 Minutes: 43 Timed Code Treatment Minutes: 42 Minutes Lissa Marquez PT, DPT Date: 08/13/2022 [facility] [employer] Phone: 1(953) 827-657002-15-2023 History of Present illness Narrative* Lissa Marquez PT - 08/11/2022 9:30 AM EST [facility] Outpatient Physical Therapy Daily Note Patient: Jannie Lee : 1940 CSN #: [id number] Referring Physician: Melissa Ness MD Date: 08/11/2022 Diagnosis: S82.141D: Closed displaced bicondylar fracture, right tibia with routine healing Treatment Diagnosis: Right knee weakness, difficult in walking Onset Date: 04/11/22 PT Insurance Information: Medicare Total # of Visits Approved: 18 Per Physician Order Total # of Visits to Date: 15 No Show: 0 Canceled Appointment: 1 Pre-Treatment Pain: 07/06 Subjective: Pt reports very mild pain today [...] order to improve independence with home ambulation-met Detention Goals Time Frame for Reconciliation Analyst Goals : 4 weeks Reconciliation Analyst Goal 1: Pt will be compliant with moderate level HEP - progressing (08/04/2022 HEP updated) Reconciliation Analyst Goal 2: Pt will improve right knee extension from lacking 20 to less than lacking 10 in order to improve gait pattern - met (08/06/2022 lacking 2) Detention Goal 3: Pt will improve right lower extremity strength to at least 4/5 overall in order to improve standing tolerance and prepare for full weight bearing ambulation Detention Goal 4: Pt will tolerate 20 minutes of standing activity with least restrictive assistivedevice required for weight bearing status without increase in pain - met (08/04/2022) Minutes Tracking: Time In: 932 Time Out: 5 Minutes: 42 Timed Code Treatment Minutes: 41 Minutes Lissa Marquez PT, DPT Date: 08/11/2022 documented [facility] Work Phone: [phone] 485-161302-08-2023 History of Present illness Narrative* Lissa Marquez, PT - 08/04/2022 11:15 AM EST [facility] Outpatient Physical Therapy Daily Note Patient: Jannie Lee : 1940 CSN #: [id number] Referring Physician: Melissa Ness MD Date: 08/04/2022 [...] order to improve independence with home ambulation-met Detention Goals Time Frame for Detention Goals : 4 weeks Reconciliation Analyst Goal 1: Pt will be compliant with moderate level HEP - progressing (07/21/2022 HEP updated) Detention Goal 2: Pt will improve right knee extension from lacking 20 to less than lacking 10 in order to improve gait pattern - met (07/14/2022 lacking 5) Detention Goal 3: Pt will improve right lower extremity strength to at least 4/5 overall in order to improve standing tolerance and preapre for full weight bearing ambulation Reconciliation Analyst Goal 4: Pt will tolerate 20 minutes of standing activity with least restrictive assistivedevice required for weight bearing status without increase in pain - met (08/04/2022) Minutes Tracking: Time In: 1117 Time Out: 1203 Minutes: 46 Timed Code Treatment Minutes: 45 Minutes Lissa Marquez PT, DPT Date: 08/04/2022 [facility] [employer] Phone: 1(936) 820-327102-03-2023 History of Present illness Narrative* Lissa Marquez PT - 07/30/2022 9:15 AM EST [facility] Outpatient Physical Therapy Daily Note Patient: Jannie Lee : 1940 CSN #: [id number] Referring Physician: Melissa Ness MD Date: 07/30/2022 Treatment Diagnosis: Right knee weakness, difficult in walking Onset Date: 04/11/22 PT Insurance Information: Medicare Total # of Visits Approved: 18 Per Physician Order Total # of Visits to Date: 12 No Show: 0 Canceled Appointment: 1 Pre-Treatment Pain: 2/10 Subjective: Pt reports mild pain in the right ankle /. Pt believes that she walked on it [...] Post Treatment Pain: 07/06 Plan Plan Frequency: 2x per week Plan [...] order to improve independence with home ambulation-met Reconciliation Analyst Goals Time Frame for Detention Goals : 4 weeks Reconciliation Analyst Goal 1: Pt will be compliant with moderate level HEP - progressing (07/21/2022 HEP updated) Detention Goal 2: Pt will improve right knee extension from lacking 20 to less than lacking 10 in order to improve gait pattern - met (07/14/2022 lacking 5) Detention Goal 3: Pt will improve right lower extremity strength to at least 4/5 overall in order to improve standing tolerance and preapre for full weight bearing ambulation Reconciliation Analyst Goal 4: Pt will tolerate 20 minutes of standing activity with least restrictive assistivedevice required for weight bearing status without increase in pain - progressing (07/14/2022 10 minutes) Minutes Tracking: Time In: 919 Time Out: 1002 Minutes: 42 Timed Code Treatment Minutes: 41 Minutes Lissa Marquez PT, DPT Date: 07/30/[address] Phone: 1(978) 102-412101-25-2023 History of Present illness Narrative* Lissa Marquez PT - 07/21/2022 9:45 AM EST [facility] Outpatient Physical Therapy Daily Note Patient: Jannie Lee : 1940 CSN #: [id number] Referring Physician: Melissa Ness MD Date: 07/21/2022 [...] order to improve independence with home ambulation-met Detention Goals Time Frame for Detention Goals : 4 weeks Reconciliation Analyst Goal 1: Pt will be compliant with moderate level HEP - progressing (07/21/2022 HEP updated) Detention Goal 2: Pt will improve right knee extension from lacking 20 to less than lacking 10 in order to improve gait pattern - met (07/14/2022 lacking 5) Reconciliation Analyst Goal 3: Pt will improve right lower extremity strength to at least 4/5 overall in order to improve standing tolerance and preapre for full weight bearing ambulation Reconciliation Analyst Goal 4: Pt will tolerate 20 minutes of standing activity with least restrictive assistivedevice required for weight bearing status without increase in pain - progressing (07/14/2022 10 minutes) Minutes Tracking: Time In: 945 Time Out: 7 Minutes: 41 Timed Code Treatment Minutes: 40 Minutes Lissa Marquez PT, DPT Date: 07/21/2022 [facility] [employer] Work Phone: 1(729) 498-597801-23-2023 History of Present illness Narrative* Araceli Saha, PROFESSOR OF HISTORY - 07/19/2022 10:30 AM EST [facility] Outpatient Physical Therapy Daily Note Patient: Jannie Lee : 1940 CSN #: [id number] Referring Physician: Melissa Ness MD Date: 07/19/2022 [...] order to improve independence with home ambulation-met Detention Goals Time Frame for Detention Goals : 4 weeks Reconciliation Analyst Goal 1: Pt will be compliant with moderate level HEP Detention Goal 2: Pt will improve right knee extension from lacking 20 to less than lacking 10 in order to improve gait pattern - met (07/14/2022 lacking 5) Reconciliation Analyst Goal 3: Pt will improve right lower extremity strength to at least 4/5 overall in order to improve standing tolerance and preapre for full weight bearing ambulation Detention Goal 4: Pt will tolerate 20 minutes of standing activity with least restrictive assistivedevice required for weight bearing status without increase in pain - progressing (07/14/2022 10 minutes) Minutes Tracking: Time In: 1031 Time Out: 1112 Minutes: 41 Araceli Saha, PROFESSOR OF HISTORY Date: 07/19/2022 [facility] Work Phone: [phone]) 879-288501-18-2023 History of Present illness Narrative* Lissa Marquez, PT - 07/14/2022 9:30 AM EST [facility] Outpatient Physical Therapy Daily Note Patient: Jannie Lee : 1940 CSN #: [id number] Referring Physician: Melissa Ness MD Date: 07/14/2022 [...] open chain 3# ankle weight hip flex, august, hip abd, HS curl [...] order to improve independence with home ambulation-met Detention Goals Time Frame for Reconciliation Analyst Goals : 4 weeks Reconciliation Analyst Goal 1: Pt will be compliant with moderate level HEP Detention Goal 2: Pt will improve right knee extension from lacking 20 to less than lacking 10 in order to improve gait pattern - met (07/14/2022 lacking 5) Reconciliation Analyst Goal 3: Pt will improve right lower extremity strength to at least 4/5 overall in order to improve standing tolerance and preapre for full weight bearing ambulation Detention Goal 4: Pt will tolerate 20 minutes of standing activity with least restrictive assistivedevice required for weight bearing status without increase in pain - progressing (07/14/2022 10 minutes) Minutes Tracking: Time In: 0936 Time Out: 1015 Minutes: 39 Timed Code Treatment Minutes: 38 Minutes Lissa Marquez PT, DPT Date: 07/14/2022 [facility] Phone: [phone] 988-881901-11-2023 History of Present illness Narrative* Elsy Daniel - 07/07/2022 9:45 AM EST [facility] Inpatient/Observation/Outpatient Rehabilitation Date: 07/07/2022 Patient Name: Jannie Lee [] Inpatient Acute/Observation [] Outpatient : 1940 [] Pt no showed for scheduled appointment [] Pt refused/declined therapy at this time due to: [x] Pt cancelled due to: [] No Reason Given [] Sick/ill [] Other: No ride Therapist/Indirect Sales Exec will attempt to see this patient, at our earliest opportunity. Elsy Daniel Date: 07/07/2022 [facility] Phone: 1([phone]) 800-929201-04-2023 History of Present illness Narrative* Heydi Gonzalez PTA - 06/30/2022 9:00 AM EST . [facility] Outpatient Physical Therapy Daily Note Patient: Jannie Lee : 1940 CSN #: [id number] Referring Physician: Melissa Ness MD Date: 06/30/2022 [...] order to improve independence with home ambulation Detention Goals Time Frame for Reconciliation Analyst Goals : 4 weeks Detention Goal 1: Pt will be compliant with moderate level HEP Detention Goal 2: Pt will improve right knee extension from lacking 20 to less than lacking 10 in order to improve gait pattern Detention Goal 3: Pt will improve right lower extremity strength to at least 4/5 overall in order to improve standing tolerance and preapre for full weight bearing ambulation Reconciliation Analyst Goal 4: Pt will tolerate 20 minutes of standing activity with least restrictive assistivedevice required for weight bearing status without increase in pain Minutes Tracking: Time In: 901 Time Out: 942 Minutes: 41 Heydi Gonzalez, GUERRERO Date: 06/30/2022 documented in [facility] encounterB[facility] [employer] Phone: 1([phone]) 475-612212-29-2022 History of Present illness Narrative* Lissa Marquez, PT - 06/24/2022 10:30 AM EST [facility] Outpatient Physical Therapy Evaluation Date: 06/24/2022 Patient: aJnnie Lee : 1940 CSN #: [id number] Referring Physician: Melissa Ness MD Medical Diagnosis: [...] completed PT for balance, transfer training at [facility]. Pt reports continued compliance with exercises and [...] order to improve independence with home ambulation Reconciliation Analyst Goals Time Frame for Detention Goals : 4 weeks Detention Goal 1: Pt will be compliant with moderate level HEP Detention Goal 2: Pt will improve right knee extension from lacking 20 to less than lacking 10 in order to improve gait pattern Reconciliation Analyst Goal 3: Pt will improve right lower extremity strength to at least 4/5 overall in order to improve standing tolerance and preapre for full weight bearing ambulation Reconciliation Analyst Goal 4: Pt will tolerate 20 minutes of standing activity with least restrictive assistivedevice required for weight bearing status without increase in pain Patient Goals : walk again Minutes Tracking: Time In: 1030 Time Out: 1114 Minutes: 44 Timed Code Treatment Minutes: 42 Minutes Lissa Marquez PT, DPT 06/24/2022 [facility] [employer] Phone: 1(343) 427-691311-11-2022 History of Present illness Narrative* Araceli Saha, GUERRERO - 05/07/2022 9:00 AM EST [facility] Outpatient Physical Therapy Daily Note Patient: Jannie Lee : 1940 CSN #: [id number] Referring Physician: Melissa Ness MD Date: 05/07/2022 [...] (Total # of Visits to Date: 6) Detention Goals Time Frame for Reconciliation Analyst Goals : 4 weeks Reconciliation Analyst Goal 1: Pt will be comfortable and complient with HEP -met Reconciliation Analyst Goal 2: Pt will be able to perform sit to stand and stand pivot transfers SUP to improve safety of functional mobility. -met Reconciliation Analyst Goal 3: Pt to demonstrate >/= 4+/5 LLE strength in all planes to improve dynamic stability -met Detention Goal 4: Pt to be able to complete all transfers while maintaining NWB status (or current status by end of PoC) to ensure safety and protection of injury. -met Minutes Tracking: Time In: 904 Time Out: 934 Minutes: 30 Araceli Saha PTA Date: 05/07/2022 [facility] Work Phone: 1([phone]) 707-368911-09-2022 History of Present illness Narrative* Araceli Saha PTA - 05/05/2022 9:00 AM EST [facility] Outpatient Physical Therapy Daily Note Patient: Jannie Lee : 1940 CSN #: [id number] Referring Physician: Melissa Ness MD Date: 05/05/2022 [...] activites to improve capacity for ADLs -met Reconciliation Analyst Goals Time Frame for Detention Goals : 4 weeks Reconciliation Analyst Goal 1: Pt will be comfortable and complient with HEP Reconciliation Analyst Goal 2: Pt will be able to perform sit to stand and stand pivot transfers SUP to improve safety of functional mobility. Detention Goal 3: Pt to demonstrate >/= 4+/5 LLE strength in all planes to improve dynamic stability Minutes Tracking: Time In: 902 Time Out: 941 Minutes: 39 Araceli Saha PTA Date: 05/05/2022 documented in this encounterBON [employer] Work Phone: 1(358) 780-937311-02-2022 History of Present illness Narrative* Araceli Saha, PROFESSOR OF HISTORY - 04/28/2022 9:00 AM EDT [facility] Outpatient Physical Therapy Daily Note Patient: Jannie Lee : 1940 CSN #: [id number] Referring Physician: Melissa Ness MD Date: 04/28/2022 [...] functional activites to improve capacity for ADLs Detention Goals Time Frame for Detention Goals : 4 weeks Reconciliation Analyst Goal 1: Pt will be comfortable and complient with HEP Detention Goal 2: Pt will be able to perform sit to stand and stand pivot transfers SUP to improve safety of functional mobility. Detention Goal 3: Pt to demonstrate >/= 4+/5 LLE strength in all planes to improve dynamic stability Detention Goal 4: Pt to be able to complete all transfers while maintaining NWB status (or current status by end of PoC) to ensure safety and protection of injury. Minutes Tracking: Time In: 903 Time Out: 945 Minutes: 42 Araceli Saha, GUERRERO Date: 04/28/2022 [facility] [employer] Phone: 1([phone]) 196-496410-20-2022 History of Present illness Narrative* Prashanth Wilks, PT - 04/15/2022 4:30 PM EDT [facility] Outpatient Physical Therapy Evaluation Date: 04/15/2022 Patient: Jannie Lee : 1940 CSN #: [id number] Referring Physician: Melissa Ness MD Medical Diagnosis: [...] NWB RLE Wheelchair Activities Wheelchair Size: Large (hospital) Wheelchair Type: Standard Wheelchair Cushion: None Wheelchair [...] sit to stand and [facility]. Pt demonstrates appx 4/5 LLE strength grossly [...] functional activites to improve capacity for ADLs Reconciliation Analyst Goals Time Frame for Reconciliation Analyst Goals : 4 weeks Reconciliation Analyst Goal 1: Pt will be comfortable and complient with HEP Detention Goal 2: Pt will be able to perform sit to stand and stand pivot transfers SUP to improve safety of functional mobility. Detention Goal 3: Pt to demonstrate >/= 4+/5 LLE strength in all planes to improve dynamic stability Reconciliation Analyst Goal 4: Pt to be able to complete all transfers while maintaining NWB status (or current status by end of PoC) to ensure safety and protection of injury. Patient Goals : learning to get my stability Minutes Tracking: Time In: 1640 Time Out: 1735 Minutes: 55 Timed Code Treatment Minutes: 50 Minutes Prashanth Wilks PT, DPT 04/15/2022 [facility] [employer] Phone: evaluation note* Diagnosis Closed displaced bicondylar fracture of right tibia with routine healing- Primary Aftercare for healing traumatic fracture of lower leg documented [facility] [employer] Work Phone: evaluation noteNo WalleriusTreynor Mowdo Other Evaluation note* Diagnosis Onset Date Resolution Status Anemia acute ASHD (arteriosclerotic heart disease) acute Essential hypertension acute Hyperlipidemia type II acute IFG (impaired fasting glucose) acute Paroxysmal atrial fibrillation acute Stage 3b chronic kidney disease acute [facility] Work Phone: Evaluation note* Diagnosis Takotsubo cardiomyopathy- Primary Takotsubo syndrome Hyperlipidemia LDL goal <70 Other and unspecified hyperlipidemia Coronary artery disease involving [place] coronary artery of [place] heart without angina pectoris Heart failure with reduced ejection fraction (HCC) Heart failure, unspecified Type 2 diabetes mellitus with hyperglycemia, without long-term current use of insulin (HCC) Paroxysmal atrial fibrillation (HCC) Atrial fibrillation [facility] Diagnosis Seborrheic keratosis- Primary Actinic keratosis Neoplasm of unspecified behavior of bone, soft tissue, and skin documented [facility] this encounter [facility] N[facility] - Reported* Type Description Date [...] History [facility] Hospitalization History SEE SURGICAL HX [facility] Other History general Narrative - Reported* Type [...] EGD 2018 Surgical History ROBERT/BSO Surgical History C Hospitalization History SEE SURGICAL HX [facility] Other Reason for referral (narrative)* Reason Referral for new ons et atrial fibrillation. Diagnosis 1 Paroxysmal atrial fi brillation (I48.0) Diagnosis 2 ASHD (arteriosclerot ic heart disease) (I25.10) Diagnosis 3 Hyperlipidemia type II (E78.01) Referral Organization [facility] includes [facility] leeroy Referring Provider First Name Lennox Referring Provider Last Name Sudhakar Referring Provider Specialty Internal [place] Referred Organization [facility] Referred Provider Susie Poe Referred Address [address], [place],[address] Referred Provider Specialty Cardiology Referral Priority Routine General Notes Mrs. Lee has known ASHD and recently found to be in atrial fibrillation. She is mildly dyspneic w/ activity but denies chest pain, palpitations or lightheadedness. She was initiated on Eliquis and her Metoprolol Succ was increased to 50mg qd. She is stable and is being referred for further treatment. I did discuss medical vs electrical cardioversion if remains in atrial fibrillation. I briefly discussed atrial fibrillation ablation and LAAO procedures. 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 Expl anation Advance Directives and Living Will Power of Shipper And Receiving Advance Directive Response Recorded Date/ Time Advance Directives No 2023 11:45am Summary Purpose Family History Relationship Condition Age at Onset Recorded Date/T isatu father Unknown Not Specified Unknown Chief Complaint and Reason for Visit Chief Complaint 1 Month Follow Up 3 month follow up Reason for Visit Anemia ASHD (arteriosclerotic heart disease) Essential hypertension Hyperlipidemia type II IFG (impaired fasting glucose) Paroxysmal atrial fibrillation Stage 3b chronic kidney disease Chief Complaint 3 month follow up Reason for Visit Anemia ASHD (arteriosclerotic heart disease) Essential hypertension Hyperlipidemia type II IFG (impaired fasting glucose) Paroxysmal atrial fibrillation Stage 3b chronic kidney disease Reason for Referral Specialty Diagnoses / Procedures Referred By Dylon doran Referred To Contact [facility] Diagnoses Coronary artery disease involving [place] coronary artery [place] heart without angina pectoris Heart failure with reduced ejection fraction (HCC) Procedures CARDIOVASCULAR MEDICINE OP FOLLOW UP APPT ORDER Susie Poe MD [address] [place] [address] [address] Referral ID Status Reason Start Date Expiration Date Visits Requested Visits Authorized [id number] Ref Not Required PCP Requested Referral 08/03/2024 11/01/2024 1 1 Specialty Diagnoses / Procedures Referred By Dylon doran Referred To Contact [facility] Diagnoses Coronary artery disease involving [place] coronary artery [place] heart without angina pectoris Heart failure with reduced ejection fraction (HCC) Takotsubo cardiomyopathy Procedures ECHO ECHO TTHRC R-T 2D W/WOM-MODE COMPL SPEC&COLR D Susie Poe MD [address] [place] [address] [address] Referral ID Status Reason Start Date Expiration Date Visits Requested Visits Authorized [id number] Pending Review Auto-Generat ed Referral 11/02/2023 11/01/2024 1 1 Additional Source Comments Care Teams (unrecognized sec tion and content) Assistant Distribution Manager Relationship Specialty Start Date End Date Lennox Gilman DO PCP - General Internal Medicine 09/27/16 Assistant Distribution Manager Relationship Specialty Start Date End Date Lennox Gilman DO PCP - General Internal Medicine 09/27/16 Assistant Distribution Manager Relationship Specialty Start Date End Date Lennox Gilman DO PCP - General Internal Medicine 09/27/16 Assistant Distribution Manager Relationship Specialty Start Date End Date Lennox Gilman DO PCP - General Internal Medicine 09/27/16 Assistant Distribution Manager Relationship Specialty Start Date End Date Lennox Gilman DO PCP - General Internal Medicine 09/27/16 Assistant Distribution Manager Relationship Specialty Start Date End Date Lennox Gilman DO PCP - General Internal Medicine 09/27/16 Assistant Distribution Manager Relationship Specialty Start Date End Date Lennox Gilman DO PCP - General Internal Medicine 09/27/16 Assistant Distribution Manager Relationship Specialty Start Date End Date Lennox Gilman DO PCP - General Internal Medicine 09/27/16 Team Status: Active Member Role Status Dates Lennox Gilman DO Primary Care Provider Active Team Status: Inactive Member Role Status Dates Lennox Gilman DO Attending Provider Active Sta rt: June 24, 2023 End: June 24, 2023 Team Status: Inactive Member Role Status Dates Lennox Gilman DO Primary Care Provide r, Attending Provider Active Start: September 19, 2023 End: September 19, 2023 Assistant Distribution Manager Relationship Specialty Start Date End Date Lennox Gilman DO PCP - General Internal Medicine 07/08/15 Susie Poe MD [address] [facility] [place] [place] [address] Primary Staff Physician Cardiology 09/12/18 Team Status: Inactive Member Role Status Dates Lennox Gilman DO Primary Care Provide r, Attending Provider Active Start: December 20, 2023 End: December 20, 2023 REASON FOR VISIT (unrecogniz ed section and content) Reason Comments CARD New Patient Consult Reason Comments Suspicious Skin Lesion INFORMATION SOURCE (unrecogn ized section and content) DATE CREATED AUTHOR 10/01/2022 [facility] DATE CREATED AUTHOR AUTHOR'S ORGANIZ ATION 10/18/2022 [facility] DATE CREATED AUTHOR AUTHOR'S ORGANIZ ATION 12/05/2023 [facility] DATE CREATED AUTHOR AUTHOR'S ORGANIZ ATION 02/21/2024 [facility] EPIC Goals (unrecognized section and content) Goals may be documented in a n alternate section Source Comments (unrecognize d section and content) In the event this informatio n is protected by the Federal Confidentiality of Alcohol and Drug Abuse Patient Records regulations: The Federal rules restrict any use of the information to criminally investigate or prosecute any alcohol or drug abuse patient.[facility] FOR RECORDS PERTAINING TO PATIENTS WHO ARE [...] BE BASED ON THE PRIMARY CLINICAL RECORDS. [facility]. provides no warranty or guarantee of the accuracy or completeness of information in this document.
[2024-07-19 12:24] LABS: Basophils Absolute Auto 0.1 10^3/uL (0.0-0.1); Basophils Percent Auto 1.5 % (0.2-2.0); Eosinophils Absolute Auto 0.2 10^3/uL (0.0-0.7); Eosinophils Percent Auto 3.1 % (0.9-7.0); Hematocrit 39.1 % (36.0-48.0); Hemoglobin 12.1 g/dL (12.0-16.0); Immature Granulocytes Abs Auto 0.01 10^3/uL (0.00-0.03); Immature Granulocytes Pct Auto 0.1 % (0.0-0.5); Lymphocytes Absolute Auto 1.6 10^3/uL (1.2-3.8); Lymphocytes Percent Auto 21.1 % (20.5-60.0); Mean Corpuscular HGB Conc 30.9 g/dL (29.9-35.2); Mean Corpuscular Hemoglobin 28.7 pg (26.7-34.0); Mean Corpuscular Volume 92.9 fL (81.0-99.0); Mean Platelet Volume 9.9 fL (9.5-13.5); Monocytes Absolute Auto 0.8 10^3/uL (0.3-0.8); Monocytes Percent Auto 10.1 % (1.7-12.0); Neutrophils Absolute Auto 4.8 10^3/uL (1.4-6.5); Neutrophils Percent Auto 64.1 % (43.0-75.0); Platelet Count 230 10^3/uL (150-450); Red Blood Count 4.21 10^6/uL (4.20-5.40); Red Cell Distribution Width 13.2 % (11.0-15.0); White Blood Count 7.4 10^3/uL (4.0-11.0)
[2024-07-19 12:50] LABS: Estimated Average Glucose 117 mg/dL; Glycohemoglobin A1C 5.7 % (4.5-6.2)
[2024-07-19 13:22] LABS: Alanine Aminotransferase 23 U/L (14-59); Albumin Globulin Ratio 0.7; Albumin Level 3.4 g/dL (3.4-5.0); Alkaline Phosphatase 173 U/L (46-116); Anion Gap 16.7; Aspartate Amino Transferase 24 U/L (15-37); BUN Creatinine Ratio 18.8; Bilirubin Total 0.5 mg/dL (0.2-1.0); Calcium 8.7 mg/dL (8.5-10.1); Chloride 104 mmol/L (98-107); Chol HDL Ratio 4.8; Cholesterol 183 mg/dL (<=200); Estimated GFR (African America 54 (>=60 mL/min/1.73m^2); Estimated GFR (Non-African Ame 44 (>=60 mL/min/1.73m^2); Globulin 4.6 g/dL; Glucose 93 mg/dL (74-106); HDL Cholesterol 38 mg/dL (40-60); Potassium 5.7 mmol/L (3.5-5.1); Sodium 137 mmol/L (136-145); Triglycerides 142 mg/dL (<=150); VLDL CHOLESTEROL 28.4 mg/dL
== END 2024-07-19 11:55 | disposition home or self-care (01) ==
LOC: LAB 11:55
PROVIDERS: PCP Internal Medicine; Visit Provider Internal Medicine
DX: I12.9 Hypertensive chronic kidney disease with stage 1 through stage 4 chronic kidney disease, or unspecified chronic kidney disease (principal); N18.32 Chronic kidney disease, stage 3b; R73.01 Impaired fasting glucose; E78.01 Familial hypercholesterolemia
CPT/HCPCS: 36415; 80053; 80061; 83036; 85025

== ENCOUNTER 2024-08-14 11:14 | Emergency (ER) | payer MEDICARE, SELFPAY ==
[2024-08-14] VITALS (40 sets, daily range): BP systolic 93–147; BP diastolic 58–88; PULSE 64–149; TEMP 36.4; O2SAT 81–99; BMI 22.7
--- NOTE | 2024-08-14 11:40 | ECG_ITS ---
[facility] Test Date: 2024-08-14 Pat Name: MARA JACKSON Department: Room: - Gender: Female Kitchen Porter: : 1940 Requested By: [id number] Order Number: [id number] Reading MD: ROSA ELENA DE LA FUENTE Measurements Intervals [place] Rate: 145 P: -27162 CA: -13686 QRS: 60 QRSD: 82 T: 57 QT: 304 QTc: 388 Interpretive Statements 00853 Atrial fibrillation with rapid ventricular response [id number] depression, probably digitalis effect 9150 abnormal ECG Compared to ECG 06/06/2023 19:06:35 ST (T wave) deviation now present Electronically Signed On 08-15-2024 7:07:21 EST by ROSA ELENA DE LA FUENTE
--- NOTE | 2024-08-14 11:58 | ECG_ITS ---
[facility] Test Date: 2024-08-14 Pat Name: MARA JACKSON Department: Room: - Gender: Female Reports Analyst: : 1940 Requested By: Rosa Elena De La Fuente Order Number: [id number] Reading MD: ROSA ELENA DE LA FUENTE Measurements Intervals [place] Rate: 75 P: 58 MD: 176 QRS: 53 QRSD: 80 T: 49 QT: 392 QTc: 421 Interpretive Statements 1100 Sinus rhythm 9110 normal ECG Compared to ECG 08/14/2024 11:31:08 Atrial fibrillation no longer present ST (T wave) deviation no longer present Electronically Signed On 08-15-2024 7:07:34 EST by ROSA ELENA DE LA FUENTE
--- OUTSIDE RECORDS SUMMARY | 2024-08-14 12:14 | XMS_ITS | CCD ---
Author Organization [facility] Care Team Providers Care Accountant Certified Public Name Role Phone Lennox Gilman Primary Care Provider [phone] LNENOX GILMAN Primary Care Unavailable NESS, MELISSA Ramirez Referring Unavailable SUDHAKAR, LENNOX Primary Care Unavailable NESS, MELISSA Ramirez Referring Unavailable SUDHAKAR, LENNOX Primary Care Unavailable NESS, MELISSA Ramirez Referring Unavailable SUDHAKAR, LENNOX Primary Care Unavailable NESS, MELISSA Ramirez Referring Unavailable LENNOX GILMAN Primary Care Unavailable NESS, MELISSA Ramirez Referring Unavailable LENNOX GILMAN Primary Care Unavailable NESS, MELISSA Ramirez Referring Unavailable LENNOX GILMAN Primary Care Unavailable NESS, MELISSA C Referring Unavailable LENNOX GILMAN Primary Care Unavailable NESS, MELISSA Ramirez Referring Unavailable SUDHAKAR, LENNOX Primary Care Unavailable NESS, MELISSA Ramirez Referring [...] SUDHAKAR, LENNOX Primary Care Unavailable NESS, MELISSA Ramirez Referring Unavailable SUDHAKAR, LENNOX Primary Care Unavailable NESS, MELISSA C Referring Unavailable BALL, LENNOX Primary Care Unavailable NESS, MELISSA C Referring Unavailable BALLLENNOX Primary Care Unavailable NESS, MELISSA C Referring Unavailable BALLLENNOX Primary Care Unavailable NESS, MELISSA C Referring [...] Unavailable DR LENNOX GILMAN Primary Care Unavailable JENNY ., CORNELIA Admitting Unavailable JENNY ., CORNELIA Attending Unavailable SULEMA, DR CAT Collado Consulting Unavailable CARLA MALDONADO Consulting Unavailable JENNY ., CORNELIA Consulting Unavailable SUDHAKAR, DR CUBA Primary Care Unavailable KINZA AKERS Admitting Unavailable KINZA AKERS Attending Unavailable Melissa Ocasio Consulting Unavailable KINZA AKERS Consulting Unavailable BALL, [...] Care Unavailable BALL, DR CUBA Consulting Unavailable Lennox Gilman DO Primary Care Provider Susie Poe MD Unavailable LENNOX GILMAN Referring Unavailable LENNOX GILMAN Primary Care Unavailable SUSIE POE Attending Unavailable LENNOX GILMAN Primary Care Unavailable SUSIE POE Referring Unavailable VANIA MOYA Attending Unavailable Db Vazquez Primary Care Physician Unavail able Db Vazquez Unavailable Unavailable Db Vazquez Primary Care Physician Unavail able Unavailable Primary Care Provider Unavailabl e Allergies Allergy Classification Reported Allergen(s) Allergy Type Date of Onset Reaction(s) Facility (20 sources) Alendronate Drug Allergy Unknown [facility] Other (20 sources) Folic Acid; Translations: [FOLIC ACID] Drug Allergy 11-10-19 18 Unknown [facility] Repository (20 sources) Substance with penicillin structure and antibacterial mechanism of action (substance) Drug allergy Unknown [facility] Other (20 sources) PCV 13 Propensity to adverse reactions Unknown [facility] Other (1 source) ferrous sulfate Drug Allergy [facility] Repository (1 source) Folic Acid Drug Allergy [facility] Repository (3 sources) Penicillin; Translations: [PENICILLIN] Drug Allergy 11-10-19 18 Rash [facility] Repository (13 sources) Pneumococcal 7-Arcelia Conj Vacc Drug allergy Comment:PCV 13 [facility] Other (13 sources) Pneumococcal 13-Arcelia Conj Vacc Drug allergy Unknown [facility] Other (10 sources) HMG-CoA reductase inhibitor Drug allergy Unknown [facility] Other (3 sources) Alendronate Drug Allergy 09-19-19 24 Unknown Reaction [facility] (5 sources) Penicillins Allergy to substance 10-09-18 56 Hives, Rash [facility] (3 sources) Pneumococcal vaccine Drug Allergy 09-19-19 24 Unknown Reaction [facility] (3 sources) pneumococcal 7-valent conjugate to Allergy to substance 09-19-19 Comment:PCV 13 [facility] (3 sources) Sbrztwz-YOK-HaF Reductase Inhibitor Allergy to substance 09-19-19 Unknown Reaction [facility] (2 sources) Penicillin V; Translations: [penicillin V potassium] Drug Allergy [facility] fake company 2.0 (2 sources) Iron Drug Allergy 02-20-20 24 [facility] Medications Current Medications Medication Drug Class(es) Dates Sig (Normalized) Sig (Original) apixaban 5 mg oral tablet (15 sources) Factor Xa Inhibitor Start: 06-28-2024 take 1 tablet by mouth twice daily Apixaban (Eliquis) 5 mg tablet Active 0 .ROUTE .COMPLEX 180 June 28, 2024 7:52am TAKE 1 TABLET BY MOUTH TWICE A DAY Start: 05-27-2023 End: 06-28-2024 take 1 tablet by mouth twice daily Apixaban 5 mg tablet Discontinued 5 MG PO Twice daily September 15, 2023 11:00pm June 28, 2024 7:52am aspirin 81 mg chewable tablet (20 sources) Platelet Aggregation Inhibitor, Nonsteroidal Anti-inflammatory Drug Start: 11-09-2017 take 1 tablet by mouth once daily Aspirin 81 mg tablet,chewable Active 1 TAB PO Daily September 15, 2023 11:00pm take 1 tablet by mouth once roula [...] 7 days ezetimibe 10 mg oral tablet (13 sources) Dietary Cholesterol Absorption Inhibitor Start: 09-16-2023 take 1 tablet by mouth once daily Ezetimibe 10 mg tablet Active 10 MG PO Daily September 15, 2023 11:00pm Start: 03-31-2023 take 1 tablet by ashu th every twenty-four hours Ezetimibe 10 MG 1 tablet Orally Once a day Mar, Active folic acid 1 mg oral tablet (10 sources) Start: 09-19-2023 End: 04-05-2024 take 1 tablet by mouth once daily Folic Acid 1 mg tablet Active 1 MG PO Daily April 05, 2024 9:44pm Start: 06-05-2023 take 1 tablet by ashu [...] 1 tablet by mouth once daily Lisinopril 20 mg tablet Active 0 .ROUTE .COMPLEX 90 October 07, 2023 12:26pm TAKE ONE TABLET BY MOUTH DAILY Start: 10-08-1999 End: 10-07-2023 take 1 tablet by mouth once daily Lisinopril 20 mg tablet Discontinued 20 MG PO Daily September 15, 2023 11:00pm October 07, 2023 12:26pm 24 hr metoprolol succinate 25 mg extended release oral tablet (20 sources) beta-Adrenergic Torey Start: 06-28-2024 take 1 tablet by mouth twice daily Metoprolol Succinate 25 mg tablet extended release 24 hr Active 0 .ROUTE .COMPLEX 180 June 28, 2024 7:52am TAKE 1 TABLET BY MOUTH TWICE A DAY Start: 12-23-2023 metoprolol suc cinate XL (Toprol-XL) 25 MG 24 hr tablet 12/23/2023 Active Start: 09-16-2023 End: 06-28-2024 take 1 tablet by mouth twice daily Metoprolol Succinate 25 mg tablet extended release 24 hr Discontinued 25 MG PO Twice daily September 15, 2023 11:00pm June 28, 2024 7:52am Start: 02-28-2019 take 1 tablet by ashu once daily metoprolol succinate ER (TOPROL XL) 25 mg 24 hr tablet Take 1 tablet by mouth once daily. 90 tablet 3 02/28/2019 Active [facility] Metoprolol Succinate ER 25 MG [...] mouth three times weekly Polysaccharide Iron Complex 150 mg iron capsule Active 0 .ROUTE .COMPLEX 36 September 26, 2023 12:37pm TAKE ONE CAPSULE BY MOUTH THREE TIMES A WEEK Start: 09-16-2023 End: 09-26-2023 Polysaccharide Iron Complex (Ferrex 150) 150 mg iron capsule Discontinued 150 MG PO .COMPLEX September 15, 2023 11:00pm September 26, 2023 12:37pm 150 mg orally 3 times a week; take 1 capsule by mo [facility] three times weekly Ferrex 150 150 MG 1 capsule Orally Three times a Week Active sulfamethoxazole 800 mg / trimethoprim 160 mg oral tablet (1 source) Dihydrofolate Reductase Inhibitor Antibacterial, Sulfonamide Antimicrobial Start: 01-11-2024 take 1 tablet by mouth twice daily Sulfamethoxazole-Trimethoprim 800-160 mg tablet Active 1 TAB PO Twice daily January 10, 2024 11:00pm Suprep Bowel Prep Kit 17.5-3.13-1.6 GM/180ML (20 sources) Start: 12-23-2017 Start: 12-23-2017 [...] [PALPITATIONS] Onset: 10-18-2022 Episodic Chronic kidney disease (10 sources) Chronic kidney disease stage 3B ; [...] Coronary arteriosclerosis; Translations: [Atherosclerotic heart disease of [place] coronary artery without angina pectoris] Onset: 07-22-2015 [...] H/O: high risk medication; Translations: [Other intermediate manager (current) drug therapy] Episodic Other aftercare (2 sources) Other mcfp (current) drug therapy; Translations: [OTH SENIOR CARE CURRENT DRUG THERAPY] Onset: 03-15-2022 Episodic Other aftercare (5 sources) History and physical examination, follow-up; Translations: [Encounter for follow-up examination after completed treatment for conditions other than malignant neoplasm] Episodic Other aftercare (5 sources) Long-term current use of drug therapy; Translations: [Other intermediate manager (current) drug therapy] Episodic Other aftercare (1 [...] finding; Translations: [Other specified postprocedural states] Episodic Residual codes; unclassified (1 source) Mammogram declined; Translations: [Procedure and treatment not carried out because of patient's decision for unspecified reasons] 07-19-2024 Episodic Residual codes; unclassified (1 source) Procedure and treatment not carried out because of patient's decision for unspecified reasons; Translations: [Surgical or other procedure not carried out because of patient's decision] 07-19-2024 Episodic Unclassified (1 source) SUMMARY Onset: 07-08-2015 [...] skin] 02-20-2024 Episodic Other aftercare (1 source) 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; Translations: [SENIOR CARE CURRENT USE OF ASPIRIN] Onset: 03-15-2022 Episodic [...] Reference Range Facility No Panel Informationon 02-19 [facility] Type of biopsy: tangential Informed consent: discussed [...] taken Amount of lidocaine used: 0.5 cc [facility] CNOVon 11-02-2023 CNOV Office Visit (CARD P ) JANNIE LEE ([id number]) 1940 F Date Time Provider Department 11/02/23 1:30 PM SUSIE POE During your visit today, we recorded the following information about you: Pulse Blood pressure Weight Height 65/minute 129/61 71.7 kg 1.549 m Susie Poe MD 11/02/2023 8:40 PM Signed [facility] [place] Sadi Perez Department of Cardiovascular Medicine SECTION [...] Freq: Every Day atorvastatin 80 mg qday (2015-)--?tramaine ated for several yrs; off medication x [...] concerning for Takotsubo's cardiomyopathy. See NSTEMI for [facility] results 07/09 Cardiac MRI with [...] concerning for Takotsubo's cardiomyopathy. See NSTEMI for [facility] results 07/09 Cardiac MRI with [...] 06/27/2015 Myocarditis (HCC) 06/27/2015 Paroxysmal atrial fibrillation ([facility]) 06/27/2015 Patient experienced episode of atrial fibrillation [...] tongue ev (more content not included)... Normal [facility] ECG COMPLETEon 11-02-2023 ECG COMPLETE Ventricular Rate : 6 2 BPM Atrial Rate : 62 BPM P-R Interval : 166 ms QRS Duration : 84 ms Q-T Interval : 412 ms QTC Calculation(Bazett) : 418 ms Calculated P [place] : 80 degrees Calculated R [place] : 61 degrees Calculated T [place] : 62 degrees NORMAL SINUS RHYTHM NORMAL ECG Confirmed by TORRIE JOSHUA MD () on 11/09/2023 6:39:00 PM NAME : JANNIE LEE PID : [id number] : 1940 Gender : Female Race : ORD : [id number] Procedure Date : Nov 02 2023 12:38:25 Edit Date : Nov 09 2023 18:40:55 Diagnosis: NORMAL SINUS RHYTHM NORMAL ECG Confirmed by TORRIE JOSHUA MD () on 11/09/2023 6:39:00 PM Test Reason : Location : 314 : J14 J14 Overread By : TORRIE JOSHUA MD Edited By : TORRIE JOSHUA MD Referred By : SUSIE POE [facility] HIWOTN [facility] (CARDMN) JANNIE LEE ([id number]) 1940 F Date Time Provider Department 07/22/23 [...] [I51.4] 06/27/2015 Atherosclerosis of coronary artery of [place] he*09/24/2015 Encounter Status:Closed by IVETTE HAQUE on [facility]22/23 [facility] ([id number]) 1940 F Date Time Provider Department 07/22/23 HAQUE, IVETTE CARDMN During your visit today, we recorded [...] [I51.4] 06/27/2015 Atherosclerosis of coronary artery of [place] he*09/24/2015 Encounter Status:Closed by IVETTE HAQUE on 07/22/23 [facility] 07-15-2023 QUINN Telephone (REFPHY) JANNIE LEE ([id number]) 1940 F Date Time Provider Department 07/15/23 NO ONE (HISTORICAL) REFPHY During your visit today, we recorded the following information about you: Claudia Wills 07/15/2023 11:18 PM Signed Patient: Jannie Lee Date of : 1940 Patient phone number: [phone] Referring Provider for the encounter: Lennox Gilman DO Requesting Provider: CHRIS Reason for requesting visit (RFV/signs and symptoms/diagnosis): paroxysmal atrial fibrillation, ASHD, hyperlipidemia. Person calling: self Return call to: self Medical Records/Insurance Card scanned into [employer]: Yes Comments: n/a Allergies As of Date: [...] [I51.4] 06/27/2015 Atherosclerosis of coronary artery of [place] he*09/24/2015 Encounter Status:Closed by CLAUDIA WILLS on 07/15/23 Normal [facility] CBC AUTO DIFFon 10-13-2022 BASO # 0.1 103/ul Normal 0.0-0.1 [facility] Comment on above: Performed By: #### C BC #### [facility] [address] [address] [address] Rip Pace Basophils/100 WBC (Bld) 1.6 % Normal 0.2-2.0 [facility] Comment on above: Performed By: #### C BC #### [facility] [address] [place] [address] Dr. Rip Pace EO # 0.2 103/ul Normal 0.0-0.7 [facility] Comment on above: Performed By: #### C BC #### [facility] [address] [address] [address] Rip Pace Eosinophils/100 WBC (Bld) 2.5 % Normal 0.9-7.0 [facility] Comment on above: Performed By: #### C BC #### [facility] [address] [place] [address] Dr. Rip Pace Erythrocyte distribution width (RBC) [Ratio] 13.3 % Normal 11.0-15.0 [facility] Comment on above: Performed By: #### C BC #### [facility] [address] [place] [address] Dr. Rip Pace Hematocrit (Bld) [Volume fraction] 39.4 % Normal 36.0-48.0 [facility] Comment on above: Performed By: #### C BC #### [facility] [address] [place] [address] Dr. Rip Pace Hemoglobin (Bld) [Mass/Vol] 12.2 g/dL Normal 12.0-16.0 [facility] Comment on above: Performed By: #### C BC #### [facility] [address] [place] [address] Dr. Rip Pace IG # 0.01 10e3/ul Normal 0.00-0.03 [facility] Comment on above: Performed By: #### C BC #### [facility] [address] [place] [address] Dr. Rip Pace IG % 0.1 % Normal 0.0-0.5 [facility] Comment on above: Performed By: #### C BC #### [facility] [address] [place] [address] Dr. Rip Pace LYMPH # 1.8 103/ul Normal 1.2-3.8 [facility] Comment on above: Performed By: #### C BC #### [facility] [address] [place] [address] Dr. Rip Pace Lymphocytes/100 WBC (Bld) 23.5 % Normal 20.5-60.0 [facility] Comment on above: Performed By: #### C BC #### [facility] [address] [place] [address] Dr. Rip Pace MANUAL DIFF REQ NO Normal [facility] Comment on above: Performed By: #### C BC #### [facility] [address] [place] [address] Dr. Rip Pace MCH (RBC) [Entitic mass] 28.9 pg Normal 26.7-34.0 [facility] Comment on above: Performed By: #### C BC #### [facility] [address] [place] [address] Dr. Rip Pace MCHC (RBC) [Mass/Vol] 31.0 g/dL Normal 29.9-35.2 [facility] Comment on above: Performed By: #### C BC #### [facility] [address] [place] [address] Dr. Rip Pace MCV (RBC) [Entitic vol] 93.4 fL Normal 81.0-99.0 [facility] Comment on above: Performed By: #### C BC #### [facility] [address] [place] [address] Dr. Rip Pace MONO # 0.9 103/ul Critically high 0.3-0.8 [facility] Comment on above: Performed By: #### C BC #### [facility] [address] [place] [address] Dr. Rip Pace Monocytes/100 WBC (Bld) 11.9 % Normal 1.7-12.0 [facility] Comment on above: Performed By: #### C BC #### [facility] [address] [place] [address] Dr. Rip Pace NEUT # 4.7 103/ul Normal 1.4-6.5 [facility] Comment on above: Performed By: #### C BC #### [facility] [address] [place] [address] Dr. Rip Pace Neutrophils/100 WBC (Bld) 60.4 % Normal 43.0-75.0 [facility] Comment on above: Performed By: #### C BC #### [facility] [address] [place] [address] Dr. Rip Pace Platelet mean volume (Bld) [Entitic vol] 9.2 fL Critically low 9.5-13.5 [facility] Comment on above: Performed By: #### C BC #### [facility] [address] [place] [address] Dr. Rip Pace PLT 322 103/ul Normal 150-450 [facility] Comment on above: Performed By: #### C BC #### [facility] [address] [place] [address] Dr. Rip Pace RBC 4.22 106/ul Normal 4.20-5.40 [facility] Comment on above: Performed By: #### C BC #### [facility] [address] [place] [address] Dr. Rip Pace WBC 7.7 103/ul Normal 4.0-11.0 [facility] Comment on above: Performed By: #### C BC #### [facility] [address] [place] [address] Dr. Rip Pace ECHOCARDIO M/2D COMPLETEon 0 10-13-2022 ECHOCARDIO M/2D COMPLETE Patient: JANNIE LEE Exam Date: 10/13/2022 : 1940 Gender:F Ordering : DR LENNOX GILMAN D.O. Admission #: [id number] Family : Order #: [id number] CLICK HERE TO VIEW EXAM ECHOCARDIOGRAM REPORT PROCEDURE: CARDIO PULMONARY ECHOCARDIO M/2D COMP INDICATIONS: Arteriosclerotic heart disease, ID, hypertension, h/o atrial fibrillation COMPARISON: None. DESCRIPTION: [...] on 10/13/2022 at 16:37 Approved by: Mingo Tia M.D. on 10/13/2022 at 16:41 Normal [facility] GLYCOHEMOGLOBIN A1Con 2022 ADA RECOMMENDATION SEE BELOW Normal [facility] Comment on above: Result Comment: ADA RECOMMENDED LIMIT 4.0 - 6.0 ADA THERAPEUTIC TARGET < 7.0 ACTION SUGGESTED > 7.0 Performed By: #### A 1C ####[facility] [address] [address]DrAnthony Pace Glucose [Mass/Vol] 108 mg/dL Normal [facility] Comment on above: Performed By: #### A 1C ####[facility] [address] [id number] Pace HbA1c (Bld) [Mass fraction] 5.4 % Normal 4.5-6.2 [facility] Comment on above: Performed By: #### A 1C ####[facility] [address] [address]DrAnthony Pace PROF CHEM 8 (BAS METB)on Anion gap [Moles/Vol] 13.9 mmol/L Normal [facility] Comment on above: Performed By: #### B MP, TSH #### [facility] [address] [place] [address] Dr. Rip Pace Calcium [Mass/Vol] 9.0 mg/dL Normal 8.5-10.1 [facility] Comment on above: Performed By: #### B MP, TSH #### [facility] [address] [place] [address] Dr. Rip Pace Chloride [Moles/Vol] 105 mmol/L Normal 98-107 [facility] Comment on above: Performed By: #### B MP, TSH #### [facility] [address] [place] [address] Dr. Rip Pace CO2 [Moles/Vol] 25.3 mmol/L Normal 21.0-32.0 [facility] Comment on above: Performed By: #### B ANTHONY, TSH #### [facility] [address] [place] [address] Dr. Rip Pace Creatinine [Mass/Vol] 1.19 mg/dL Critically high 0.55-1.02 [facility] Comment on above: Performed By: #### B ANTHONY, TSH #### [facility] [address] [place] [address] Dr. Rip Pace EGFR-AF DJIBOUTIAN 53 mL/min/1.73m2 Critically low >=60 [facility] Comment on above: Performed By: #### B ANTHONY, TSH #### [facility] [address] [place] [address] Dr. Rip Pace EGFR-NON AF DJIBOUTIAN 44 mL/min/1.73m2 Critically low >=60 [facility] Comment on above: Performed By: #### B MP, TSH #### [facility] [address] [place] [address] Dr. Rip Pace Glucose [Mass/Vol] 82 mg/dL Normal 74-[address] [facility] Comment on above: Performed By: #### B MP, TSH #### [facility] [address] [place] [address] Dr. Rip Pace Potassium [Moles/Vol] 5.2 mmol/L Critically high 3.5-5.1 [facility] Comment on above: Performed By: #### B MP, TSH #### [facility] [address] [address] [address] Rip Pace Sodium [Moles/Vol] 139 mmol/L Normal 136-[address] [facility] Comment on above: Performed By: #### B MP, TSH #### [facility] [address] [address] [address] Rip Pace Urea nitrogen [Mass/Vol] 22.0 mg/dL Critically high 7.0-18.0 [facility] Comment on above: Performed By: #### B MP, TSH #### [facility] [address] [address] [address] Rip Pace Urea nitrogen/Creatinine [Mass ratio] 18.5 mg/mg Normal [facility] Comment on above: Performed By: #### B ANTHONY, TSH #### [facility] [address] [address] [address] Rip Pace TSHon 10-13-2022 TSH 5.369 uIU/mL Critically high 0.358-3.[address] [facility] Comment on above: Performed By: #### B ANTHONY, TSH #### [facility] [address] [place] [address] KNEE RT WO [...] lipohemarthrosis. 3. Osteopenia. Electronically authenticated by: CARLA MCNALLYZ Date: 2022-04-11 19:22 Normal [facility] CBC AUTO DIFFon 03-06-2022 BASO # 0.1 103/ul Normal 0.0-0.1 [facility] Comment on above: Performed By: #### C BC ####[facility] [address] [place], [place] [address]Dr. Rip Pace Basophils/100 WBC (Bld) 1.5 % Normal 0.2-2.0 [facility] Comment on above: Performed By: #### C BC ####[facility] [address] [place], [place] [address]Dr. Rip Pace EO # 0.2 103/ul Normal 0.0-0.7 [facility] Comment on above: Performed By: #### C BC ####[facility] [address] [place], [place] [address]Dr. Rip Pace Eosinophils/100 WBC (Bld) 2.8 % Normal 0.9-7.0 [facility] Comment on above: Performed By: #### C BC ####[facility] [address] [place], [place] [address]Dr. Rip Pace Erythrocyte distribution width (RBC) [Ratio] 13.0 % Normal 11.0-15.0 [facility] Comment on above: Performed By: #### C BC ####[facility] [address] [place], [place] [address]Dr. Rip Pace Hematocrit (Bld) [Volume fraction] 35.5 % Critically low 36.0-48.0 [facility] Comment on above: Performed By: #### C BC ####[facility] [address] [place], [place] [address]Dr. Rip Pace Hemoglobin (Bld) [Mass/Vol] 11.1 g/dL Critically low 12.0-16.0 [facility] Comment on above: Performed By: #### C BC ####[facility] [address] [id number][address] Rip Pace IG # 0.02 10e3/ul Normal 0.00-0.03 [facility] Comment on above: Performed By: #### C BC ####[facility] [address] [id number] Rip Pace IG % 0.3 % Normal 0.0-0.5 [facility] Comment on above: Performed By: #### C BC ####[facility] [address] [id number] Rip Pace LYMPH # 1.3 103/ul Normal 1.2-3.8 [facility] Comment on above: Performed By: #### C BC ####[facility] [address] [address]Dr. Rip Pace Lymphocytes/100 WBC (Bld) 20.4 % Critically low 20.5-60.0 [facility] Comment on above: Performed By: #### C BC ####[facility] [address] [id number]. Rip Pace MANUAL DIFF REQ NO Normal [facility] Comment on above: Performed By: #### C BC ####[facility] [address]oc[address]kmj[address] [place] [id number]. Rip Pace MCH (RBC) [Entitic mass] 29.0 pg Normal 26.7-34.0 [facility] Comment on above: Performed By: #### C BC ####[facility] Zurhibnshe34[address] [place] [id number]. Rip Sanjeev MCHC (RBC) [Mass/Vol] 31.3 g/dL Normal 29.9-35.2 [facility] Comment on above: Performed By: #### C BC ####[facility] Lpeunfjrmf[address] [place] [id number]. Rip Pace MCV (RBC) [Entitic vol] 92.7 fL Normal 81.0-99.0 [facility] Comment on above: Performed By: #### C BC ####[facility] Lqkllgcngl9[address] [place] [id number]. Rip Pace MONO # 0.9 103/ul Critically high 0.3-0.8 [facility] Comment on above: Performed By: #### C BC ####[facility] Gexczhxjnc60[address] [place] [id number]. Rip Pace Monocytes/100 WBC (Bld) 13.9 % Critically high 1.7-12.0 [facility] Comment on above: Performed By: #### C BC ####[facility] Aecwwusbxf39[address] [place] [id number]. Rip Pace NEUT # 4.0 103/ul Normal 1.4-6.5 [facility] Comment on above: Performed By: #### C BC ####[facility] Egecyajiqv[address] [place] [address]Dr. Rip Pace Neutrophils/100 WBC (Bld) 61.1 % Normal 43.0-75.0 [facility] Comment on above: Performed By: #### C BC ####[facility] Ueucltmiqs6162 [place] [id number]. Rip Pace Platelet mean volume (Bld) [Entitic vol] 9.4 fL Critically low 9.5-13.5 [facility] Comment on above: Performed By: #### C BC ####[facility] Mkvlgnakvg[address] [place] [id number]. Rip Pace PLT 251 103/ul Normal 150-450 [facility] Comment on above: Performed By: #### C BC ####[facility] Cslcqeupfe1794 [place] [id number]. Rip Pace RBC 3.83 106/ul Critically low 4.20-5.40 [facility] Comment on above: Performed By: #### C BC ####[facility] Tomiqteqrc0223 [place] [id number]. Rip Pace WBC 6.5 103/ul Normal 4.0-11.0 [facility] Comment on above: Performed By: #### C BC ####[facility] Xbsxzxohfc[address] [place] [address] R[address] HEAD WO CONon 03-06-2022 [...] MELISSA OCASIO Date: 2022-03-06 09:25 Normal [facility] PROF CHEM 8 (BAS METB)on Anion gap [Moles/Vol] 15.3 mmol/L Normal [facility] Comment on above: Performed By: #### B MP ####[facility] Edflinqgmz[address] [place] [address]Dr. Rip Pace Calcium [Mass/Vol] 8.5 mg/dL Normal 8.5-10.[address] [facility] Comment on above: Performed By: #### B MP ####[facility] Crlyaderme[address] [place] [address]Dr. Rip Pace Chloride [Moles/Vol] 106 mmol/L Normal 98-107 [facility] Comment on above: Performed By: #### B MP ####[facility] Qenqlwyeze6744 [place] [address]Dr. Rip Pace CO2 [Moles/Vol] 22.7 mmol/L Normal 21.0-32.0 [facility] Comment on above: Performed By: #### B MP ####[facility] Gaesxshkwf25[address] [place] [address]Dr. Rip Pace Creatinine [Mass/Vol] 1.16 mg/dL Critically high 0.55-1.02 [facility] Comment on above: Performed By: #### B MP ####[facility] Mzoogcvrix17[address] [place] [address]Dr. Rip Pace EGFR-AF DJIBOUTIAN 54 mL/min/1.73m2 Critically low >=60 [facility] Comment on above: Performed By: #### B MP ####[facility] Kifxelziaq67[address] [place] [address]Dr. Rip Pace EGFR-NON AF DJIBOUTIAN 45 mL/min/1.73m2 Critically low >=60 [facility] Comment on above: Performed By: #### B MP ####[facility] [address]ocrgvfphg[address] [place], [place] [address]Dr. Rip Pace Glucose [Mass/Vol] 106 mg/dL Normal 74-106 [facility] Comment on above: Performed By: #### B MP ####[facility] Vlumztzazf[address] [place], [place] [address]Dr. Rip Pace Potassium [Moles/Vol] 5.0 mmol/L Normal 3.5-5.1 [facility] Comment on above: Performed By: #### B MP ####[facility] Bvwbhiymrd[address] [place], [place] [address]Dr. Rip Pace Sodium [Moles/Vol] 139 mmol/L Normal 136-[address] [facility] Comment on above: Performed By: #### B MP ####[facility] Euvsoardmp[address] [place], [place] [address]Dr. Rip Pace Urea nitrogen [Mass/Vol] 26.0 mg/dL Critically high 7.0-18.0 [facility] Comment on above: Performed By: #### B MP ####[facility] Pcwvdmquzf[address] [place], [place] [address]Dr. Rip Pace Urea nitrogen/Creatinine [Mass ratio] 22.4 mg/mg Normal [facility] Comment on above: Performed By: #### B MP ####[facility] Icgteectui[address] [place], [place] [address]Dr. Rip Pace CBC AUTO DIFFon 02-11-2022 BASO # 0.1 103/ul Normal 0.0-0.1 [facility] Comment on above: Performed By: #### C BC #### [facility] [address] [place] [address] Dr. Rip Pace Basophils/100 WBC (Bld) 1.0 % Normal 0.2-2.0 [facility] Comment on above: Performed By: #### C BC #### [facility] [address] [place] [address] Dr. Rip Pace EO # 0.2 103/ul Normal 0.0-0.7 [facility] Comment on above: Performed By: #### C BC #### [facility] [address] [place] [address] Dr. Rip Pace Eosinophils/100 WBC (Bld) 2.4 % Normal 0.9-7.0 [facility] Comment on above: Performed By: #### C BC #### [facility] [address] [place] [address] Dr. Rip Pace Erythrocyte distribution width (RBC) [Ratio] 12.8 % Normal 11.0-15.0 [facility] Comment on above: Performed By: #### C BC #### [facility] [address] [place] [address] Dr. Rip Pace Hematocrit (Bld) [Volume fraction] 34.8 % Critically low 36.0-48.0 [facility] Comment on above: Performed By: #### C BC #### [facility] [address] [place] [address] Dr. Rip Pace Hemoglobin (Bld) [Mass/Vol] 10.7 g/dL Critically low 12.0-16.0 [facility] Comment on above: Performed By: #### C BC #### [facility] [address] [place] [address] Dr. Rip Pace IG # 0.03 10e3/ul Normal 0.00-0.03 [facility] Comment on above: Performed By: #### C BC #### [facility] [address] [place] [address] Dr. Rip Pace IG % 0.3 % Normal 0.0-0.5 [facility] Comment on above: Performed By: #### C BC #### [facility] [address] [place] [address] Dr. Rip Pace LYMPH # 1.8 103/ul Normal 1.2-3.8 [facility] Comment on above: Performed By: #### C BC #### [facility] [address] [place] [address] Dr. Rip Pace Lymphocytes/100 WBC (Bld) 21.3 % Normal 20.5-60.0 [facility] Comment on above: Performed By: #### C BC #### [facility] [address] [place] [address] Dr. Rip Pace MANUAL DIFF REQ NO Normal [facility] Comment on above: Performed By: #### C BC #### [facility] [address] [place] [address] Dr. Rip Pace MCH (RBC) [Entitic mass] 28.7 pg Normal 26.7-34.0 [facility] Comment on above: Performed By: #### C BC #### [facility] [address] [place] [address] Dr. Rip Pace MCHC (RBC) [Mass/Vol] 30.7 g/dL Normal 29.9-35.2 [facility] Comment on above: Performed By: #### C BC #### [facility] [address] [place] [address] Dr. Rip Pace MCV (RBC) [Entitic vol] 93.3 fL Normal 81.0-99.0 [facility] Comment on above: Performed By: #### C BC #### [facility] [address] [place] [address] Dr. Rip Pace MONO # 1.2 103/ul Critically high 0.3-0.8 [facility] Comment on above: Performed By: #### C BC #### [facility] [address] [place] [address] Dr. Rip Pace Monocytes/100 WBC (Bld) 13.4 % Critically high 1.7-12.0 [facility] Comment on above: Performed By: #### C BC #### [facility] [address] [place] [address] Dr. Rip Pace NEUT # 5.3 103/ul Normal 1.4-6.5 [facility] Comment on above: Performed By: #### C BC #### [facility] [address] [place] [address] Dr. Rip Pace Neutrophils/100 WBC (Bld) 61.6 % Normal 43.0-75.0 [facility] Comment on above: Performed By: #### C BC #### [facility] [address] [place] [address] Dr. Rip Pace Platelet mean volume (Bld) [Entitic vol] 9.9 fL Normal 9.5-13.5 [facility] Comment on above: Performed By: #### C BC #### [facility] [address] [place] [address] Dr. Rip Pace PLT 268 103/ul Normal 150-450 [facility] Comment on above: Performed By: #### C BC #### [facility] [address] [place] [address] Dr. Rip Pace RBC 3.73 106/ul Critically low 4.20-5.40 [facility] Comment on above: Performed By: #### C BC #### [facility] [address] [place] [address] Dr. Rip Pace WBC 8.6 103/ul Normal 4.0-11.0 [facility] Comment on above: Performed By: #### C BC #### [facility] [address] [place] [address] Dr. Rip Pace FERRITINon 02-11-2022 Ferritin [Mass/Vol] 32.0 ng/mL Normal 8.0-252.0 [facility] Comment on above: Performed By: #### F ERR, B12FOL, FETIBC #### [facility] [address] [place] [address] Dr. Rip Pace IRON AND TIBCon 02-11-2022 % SATURATION 9.5 % Normal [facility] Comment on above: Performed By: #### F ERR, B12FOL, FETIBC #### [facility] [address] [place] [address] Dr. Rip Pace Iron [Mass/Vol] 31.0 ug/dL Critically low 50.0-170.0 [facility] Comment on above: Performed By: #### F ERR, B12FOL, FETIBC #### [facility] [address] [place] [address] [address] Rip Pace TIBC DIRECT 325.0 ug/dL Normal 250.0-450.0 [facility] Comment on above: Performed By: #### F ERR, B12FOL, FETIBC #### [facility] [address] [place] [address] Dr. Rip Pace VIT B12 AND FOLATEon 022 Cobalamin (Vitamin B12) [Mass/Vol] 404.0 pg/mL Normal 193.0-986.0 [facility] Comment on above: Performed By: #### F ERR, B12FOL, FETIBC #### [facility] [address] [place] [address] [address] Rip Pace FOLATE 4.60 ng/mL Critically low 8.60-58.90 [facility] Comment on above: Performed By: #### F ERR, B12FOL, FETIBC #### [facility] [address] [place] [address] [address] Rip Pace CBC AUTO DIFFon 10-27-2021 BASO # 0.1 103/ul Normal 0.0-0.1 [facility] Comment on above: Performed By: #### C BC ####[facility] Jxy[address]lzeec[address] [place] [address]Dr. Rip Pace Basophils/100 WBC (Bld) 1.2 % Normal 0.2-2.0 [facility] Comment on above: Performed By: #### C BC ####[facility] Rtnrnoxseq[address] [place] [address]Dr. Rip Pace EO # 0.2 103/ul Normal 0.0-0.7 [facility] Comment on above: Performed By: #### C BC ####[facility] Auqfkxlphy[address] [place] [address]Dr. Rip Pace Eosinophils/100 WBC (Bld) 2.5 % Normal 0.9-7.0 [facility] Comment on above: Performed By: #### C BC ####[facility] [address]qv[address] [place], [place] [address]Dr. Rip Pace Erythrocyte distribution width (RBC) [Ratio] 13.3 % Normal 11.0-15.0 [facility] Comment on above: Performed By: #### C BC ####[facility] Z[address] [place], [place] [address]Dr. Rip Pace Hematocrit (Bld) [Volume fraction] 35.5 % Critically low 36.0-48.0 [facility] Comment on above: Performed By: #### C BC ####[facility] [address]fqrrrx[address] [place], [place] [address]Dr. Rip Pace Hemoglobin (Bld) [Mass/Vol] 10.7 g/dL Critically low 12.0-16.0 [facility] Comment on above: Performed By: #### C BC ####[facility] Wnixndtiao[address] [place], [place] [address]Dr. Rip Pace IG # 0.02 10e3/ul Normal 0.00-0.03 [facility] Comment on above: Performed By: #### C BC ####[facility] [address]vd[address]cvg[address] [place], [place] [address]Dr. Rip Pace IG % 0.2 % Normal 0.0-0.5 [facility] Comment on above: Performed By: #### C BC ####[facility] [address]azx[address] [place], [place] [address]Dr. Rip Pace LYMPH # 2.0 103/ul Normal 1.2-3.8 [facility] Comment on above: Performed By: #### C BC ####[facility] Zuxebvudcz[address] [place], [place] [address]Dr. Rip Pace Lymphocytes/100 WBC (Bld) 23.4 % Normal 20.5-60.0 [facility] Comment on above: Performed By: #### C BC ####[facility] Vhcshcugpi[address] [place] [address]Dr. Rip Pace MANUAL DIFF REQ NO Normal [facility] Comment on above: Performed By: #### C BC ####[facility] Drjbtuzcuy38[address] [place] [address]Dr. Rip Pace MCH (RBC) [Entitic mass] 28.5 pg Normal 26.7-34.0 [facility] Comment on above: Performed By: #### C BC ####[facility] Hevolnaciu90[address] [place] [address]Dr. Rip Pace MCHC (RBC) [Mass/Vol] 30.1 g/dL Normal 29.9-35.2 [facility] Comment on above: Performed By: #### C BC ####[facility] Jhqseslgle[address] [place] [address]Dr. Rip Pace MCV (RBC) [Entitic vol] 94.4 fL Normal 81.0-99.0 [facility] Comment on above: Performed By: #### C BC ####[facility] Vchambmokp[address] [place] [address]Dr. Rip Pace MONO # 0.9 103/ul Critically high 0.3-0.8 [facility] Comment on above: Performed By: #### C BC ####[facility] Tepxflhgyf9[address] [place] [address]Dr. Rip Pace Monocytes/100 WBC (Bld) 10.1 % Normal 1.7-12.0 [facility] Comment on above: Performed By: #### C BC ####[facility] Mdapcqfbgy67[address] [place] [address]Dr. Rip Pace NEUT # 5.4 103/ul Normal 1.4-6.5 [facility] Comment on above: Performed By: #### C BC ####[facility] Qcmmjcqqeb2904 [place] [address]Dr. Rip Pace Neutrophils/100 WBC (Bld) 62.6 % Normal 43.0-75.0 [facility] Comment on above: Performed By: #### C BC ####[facility] Szfpzrrgkn0483 [place] [address]Dr. Rip Pace Platelet mean volume (Bld) [Entitic vol] 9.3 fL Critically low 9.5-13.5 [facility] Comment on above: Performed By: #### C BC ####[facility] Mfudrklbdk36[address] [place] [address]Dr. Rip Pace PLT 264 103/ul Normal 150-450 [facility] Comment on above: Performed By: #### C BC ####[facility] Hyurjbyyuv[address] [place] [address]Dr. Rip Pace RBC 3.76 106/ul Critically low 4.20-5.40 [facility] Comment on above: Performed By: #### C BC ####[facility] Npuxdevnxy52[address] [place] [address]Dr. Rip Paec WBC 8.7 103/ul Normal 4.0-11.0 [facility] Comment on above: Performed By: #### C BC ####[facility] Losmvorfkt[address] [place] [address]Dr. Rip Pace GLYCOHEMOGLOBIN A1Con 2021 ADA RECOMMENDATION SEE BELOW Normal [facility] Comment on above: Result Comment: ADA RECOMMENDED LIMIT 4.0 - 6.0 ADA THERAPEUTIC TARGET < 7.0 ACTION SUGGESTED > 7.0 Performed By: #### A 1C #### [facility] [address] [address] [address] Rip Pace Glucose [Mass/Vol] 117 mg/dL Normal [facility] Comment on above: Performed By: #### A 1C #### [facility] [address] [place] [address] [address] Rip Pace HbA1c (Bld) [Mass fraction] 5.7 % Normal 4.5-6.2 [facility] Comment on above: Performed By: #### A 1C #### [facility] [address] [place], [place] [address] Dr. Rip Pace LIPID PROFILEon 10-27-2021 CHOL-HDL RATIO NORM SEE BELOW Normal [facility] Comment on above: Result Comment: 3.3 - 4.4 LOW RISK 4.4 - 7.1 AVERAGE RISK 7.1 - 11.0 MODERATE RISK >11.0 HIGH RISK Performed By: #### L IPID, BMP ####[facility] Aaagqkdoye[address] [place] [id number]. Rip Pace Cholesterol [Mass/Vol] 170 mg/dL Normal <=200 [facility] Comment on above: Performed By: #### L IPID, BMP ####[facility] Cvifqactzz3404 [place] [id number]. Rip Pace Cholesterol in HDL [Mass/Vol] 37 mg/dL Critically low 40-60 [facility] Comment on above: Performed By: #### L IPID, BMP ####[facility] Cbvczoluij2206 [place] [id number]. Rip Pace Cholesterol in LDL [Mass/Vol] 109.0 mg/dL Normal [facility] Comment on above: Performed By: #### L IPID, BMP ####[facility] Pucedbazsz9966 [place] [id number]. Rip Pace Cholesterol.total/Ch olesterol in HDL [Mass ratio] 4.6 {ratio} Normal [facility] Comment on above: Performed By: #### L IPID, BMP ####[facility] Izacowvqwt[address] [place] [id number]. Rip Pace HDL NORMAL > or = 60 mg/dl - LO W CARDIOVASCULAR RISK <40 mg/dl - HIGH CARDIOVASCULAR RISK Normal [facility] Comment on above: Performed By: #### L IPID, BMP ####[facility] Hrcborgtxh[address] [place] [id number]. Rip Pace LDL CALC NORMAL SEE BELOW Normal [facility] Comment on above: Result Comment: <100 mg/dl OPTIMAL 100 - 129 mg/dl NEAR OR ABOVE OPTIMAL 130 - 159 mg/dl BORDERLINE HIGH 160 - 189 mg/dl HIGH >190 mg/dl VERY HIGH Performed By: #### L IPID, BMP ####[facility] Sqhzexvmkp4[address] [place] [address]Dr. Rip Pace Triglyceride [Mass/Vol] 120 mg/dL Normal <=150 [facility] Comment on above: Performed By: #### L IPID, BMP ####[facility] Zvpazscsas4[address] [place] [address]Dr. Rip Pace VLDL CALC 24.0 mg/dL Normal [facility] Comment on above: Performed By: #### L IPID, BMP ####[facility] Kpplpqdyin340[address] [place] [address]Dr. Rip Pace PROF CHEM 8 (BAS METB)on Anion gap [Moles/Vol] 7.3 mmol/L Normal [facility] Comment on above: Performed By: #### L IPID, BMP ####[facility] [address] [place], [place] [address]Dr. Rip Pace Calcium [Mass/Vol] 7.9 mg/dL Critically low 8.5-10.1 [facility] Comment on above: Performed By: #### L IPID, BMP ####[facility] Ilsptmieox[address] [place], [place] [address]Dr. Rip Pace Chloride [Moles/Vol] 105 mmol/L Normal 98-107 [facility] Comment on above: Performed By: #### L IPID, BMP ####[facility] [address]tijcomdgo[address] [place], [place] [address]Dr. Rip Pace CO2 [Moles/Vol] 25.5 mmol/L Normal 21.0-32.0 [facility] Comment on above: Performed By: #### L IPID, BMP ####[facility] [address]vqtlyxj[address] [place], [place] [address]Dr. Rip Pace Creatinine [Mass/Vol] 1.18 mg/dL Critically high 0.55-1.02 [facility] Comment on above: Performed By: #### L IPID, BMP ####[facility] [address]fltaiygr[address] [place], [place] [address]Dr. Rip Pace EGFR-AF DJIBOUTIAN 53 mL/min/1.73m2 Critically low >=60 [facility] Comment on above: Performed By: #### L IPID, BMP ####[facility] Aogdobpifw[address] [place] [address]Dr. Rip Pace EGFR-NON AF DJIBOUTIAN 44 mL/min/1.73m2 Critically low >=60 [facility] Comment on above: Performed By: #### L IPID, BMP ####[facility] Wilwscxxfj[address] [place] [address]Dr. Rip Pace Glucose [Mass/Vol] 112 mg/dL Critically high 74-106 [facility] Comment on above: Performed By: #### L IPID, BMP ####[facility] [address]fdxuvgn[address] [place], [place] [address]Dr. Rip Pace Potassium [Moles/Vol] 4.8 mmol/L Normal 3.5-5.1 [facility] Comment on above: Performed By: #### L IPID, BMP ####[facility] [address]xrn[address] [place], [place] [address]Dr. Rip Pace Sodium [Moles/Vol] 133 mmol/L Critically low 136-145 [facility] Comment on above: Performed By: #### L IPID, BMP ####[facility] [address]yswi[address] [place], [place] [address]Dr. Rpi Pace Urea nitrogen [Mass/Vol] 25.0 mg/dL Critically high 7.0-18.0 [facility] Comment on above: Performed By: #### L IPID, BMP ####[facility] [address]vt[address]owpvl[address] [place] [address]Dr. Rip Pace Urea nitrogen/Creatinine [Mass ratio] 21.2 mg/mg Normal [facility] Comment on above: Performed By: #### L IPID, BMP ####[facility] [address]flxb[address] [place], [place] [address]Dr. Rip Pace Vitamin D 25 Hydroxyon 03-16 Vit D, 25-Hydroxy 41.1 ng/mL 30 - 100 ng/[facility] on above: Reference Range: Vitamin D status Range Deficiency <20 ng/mL Mild Deficiency 20-30 ng/mL Sufficiency 30-100 ng/mL Toxicity >100 ng/mL Vital Signs Date Time Vital Sign Value Performing Clinician Facility 07-19-2024 11:10-0500 Body height 170.18 cm [facility] 07-19-2024 11:10-0500 Body mass index (BMI) [Ratio] 25.9 kg/m2 [facility] 07-19-2024 11:10-0500 Body weight 75.06 kg [facility] 07-19-2024 11:10-0500 Diastolic blood pressure 76 mm[Hg] [facility] 07-19-2024 11:10-0500 Heart rate 62 /min [facility] 07-19-2024 11:10-0500 Respiratory rate 12 /min [facility] 07-19-2024 11:10-0500 Systolic blood pressure 138 mm[Hg] [facility] 12-20-2023 11:10-0400 Body height 170.18 cm [facility] 12-20-2023 11:10-0400 Body mass index (BMI) [Ratio] 25.2 kg/m2 [facility] 12-20-2023 11:10-0400 Body weight 73.14 kg [facility] 12-20-2023 11:10-0400 Diastolic blood pressure 80 mm[Hg] [facility] 12-20-2023 11:10-0400 Heart rate 68 /min [facility] 12-20-2023 11:10-0400 Respiratory rate 12 /min [facility] 12-20-2023 11:10-0400 Systolic blood pressure 130 mm[Hg] [facility] 11-02-2023 13:39-0400 Body height 154.9 cm Susie Poe MD Work Phone: [facility] 11-02-2023 13:39-0400 Body mass index (BMI) [Ratio] 29.85 kg/m2 Susie Poe MD Work Phone: [facility] 11-02-2023 13:39-0400 Body weight 71.67 kg Susie Poe MD Work Phone: [facility] 11-02-2023 13:39-0400 Diastolic blood pressure 61 mm[Hg] Susie Poe MD Work Phone: [facility] 11-02-2023 13:39-0400 Heart rate 65 /min Susie Poe MD Work Phone: [facility] 11-02-2023 13:39-0400 SaO2% (BldA) [Mass fraction] 96 % Susie Poe MD Work Phone: [facility] 11-02-2023 13:39-0400 Systolic blood pressure 129 mm[Hg] Susie Poe MD Work Phone: [facility] 09-19-2023 14:16-0400 Body height 170.18 cm [facility] 09-19-2023 14:16-0400 Body mass index (BMI) [Ratio] 24.7 kg/m2 [facility] 09-19-2023 14:16-0400 Body weight 71.83 kg [facility] 09-19-2023 14:16-0400 Diastolic blood pressure 80 mm[Hg] [facility] 09-19-2023 14:16-0400 Heart rate 67 /min [facility] 09-19-2023 14:16-0400 Respiratory rate 12 /min [facility] 09-19-2023 14:16-0400 Systolic blood pressure 138 mm[Hg] [facility] 06-24-2023 09:30-0500 Body height 170.18 cm Lennox Ball Other [facility] 06-24-2023 09:30-0500 Body mass index (BMI) [Ratio] 24.65 kg/m2 Lennox Ball Other [employer] [facility] [employer] Other 06-24-2023 09:30-0500 Body weight 71.4 kg Lennox Ball Other [employer] [facility] [employer] Other 06-24-2023 09:30-0500 Body weight 71.39 kg [facility] 06-24-2023 09:30-0500 Diastolic blood pressure 85 mm[Hg] Lennox Ball Other [facility] 06-24-2023 09:30-0500 Respiratory rate 12 /min Lennox Ball Other [facility] [employer] Other 06-24-2023 09:30-0500 Systolic blood pressure 138 mm[Hg] Lennox Ball Other [facility] 05-20-2023 10:15-0500 Body height 170.18 cm Lennox Ball Other [facility] [employer] Other 05-20-2023 10:15-0500 Body mass index (BMI) [Ratio] 24.49 kg/m2 Lennox Ball Other [employer] Other 05-20-2023 10:15-0500 Body weight 70.94 kg Lennox Ball Other [employer] Other 05-20-2023 10:15-0500 Diastolic blood pressure 78 mm[Hg] Lennox Ball Other [employer] Other 05-20-2023 10:15-0500 SaO2% (BldA) [Mass fraction] 98 % Lennox Ball Other [employer] Other 05-20-2023 10:15-0500 Systolic blood pressure 145 mm[Hg] Lennox Ball Other [employer] Other 05-13-2023 13:00-0500 Body height 170.18 cm Lennox Ball Other [employer] Other 05-13-2023 13:00-0500 Diastolic blood pressure 65 mm[Hg] Lennox Ball Other [employer] Other 05-13-2023 13:00-0500 Systolic blood pressure 114 mm[Hg] Lennox Ball Other [employer] Other 02-09-2023 13:30-0400 Body height 170.18 cm Lennox Ball Other [employer] Other 02-09-2023 13:30-0400 Body mass index (BMI) [Ratio] 24.9 kg/m2 Lennox Ball Other [employer] Other 02-09-2023 13:30-0400 Body weight 72.12 kg Lennox Ball Other [employer] Other 02-09-2023 13:30-0400 Diastolic blood pressure 68 mm[Hg] Lennox Ball Other [employer] Other 02-09-2023 13:30-0400 Respiratory rate 12 /min Lennox Ball Other [employer] Other 02-09-2023 13:30-0400 Systolic blood pressure 104 mm[Hg] Lennox Ball Other [employer] Other 09-24-2022 11:00-0400 Body height 170.18 cm Lennox Ball Other [employer] Other 09-24-2022 11:00-0400 Body mass index (BMI) [Ratio] 25.81 kg/m2 Lennox Ball Other [employer] Other 09-24-2022 11:00-0400 Body weight 74.75 kg Lennox Ball Other [employer] Other 09-24-2022 11:00-0400 Diastolic blood pressure 77 mm[Hg] Lennox Ball Other [employer] Other 09-24-2022 11:00-0400 Respiratory rate 12 /min Lennox Gilman Other [employer] Other 09-24-2022 11:00-0400 Systolic blood pressure 145 mm[Hg] Lennox Gilman Other [employer] Other Encounters Encounter Date Encounter Type Care Provider Facility Start: 07-19-2024 End: 07-19-2024 ambulatory [facility] [place] Work Phone: Start: 07-19-2024 End: 07-19-2024 Patient encounter procedure [facility] Work Phone: Start: 07-10-2024 Patient encounter procedure [facility] Start: 04-11-2024 Office Services Db lewis Other [facility] Office Start: 04-04-2024 [facility] Db Cheatham Other [facility] Office Start: 02-20-2024 End: 02-20-2024 Bamboo flowsheet Vania Moya PA Work Phone: [facility] Start: 02-20-2024 End: 02-20-2024 Bamboo flowsheet Vania Moya PA Work Phone: [facility] Start: 02-20-2024 End: 02-20-2024 Office outpatient new 20 minutes Vania Moya PA Work Phone: [facility] Comment on above: Seborrheic keratosis (Primary Dx); Actinic keratosis; Neoplasm of unspecified behavior of bone, soft tissue, and skin Start: 02-20-2024 End: 02-20-2024 ambulatory VANIA MOYA Not Available Start: 12-20-2023 End: 12-20-2023 ambulatory [facility] [place] Work Phone: Start: 12-20-2023 End: 12-20-2023 Patient encounter procedure [facility] Work Phone: Start: 11-02-2023 End: 11-02-2023 Patient encounter procedure Susie Poe MD Work Phone: [facility] Comment on above: Takotsubo cardiomyop athy (Primary Dx); Hyperlipidemia LDL goal <70; Coronary artery disease involving [place] coronary artery of [place] heart without angina pectoris; Heart failure with reduced ejection fraction (HCC); Type 2 diabetes mellitus with hyperglycemia, without long-term current use of insulin (HCC); Paroxysmal atrial fibrillation (HCC) Start: 11-02-2023 End: 11-02-2023 ambulatory LENNOX Avalos SUDHAKAR Facility:[facility] Start: 09-19-2023 End: 09-19-2023 ambulatory [facility] [place] Work Phone: Start: 09-19-2023 End: 09-19-2023 Patient encounter procedure [facility] Work Phone: Start: 07-12-2023 End: 07-12-2023 ambulatory Lennox Gilman Other [employer] Other Start: 07-12-2023 Telephone encounter [facility]ox [facility] Start: 07-04-2023 End: 07-04-2023 ambulatory Lennox Gilman Other [employer] Other Start: 07-04-2023 Telephone encounter Lennox GARCIA [facility] Start: 06-24-2023 End: 06-24-2023 ambulatory Lennox Gilman Other [employer] Other Start: 06-24-2023 Office outpatient vi sit 25 minutes Lennox Sudhakar [facility] Start: 06-24-2023 End: 06-24-2023 Patient encounter procedure [facility] Work Phone: Start: 06-07-2023 End: 06-07-2023 ambulatory Lennox Gilman Other [employer] Other Start: 06-07-2023 Telephone encounter Lennox Ball [facility] Start: 06-05-2023 End: 06-05-2023 ambulatory Lennox Ball Other [employer] Other Start: 06-05-2023 Telephone encounter Lennox Ball [facility] Start: 05-30-2023 End: 05-30-2023 ambulatory Lennox Ball Other [employer] Other Start: 05-30-2023 Telephone encounter Lennox Ball [facility] Start: 05-20-2023 End: 05-20-2023 ambulatory Lennox Ball Other [employer] Other Start: 05-20-2023 Office outpatient vi sit 25 minutes Lennox Ball [facility] Start: 05-13-2023 End: 05-13-2023 ambulatory Lennox Ball Other [employer] Other Start: 05-13-2023 Office outpatient vi sit 15 minutes Lennox Ball [facility] Start: 03-28-2023 End: 03-28-2023 ambulatory Lennox Ball Other [employer] Other Start: 03-28-2023 Telephone encounter Lennox Ball [facility] Start: 03-26-2023 End: 03-26-2023 ambulatory Lennox Ball Other [employer] Other Start: 03-26-2023 Telephone encounter Lennox Ball [facility] Start: 03-10-2023 End: 03-10-2023 ambulatory Lennox Ball Other [employer] Other Start: 03-10-2023 Telephone encounter Lennox Ball [facility] Start: 02-09-2023 End: 02-09-2023 ambulatory Lennox Ball Other [employer] Other Start: 02-09-2023 Patient encounter procedure Lennox Ball [facility] Start: 11-08-2022 End: 11-08-2022 ambulatory Lennox Ball Other [employer] Other Start: 11-08-2022 Telephone encounter Lennox GARCIA [facility] Start: 11-05-2022 End: 11-05-2022 ambulatory Lennox Gilman Other [employer] Other Start: 11-05-2022 Telephone encounter Lennox GARCIA [facility] Start: 10-20-2022 End: 10-20-2022 ambulatory Lennox Gilman Other [employer] Other Start: 10-20-2022 Telephone encounter Lennox GARCIA [facility] Start: 10-14-2022 End: 10-14-2022 ambulatory Lennox Gilman Other [employer] Other Start: 10-14-2022 Telephone encounter Lennox GARCIA [facility] Start: 10-13-2022 Telephone encounter Lennox GARCIA [facility] Start: 10-13-2022 End: 10-14-2022 ambulatory LENNOX SUDHAKAR [place] Other Start: 09-24-2022 End: 09-24-2022 ambulatory Lennox Gilman Other [employer] Other Start: 09-24-2022 Office outpatient vi sit 25 minutes Lennox Gilman [facility] Start: 08-20-2022 End: 08-21-2022 ambulatory [facility]NOX [facility] Start: 08-18-2022 End: 08-19-2022 ambulatory LENNOX [facility] Start: 08-18-2022 End: 08-18-2022 Subsequent hospital visit [facility] Comment on above: Arrived Start: 08-13-2022 End: 08-14-2022 ambulatory LENNOX [facility]zier [facility] Start: 08-13-2022 End: 08-13-2022 Subsequent hospital visit by [facility] Comment on above: Arrived Start: 08-11-2022 End: 08-12-2022 ambulatory [facility] Start: 08-11-2022 End: 08-11-2022 Subsequent hospital visit by physician Lissa Marquez PT [facility] Physical Therapy Comment on above: Arrived Start: 08-06-2022 End: 08-07-2022 ambulatory [facility] Start: 08-04-2022 End: 08-05-2022 ambulatory [facility] Start: 08-04-2022 End: 08-04-2022 Subsequent hospital visit by physician Lissa Marquez PT [facility] Physical Therapy Comment on above: Arrived Start: 07-30-2022 End: 07-31-2022 ambulatory [facility] Start: 07-30-2022 End: 07-30-2022 Subsequent hospital visit by physician Lissa Marquez PT [facility] Physical Therapy Comment on above: Arrived Start: 07-29-2022 ambulatory LENNOX Tsang [facility] Start: 07-23-2022 End: 07-24-2022 ambulatory [facility] Start: 07-21-2022 End: 07-22-2022 ambulatory [facility] Start: 07-21-2022 End: 07-21-2022 Subsequent hospital visit by physician Lissa Marquez PT [facility] Physical Therapy Comment on above: Arrived Start: 07-19-2022 End: 2022 ambulatory [facility] Start: 07-19-2022 End: 07-19-2022 Subsequent hospital visit by physician Araceli Saha PTA [facility] Physical Therapy Comment on above: Arrived Start: 07-16-2022 End: 07-17-2022 ambulatory [facility] Start: 07-16-2022 End: 07-16-2022 Subsequent hospital visit by physician Araceli Saha PTA [facility] Physical Therapy Comment on above: Arrived Start: 07-14-2022 End: 07-15-2022 ambulatory [facility] Start: 07-14-2022 End: 07-14-2022 Subsequent hospital visit by physician Lissa Marquez PT [facility] Physical Therapy Comment on above: Arrived Start: 07-12-2022 End: 07-13-2022 ambulatory [facility] Start: 07-12-2022 End: 07-12-2022 Subsequent hospital visit by physician Araceli Saha PTA [facility] Physical Therapy Comment on above: Arrived Start: 07-09-2022 End: 07-10-2022 ambulatory [facility] Start: 07-09-2022 End: 07-09-2022 Subsequent hospital visit by physician Araceli Saha PTA [facility] Physical Therapy Comment on above: Arrived Start: 07-07-2022 End: 07-07-2022 Subsequent hospital visit by physician Araceli Saha PTA [facility] Physical Therapy Start: 07-05-2022 End: 07-06-2022 ambulatory [facility] Start: 07-02-2022 End: 07-03-2022 ambulatory [facility] Start: 06-30-2022 End: 07-01-2022 ambulatory [facility] Start: 06-30-2022 End: 06-30-2022 Subsequent hospital visit by physician Heydi Gonzalez PTA [facility] Physical Therapy Comment on above: Arrived Start: 06-24-2022 End: 06-25-2022 ambulatory [facility] Start: 06-24-2022 End: 06-24-2022 Subsequent hospital visit by physician Lissa Marquez PT [facility] Physical Therapy Comment on above: Closed displaced bic ondylar fracture of right tibia with routine healing (Primary Dx) Start: 05-07-2022 End: 05-08-2022 ambulatory [facility] Start: 05-07-2022 End: 05-07-2022 Subsequent hospital visit by physician Araceli Saha [facility] Physical Therapy Comment on above: Arrived Start: 05-05-2022 End: 05-06-2022 ambulatory [facility] Start: 05-05-2022 End: 05-05-2022 Subsequent hospital visit by physician Araceli Saha [facility] Physical Therapy Comment on above: Arrived Start: 05-03-2022 End: 05-04-2022 ambulatory LENNOX SUDHAKAR [facility] Start: 04-30-2022 End: 05-01-2022 ambulatory LENNOX [facility]zier [facility] Start: 04-28-2022 End: 04-29-2022 ambulatory LENNOX SUDHAKAR [facility] Start: 04-28-2022 End: 04-28-2022 Subsequent hospital visit by physician Araceli Saha PTA [facility] Physical Therapy Comment on above: Arrived Start: 04-15-2022 End: 04-16-2022 ambulatory LENNOX SUDHAKAR [facility] Start: 04-15-2022 End: 04-15-2022 Subsequent hospital visit by physician Prashanth Wilks PT [facility] Physical Therapy Comment on above: Arrived Start: 04-11-2022 End: 04-11-[address] LENNOX GILMAN Facility:[facility] Start: 03-06-2022 End: 03-06-[address] LENNOX GILMAN Facility:[facility] Start: 02-11-2022 End: 02-12-[address] LENNOX GILMAN Facility:[facility] Start: 10-27-2021 End: 10-28-[address] LENNOX GILMAN Facility:[facility] Start: 10-27-2021 Adult health examination Goran Gilman Other [employer] Other Start: 03-16-2019 End: 03-16-2019 Subsequent hospital visit by physician Lennox Gilman [facility] Laboratory Start: 02-24-2017 End: 02-24-2017 Pre-procedure evaluation check Lennox Gilman Other [employer] Other Procedures Date Procedure Procedure Detail Performing Clinician Start: 04-11-2024 Evaluation AND/OR management - established patient Db Vazquez Start: 04-04-2024 Docrev cur meds by e [...] PANEL Lab Routine Coronary artery disease involving [place] coronary artery of [place] heart without angina pectoris Heart failure with reduced ejection fraction (HCC) Expected: 11/01/2024, Expires: 01/31/2025 [facility] Comment on above: Expected: 11/01/2024, Expires: Start: 11-01-2024 End: 01-31-2025 Lipid 1996 panel - Serum or Plasma LIPID PANEL BASIC Lab Routine Coronary artery disease involving [place] coronary artery of [place] heart without angina pectoris Heart failure with reduced ejection fraction (HCC) Expected: 11/01/2024, Expires: 01/31/2025 [facility] Comment on above: Expected: 11/01/2024, Expires: Start: 11-01-2024 End: 01-31-2025 Natriuretic peptide.B prohormone N-Terminal [Mass/volume] in Serum or Plasma NT PRO BNP Lab Routine Coronary artery disease involving [place] coronary artery of [place] heart without angina pectoris Heart failure with reduced ejection fraction (HCC) Expected: 11/01/2024, Expires: 01/31/2025 [facility] Comment on above: Expected: 11/01/2024, Expires: Start: 02-26-2024 Influenza vaccination [facility] Start: 02-20-2024 End: 02-20-2024 Patient encounter procedure 02/20/2024 9:30 AM EDT Office Visit [facility] [address] [place] [address] Vania Moya, PA [address] [place] [address] Arrived [facility] Comment on above: Arrived Start: 06-27-2023 Advance Directive Discussion Advance Directive Discussion [facility] Start: 02-25-2023 Covid-19 Vaccine (1 ) Covid-19 Vaccine () [facility] Start: 08-20-2022 End: 08-20-2022 Patient encounter procedure 08/20/2022 Appointment Physical Therapy Lissa Marquez, PT [facility] Start: 08-18-2022 End: 08-18-2022 Patient encounter procedure 08/18/2022 Appointment Physical Therapy Lissa Marquez, PT [facility] Start: 08-13-2022 End: 08-13-2022 Patient encounter procedure 08/13/2022 Appointment Physical Therapy Lissa Marquez, PT [facility] Start: 08-11-2022 End: 08-11-2022 Patient encounter procedure 08/11/2022 Appointment Physical Therapy Lissa Marquez, PT [facility] Start: 08-06-2022 End: 08-06-2022 Patient [...] 07/16/2022 Appointment Physical Therapy Araceli Saha PTA [facility] Start: 07-14-2022 End: 07-14-2022 Patient encounter procedure 07/14/2022 Appointment Physical Therapy Lissa Marquez, PT [facility] Start: 07-12-2022 End: 07-12-2022 Patient encounter procedure 07/12/2022 Appointment Physical Therapy Araceli Saha PTA [facility] Start: 07-09-2022 End: 07-09-2022 Patient encounter procedure 07/09/2022 Appointment Physical Therapy Araceli Saha [facility] Start: 07-07-2022 End: 07-07-2022 Patient encounter procedure 07/07/2022 Appointment Physical Therapy Araceli Saha [facility] Start: 07-05-2022 End: 07-05-2022 Patient encounter procedure 07/05/2022 Appointment Physical Therapy Araceli Saha [facility] Start: 07-02-2022 End: 07-02-2022 Patient encounter procedure 07/02/2022 Appointment Physical Therapy Araceli Saha [facility] Start: 06-30-2022 End: 06-30-2022 Patient encounter procedure 06/30/2022 Appointment Physical Therapy Heydi Gonzalez [facility] Start: 05-14-2022 End: 05-14-2022 Patient encounter procedure 05/14/2022 Appointment Physical Therapy Araceli Saha [facility] Start: 05-12-2022 End: 05-12-2022 Patient encounter procedure 05/12/2022 Appointment Physical Therapy Araceli Saha [facility] Start: 05-10-2022 End: 05-10-2022 Patient encounter procedure 05/10/2022 Appointment Physical Therapy Araceli Saha [facility] Start: 05-07-2022 End: 05-07-2022 Patient encounter procedure 05/07/2022 Appointment Physical Therapy Araceli Saha [facility] Start: 05-05-2022 End: 05-05-2022 Patient encounter procedure 05/05/2022 Appointment Physical Therapy Araceli Saha [facility] Start: 05-03-2022 End: 05-03-2022 Patient encounter procedure 05/03/2022 Appointment Physical Therapy Araceli Saha [facility] Start: 04-30-2022 End: 04-30-2022 Patient encounter procedure 04/30/2022 Appointment Physical Therapy Araceli Saha [facility] Start: 04-28-2022 End: 04-28-2022 Patient encounter procedure 04/28/2022 Appointment Physical Therapy Araceli Saha [facility] Start: 04-26-2022 End: 04-26-2022 Patient encounter procedure 04/26/2022 Appointment Physical Therapy Denny Cho [facility] Start: 04-23-2022 End: 04-23-2022 Patient encounter procedure 04/23/2022 Appointment Physical Therapy Araceli Saha PTA [facility] Therapy Start: 04-21-2022 End: 04-21-2022 Patient encounter procedure 04/21/2022 Appointment Physical Therapy Araceli Saha PTA [facility] Therapy Start: 04-20-2022 End: 04-20-2022 Patient encounter procedure 04/20/2022 Appointment Physical Therapy Doroteo Geiger PTA [facility] Start: 04-14-2022 Annual Wellness Visit (AWV) Annual Wellness Visit (AWV) [facility] Start: 01-25-2022 Influenza vaccination Flu vaccine (#1) [facility] Start: 09-16-2021 COVID-19 Vaccine (3 - Booster for Pfizer series) COVID-19 Vaccine (3 - Booster for Pfizer series) [facility] Start: 06-13-2021 COVID-19 Vaccine (3 - Booster for Pfizer series) COVID-19 Vaccine (3 - Booster for Pfizer series) [facility] Start: 02-25-2019 Influenza vaccination Flu vaccine (#1) [place], [place] Start: 07-27-2018 Hepatitis B surface antibody level LDL Cholesterol [facility] Start: 08-08-2016 Pneumococcal Vaccine: 65+ (2 of 2 - PCV) Pneumococcal Vaccine: 65+ (2 of 2 - PCV) [facility] Start: 01-05-2016 Hemoglobin A1c measurement HbA1C [facility] Start: 11-06-2015 Pneumococcal Vaccine: 65+ Years (2 of 2 - PCV) Pneumococcal Vaccine: 65+ Years (2 of 2 - PCV) [facility] Start: 03-08-2013 Urine microalbumin profile DTaP,Tdap,Td Vaccine (1 - Tdap) [facility] Start: 2006 Pneumococcal 65+ years Vaccine (1 of 2 - PCV13) Pneumococcal 65+ years Vaccine (1 of 2 - PCV13) [place], [place] Start: 2006 Screening for osteoporosis Bone Density Screening [facility] Start: 2001 RSV Vaccine (1 - 1-dose 60+ series) RSV Vaccine (1 - 1-dose 60+ series) [facility] Start: 1996 Screening for osteoporosis DEXA (modify frequency per FRAX score) [facility] Start: 1991 Shingles vaccine (1 of 2) Shingles vaccine (1 of 2) [facility] Start: 1991 Shingrix Vaccine (1 of 2) Shingrix Vaccine (1 of 2) [facility] Start: 1960 DTaP/Tdap/Td vaccine (1 - Tdap) DTaP/Tdap/Td vaccine (1 - Tdap) [facility] Start: 1953 Depression Screen Depression Screen [facility] Start: 1951 Diabetic foot examination Diabetic Foot Exam [facility] Start: 1951 Glaucoma screening Dilated Retinal Exam [facility] Start: 1951 Hepatitis B screening Urine Albumin:Creatinine Ratio [facility] Comprehensive metabo lic 2000 panel - Serum or Plasma [facility] Dermatopathology exam Dermatopat hology exam Pathology and Cytology Timed Neoplasm of unspecified behavior of bone, soft tissue, and skin Release Upon Ordering for 1 Occurrences starting 02/20/2024 [facility] Work Phone: Comment on above: Release Upon Ordering for 1 Occurrences starting 02/20/2024 End: 11-01-2024 Echocardiography ECHO Cardiology Routine Coronary artery disease involving [place] coronary artery of [place] heart without angina pectoris Heart failure with reduced ejection fraction (HCC) Takotsubo cardiomyopathy 1 Occurrences starting 11/02/2023 until 11/01/2024 [facility] Work Phone: Comment on above: 1 Occurrences starting 11/02/2023 until 11/01/2024 [facility] Immunizations Immunization Date Immunization Notes Care Provider Fa cility 04-12-2018 influenza virus vaccine, split virus (incl. purified surface antigen) Lennox Gilman Other [employer] Other 04-12-2018 influenza virus vaccine, unspecified formulation [facility] 04-07-2016 influenza virus vaccine, split virus (incl. purified surface antigen) Lennox Gilman Other [employer] Other 04-07-2016 influenza virus vaccine, unspecified formulation [facility] 08-08-2015 pneumococcal polysaccharide vaccine, 23 valent Lennox Gilman Other [facility] 05-08-2015 influenza, high dose seasonal, preservative-free Susie Poe MD Work Phone: [facility] 04-09-2015 influenza virus vaccine, split virus (incl. purified surface antigen) Lennox Gilman Other [facility] [employer] Other 04-09-2015 influenza virus vaccine, unspecified formulation [facility] 11-05-2014 pneumococcal polysaccharide vaccine, 23 valent Lennox Gilman Other [facility] 03-07-2013 tetanus and diphther ia toxoids, adsorbed, preservative free, for adult use (5 Lf of tetanus toxoid and 2 Lf of diphtheria toxoid) Lennox Gilman Other [facility] Payers Date Payer Category Payer Private Health Insurance [id number] 2021 Unknown [id number] 2020 Private Health Insurance [id number] [employer]IC[employer] SUPP xxxxxxxxx 2016-Present [phone] [address] [address] [place] [address] xxxxxxxxx [id number] 2016 Unknown [id number] 2014 Medicare MEDICARE MEDICAR E PART A AND B xxxxxxxxxx 2014-Present [phone] [address] [address] [place] [address] xxxxxxxxxx [id number] 2006 Medicare [id number] 1959 Medicare [id number] 1959 Private Health Insurance CLI [id number] 1941 Unknown [id number] 1941 Unknown [id number] 1941 Unknown [id number] 1941 Unknown [id number] 2.16.840.1.552233.3.579.2 .173 1940 Unknown [id number] 2.16.840.1.814246.3.579.2 .173 1940 Unknown [id number] 2.16.840.1.312767.3.579.2 .173 1940 Unknown [id number] 2.16.840.1.983399.3.579.2 .173 1940 Unknown [id number] 2.16.840.1.903760.3.579.2 .173 1940 Unknown [id number] 2.16.840.1.914775.3.579.2 .173 1940 Unknown [id number] 2.16.840.1.983379.3.579.2 .173 1940 Unknown [id number] 2.16.840.1.991140.3.579.2 .173 1940 Unknown [id number] 2.16.840.1.278035.3.579.2 .173 1940 Unknown [id number] 2.16.840.1.072112.3.579.2 .173 1940 Unknown [id number] 2.16.840.1.887128.3.579.2 .173 1940 Unknown [id number] 2.16.840.1.049433.3.579.2 .173 1940 Unknown [id number] 2.16.840.1.618637.3.579.2 .173 1940 Unknown [id number] 2.16.840.1.500539.3.579.2 .173 1940 Unknown [id number] 2.16.840.1.937125.3.579.2 .173 1940 Unknown [id number] 2.16.840.1.831352.3.579.2 .173 1940 Unknown [id number] 2.16.840.1.034632.3.579.2 .173 1940 Unknown [id number] 2.16.840.1.861601.3.579.2 .173 1940 Unknown [id number] 2.16.840.1.288407.3.579.2 .173 1940 Unknown [id number] 2.16.840.1.250467.3.579.2 .173 1940 Unknown [id number] 2.16.840.1.958301.3.579.2 .173 1940 Unknown [id number] 2.16.840.1.504635.3.579.2 .173 1940 Unknown [id number] 2.16.840.1.384481.3.579.2 .593 1940 Unknown [id number] 2.16.840.1.357665.3.579.2 .593 1940 Unknown [id number] 2.16.840.1.401700.3.579.2 .593 1940 Unknown [id number] 2.16.840.1.905735.3.579.2 .593 1940 Unknown [id number] 2.16.840.1.967173.3.579.2 .593 1940 Unknown [id number] 2.16.840.1.154696.3.579.2 .1259 Social History Date Type Detail Facility [facility] smoked [facility] Start: 1940 Sex Assigned At Not on file [facility] [employer] Tobacco smoking stat [facility] Tobacco smoking consumption unknown [facility] Start: 11-01-2023 End: 11-02-2023 Sex Assigned At [facility] Start: 1940 Sex Assigned At Female F 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) [facility] Start: 11-01-2023 End: 11-02-2023 History of Social function [facility] Adult Depression Screening Assessment 0 [facility] Start: 02-20-2024 Alcoholic beverage intake Lifetime non-drinker (finding) [facility] Start: 07-19-2024 Sex Female (finding) [facility] Goals Date Patient Goal Desired Activity /State Personal health goal Clinical Notes 04-15-2022 to 02-20-2024 HAFSA Zhao - 02/20/2024 9:30 AM Susie Morales MD - 11/02/2023 1:30 PM EDT Note [...] denies itch Modifying factors: denies Associated symptoms: cahto Treatments: none All pertinent medical history, medications, [...] limited to risks of scarring, darker or molder offbearer pigmentary changes, recurrence, incomplete removal and infection. [...] biopsy results documented in this encounter [facility] 11-02-2023 History of Present illness Narrative Images from the original note were not included. 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 [address], AVERAGE FUNCTIONAL CAPACITY FOR AGE AND GENDER. 4. NORMAL BLOOD PRESSURE RESPONSE TO STRESS, RESTING HYPERTENSION. 5. T WAVE CHANGES DURING STRESS. 6. NORMAL VEAG TREADMILL SCORE (>/=5). 7. ANGINA WAS NOT [...] - Exam was compared with the prior CC echocardiographic exam performed on 09/24/2015. No significant [...] 5 mmHg. - Compared with the prior CC echocardiographic exam performed on 07/07/15. Significant interval [...] largest anteriorly. - Compared with the prior CC TTE performed [...] right atrial mass is required, recommend MIGUEL. [facility] 07/10/2015-- DIAGNOSTIC SUMMARY 74 year [...] 57 AMBULATORY PATIENT EDUCATION Topic: Coronary Artery Disease/ID, Cardiomyopathy, and Symptom Management of Disease Hyperlipidemia, [...] was followed previously in [facility] from 2635-8217 for CAD, NSTEMI acute myocarditis vs stress-induced CM. Pt had been doing well with improved LVEF from 20% to 60% and no symptoms of angina to suggest need for revascularization. Pt now returns on suggestion of local MD. Since the last visit in 2017, pt reported remaining in overall good health [...] limitations of activity continues to work as eusebio IMPRESSION: Takotsubo cardiomyopathy vs myocarditis, elevated cardiac enzymes CK 302/MB 24, Danay 1.050 (06/2015)--LVEF 20%, focal wall motion abnormality with mid LV dyskinesis, sparing of basal and apical segments. --07/07-07/16/2015 hospitalization after fall, myocarditis/Takotsubo cardiomyopathy. Pt initially presented with fall ?syncope; elevated cardiac enzymes CK 302/MB 24, Danay 1.050 to local ED, and was referred to [facility] for ?NSTEMI. Evaluation revealed myocardial pattern [...] or MIGUEL, likely prominent karlie terminalis CAD [facility] --LMT 50-60% distal, LAD 50% [...] to 79 The patient has a prior ID or stroke diagnosis PLAN: reviewed principles of secondary prevention (severe CAD not revascularized), importance of statin therapy, goal LDL < 70, ideally < 55 reviewed interim events, apparently benign course since last visit in 2018, other than single reported episode of AF [...] of Cardiovascular Medicine documented in this encounter [facility] 11-02-2023 Note HNO ID: [id number] Author: SUSIE POE MD Service: ? Author Type: Physician Type: Progress Notes Filed: 11/02/2023 20:40 Note Text: [facility] [place] [facility] Department of Cardiovascular Medicine SECTION [...] concerning for Takotsubo's cardiomyopathy. See NSTEMI for [facility] results 07/09 Cardiac MRI with [...] concerning for Takotsubo's cardiomyopathy. See NSTEMI for [facility] results 07/09 Cardiac MRI with [...] ) No curr (more content not included)... [facility] 07-04-2023 Evaluation note Encounter Date Diagnosis Assessment Notes Jun, Anemia (ICD-10 - D64.9) Jun, Stage 3b chronic kidney disease (ICD-10 - N18.32) Jun, Paroxysmal atrial fibrillation (ICD-10 - I48.0) [facility] Other 12-29-2023 Evaluation note* Encounter Date Diagnosis [...] require EGD, colonoscopy once cardiac status stable. [facility] Other 12-29-2023 Evaluation note* Encounter Date Diagnosis [...] require EGD, colonoscopy once cardiac status stable. [facility] Other 12-12-2023 Evaluation note* Encounter Date Diagnosis Assessment Notes Treatment Notes Treatment Clinical Notes May, ASHD (arteriosclerotic heart disease) (ICD-10 - I25.10) [facility] Other 12-10-2023 Evaluation note* Encounter Date Diagnosis Assessment Notes Treatment Notes Treatment Clinical Notes May, Dietary folate deficiency anemia (ICD-10 - D52.0) [facility] Other 12-04-2023 Evaluation note* Encounter Date Diagnosis Assessment Notes Treatment Notes Treatment Clinical Notes May, Anemia, unspecified type (ICD-10 - D64.9) [facility] Other 11-24-2023 Evaluation note* Encounter Date Diagnosis [...] are maintaining regular 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 No bleeding complications. She hasn't seen her Cosmetician in 5 years. 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 [facility] Other 08-16-2023 Evaluation note* Encounter Date Diagnosis [...] (ICD-10 - Z79.899) Check labs: CBC, ALT [facility] Other 04-26-2023 Evaluation note* Encounter Date Diagnosis Assessment Notes Treatment Notes Treatment Clinical Notes Sep, Essential hypertension (ICD-10 - I10) [facility] Other 04-19-2023 Evaluation note* Encounter Date Diagnosis Assessment Notes Treatment Notes Treatment Clinical Notes Sep, ASHD (arteriosclerotic heart disease) (ICD-10 - I25.10) ECHOCARDIOGRAM - 09/2022 1. LVEF is 55-60%. 2. No significant valvular dysfunction. [facility] Other 03-31-2023 Evaluation note* Encounter Date Diagnosis [...] Aug, Fatigue, unspecified type (ICD-10 - R53.83) [facility] Other 02-22-2023 History of Present illness Narrative* Lissa Marquez, PT - 08/18/2022 11:15 AM EST [facility] Daily Note Patient: Jannie Lee : 1940 CSN #: [id number] Referring Physician: Melissa Ness MD Date: 08/18/2022 [...] order to improve independence with home ambulation-met Residential Goals Time Frame for Residential Goals : [address] Goal 1: Pt will be compliant with moderate level HEP - progressing (08/04/2022 HEP updated) [employer] Goal 2: Pt will improve right knee extension from lacking 20 to less than lacking 10 in order to improve gait pattern - met (08/18/2022 lacking .5 degrees) [employer] [address] [employer] Goal 3: Pt will improve right lower extremity strength to at least 4/5 overall in order to improve standing tolerance and prepare for full weight bearing ambulation - met (08/13/2022) Residential Goal 4: Pt will tolerate 20 minutes of standing activity with least restrictive assistivedevice required for weight bearing status without increase in pain - met (08/04/2022) Minutes Tracking: Time In: 1118 Time Out: 1203 Minutes: 45 Timed Code Treatment Minutes: 44 Minutes Lissa Marquez PT, DPT Date: 08/18/2022 documented in this encounterB[facility]Australian [facility] Phone: 1(904) 921-870402-17-2023 History of Present illness Narrative* Lissa Marquez PT - 08/13/2022 10:45 AM EST [facility] Daily Note Patient: Jannie Lee : 1940 CSN #: [id number] Referring Physician: Melissa Ness MD Date: 08/13/2022 [...] order to improve independence with home ambulation-met [employer] Goals Time Frame for [employer] Goals : [address] [employer] Goal 1: Pt will be compliant with moderate level HEP - progressing (08/04/2022 HEP updated) Residential Goal 2: Pt will improve right knee extension from lacking 20 to less than lacking 10 in order to improve gait pattern - met (08/06/2022 lacking 2) [employer] Goal 3: Pt will improve right lower extremity strength to at least 4/5 overall in order to improve standing tolerance and prepare for full weight bearing ambulation - met (08/13/2022) Residential Goal 4: Pt will tolerate 20 minutes of standing activity with least restrictive assistivedevice required for weight bearing status without increase in pain - met (08/04/2022) Minutes Tracking: Time In: 1048 Time Out: 1131 Minutes: 43 Timed Code Treatment Minutes: 42 Minutes Lissa Marquez PT, DPT Date: 08/13/2022 documented in [facility] encounterB[facility] Work Phone: 1(764) 645-458402-15-2023 History of Present illness Narrative* Lissa Marquez PT - 08/11/2022 9:30 AM EST [facility] Daily Note Patient: Jannie Lee : 1940 CSN #: [id number] Referring Physician: Melissa Ness MD Date: 08/11/2022 Diagnosis: S82.141D: Closed displaced bicondylar fracture, right tibia with routine healing Treatment Diagnosis: Right knee weakness, difficult in walking Onset Date: 04/11/22 PT Insurance Information: Medicare Total # of Visits Approved: 18 Per Physician Order Total # of Visits to Date: 15 No Show: 0 Canceled Appointment: 1 Pre-Treatment Pain: 1/10 Subjective: Pt reports very mild pain today (1/10) she contributes to normal morning stiffness. Pt [...] order to improve independence with home ambulation-met [employer] Goals Time Frame for [employer] Goals : 4 weeks Residential Goal 1: Pt will be compliant with moderate level HEP - progressing (08/04/2022 HEP updated) Residential Goal 2: Pt will improve right knee extension from lacking 20 to less than lacking 10 in order to improve gait pattern - met (08/06/2022 lacking 2) [employer] Goal 3: Pt will improve right lower extremity strength to at least 4/5 overall in order to improve standing tolerance and prepare for full weight bearing ambulation Residential Goal 4: Pt will tolerate 20 minutes of standing activity with least restrictive assistivedevice required for weight bearing status without increase in pain - met (08/04/2022) Minutes Tracking: Time In: 932 Time Out: 1015 Minutes: 42 Timed Code Treatment Minutes: 41 Minutes Lissa Marquez PT, DPT Date: 08/11/2022 documented in this encounterB[facility] [employer] Phone: [phone]) 533-785502-08-2023 History of Present illness Narrative* Lissa Marquez PT - 08/04/2022 11:15 AM EST [facility] Daily Note Patient: Jannie Lee : 1940 CSN #: [id number] Referring Physician: Melissa Ness MD Date: 08/04/2022 [...] order to improve independence with home ambulation-met [employer] Goals Time Frame for [employer] Goals : [address] [employer] Goal 1: Pt will be compliant with moderate level HEP - progressing (07/21/2022 HEP updated) Residential Goal 2: Pt will improve right knee extension from lacking 20 to less than lacking 10 in order to improve gait pattern - met (07/14/2022 lacking 5) Residential Goal 3: Pt will improve right lower extremity strength to at least 4/5 overall in order to improve standing tolerance and preapre for full weight bearing ambulation Residential Goal 4: Pt will tolerate 20 minutes of standing activity with least restrictive assistivedevice required for weight bearing status without increase in pain - met (08/04/2022) Minutes Tracking: Time In: 1117 Time Out: 1203 Minutes: 46 Timed Code Treatment Minutes: 45 Minutes Lissa Marquze PT, DPT Date: 08/04/2022 documented in this encounterBON [employer] Phone: 1(106) 185-673302-03-2023 History of Present illness Narrative* Lissa Marquez, PT - 07/30/2022 9:15 AM EST [facility] Daily Note Patient: Jannie Lee : 1940 CSN #: [id number] Referring Physician: Melissa Ness MD Date: 07/30/2022 Treatment Diagnosis: Right knee weakness, difficult in walking Onset Date: 04/11/22 PT Insurance Information: Medicare Total # of Visits Approved: 18 Per Physician Order Total # of Visits to Date: 12 No Show: 0 Canceled Appointment: 1 Pre-Treatment Pain: 08/06 Subjective: Pt reports mild pain in the right ankle 08/06. Pt believes that she walked on it [...] order to improve independence with home ambulation-met Residential Goals Time Frame for [employer] Goals : 4 weeks Residential Goal 1: Pt will be compliant with moderate level HEP - progressing (07/21/2022 HEP updated) Residential Goal 2: Pt will improve right knee extension from lacking 20 to less than lacking 10 in order to improve gait pattern - met (07/14/2022 lacking 5) [employer] Goal 3: Pt will improve right lower extremity strength to at least 4/5 overall in order to improve standing tolerance and preapre for full weight bearing ambulation Residential Goal 4: Pt will tolerate 20 minutes of standing activity with least restrictive assistivedevice required for weight bearing status without increase in pain - progressing (07/14/2022 10 minutes) Minutes Tracking: Time In: 919 Time Out: 1002 Minutes: 42 Timed Code Treatment Minutes: 41 Minutes Lissa Marquez PT, DPT Date: 07/30/2022 documented in this encounterB[facility] [employer] Phone: [phone]) [phone] History of Present illness Narrative* Lissa Marquez PT - 07/21/2022 9:45 AM EST [facility] Daily Note Patient: Jannie Lee : 1940 CSN #: [id number] Referring Physician: Melissa Ness MD Date: 07/21/2022 [...] order to improve independence with home ambulation-met Residential Goals Time Frame for [employer] Goals : [address] Goal 1: Pt will be compliant with moderate level HEP - progressing (07/21/2022 HEP updated) [employer] Goal 2: Pt will improve right knee extension from lacking 20 to less than lacking 10 in order to improve gait pattern - met (07/14/2022 lacking 5) Residential Goal 3: Pt will improve right lower extremity strength to at least 4/5 overall in order to improve standing tolerance and preapre for full weight bearing ambulation Residential Goal 4: Pt will tolerate 20 minutes of standing activity with least restrictive assistivedevice required for weight bearing status without increase in pain - progressing (07/14/2022 10 minutes) Minutes Tracking: Time In: 945 Time Out: 1027 Minutes: 41 Timed Code Treatment Minutes: 40 Minutes Lissa Marquez PT, DPT Date: 07/21/2022 documented in this encounterB[facility] [employer] Phone: [phone]) [phone] History of Present illness Narrative* Araceli Yifan, QUALITY HEAD - 07/19/2022 10:30 AM EST [facility] Daily Note Patient: Jannie Lee : 1940 CSN #: [id number] Referring Physician: Melissa Ness MD Date: 07/19/2022 [...] order to improve independence with home ambulation-met [employer] Goals Time Frame for Residential Goals : 4 weeks Residential Goal 1: Pt will be compliant with moderate level HEP [employer] Goal 2: Pt will improve right knee extension from lacking 20 to less than lacking 10 in order to improve gait pattern - met (07/14/2022 lacking 5) Residential Goal 3: Pt will improve right lower extremity strength to at least 4/5 overall in order to improve standing tolerance and preapre for full weight bearing ambulation Residential Goal 4: Pt will tolerate 20 minutes of standing activity with least restrictive assistivedevice required for weight bearing status without increase in pain - progressing (07/14/2022 10 minutes) Minutes Tracking: Time In: 1031 Time Out: 1112 Minutes: 41 Araceli Saha, GUERRERO Date: 07/19/2022 documented in this encounterB[facility] [employer] Phone: [phone]) [phone] History of Present illness Narrative* Lissa Marquez, PT - 07/14/2022 9:30 AM EST [facility] Daily Note Patient: Jannie Lee : 1940 CSN #: [id number] Referring Physician: Melissa Ness MD Date: 07/14/2022 [...] order to improve independence with home ambulation-met [employer] Goals Time Frame for Residential Goals : [address] [employer] Goal 1: Pt will be compliant with moderate level HEP [employer] Goal 2: Pt will improve right knee extension from lacking 20 to less than lacking 10 in order to improve gait pattern - met (07/14/2022 lacking 5) [employer] Goal 3: Pt will improve right lower extremity strength to at least 4/5 overall in order to improve standing tolerance and preapre for full weight bearing ambulation [employer] Goal 4: Pt will tolerate 20 minutes of standing activity with least restrictive assistivedevice required for weight bearing status without increase in pain - progressing (07/14/2022 10 minutes) Minutes Tracking: Time In: 0936 Time Out: 1015 Minutes: 39 Timed Code Treatment Minutes: 38 Minutes Lissa Marquez, PT, DPT Date: 07/14/2022 documented in this encounterCARIL[facility] Phone: 1(246) 464-765301-11-2023 History of Present illness Narrative* Elsy Daniel - 07/07/2022 9:45 AM EST [facility] Inpatient/Observation/Outpatient Rehabilitation Date: 07/07/2022 Patient Name: Jannie Lee [] Inpatient Acute/Observation [] Outpatient : 1940 [] Pt no showed for scheduled appointment [] Pt refused/declined therapy at this time due to: [x] Pt cancelled due to: [] No Reason Given [] Sick/ill [] Other: No ride Therapist/[facility] [employer] will attempt to see this patient, at our earliest opportunity. lEsy Daniel Date: 07/07/2022 documented in this encounterRAPPA[facility] [employer] Phone: [phone]) [phone] History of Present illness Narrative* Heydi Gonzalez, QUALITY HEAD - 06/30/2022 9:00 AM EST . [facility] Daily Note Patient: Jannie Lee : 1940 CSN #: [id number] Referring Physician: Melissa Ness MD Date: 06/30/2022 [...] order to improve independence with home ambulation [employer] Goals Time Frame for [employer] Goals : [address] [employer] Goal 1: Pt will be compliant with moderate level HEP [employer] Goal 2: Pt will improve right knee extension from lacking 20 to less than lacking 10 in order to improve gait pattern Residential Goal 3: Pt will improve right lower extremity strength to at least 4/5 overall in order to improve standing tolerance and preapre for full weight bearing ambulation [employer] Goal 4: Pt will tolerate 20 minutes of standing activity with least restrictive assistivedevice required for weight bearing status without increase in pain Minutes Tracking: Time In: 901 Time Out: 942 Minutes: 41 Heydi Gonzalez PTA Date: 06/30/2022 documented in this encounterB[facility] [employer] Phone: [phone] History of Present illness Narrative* Lissa Marquez, PT - 06/24/2022 10:30 AM EST [facility] Evaluation Date: 06/24/2022 Patient: Jannie Lee : 1940 CSN #: [id number] Referring Physician: Melissa Ness MD Medical Diagnosis: [...] completed PT for balance, transfer training at [facility]. Pt reports continued compliance with exercises and [...] order to improve independence with home ambulation [employer] Goals Time Frame for Residential Goals : [address] [employer] Goal 1: Pt will be compliant with moderate level HEP Residential Goal 2: Pt will improve right knee extension from lacking 20 to less than lacking 10 in order to improve gait pattern Residential Goal 3: Pt will improve right lower extremity strength to at least 4/5 overall in order to improve standing tolerance and preapre for full weight bearing ambulation Residential Goal 4: Pt will tolerate 20 minutes of standing activity with least restrictive assistivedevice required for weight bearing status without increase in pain Patient Goals : walk again Minutes Tracking: Time In: 1030 Time Out: 1114 Minutes: 44 Timed Code Treatment Minutes: 42 Minutes Lissa Marquez PT, DPT 06/24/2022 [facility] encounter[facility] Work Phone: [phone]) [phone] History of Present illness Narrative* Araceli Saha, QUALITY HEAD - 05/07/2022 9:00 AM EST [facility] Daily Note Patient: Jannie Lee : 1940 [facility] #: [id number] Referring Physician: Melissa Ness MD Date: 05/07/2022 [...] (Total # of Visits to Date: 6) Residential Goals Time Frame for Residential Goals : 4 weeks Residential Goal 1: Pt will be comfortable and complient with HEP -met Residential Goal 2: Pt will be able to perform sit to stand and stand pivot transfers SUP to improve safety of functional mobility. -met [employer] Goal 3: Pt to demonstrate >/= 4+/5 LLE strength in all planes to improve dynamic stability -met [employer] Goal 4: Pt to be able to complete all transfers while maintaining NWB status (or current status by end of PoC) to ensure safety and protection of injury. -met Minutes Tracking: Time In: 0905 Time Out: 0935 Minutes: 30 Araceli Saha, QUALITY HEAD Date: 05/07/2022 documented in this encounterBON [employer] Phone: 1(897) 806-181011-09-2022 History of Present illness Narrative* Araceli Saha, QUALITY HEAD - 05/05/2022 9:00 AM EST [facility] Daily Note Patient: Jannie Lee : 1940 CSN #: [id number] Referring Physician: Melissa Ness MD Date: 05/05/2022 [...] activites to improve capacity for ADLs -met Residential Goals Time Frame for Residential Goals : 4 weeks Residential Goal 1: Pt will be comfortable and complient with HEP [employer] Goal 2: Pt will be able to perform sit to stand and stand pivot transfers SUP to improve safety of functional mobility. Residential Goal 3: Pt to demonstrate >/= 4+/5 LLE strength in all planes to improve dynamic stability Minutes Tracking: Time In: 902 Time Out: 941 Minutes: 39 Araceli Saha, QUALITY HEAD Date: 05/05/2022 [facility] [employer] Phone: 1(966) 318-592411-02-2022 History of Present illness Narrative* Araceli Saha, GUERRERO - 04/28/2022 9:00 AM EDT [facility] Therapy Daily Note Patient: Jannie Lee : 1940 CSN #: [id number] Referring Physician: Melissa Ness MD Date: 04/28/2022 [...] functional activites to improve capacity for ADLs [employer] Goals Time Frame for Residential Goals : 4 weeks Residential Goal 1: Pt will be comfortable and complient with HEP Residential Goal 2: Pt will be able to perform sit to stand and stand pivot transfers SUP to improve safety of functional mobility. Residential Goal 3: Pt to demonstrate >/= 4+/5 LLE strength in all planes to improve dynamic stability [employer] Goal 4: Pt to be able to complete all transfers while maintaining NWB status (or current status by end of PoC) to ensure safety and protection of injury. Minutes Tracking: Time In: 903 Time Out: 945 Minutes: 42 Araceli Saha, UGERRERO Date: 04/28/2022 [facility] [employer] Work Phone: 1(867) 146-701810-20-2022 History of Present illness Narrative* Prashanth Wilks, PT - 04/15/2022 4:30 PM EDT [facility] Evaluation Date: 04/15/2022 Patient: Jannie Lee : 1940 CSN #: [id number] Referring Physician: Melissa Ness MD Medical Diagnosis: [...] NWB RLE Wheelchair Activities Wheelchair Size: Large ([facility]) Wheelchair Type: Standard Wheelchair Cushion: None [...] sit to stand and stand [facility]trans[facility]. Pt demonstrates appx 4/5 LLE strength grossly [...] functional activites to improve capacity for ADLs Residential Goals Time Frame for [employer] Goals : [address] Goal 1: Pt will be comfortable and complient with HEP [employer] Goal 2: Pt will be able to perform sit to stand and stand pivot transfers SUP to improve safety of functional mobility. [employer] Goal 3: Pt to demonstrate >/= 4+/5 LLE strength in all planes to improve dynamic stability [employer] Goal 4: Pt to be able to complete all transfers while maintaining NWB status (or current status by end of PoC) to ensure safety and protection of injury. Patient Goals : learning to get my stability Minutes Tracking: Time In: 1640 Time Out: 1735 Minutes: 55 Timed Code Treatment Minutes: 50 Minutes Prashanth Wilks PT, DPT 04/15/2022 [facility] [employer] Work Phone: evaluation note* Diagnosis Closed displaced bicondylar fracture of right tibia with routine healing- Primary Aftercare for healing traumatic fracture of lower leg documented in this encounter [facility] [employer] Work Phone: evaluation noteNo [employer] [place] Other Evaluation note* Diagnosis Onset Date Resolution Status Anemia acute ASHD (arteriosclerotic heart disease) acute Essential hypertension acute Hyperlipidemia type II acute IFG (impaired fasting glucose) acute Paroxysmal atrial fibrillation acute Stage 3b chronic kidney disease [facility] Work Phone: Evaluation note* Diagnosis Takotsubo cardiomyopathy- Primary Takotsubo syndrome Hyperlipidemia LDL goal <70 Other and unspecified hyperlipidemia Coronary artery disease involving [place] coronary artery of [place] heart without angina pectoris Heart failure with reduced ejection fraction (HCC) Heart failure, unspecified Type 2 diabetes mellitus with hyperglycemia, without long-term current use of insulin (HCC) Paroxysmal atrial fibrillation (HCC) Atrial fibrillation [facility] Diagnosis Seborrheic keratosis- Primary Actinic keratosis Neoplasm of unspecified behavior of bone, soft tissue, and skin [facility] Diagnosis Onset Date Resolution Status Admit Date ASHD (arteriosclerotic heart disease) acute July 19 10:53am Essential hypertension acute [facility] 2024 10:53am Hyperlipidemia type II acute [facility] 2024 10:53am IFG (impaired fasting glucose) acute July 19, 2024 10:53am Mammogram declined acute 2024 10:53am Medicare annual wellness vis it, subsequent acute July 19 10:53am Paroxysmal atrial fibrillation acute July 19, 2024 10:53am Stage 3b chronic kidney disease acut e July 19, 2024 10:53am [facility] Work Phone: [facility] general Narrative - Reported* Type Description Date [...] History EGD Surgical History ROBERT/BSO Surgical History [facility] Hospitalization History SEE SURGICAL HX [employer] Other [facility] general Narrative - Reported* Type Description Date [...] History [facility] Hospitalization History SEE SURGICAL HX [employer] Other Reason for referral (narrative)* Reason Referral for new ons et atrial fibrillation. Diagnosis 1 Paroxysmal atrial fi brillation (I48.0) Diagnosis 2 ASHD (arteriosclerot ic heart disease) (I25.10) Diagnosis 3 Hyperlipidemia type II (E78.01) Referral Organization [facility] Referring Provider First Name Lennox Referring Provider Last Name Sudhakar Referring Provider Specialty Internal Me dicine Referred Organization [facility] Referred Provider Susie Poe Referred Address [address] [place] [place], [place],[address] Referred Provider Specialty Cardiology Referral Priority Routine [...] Include latest Echoc ardiogram, Holter and labs [employer] Other Advance Directives Documents on File Type Date Recorded Patient Can Cutter Expl anation Advance Directives and Living Will Power of Rn Social Work Advance Directive Response Recorded Date/ Time Advance Directives No 2023 11:45am Advance Directive Response Recorded Date/ Time Advance Directives No 2023 10:45am Summary Purpose Family History Relationship Condition Age at Onset Recorded Date/T isatu father Unknown Not Specified Unknown Relationship Condition Age at Onset Recorded Date/T isatu father Unknown mother Unknown Chief Complaint and Reason for Visit [...] Stage 3b chronic kidney disease Chief Complaint Admit Date wellness July 19, 2024 1 0:53am Reason for Visit Admit Date ASHD (arteriosclerotic heart disease) Jose hatch 2024 10:53am Essential hypertension July 19 10:53am Hyperlipidemia type II July 19 10:53am IFG (impaired fasting glucose) June 282024 10:53am Mammogram declined July 19, 2024 1 0:53am Medicare annual wellness visit, [place] July 19, 2024 10:53am Paroxysmal atrial fibrillation June 282024 10:53am Stage 3b chronic kidney disease July 19, 2024 10:53am Reason for Referral Specialty Diagnoses / Procedures Referred By Contac t Referred To Contact [facility] [place] Diagnoses Coronary artery disease involving [place] coronary artery of [place] heart without angina pectoris Heart failure with reduced ejection fraction (HCC) Procedures CARDIOVASCULAR MEDICINE OP FOLLOW UP APPT ORDER Susie Poe MD [address] [place] [address] [place] [address] Referral ID Status Reason Start Date Expiration Date Visits Requested Visits Authorized [id number] Ref Not Required PCP Requested Referral 08/03/2024 11/01/2024 1 1 Specialty Diagnoses / Procedures Referred By Dylon doran Referred To Contact [facility] Diagnoses Coronary artery disease involving [place] coronary artery of [place] heart without angina pectoris Heart failure with reduced ejection fraction (HCC) Takotsubo cardiomyopathy Procedures ECHO ECHO TTHRC R-T 2D W/WOM-MODE COMPL SPEC&COLR D Susie Poe MD [address] [place] [address] [address] Referral ID Status Reason Start Date Expiration Date Visits Requested Visits Authorized [id number] Pending Review Auto-Generat ed Referral 11/02/2023 11/01/2024 1 1 Additional Source Comments Care Teams (unrecognized sec tion and content) Accountant Certified Public Relationship Specialty Start Date End Date Lennox Gilman DO PCP - General Internal Medicine 09/27/16 Accountant Certified Public Relationship Specialty Start Date End Date Sudhakar DO Lennox PCP - General Internal Medicine 09/27/16 Accountant Certified Public Relationship Specialty Start Date End Date Sudhakar DO Lennox PCP - General Internal Medicine 09/27/16 Accountant Certified Public Relationship Specialty Start Date End Date Lennox Gilman DO PCP - General Internal Medicine 09/27/16 Accountant Certified Public Relationship Specialty Start Date End Date Lennox Gilman DO PCP - General Internal Medicine 09/27/16 Accountant Certified Public Relationship Specialty Start Date End Date Lennox Gilman DO PCP - General Internal Medicine 09/27/16 Accountant Certified Public Relationship Specialty Start Date End Date Lennox Gilman DO PCP - General Internal Medicine 09/27/16 Accountant Certified Public Relationship Specialty Start Date End Date Lennox [...] September 19, 2023 End: September 19, 2023 Accountant Certified Public Relationship Specialty Start Date End Date eLnnox Gilman DO PCP - General Internal Medicine 07/08/15 Susie Poe MD [address] [place] [address] Primary Staff Physician Cardiology 09/12/18 Team Status: Inactive Member Role Status Dates Lennox Gilman DO Primary Care Provide r, Attending Provider Active Start: December 20, 2023 End: December 20, 2023 Team Status: Inactive Member Role Status Dates Lennox Gilman DO Primary Care Provide r, Attending Provider Active Start: July 19, 2024 End: July 19, 2024 REASON FOR VISIT (unrecogniz ed section and content) Reason Comments CARD New Patient Consult Reason Comments Suspicious Skin Lesion INFORMATION SOURCE (unrecogn ized section and content) DATE CREATED AUTHOR 10/01/2022 [facility] DATE CREATED AUTHOR AUTHOR'S ORGANIZ ATION 10/18/2022 [facility] DATE CREATED AUTHOR AUTHOR'S ORGANIZ ATION 12/05/2023 [facility] DATE CREATED AUTHOR AUTHOR'S ORGANIZ ATION 02/21/2024 [facility] d[facility] Specialists EPIC Goals (unrecognized [...] or prosecute any alcohol or drug abuse patient.[facility] FOR RECORDS PERTAINING TO PATIENTS WHO ARE [...] BE BASED ON THE PRIMARY CLINICAL RECORDS. [employer] provides no warranty or guarantee of the accuracy or completeness of information in this document.
[2024-08-14 12:36] LABS: Basophils Absolute Auto 0.1 10^3/uL (0.0-0.1); Basophils Percent Auto 1.3 % (0.2-2.0); Eosinophils Absolute Auto 0.2 10^3/uL (0.0-0.7); Eosinophils Percent Auto 2.5 % (0.9-7.0); Hematocrit 40.5 % (36.0-48.0); Hemoglobin 12.7 g/dL (12.0-16.0); Immature Granulocytes Abs Auto 0.02 10^3/uL (0.00-0.03); Immature Granulocytes Pct Auto 0.2 % (0.0-0.5); Lymphocytes Absolute Auto 1.7 10^3/uL (1.2-3.8); Lymphocytes Percent Auto 20.5 % (20.5-60.0); Mean Corpuscular HGB Conc 31.4 g/dL (29.9-35.2); Mean Corpuscular Hemoglobin 28.9 pg (26.7-34.0); Mean Corpuscular Volume 92.3 fL (81.0-99.0); Mean Platelet Volume 10.2 fL (9.5-13.5); Monocytes Absolute Auto 0.9 10^3/uL (0.3-0.8); Monocytes Percent Auto 10.7 % (1.7-12.0); Neutrophils Absolute Auto 5.4 10^3/uL (1.4-6.5); Neutrophils Percent Auto 64.8 % (43.0-75.0); Platelet Count 298 10^3/uL (150-450); Red Blood Count 4.39 10^6/uL (4.20-5.40); Red Cell Distribution Width 13.5 % (11.0-15.0); White Blood Count 8.3 10^3/uL (4.0-11.0)
[2024-08-14 12:53] LABS: INR 1.06; Partial Thromboplastin Time 26.9 sec (22.3-36.2); Prothrombin Time 11.2 sec (9.0-11.6)
[2024-08-14 13:01] LABS: Anion Gap 10.3; BUN Creatinine Ratio 12.6; Calcium 8.3 mg/dL (8.5-10.1); Carbon Dioxide 25.9 mmol/L (21.0-32.0); Chloride 105 mmol/L (98-107); Estimated GFR (African America 45 (>=60 mL/min/1.73m^2); Estimated GFR (Non-African Ame 37 (>=60 mL/min/1.73m^2); Glucose 129 mg/dL (74-106); Magnesium 1.7 mg/dL (1.8-2.4); Potassium 4.2 mmol/L (3.5-5.1); Sodium 137 mmol/L (136-145); Troponin I High Sensitivity 15.2 pg/mL (4.0-51.3)
[2024-08-14] MEDS: MAGNESIUM SULFATE IN WATER 2 GM/50 ML PREMIX IV (14:14)
--- NOTE | 2024-08-14 14:28 | PC.NURSE ---
pt states she has hx of a fib, pt awoke tuesday with increased hr,pt took extra metoprolol
--- NOTE | 2024-08-14 15:16 | PC.NURSE ---
pt states she is ready to go home
--- NOTE | 2024-08-14 15:30 | ED_ITS ---
HPI HPI - General Adult General Chief complaint: Chest Pain Stated complaint: FAST HEART RATE Time Seen by Provider: 08/14/24 11:45 Source: patient Mode of arrival: walk-in Limitations: no limitations History of Present Illness HPI narrative: 84-year-old female to the emergency department with chief complaint of rapid heart rate. Patient reports that she gets paroxysmal A-fib. She takes metoprolol and Eliquis for this. She had an episode that started last evening and went into today. Did not resolve so she decided seen. She denies any chest pain or shortness of breath. She reports some mild fatigue associated. Otherwise has been at her baseline health. Related Data Home Medications ?Medication ?Instructions ?Recorded ?Confirmed aspirin 81 mg tablet,delayed 81 mg PO DAILY 05/11/23 06/06/23 release (Adult Low Dose Aspirin) lisinopril 20 mg tablet 20 mg PO DAILY 05/11/23 06/06/23 metoprolol succinate 25 mg 25 mg PO DAILY 05/11/23 06/06/23 tablet,extended release 24 hr apixaban 5 mg tablet (Eliquis) 5 mg PO DAILY 06/06/23 06/06/23 ezetimibe 10 mg tablet 10 mg PO DAILY 06/06/23 06/06/23 Previous Rx's ?Medication ?Instructions ?Recorded metoprolol succinate 25 mg 50 mg (2 x 25 mg) PO DAILY #20 tabs 06/06/23 tablet,extended release 24 hr Allergies Allergy/AdvReac Type Severity Reaction Status Date / Time folic acid Allergy Severe Verified 05/11/23 16:12 iron Allergy Severe Verified 05/11/23 16:12 Penicillins Allergy Severe Verified 05/11/23 16:12 Opioid HPI Opioid Management Most Recent Opioid Data: No Data to Display Review of Systems ROS Status of ROS 10 or more systems reviewed and unremark able except as noted in history and below PFS PFS Social History Smoking status: Never smoker Little interest or pleasure in doing things: not at all Feeling down, depressed, or hopeless: not at all Exam Narrative Exam Narrative: VITALS: I have reviewed the triage vital signs. GENERAL: Well developed, well appearing adult in no acute distress. NEURO: Alert and oriented. Moves all extremities. Face is symmetric and expressive. EYES: PERRL. No scleral icterus or conjunctival injection. No discharge. HENT: Normocephalic, atraumatic. Hearing is grossly intact. Nares grossly patent and without discharge. Mucous membranes moist. NECK: No JVD. Patient moves neck without restriction. CARDIO: Rhythm regular. Tachycardic. No murmur, rub, or gallop. Pulses equal bilaterally in the upper and lower extremity. No lower extremity edema. PULM: Lungs clear to auscultation in all christianson. No wheezes, rales, or rhonchi. No conversational dyspnea. No splinting, stridor, or accessory muscle use. GI/: Abdomen is soft and non-tender. Normoactive bowel sounds. EXTREMITIES: Symmetric muscle bulk. No joint swelling. No clubbing, cyanosis, or deformity. SKIN: Warm and dry. Normal turgor. No rash or lesions appreciated. PSYCH: Mood, affect, and interaction is appropriate to the setting. Constitutional Vital Signs, click to edit/add: Last Vital Signs Temp 97.6 F 08/14/24 11:25 Pulse 64 08/14/24 15:10 Resp 13 08/14/24 15:10 BP 111/69 08/14/24 15:00 Pulse Ox 97 08/14/24 15:10 O2 Del Method Room Air 08/14/24 11:25 Course Vital Signs Vital signs: Vital Signs Temperature 97.6 F 08/14/24 11:25 Pulse Rate 140 H 08/14/24 11:25 Respiratory Rate 18 08/14/24 11:25 Blood Pressure 122/87 08/14/24 11:25 Pulse Oximetry 99 08/14/24 11:25 Oxygen Delivery Method Room Air 08/14/24 11:25 Temperature 97.6 F 08/14/24 11:25 Pulse Rate 64 08/14/24 15:10 Respiratory Rate 13 08/14/24 15:10 Blood Pressure 111/69 08/14/24 15:00 Pulse Oximetry 97 08/14/24 15:10 Oxygen Delivery Method Room Air 08/14/24 11:25 Medical Decision Making MDM Narrative Medical decision making narrative: 84-year-old female to the emergency department with chief complaint of tachycardia. Vital stable, the patient is afebrile. Cardiac workup is initiated. Initial EKG is concerning for A-fib with RVR. Patient spontaneously converted to normal sinus rhythm. No evidence of ischemia. Lab work reviewed and noted. No major abnormalities. Potassium is optimized. Magnesium 1.7, 2 g IV were given. Chest x-ray without acute findings. A call was placed to the patient's government relations manager Dr. Velásquez which was not returned during the patients ED visit. Patient reports she is feeling better would like to go home. She will continue to take her medications as prescribed. She has a history of paroxysmal A-fib and feels she can manage this well. She will follow-up with her government relations manager. Return precautions were discussed. All questions were answered. The patient was discharged home Medical Records Medical records reviewed: Yes I reviewed the patient's medical records Lab Data Lab results reviewed: Yes I reviewed the patient's lab results Labs: Lab Results 08/14/24 Range/Units 11:35 WBC 8.3 (4.0-11.0) 10^3/uL RBC 4.39 (4.20-5.40) 10^6/uL Hgb 12.7 (12.0-16.0) g/dL Hct 40.5 (36.0-48.0) % MCV 92.3 (81.0-99.0) fL MCH 28.9 (26.7-34.0) pg MCHC 31.4 (29.9-35.2) g/dL RDW 13.5 (11.0-15.0) % Plt Count 298 (150-450) 10^3/uL MPV 10.2 (9.5-13.5) fL Neut % (Auto) 64.8 (43.0-75.0) % Lymph % (Auto) 20.5 (20.5-60.0) % Rankin % (Auto) 10.7 (1.7-12.0) % Eos % (Auto) 2.5 (0.9-7.0) % Baso % (Auto) 1.3 (0.2-2.0) % Neut # (Auto) 5.4 (1.4-6.5) 10^3/uL Lymph # (Auto) 1.7 (1.2-3.8) 10^3/uL Rankin # (Auto) 0.9 H (0.3-0.8) 10^3/uL Eos # (Auto) 0.2 (0.0-0.7) 10^3/uL Baso # (Auto) 0.1 (0.0-0.1) 10^3/uL Abs Immat Gran (auto) 0.02 (0.00-0.03) 10^3/uL Imm/Tot Granulo (auto) 0.2 (0.0-0.5) % PT 11.2 (9.0-11.6) sec INR 1.06 APTT 26.9 (22.3-36.2) sec Sodium 137 (136-145) mmol/L Potassium 4.2 (3.5-5.1) mmol/L Chloride 105 (98-107) mmol/L Carbon Dioxide 25.9 (21.0-32.0) mmol/L Anion Gap 10.3 BUN 17.0 (7.0-18.0) mg/dL Creatinine 1.35 H (0.55-1.02) mg/dL Est GFR ( Amer) 45 L (>=60 mL/min/1.73m^2) Est GFR (Non-Af Amer) 37 L (>=60 mL/min/1.73m^2) BUN/Creatinine Ratio 12.6 Glucose 129 H (74-106) mg/dL Calcium 8.3 L (8.5-10.1) mg/dL Magnesium 1.7 L (1.8-2.4) mg/dL Troponin I High Sens 15.2 (4.0-51.3) pg/mL ECG Data Attestation: I personally reviewed and interpreted this ECG as follows: Discharge Plan Discharge Chief Complaint: Chest Pain Clinical Impression: Atrial fibrillation with RVR Patient Disposition: Home, Self-Care Time of Disposition Decision: 15:37 Condition: Good Mode of Transportation: Private Vehicle Prescriptions / Home Meds: No Action lisinopril 20 mg tablet 20 mg PO DAILY metoprolol succinate 25 mg tablet extended release 24 hr 25 mg PO DAILY aspirin [Adult Low Dose Aspirin] 81 mg tablet,delayed release (DR/EC) 81 mg PO DAILY Eliquis 5 mg tablet 5 mg PO DAILY ezetimibe 10 mg tablet 10 mg PO DAILY metoprolol succinate 25 mg tablet extended release 24 hr 50 mg PO DAILY Qty: 20 0RF Print Language: Belarusian Instructions: A-fib (Atrial Fibrillation) (ED) Additional Instructions: Call the office of your primary care doctor to arrange for follow-up within the above-stated timeframe. Your ED visit was focused on your acute issue and does not replace primary care. You should review your labs, imaging, and diagnoses from this ED visit with your primary care physician. There may be non-emergent/ incidental findings that need further evaluation. You should review your vital signs including blood pressure with your PCP. If you were prescribed medications you should discuss possible side-effects and drug interactions with your pharmacist. Call 911 or go to the nearest Emergency Department if you develop any new or worsening symptoms. Seek immediate medical attention if you develop: worsening chest pain, new chest pain, nausea, vomiting, weakness, numbness, tingling, excessive sweating, shortness of breath, difficulty breathing, loss of motion in your arms or legs, or any new or worsening symptoms. Follow-up with your government relations manager to discuss your medications and episode of atrial fibrillation. Referrals: Lennox Gilman DO [Primary Care Provider] - 1 week
== END 2024-08-14 15:55 | disposition home or self-care (01) ==
PROVIDERS: Emergency Provider Student in an Organized Health Care Education/Training Program; PCP Internal Medicine
DX: I48.20 Chronic atrial fibrillation, unspecified (principal); I48.0 Paroxysmal atrial fibrillation; Z79.899 Other long term (current) drug therapy
CPT/HCPCS: 36415; 71045; 80048; 83735; 84484; 85025; 85610; 85730; 93005; 96365; 99285; J3475